=== PATIENT | female | born 1970 | race Caucasian/White ===

== ENCOUNTER 2016-04-23 13:05 | Emergency (ER) | payer OTHER ==
[2016-04-23 13:17] VITALS: BP 144/78; PULSE 96; RESP 20; TEMP 98.1
--- NOTE | 2016-04-23 13:30 | ED ---
Medical Clearance HPI - General Chief complaint: Medical Clearance Stated complaint: anxiety Time Seen by Provider: 04/23/16 13:24 Source: patient, RN notes reviewed Mode of arrival: ambulatory - History of Present Illness Initial comments: Patient is a 45-year-old female with significant past medical history for anxiety, who presents emergency room today with chief complaint of needing medication refill. She states that her Zoloft and Trileptal. Does admit that she has an appointment with a counselor next week. Patient does admit to increased anxiety that started over the last 2-3 days. Patient denies any complaints or associated symptoms. Patient denies any recent fever, chills, shortness of breath, chest pain, back pain, abdominal pain, nausea or vomiting, numbness or tingling, dysuria or hematuria, constipation or diarrhea, headaches or visual changes, or any other complaints. Home medications: Previous Rx's Medication Instructions Recorded OXcarbazepine [Trileptal] 600 mg PO BID #20 tab 04/23/16 Sertraline [Zoloft] 1.5 tab PO QAM #15 tab 04/23/16 Allergies/Adverse reactions: Allergies Allergy/AdvReac Type Severity Reaction Status Date / Time aspirin Allergy Unknown Verified 04/23/16 13:18 Review of Systems ROS Statement: Those systems with pertinent positive or pertinent negative responses have been documented in the HPI. ROS Other: All systems not noted in ROS Statement are negative. Past Medical History Additional Past Medical History / Comment(s): back/neck pain History of Any Multi-Drug Resistant Organisms: None Reported Past Surgical History: Orthopedic Surgery, Tubal Ligation, Uterine Ablation Past Psychological History: Bipolar, Depression Smoking Status: Current every day smoker Past Alcohol Use History: None Reported Past Drug Use History: None Reported General Exam - General Exam Comments Initial Comments: General: The patient is awake and alert, in no distress, and does not appear acutely ill. Eye: Pupils are equal, round and reactive to light, extra-ocular movements are intact. No nystagmus. There is normal conjunctiva bilaterally. No signs of icterus. Ears, nose, mouth and throat: There are moist mucous membranes and no oral lesions. Neck: The neck is supple, there is no tenderness or JVD. Cardiovascular: There is a regular rate and rhythm. No murmur, rub or gallop is appreciated. Respiratory: Lungs are clear to auscultation, respirations are non-labored, breath sounds are equal. No wheezes, stridor, rales, or rhonchi. Musculoskeletal: Normal ROM, no tenderness. Strength 5/5. Sensation intact. Pulses equal bilaterally 2+. Neurological: A&O x 3. CN II-XII intact, There are no obvious motor or sensory deficits. Coordination appears grossly intact. Speech is normal. Skin: Skin is warm and dry and no rashes or lesions are noted. Psychiatric: Cooperative, appropriate mood & affect, normal judgment. Limitations: no limitations Course Vital Signs 04/23/16 13:15 Temperature 98.1 F Pulse Rate 96 Respiratory 20 Rate Blood Pressure 144/78 O2 Sat by Pulse 98 Oximetry Medical Decision Making - Medical Decision Making Patient will be given prescription for Zoloft and Trileptal in the emergency room for the next 10 days that she's able follow-up. Disposition Clinical Impression: Medication refill Disposition: HOME SELF-CARE Condition: Good Instructions: Medicine Refill (ED) Additional Instructions: Please use medication as prescribed and follow-up with therapist as discussed. Please return to emergency room if the symptoms increase or worsen or for any other concerns. Prescriptions: OXcarbazepine [Trileptal] 600 mg PO BID #20 tab Sertraline [Zoloft] 1.5 tab PO QAM #15 tab Time of Disposition: 13:28
== END 2016-04-23 13:35 | disposition home or self-care (01) ==
LOC: EC 13:05
DX: Z76.0 Encounter for issue of repeat prescription (principal); F41.9 Anxiety disorder, unspecified; F31.9 Bipolar disorder, unspecified; F17.200 Nicotine dependence, unspecified, uncomplicated; Z88.6 Allergy status to analgesic agent
CPT/HCPCS: 99281

== ENCOUNTER 2016-05-12 10:16 | Emergency (ER) | payer OTHER ==
[2016-05-12 10:26] VITALS: BP 151/87; PULSE 77; RESP 18; TEMP 97
--- NOTE | 2016-05-12 10:34 | ED ---
Upper Extremity HPI - General Chief Complaint: Extremity Injury, Upper Stated Complaint: hand pain Time Seen by Provider: 05/12/16 10:29 Source: patient, RN notes reviewed Mode of arrival: ambulatory Limitations: no limitations - History of Present Illness Initial Comments: 45-year-old female presents emergency Department chief complaint right hand pain. Patient states that a few days ago she bent her index finger back while making her bed. Patient states she further injured her hand this morning when she got up out of bed and tripped over some belongings on the ground. She states she fell forward striking her hand she now has swelling over her second metacarpal. Patient states that it is very painful. She is right-hand dominant has had no previous injuries. Patient denies any other muscle skeletal injury. Denies any head injury no LOC. Patient states she did ice it with him relief of the symptoms. Place: home - Related Data Previous Rx's Medication Instructions Recorded OXcarbazepine [Trileptal] 600 mg PO BID #20 tab 04/23/16 Sertraline [Zoloft] 1.5 tab PO QAM #15 tab 04/23/16 Allergies Allergy/AdvReac Type Severity Reaction Status Date / Time aspirin Allergy Unknown Verified 05/12/16 10:25 Review of Systems ROS Statement: Those systems with pertinent positive or pertinent negative responses have been documented in the HPI. ROS Other: All systems not noted in ROS Statement are negative. Past Medical History Additional Past Medical History / Comment(s): back/neck pain History of Any Multi-Drug Resistant Organisms: None Reported Past Surgical History: Orthopedic Surgery, Tubal Ligation, Uterine Ablation Past Psychological History: Bipolar, Depression Smoking Status: Current every day smoker Past Alcohol Use History: None Reported Past Drug Use History: None Reported General Exam Limitations: no limitations General appearance: alert, in no apparent distress Respiratory exam: Present: normal lung sounds bilaterally. Absent: respiratory distress, wheezes, rales, rhonchi, stridor Cardiovascular Exam: Present: regular rate, normal rhythm, normal heart sounds. Absent: systolic murmur, diastolic murmur, rubs, gallop, clicks Extremities exam: Present: other (Right hand there is swelling noted over the second metacarpal, moderate tenderness over the second metacarpal there is pain with range of motion second digit remaining hand is nontender wrist nontender full range of motion) Neurological exam: Present: alert, oriented X3, CN II-XII intact Skin exam: Present: warm, dry, intact, normal color. Absent: rash Course Vital Signs 05/12/16 10:24 Temperature 97.0 F L Pulse Rate 77 Respiratory 18 Rate Blood Pressure 151/87 O2 Sat by Pulse 100 Oximetry Medical Decision Making - Medical Decision Making 45-year-old female presented emergency Department chief complaint of right hand pain. Patient has a hamstring x-ray showed no acute fracture. - Radiology Data Radiology results: report reviewed, image reviewed X-ray of the hand no acute fracture. Disposition Clinical Impression: Sprain of right hand Disposition: HOME SELF-CARE Condition: Stable Instructions: Hand Sprain (ED) Additional Instructions: Please return to the Emergency Department if symptoms worsen or any other concerns. Time of Disposition: 10:50
--- NOTE | 2016-05-12 10:53 | XR ---
EXAMINATION TYPE: XR hand complete RT DATE OF EXAM: 05/12/2016 10:45 AM COMPARISON: NONE HISTORY: Pain TECHNIQUE: Three views are submitted. FINDINGS: The osseous structures are intact. The joint spaces are preserved and there is no acute fracture or dislocation. IMPRESSION: 1. No definite acute fracture or dislocation if symptoms persist, follow-up study in 7 to 10 days wo uld be suggested
== END 2016-05-12 11:03 | disposition home or self-care (01) ==
LOC: EC 10:16
DX: S63.91XD Sprain of unspecified part of right wrist and hand, subsequent encounter (principal); W01.10XD Fall on same level from slipping, tripping and stumbling with subsequent striking against unspecified object, subsequent encounter; F31.9 Bipolar disorder, unspecified; F17.200 Nicotine dependence, unspecified, uncomplicated; Z79.899 Other long term (current) drug therapy; Z88.6 Allergy status to analgesic agent; Y93.E9 Activity, other interior property and clothing maintenance
CPT/HCPCS: 99283

== ENCOUNTER 2016-05-20 14:28 | Emergency (ER) | payer OTHER ==
[2016-05-20 14:47] VITALS: TEMP 97.8
[2016-05-20] MEDS ORDERED: SODIUM CHLORIDE 0.9% 1,000 ML IV ONE (15:52)
[2016-05-20] MEDS ORDERED: ONDANSETRON 4 MG/2 ML VIAL IVP STA (15:52)
[2016-05-20] MEDS ORDERED: LIDOCAINE VISCOUS 2% 15 ML CUP MUCOUS MEM STA (15:52)
[2016-05-20] MEDS ORDERED: FAMOTIDINE 20 MG/2 ML VIAL IV STA (15:52)
[2016-05-20] MEDS ORDERED: MAG HYDROX/AL HYDROX/SIMETH 30 ML CUP PO PRN (15:52)
[2016-05-20] MEDS ORDERED: DICYCLOMINE 10 MG/ML 2 ML AMP IM STA (15:53)
--- NOTE | 2016-05-20 15:56 | ED ---
General Adult HPI - General Chief complaint: ENT Stated complaint: Abd Pain Source: patient Mode of arrival: ambulatory Limitations: no limitations - History of Present Illness Initial comments: Patient is a pleasant 45 year old female present for evaluation for sharp stabbing epigastric pain with nausea vomiting and diarrhea 24 hours. Past medical history as below. Patient states that she has a known history of gastritis which was diagnosed when she was younger. Her symptoms started yesterday. She tried taking Tums, drinking milk, taking her Prilosec with limited relief. Said that she also feels somewhat fatigued. Has had one episode of liquid brown stool yesterday. Stated that she just feels nauseous and has had a few episodes of emesis which was mainly stomach contents. The pain radiates up to her midline chest. Sucking on peppermint seemed to help. She also admits to having subjective chills and fevers. She did get a flu shot this year. Denies having metallic taste in the back of her throat. Still has her gallbladder. Denies congestion, URI symptoms, chest pain, cough, shortness of breath, pain or burning with urination. - Related Data Home Medications Medication Instructions Recorded Confirmed Albuterol Sulfate [Proair Hfa] 1 - 2 puff INHALATION RT-Q6H PRN 05/20/16 Sertraline [Zoloft] 150 mg PO QAM 05/20/16 05/20/16 Previous Rx's Medication Instructions Recorded OXcarbazepine [Trileptal] 600 mg PO BID #20 tab 04/23/16 Omeprazole [PriLOSEC] 20 mg PO AC-BID 7 Days 05/20/16 Ondansetron Odt [Zofran Odt] 4 mg PO Q8H PRN #10 tab 05/20/16 Allergies Allergy/AdvReac Type Severity Reaction Status Date / Time aspirin Allergy Unknown Verified 05/20/16 15:58 Review of Systems ROS Statement: Those systems with pertinent positive or pertinent negative responses have been documented in the HPI. ROS Other: All systems not noted in ROS Statement are negative. Past Medical History Additional Past Medical History / Comment(s): back/neck pain History of Any Multi-Drug Resistant Organisms: None Reported Past Surgical History: Orthopedic Surgery, Tubal Ligation, Uterine Ablation Past Psychological History: Bipolar, Depression Smoking Status: Current every day smoker Past Alcohol Use History: None Reported Past Drug Use History: None Reported General Exam Limitations: no limitations General appearance: alert, in no apparent distress, other (Well-appearing. Nontoxic.) Head exam: Present: atraumatic, normocephalic, normal inspection Eye exam: Present: normal appearance, PERRL, EOMI. Absent: scleral icterus, conjunctival injection, periorbital swelling ENT exam: Present: normal exam, mucous membranes moist Neck exam: Present: normal inspection. Absent: tenderness, meningismus, lymphadenopathy Respiratory exam: Present: normal lung sounds bilaterally. Absent: respiratory distress, wheezes, rales, rhonchi, stridor Cardiovascular Exam: Present: regular rate, normal rhythm, normal heart sounds. Absent: systolic murmur, diastolic murmur, rubs, gallop, clicks GI/Abdominal exam: Present: soft, tenderness, normal bowel sounds, other ( Tenderness elicited with palpation of the epigastric area. No pain palpated anywhere else. Negative Cervantes sign. Negative McBurney sign. Soft abdomen. No peritoneal signs.). Absent: distended, guarding, rebound, rigid Extremities exam: Present: normal inspection, full ROM, normal capillary refill. Absent: tenderness, pedal edema, joint swelling, calf tenderness Back exam: Present: normal inspection Neurological exam: Present: alert, oriented X3, CN II-XII intact Psychiatric exam: Present: normal affect, normal mood Skin exam: Present: warm, dry, intact, normal color. Absent: rash Course Vital Signs 05/20/16 05/20/16 14:44 18:10 Temperature 97.8 F 97.8 F Pulse Rate 75 73 Respiratory 20 18 Rate Blood Pressure 128/59 136/75 O2 Sat by Pulse 96 99 Oximetry Medical Decision Making - Medical Decision Making Patient presents for evaluation for 1 day history of nausea vomiting and diarrhea. She also has epigastric abdominal pain. Patient states she has a known history of gastritis. Physical exam findings and I consistent with acute cholecystitis at this time. Most likely a viral illness. We'll order basic labs with an EKG, GI cocktail, urinalysis, beta-hCG. 1730: Reviewed laboratory studies. Largely unremarkable outside of a mild hyponatremia at 1:30. Reviewed urinalysis which not reveal ketones in the urine. No UTI. Influenza negative. Went to go reevaluate the patient socially states that she is much improved. Her nausea and vomiting have subsided. Epigastric pain greatly improved. Believe her symptoms are related to viral syndrome versus possible gastritis that she has a history of it. Feel comfortable discharging the patient home with Luis. Encourage close follow-up with primary care physician. She states she'll call and make an appointment tomorrow. Discussed signs and symptoms on when to return to emergency department. Comfortable with discharge home and will follow-up. Nothing by mouth the rest of the day. Brat diet over the next several days until improved. 1747: Reviewed EKG. Normal sinus rhythm at 60. IA 164. QRS 94. QTc 452. No ST changes. - Lab Data Result diagrams: 05/20/16 16:25 05/20/16 16:25 Lab Results 05/20/16 05/20/16 05/20/16 Range/Units 16:25 16:25 16:25 WBC 9.1 (3.8-10.6) k/uL RBC 5.31 (3.80-5.40) m/uL Hgb 15.3 (11.4-16.0) gm/dL Hct 46.6 H (34.0-46.0) % MCV 87.7 (80.0-100.0) fL MCH 28.9 (25.0-35.0) pg MCHC 32.9 (31.0-37.0) g/dL RDW 13.0 (11.5-15.5) % Plt Count 325 (150-450) k/uL Neutrophils % 69 % Lymphocytes % 22 % Monocytes % 6 % Eosinophils % 1 % Basophils % 0 % Neutrophils # 6.2 (1.3-7.7) k/uL Lymphocytes # 2.0 (1.0-4.8) k/uL Monocytes # 0.5 (0-1.0) k/uL Eosinophils # 0.1 (0-0.7) k/uL Basophils # 0.0 (0-0.2) k/uL Sodium 130 L (137-145) mmol/L Potassium 4.1 (3.5-5.1) mmol/L Chloride 95 L (98-107) mmol/L Carbon Dioxide 27 (22-30) mmol/L Anion Gap 8 mmol/L BUN 7 (7-17) mg/dL Creatinine 0.66 (0.52-1.04) mg/dL Est GFR (MDRD) Af Amer >60 (>60 ml/min/1.73 sqM) Est GFR (MDRD) Non-Af >60 (>60 ml/min/1.73 sqM) Glucose 86 (74-99) mg/dL Calcium 8.5 (8.4-10.2) mg/dL Total Bilirubin 0.5 (0.2-1.3) mg/dL AST 39 H (14-36) U/L ALT 42 (9-52) U/L Alkaline Phosphatase 57 (38-126) U/L Total Protein 6.6 (6.3-8.2) g/dL Albumin 3.7 (3.5-5.0) g/dL Urine Color Urine Appearance (Clear) Urine pH (5.0-8.0) Ur Specific [place] (1.001-1.035) Urine Protein (Negative) Urine Glucose (UA) (Negative) Urine Ketones (Negative) Urine Blood (Negative) Urine Nitrite (Negative) Urine Bilirubin (Negative) Urine Urobilinogen (<2.0) mg/dL Ur Leukocyte Esterase (Negative) Urine HCG, Qual (Not Detectd) Influenza Type A RNA Not Detected (Not Detectd) Influenza Type B (PCR) Not Detected (Not Detectd) 05/20/16 05/20/16 Range/Units 16:37 16:37 WBC (3.8-10.6) k/uL RBC (3.80-5.40) m/uL Hgb (11.4-16.0) gm/dL Hct (34.0-46.0) % MCV (80.0-100.0) fL MCH (25.0-35.0) pg MCHC (31.0-37.0) g/dL RDW (11.5-15.5) % Plt Count (150-450) k/uL Neutrophils % % Lymphocytes % % Monocytes % % Eosinophils % % Basophils % % Neutrophils # (1.3-7.7) k/uL Lymphocytes # (1.0-4.8) k/uL Monocytes # (0-1.0) k/uL Eosinophils # (0-0.7) k/uL Basophils # (0-0.2) k/uL Sodium (137-145) mmol/L Potassium (3.5-5.1) mmol/L Chloride (98-107) mmol/L Carbon Dioxide (22-30) mmol/L Anion Gap mmol/L BUN (7-17) mg/dL Creatinine (0.52-1.04) mg/dL Est GFR (MDRD) Af Amer (>60 ml/min/1.73 sqM) Est GFR (MDRD) Non-Af (>60 ml/min/1.73 sqM) Glucose (74-99) mg/dL Calcium (8.4-10.2) mg/dL Total Bilirubin (0.2-1.3) mg/dL AST (14-36) U/L ALT (9-52) U/L Alkaline Phosphatase (38-126) U/L Total Protein (6.3-8.2) g/dL Albumin (3.5-5.0) g/dL Urine Color Yellow Urine Appearance Clear (Clear) Urine pH 6.5 (5.0-8.0) Ur Specific [place] 1.011 (1.001-1.035) Urine Protein Negative (Negative) Urine Glucose (UA) Negative (Negative) Urine Ketones Negative (Negative) Urine Blood Negative (Negative) Urine Nitrite Negative (Negative) Urine Bilirubin Negative (Negative) Urine Urobilinogen <2.0 (<2.0) mg/dL Ur Leukocyte Esterase Negative (Negative) Urine HCG, Qual Not Detected (Not Detectd) Influenza Type A RNA (Not Detectd) Influenza Type B (PCR) (Not Detectd) Disposition Clinical Impression: Nausea vomiting and diarrhea Disposition: HOME SELF-CARE Condition: Good Instructions: Abdominal Pain (ED), Acute Nausea and Vomiting (ED) Prescriptions: Omeprazole [PriLOSEC] 20 mg PO AC-BID 7 Days Ondansetron Odt [Zofran Odt] 4 mg PO Q8H PRN #10 tab PRN Reason: Nausea And Vomiting Referrals: Letty Renee MD [Primary Care Provider] - 1-2 days
[2016-05-20 16:57] LABS: Basophils % (A) 0 %; CH 29.6; CHCM 33.8; Eosinophils # (A) 0.1 k/uL (0-0.7); Eosinophils % (A) 1 %; HCT 46.6 % (34.0-46.0); HGB 15.3 gm/dL (11.4-16.0); Luc # (Auto) 0.14; Luc % (Auto) 2; Lymphocytes % (A) 22 %; MCH 28.9 pg (25.0-35.0); MCHC 32.9 g/dL (31.0-37.0); MCV 87.7 fL (80.0-100.0); Mean Platelet Volume 6.3; Monocytes # (A) 0.5 k/uL (0-1.0); Monocytes % (A) 6 %; Neutrophils # (A) 6.2 k/uL (1.3-7.7); Neutrophils % (A) 69 %; RBC 5.31 m/uL (3.80-5.40); WBC 9.1 k/uL (3.8-10.6); WBC (Perox) 9.15
[2016-05-20 16:57] LABS: Appearance,Urine Clear (Clear); Bilirubin,Urine Negative (Negative); Glucose,Urine (UA) Negative (Negative); Ketones,Urine Negative (Negative); Leukocyte Esterase,Urine Negative (Negative); Nitrite,Urine Negative (Negative); PH, Urine 6.5 (5.0-8.0); Protein,Urine Negative (Negative); Specific Gravity,Urine 1.011 (1.001-1.035); UA Billing (MACRO vs. MICRO) CHEM; Urobilinogen,Urine <2.0 mg/dL (<2.0)
[2016-05-20 17:07] LABS: ALT 42 U/L (9-52); AST 39 U/L (14-36); Alkaline Phosphatase 57 U/L (38-126); Anion Gap 8 mmol/L; Blood Urea Nitrogen 7 mg/dL (7-17); Calcium 8.5 mg/dL (8.4-10.2); Carbon Dioxide 27 mmol/L (22-30); Chloride 95 mmol/L (98-107); Glucose 86 mg/dL (74-99); Non-African American GFR(MDRD) >60 (>60 ml/min/1.73 sqM); Sodium 130 mmol/L (137-145); Total Bilirubin 0.5 mg/dL (0.2-1.3); Total Protein 6.6 g/dL (6.3-8.2)
[2016-05-20 17:15] LABS: Potassium 4.1 mmol/L (3.5-5.1)
[2016-05-20 18:12] VITALS: BP 136/75; PULSE 73; RESP 18
== END 2016-05-20 18:10 | disposition home or self-care (01) ==
LOC: EC 14:28
DX: R11.2 Nausea with vomiting, unspecified (principal); R19.7 Diarrhea, unspecified; R10.13 Epigastric pain; F31.9 Bipolar disorder, unspecified; F17.200 Nicotine dependence, unspecified, uncomplicated; Z79.899 Other long term (current) drug therapy; Z88.6 Allergy status to analgesic agent
CPT/HCPCS: 36415; 93005; 80053; 85025; 81003; 81025; 87502; 99284; 96374; 96375; 96361; 96372; J0500; J2405

== ENCOUNTER 2016-07-29 12:29 | Emergency (ER) | payer OTHER ==
--- NOTE | 2016-07-29 12:41 | ED ---
General Adult HPI - General Stated complaint: Syncope Time Seen by Provider: 07/29/16 12:30 Source: RN notes reviewed - History of Present Illness Initial comments: This is a 46-year-old female presents emergency Department with a past medical history significant for bipolar and narcotics abuse. Patient states she's been clean for a while. Patient comes in today because she gave plasma and thereafter she became lightheaded and nauseated and fell to the ground hit her head on the cement nausea complains of right-sided neck pain and a headache. Patient does not know if she passed out when she hit the ground. Patient denies any chest pain palpitations difficult breathing or shortness of breath. Patient states while she is lying here she does not feel lightheaded. Patient denies abdominal pain. Patient denies nausea currently she denies any vomiting or diarrhea recently. Patient denies any recent history of any fever or cough. Patient states she's given plasma before but not had this reaction. - Related Data Home Medications Medication Instructions Recorded Confirmed Albuterol Sulfate [Proair Hfa] 2 puff INHALATION RT-Q6H PRN 05/20/16 07/29/16 Cetirizine HCl [Zyrtec] 10 mg PO DAILY 07/29/16 07/29/16 Citalopram Hydrobromide [CeleXA] 20 mg PO DAILY 07/29/16 07/29/16 Multivitamins, Thera [Multivitamin 1 tab PO DAILY 07/29/16 07/29/16 (formulary)] Omeprazole [PriLOSEC] 20 mg PO DAILY 07/29/16 07/29/16 Sodium Chloride [[place]] 1 spray EA NOSTRIL DAILY PRN 07/29/16 07/29/16 Previous Rx's Medication Instructions Recorded OXcarbazepine [Trileptal] 600 mg PO BID #20 tab 04/23/16 Allergies Allergy/AdvReac Type Severity Reaction Status Date / Time aspirin Allergy Unknown Verified 07/29/16 13:21 Review of Systems ROS Statement: Those systems with pertinent positive or pertinent negative responses have been documented in the HPI. ROS Other: All systems not noted in ROS Statement are negative. Past Medical History Additional Past Medical History / Comment(s): back/neck pain History of Any Multi-Drug Resistant Organisms: None Reported Past Surgical History: Orthopedic Surgery, Tubal Ligation, Uterine Ablation Past Psychological History: Bipolar, Depression Smoking Status: Current every day smoker Past Alcohol Use History: None Reported Past Drug Use History: None Reported General Exam - General Exam Comments Initial Comments: GENERAL: Patient is well-developed and well-nourished. Patient is nontoxic and well- hydrated and is in no acute distress. ENT: Neck is soft and supple. No significant lymphadenopathy is noted. Oropharynx is clear. Moist mucous membranes. Patient has some pain in the right trapezius muscle. EYES: The sclera were anicteric and conjunctiva were pink and moist. Extraocular movements were intact and pupils were equal round and reactive to light. Eyelids were unremarkable. PULMONARY: Unlabored respirations. Good breath sounds bilaterally. No audible rales rhonchi or wheezing was noted. CARDIOVASCULAR: There is a regular rate and rhythm without any murmurs gallops or rubs. ABDOMEN: Soft and nontender with normal bowel sounds. SKIN: Skin is clear with no lesions or rashes and otherwise unremarkable. NEUROLOGIC: Patient is alert and oriented x3. Cranial nerves II through XII are grossly intact. Motor and sensory are also intact. Normal speech, volume and content. Symmetrical smile. MUSCULOSKELETAL: Normal extremities with adequate strength and full range of motion. No lower extremity swelling or edema. No calf tenderness. LYMPHATICS: No significant lymphadenopathy is noted PSYCHIATRIC: Normal psychiatric evaluation. Normal interpersonal interactions appears functionally intact in deals appropriately with others. No signs of depression. No signs of anxiety. Course Vital Signs 07/29/16 07/29/16 12:32 14:02 Temperature 96.9 F L Pulse Rate 59 L Pulse Rate [ 83 Right Sitting Pulse Oximetery ] Pulse Rate [ 77 Right Standing] Pulse Rate [ 64 Right Supine Pulse Oximetery ] Respiratory 18 Rate Blood Pressure 118/66 Blood Pressure 115/59 [Left Arm Sitting] Blood Pressure 123/68 [Left Arm Standing] Blood Pressure 114/58 [Left Arm Supine] O2 Sat by Pulse 97 Oximetry Medical Decision Making - Medical Decision Making EKG shows sinus bradycardia 54 bpm AL interval is 152 QRS is under QT intervals 490 QTC is 464 per patient's EKG shows no acute abnormality. CT of the brain and C-spine are negative. Chest x-ray is negative. Patient's orthostatics were negative. - Lab Data Result diagrams: 07/29/16 12:53 07/29/16 12:53 Lab Results 07/29/16 07/29/16 07/29/16 Range/Units 12:53 12:53 12:53 WBC 9.2 (3.8-10.6) k/uL RBC 5.43 H (3.80-5.40) m/uL Hgb 15.5 (11.4-16.0) gm/dL Hct 46.8 H (34.0-46.0) % MCV 86.2 (80.0-100.0) fL MCH 28.5 (25.0-35.0) pg MCHC 33.1 (31.0-37.0) g/dL RDW 14.3 (11.5-15.5) % Plt Count 320 (150-450) k/uL Neutrophils % 73 % Lymphocytes % 17 % Monocytes % 7 % Eosinophils % 2 % Basophils % 1 % Neutrophils # 6.7 (1.3-7.7) k/uL Lymphocytes # 1.5 (1.0-4.8) k/uL Monocytes # 0.6 (0-1.0) k/uL Eosinophils # 0.1 (0-0.7) k/uL Basophils # 0.1 (0-0.2) k/uL PT (9.0-12.0) sec INR (<1.1) APTT (22.0-30.0) sec Sodium 130 L (137-145) mmol/L Potassium 3.7 (3.5-5.1) mmol/L Chloride 105 (98-107) mmol/L Carbon Dioxide 22 (22-30) mmol/L Anion Gap 3 mmol/L BUN 9 (7-17) mg/dL Creatinine 0.56 (0.52-1.04) mg/dL Est GFR (MDRD) Af Amer >60 (>60 ml/min/1.73 sqM) Est GFR (MDRD) Non-Af >60 (>60 ml/min/1.73 sqM) Glucose 135 H (74-99) mg/dL Calcium 8.1 L (8.4-10.2) mg/dL Magnesium 1.4 L (1.6-2.3) mg/dL Total Bilirubin 0.4 (0.2-1.3) mg/dL AST 39 H (14-36) U/L ALT 28 (9-52) U/L Alkaline Phosphatase 53 (38-126) U/L Total Creatine Kinase 643 H (30-135) U/L CK-MB (CK-2) 7.9 H* (0.0-2.4) ng/mL CK-MB (CK-2) Rel Index 1.2 Troponin I <0.012 (0.000-0.034) ng/mL Total Protein 5.2 L (6.3-8.2) g/dL Albumin 2.8 L (3.5-5.0) g/dL 07/29/16 Range/Units 12:53 WBC (3.8-10.6) k/uL RBC (3.80-5.40) m/uL Hgb (11.4-16.0) gm/dL Hct (34.0-46.0) % MCV (80.0-100.0) fL MCH (25.0-35.0) pg MCHC (31.0-37.0) g/dL RDW (11.5-15.5) % Plt Count (150-450) k/uL Neutrophils % % Lymphocytes % % Monocytes % % Eosinophils % % Basophils % % Neutrophils # (1.3-7.7) k/uL Lymphocytes # (1.0-4.8) k/uL Monocytes # (0-1.0) k/uL Eosinophils # (0-0.7) k/uL Basophils # (0-0.2) k/uL PT 10.8 (9.0-12.0) sec INR 1.1 (<1.1) APTT 20.9 L (22.0-30.0) sec Sodium (137-145) mmol/L Potassium (3.5-5.1) mmol/L Chloride (98-107) mmol/L Carbon Dioxide (22-30) mmol/L Anion Gap mmol/L BUN (7-17) mg/dL Creatinine (0.52-1.04) mg/dL Est GFR (MDRD) Af Amer (>60 ml/min/1.73 sqM) Est GFR (MDRD) Non-Af (>60 ml/min/1.73 sqM) Glucose (74-99) mg/dL Calcium (8.4-10.2) mg/dL Magnesium (1.6-2.3) mg/dL Total Bilirubin (0.2-1.3) mg/dL AST (14-36) U/L ALT (9-52) U/L Alkaline Phosphatase (38-126) U/L Total Creatine Kinase (30-135) U/L CK-MB (CK-2) (0.0-2.4) ng/mL CK-MB (CK-2) Rel Index Troponin I (0.000-0.034) ng/mL Total Protein (6.3-8.2) g/dL Albumin (3.5-5.0) g/dL Disposition Clinical Impression: Orthostatic hypotension, Head injury Disposition: HOME SELF-CARE Condition: Good Instructions: Hypotension (ED) Additional Instructions: Patient should stop giving plasma or at least hydrate significantly before and after giving plasma Referrals: Letty Renee MD [Primary Care Provider] - 1-2 days Time of Disposition: 14:22
[2016-07-29 13:03] LABS: Basophils # (A) 0.1 k/uL (0-0.2); Basophils % (A) 1 %; CH 29.2; Eosinophils # (A) 0.1 k/uL (0-0.7); Eosinophils % (A) 2 %; HCT 46.8 % (34.0-46.0); HDW 2.68; HGB 15.5 gm/dL (11.4-16.0); Luc # (Auto) 0.17; Luc % (Auto) 2; Lymphocytes # (A) 1.5 k/uL (1.0-4.8); Lymphocytes % (A) 17 %; MCH 28.5 pg (25.0-35.0); MCHC 33.1 g/dL (31.0-37.0); MCV 86.2 fL (80.0-100.0); Monocytes # (A) 0.6 k/uL (0-1.0); Monocytes % (A) 7 %; Neutrophils # (A) 6.7 k/uL (1.3-7.7); Neutrophils % (A) 73 %; RBC 5.43 m/uL (3.80-5.40); RDW 14.3 % (11.5-15.5); WBC 9.2 k/uL (3.8-10.6); WBC (Perox) 8.87
[2016-07-29 13:15] LABS: ALT 28 U/L (9-52); AST 39 U/L (14-36); Alkaline Phosphatase 53 U/L (38-126); Anion Gap 3 mmol/L; Blood Urea Nitrogen 9 mg/dL (7-17); Calcium 8.1 mg/dL (8.4-10.2); Carbon Dioxide 22 mmol/L (22-30); Chloride 105 mmol/L (98-107); Glucose 135 mg/dL (74-99); Magnesium 1.4 mg/dL (1.6-2.3); Non-African American GFR(MDRD) >60 (>60 ml/min/1.73 sqM); Potassium 3.7 mmol/L (3.5-5.1); Sodium 130 mmol/L (137-145); Total Bilirubin 0.4 mg/dL (0.2-1.3); Total Protein 5.2 g/dL (6.3-8.2)
[2016-07-29 13:18] LABS: INR 1.1 (<1.1); Prothrombin Time 10.8 sec (9.0-12.0)
[2016-07-29 13:26] LABS: Creatine Kinase 643 U/L (30-135)
--- NOTE | 2016-07-29 13:27 | CT ---
EXAMINATION TYPE: CT brain billy wo con DATE OF EXAM: 07/29/2016 COMPARISON: 12/31/2010 HISTORY: Syncope and collapse, hit head CT DLP: Brain 1054.2 and Cervical 502.8 mGycm Automated exposure control for dose reduction was used. TECHNIQUE: CT scan of the head and cervical spine are performed without contrast. FINDINGS: There is no acute intracranial hemorrhage, mass effect, or midline shift identified. The ventricles and sulci are within normal limits in size. The globes are intact and the visualized sin uses are clear. Soft tissue edema overlying the posterior right occiput. Hypoaeration of the mastoid air cells compatible with chronic mastoiditis. Cervical spine demonstrates multilevel degenerative disc disease with most marked changes at C5-6 and C6-C7. Posterior spondylosis with bilateral foraminal encroachment and possible canal stenosis sugge sted. Multilevel facet arthropathy noted. Odontoid intact. Assessment spinal canal limited due to non contrast technique and artifact. IMPRESSION: 1. There is no acute fracture or dislocation evident in the cervical spine. 2. No acute intracranial hemorrhage, mass effect, or midline shift is seen. #3. There is soft tissue edema along the right posterior occiput correlate for soft tissue hematoma or edema.
[2016-07-29 13:38] LABS: Troponin I <0.012 ng/mL (0.000-0.034)
[2016-07-29 13:53] LABS: Creatine Kinase MB 7.9 ng/mL (0.0-2.4)
[2016-07-29 13:58] LABS: Partial Thromboplastin Time 20.9 sec (22.0-30.0)
--- NOTE | 2016-07-29 14:27 | XR ---
EXAMINATION TYPE: XR chest 2V DATE OF EXAM: 07/29/2016 2:16 PM COMPARISON: 06/24/2009 HISTORY: Syncope TECHNIQUE: Frontal and lateral views of the chest are obtained. FINDINGS: Heart and mediastinum are normal. Lungs are clear. Diaphragm is normal. There are chest le ads. Bony thorax is intact. IMPRESSION: Normal chest. No change.
[2016-07-29 14:40] VITALS: BP 126/64; PULSE 59; RESP 20; TEMP 97.1
== END 2016-07-29 14:45 | disposition home or self-care (01) ==
LOC: EC 12:29
DX: S09.90XA Unspecified injury of head, initial encounter (principal); I95.1 Orthostatic hypotension; M54.2 Cervicalgia; F31.9 Bipolar disorder, unspecified; F17.200 Nicotine dependence, unspecified, uncomplicated; Z79.899 Other long term (current) drug therapy; Z88.6 Allergy status to analgesic agent; W01.198A Fall on same level from slipping, tripping and stumbling with subsequent striking against other object, initial encounter
CPT/HCPCS: 36415; 70450; 71020; 72125; 80053; 82550; 82553; 83735; 84484; 85025; 85610; 85730; 93005; 99284

== ENCOUNTER 2016-07-31 23:01 | Emergency (ER) | payer OTHER ==
[2016-07-31 23:46] VITALS: RESP 18
[2016-08-01] MEDS ORDERED: SODIUM CHLORIDE 0.9% 1,000 ML IV STA (00:03)
[2016-08-01 00:33] LABS: Basophils # (A) 0.1 k/uL (0-0.2); Basophils % (A) 1 %; CHCM 33.5; Eosinophils # (A) 0.3 k/uL (0-0.7); Eosinophils % (A) 3 %; HCT 41.3 % (34.0-46.0); HDW 2.63; HGB 14.2 gm/dL (11.4-16.0); Luc # (Auto) 0.25; Luc % (Auto) 3; Lymphocytes # (A) 2.2 k/uL (1.0-4.8); Lymphocytes % (A) 24 %; MCH 29.8 pg (25.0-35.0); MCHC 34.3 g/dL (31.0-37.0); MCV 86.9 fL (80.0-100.0); Mean Platelet Volume 6.4; Monocytes # (A) 0.6 k/uL (0-1.0); Monocytes % (A) 7 %; Neutrophils # (A) 5.9 k/uL (1.3-7.7); Neutrophils % (A) 63 %; RBC 4.75 m/uL (3.80-5.40); RDW 14.6 % (11.5-15.5); WBC 9.3 k/uL (3.8-10.6); WBC (Perox) 9.55
[2016-08-01 00:44] LABS: ALT 59 U/L (9-52); AST 84 U/L (14-36); Alkaline Phosphatase 69 U/L (38-126); Anion Gap 6 mmol/L; Blood Urea Nitrogen 9 mg/dL (7-17); Calcium 8.9 mg/dL (8.4-10.2); Carbon Dioxide 24 mmol/L (22-30); Chloride 107 mmol/L (98-107); Glucose 101 mg/dL (74-99); Magnesium 1.7 mg/dL (1.6-2.3); Non-African American GFR(MDRD) >60 (>60 ml/min/1.73 sqM); Potassium 4.2 mmol/L (3.5-5.1); Sodium 137 mmol/L (137-145); Total Bilirubin 0.3 mg/dL (0.2-1.3); Total Protein 5.6 g/dL (6.3-8.2)
[2016-08-01 00:53] LABS: Creatine Kinase 687 U/L (30-135)
--- NOTE | 2016-08-01 00:56 | ED ---
Neck Injury/Pain HPI - General Chief Complaint: Neck Pain/Injury Stated Complaint: headache and neck pain Time Seen by Provider: 07/31/16 23:50 Mode of arrival: ambulatory Limitations: no limitations - History of Present Illness Initial Comments: This patient is a 46-year-old woman who presents to be evaluated for neck pain, some dizziness, and feeling fatigued. The patient was seen yesterday after she had a fall. She had donated plasma, and then afterwards she had gotten up, felt extremely lightheaded and then woke up on the ground after she had apparently passed out. She felt that she must have fallen backwards as she had a bruise on the right posterior scalp. The patient was seen here yesterday after the fall, where she had CT of the head and neck that was negative. She was feeling better and went home. Over the course of the past day she has felt some tightness and pain developed the muscles of the right side of the neck. She also has been having fatigue and feeling somewhat lightheaded. MD Complaint: neck pain Radiation: right lateral Severity: moderate Quality: aching Consistency: constant Improves With: none Worsens With: none Context: fall Associated Symptoms: none - Related Data Home Medications Medication Instructions Recorded Confirmed Albuterol Sulfate [Proair Hfa] 2 puff INHALATION RT-Q6H PRN 05/20/16 07/31/16 Cetirizine HCl [Zyrtec] 10 mg PO DAILY 07/29/16 07/31/16 Citalopram Hydrobromide [CeleXA] 20 mg PO DAILY 07/29/16 07/31/16 Multivitamins, Thera [Multivitamin 1 tab PO DAILY 07/29/16 07/31/16 (formulary)] Omeprazole [PriLOSEC] 20 mg PO DAILY 07/29/16 07/31/16 Sodium Chloride [Tea] 1 spray EA NOSTRIL DAILY PRN 07/29/16 07/31/16 Previous Rx's Medication Instructions Recorded OXcarbazepine [Trileptal] 600 mg PO BID #20 tab 04/23/16 Methocarbamol [Robaxin-750] 750 mg PO TID PRN #30 tablet 08/01/16 Allergies Allergy/AdvReac Type Severity Reaction Status Date / Time aspirin Allergy Unknown Verified 07/29/16 13:21 Review of Systems ROS Statement: Those systems with pertinent positive or pertinent negative responses have been documented in the HPI. ROS Other: All systems not noted in ROS Statement are negative. Constitutional: Reports: weakness. Denies: fever, chills Eyes: Denies: vision change ENT: Denies: epistaxis Respiratory: Denies: cough, dyspnea, wheezes Cardiovascular: Reports: as per HPI, syncope. Denies: chest pain, palpitations , edema Gastrointestinal: Denies: abdominal pain, vomiting, diarrhea Genitourinary: Denies: dysuria, hematuria Musculoskeletal: Denies: back pain Skin: Denies: rash Neurological: Denies: headache, weakness, numbness, paresthesias Past Medical History Additional Past Medical History / Comment(s): back/neck pain History of Any Multi-Drug Resistant Organisms: None Reported Past Surgical History: Orthopedic Surgery, Tubal Ligation, Uterine Ablation Past Psychological History: Bipolar, Depression Smoking Status: Current every day smoker Past Alcohol Use History: None Reported Past Drug Use History: None Reported General Exam Limitations: no limitations General appearance: alert, in no apparent distress Head exam: Present: normocephalic, other (There is a contusion to the right occipital scalp no bony deformity or tenderness.) Eye exam: Present: normal appearance, PERRL, EOMI, scleral icterus. Absent: conjunctival injection, nystagmus ENT exam: Present: normal oropharynx, mucous membranes moist, TM's normal bilaterally, normal external ear exam Neck exam: Present: normal inspection, tenderness (Right paraspinal muscle), full ROM, other (No bony tenderness or deformity). Absent: meningismus Respiratory exam: Present: normal lung sounds bilaterally. Absent: respiratory distress, wheezes, rales, rhonchi, stridor, chest wall tenderness Cardiovascular Exam: Present: regular rate, normal rhythm, normal heart sounds. Absent: systolic murmur, diastolic murmur, rubs, gallop GI/Abdominal exam: Present: soft. Absent: distended, tenderness, guarding, rebound, mass Extremities exam: Present: normal inspection, normal capillary refill. Absent: pedal edema, calf tenderness Back exam: Present: normal inspection. Absent: CVA tenderness (R), CVA tenderness (L) Neurological exam: Present: alert, oriented X3, CN II-XII intact, normal gait. Absent: motor sensory deficit Skin exam: Present: warm, dry, intact, normal color. Absent: rash Course Vital Signs 07/31/16 08/01/16 23:43 00:23 Temperature 97.0 F L 97.0 F L Pulse Rate 63 59 L Respiratory 18 18 Rate Blood Pressure 138/71 128/70 O2 Sat by Pulse 97 96 Oximetry Medical Decision Making - Lab Data Result diagrams: 08/01/16 00:15 08/01/16 00:15 Lab Results 08/01/16 08/01/16 08/01/16 Range/Units 00:15 00:15 00:15 WBC 9.3 (3.8-10.6) k/uL RBC 4.75 (3.80-5.40) m/uL Hgb 14.2 (11.4-16.0) gm/dL Hct 41.3 (34.0-46.0) % MCV 86.9 (80.0-100.0) fL MCH 29.8 (25.0-35.0) pg MCHC 34.3 (31.0-37.0) g/dL RDW 14.6 (11.5-15.5) % Plt Count 357 (150-450) k/uL Neutrophils % 63 % Lymphocytes % 24 % Monocytes % 7 % Eosinophils % 3 % Basophils % 1 % Neutrophils # 5.9 (1.3-7.7) k/uL Lymphocytes # 2.2 (1.0-4.8) k/uL Monocytes # 0.6 (0-1.0) k/uL Eosinophils # 0.3 (0-0.7) k/uL Basophils # 0.1 (0-0.2) k/uL PT (9.0-12.0) sec INR (<1.1) APTT (22.0-30.0) sec D-Dimer (<0.60) mg/L FEU Sodium 137 (137-145) mmol/L Potassium 4.2 (3.5-5.1) mmol/L Chloride 107 (98-107) mmol/L Carbon Dioxide 24 (22-30) mmol/L Anion Gap 6 mmol/L BUN 9 (7-17) mg/dL Creatinine 0.70 (0.52-1.04) mg/dL Est GFR (MDRD) Af Amer >60 (>60 ml/min/1.73 sqM) Est GFR (MDRD) Non-Af >60 (>60 ml/min/1.73 sqM) Glucose 101 H (74-99) mg/dL Calcium 8.9 (8.4-10.2) mg/dL Magnesium 1.7 (1.6-2.3) mg/dL Total Bilirubin 0.3 (0.2-1.3) mg/dL AST 84 H (14-36) U/L ALT 59 H (9-52) U/L Alkaline Phosphatase 69 (38-126) U/L Total Creatine Kinase 687 H (30-135) U/L CK-MB (CK-2) 9.5 H* (0.0-2.4) ng/mL CK-MB (CK-2) Rel Index 1.4 Troponin I <0.012 (0.000-0.034) ng/mL Total Protein 5.6 L (6.3-8.2) g/dL Albumin 3.3 L (3.5-5.0) g/dL 08/01/16 Range/Units 00:15 WBC (3.8-10.6) k/uL RBC (3.80-5.40) m/uL Hgb (11.4-16.0) gm/dL Hct (34.0-46.0) % MCV (80.0-100.0) fL MCH (25.0-35.0) pg MCHC (31.0-37.0) g/dL RDW (11.5-15.5) % Plt Count (150-450) k/uL Neutrophils % % Lymphocytes % % Monocytes % % Eosinophils % % Basophils % % Neutrophils # (1.3-7.7) k/uL Lymphocytes # (1.0-4.8) k/uL Monocytes # (0-1.0) k/uL Eosinophils # (0-0.7) k/uL Basophils # (0-0.2) k/uL PT 9.7 (9.0-12.0) sec INR 0.9 (<1.1) APTT 21.6 L (22.0-30.0) sec D-Dimer 0.52 (<0.60) mg/L FEU Sodium (137-145) mmol/L Potassium (3.5-5.1) mmol/L Chloride (98-107) mmol/L Carbon Dioxide (22-30) mmol/L Anion Gap mmol/L BUN (7-17) mg/dL Creatinine (0.52-1.04) mg/dL Est GFR (MDRD) Af Amer (>60 ml/min/1.73 sqM) Est GFR (MDRD) Non-Af (>60 ml/min/1.73 sqM) Glucose (74-99) mg/dL Calcium (8.4-10.2) mg/dL Magnesium (1.6-2.3) mg/dL Total Bilirubin (0.2-1.3) mg/dL AST (14-36) U/L ALT (9-52) U/L Alkaline Phosphatase (38-126) U/L Total Creatine Kinase (30-135) U/L CK-MB (CK-2) (0.0-2.4) ng/mL CK-MB (CK-2) Rel Index Troponin I (0.000-0.034) ng/mL Total Protein (6.3-8.2) g/dL Albumin (3.5-5.0) g/dL - EKG Data -: EKG Interpreted by Or EKG shows normal: sinus rhythm, axis (Normal), intervals (Normal), QRS complexes (Normal), ST-T waves (Normal) Rate: normal (Rate 63 bpm) Interpretation: other (There are small Q waves in leads 1 and aVL consistent with possible old lateral infarct.) Disposition Clinical Impression: Whiplash injury to neck, Head injury, Elevated transaminase level Disposition: HOME SELF-CARE Condition: Good Instructions: Head Injury (ED), Cervical Sprain (ED) Additional Instructions: Your transaminase levels were minimally elevated. As we discussed avoid any Tylenol containing medications and have these levels retested in 3-5 days with your doctor. Prescriptions: Methocarbamol [Robaxin-750] 750 mg PO TID PRN #30 tablet PRN Reason: pain Referrals: Letty Renee MD [Primary Care Provider] - 1-2 days
[2016-08-01 01:05] LABS: INR 0.9 (<1.1); Prothrombin Time 9.7 sec (9.0-12.0)
[2016-08-01 01:06] LABS: Troponin I <0.012 ng/mL (0.000-0.034)
[2016-08-01 01:10] LABS: Creatine Kinase MB 9.5 ng/mL (0.0-2.4)
[2016-08-01 01:27] LABS: Partial Thromboplastin Time 21.6 sec (22.0-30.0)
[2016-08-01] MEDS ORDERED: ORPHENADRINE 30 MG/ML 2 ML VIAL IM STA (01:27)
[2016-08-01] MEDS ORDERED: ORPHENADRINE 30 MG/ML 2 ML VIAL IVP STA (01:48)
[2016-08-01 02:29] VITALS: BP 137/65; PULSE 72; TEMP 97.8
== END 2016-08-01 02:27 | disposition home or self-care (01) ==
LOC: EC 23:01
DX: S13.4XXD Sprain of ligaments of cervical spine, subsequent encounter (principal); S00.03XD Contusion of scalp, subsequent encounter; R74.0 Nonspecific elevation of levels of transaminase and lactic acid dehydrogenase [LDH]; F32.9 Major depressive disorder, single episode, unspecified; F17.200 Nicotine dependence, unspecified, uncomplicated; Z79.899 Other long term (current) drug therapy; Z88.6 Allergy status to analgesic agent; W18.39XD Other fall on same level, subsequent encounter
CPT/HCPCS: 36415; 93005; 85379; 80053; 82550; 82553; 83735; 84484; 85025; 85610; 85730; 99284; 96374; 96361 ×2; J2360

== ENCOUNTER → 2016-09-21 | Outpatient (CLI) | payer OTHER ==
--- NOTE | 2016-09-24 10:54 | MM ---
Reason for exam: screening (asymptomatic). Last mammogram was performed 5 years and 6 months ago. History: Family history of breast cancer in grandmother. Physical Findings: A clinical breast exam by your physician is recommended on an annual basis and results should be correlated with mammographic findings. MG Screening Mammo w CAD Bilateral CC and MLO view(s) were taken. Prior study comparison: March 22, 2011, bilateral digital screening mammo w/CAD. There are scattered fibroglandular densities. Developing asymmetry versus obscured lesion anterior middle depth upper outer aspect. This finding is changed when compared with previous exams. ASSESSMENT: Incomplete: need additional imaging evaluation, BI-RAD 0 RECOMMENDATION: Special view mammogram of the right breast. If lesion persists on supplemental views, image directed ultrasound is recommended. [facility] will attempt to contact patient to return for supplemental views and ultrasound if indicated.
== END | disposition home or self-care (01) ==
LOC: RADUSWWP 09:17
PROVIDERS: ATTEND Family Medicine
DX: Z12.31 Encounter for screening mammogram for malignant neoplasm of breast (principal)

== ENCOUNTER → 2016-10-03 | Outpatient (CLI) | payer OTHER ==
--- NOTE | 2016-10-03 14:54 | MM ---
Reason for exam: additional evaluation requested from abnormal screening. Last mammogram was performed less than 1 month ago. History: Family history of breast cancer in grandmother. Physical Findings: Nurse did not find any significant physical abnormalities on exam. MG Work Up Mamm w CAD RT LM, spot compression CC, and spot compression MLO view(s) were taken of the right breast. Prior study comparison: September 21, 2016, bilateral MG screening mammo w CAD. March 22, 2011, bilateral digital screening mammo w/CAD. The breast tissue is heterogeneously dense. This may lower the sensitivity of mammography. Previously seen focal asymmetry resolves on spot compression. There is no discrete abnormality. These results were verbally communicated with the patient and result sheet given to the patient on 10/03/16. ASSESSMENT: Negative, BI-RAD 1 RECOMMENDATION: Routine screening mammogram of both breasts in 1 year.
== END | disposition home or self-care (01) ==
LOC: RADMAMWWP 08:47
PROVIDERS: ATTEND Family Medicine
DX: R92.8 Other abnormal and inconclusive findings on diagnostic imaging of breast (principal)

== ENCOUNTER 2016-10-29 03:01 | Emergency (ER) | payer OTHER ==
[2016-10-29 03:11] VITALS: BP 154/89; PULSE 71; RESP 18; TEMP 97.4
--- NOTE | 2016-10-29 03:17 | ED ---
Lower Extremity Injury HPI - General Chief Complaint: Extremity Injury, Lower Stated Complaint: IHS-KNEE INJURY Time Seen by Provider: 10/29/16 03:11 Source: patient, RN notes reviewed Mode of arrival: ambulatory Limitations: no limitations - History of Present Illness Initial Comments: 46-year-old female presents emergency Department chief complaint left knee pain. Patient states that she was at work states that she went to set up a been on them for roller states that it was broken and she tripped over it. She states that she did a 360 and landed on her left knee states that she twisted and then fell on the ground and the left patellar region. She complains severe left knee pain. She's had no prior injuries. Denies any other muscle skeletal injury. She states it is swollen. Patient states that pain is worse when she moves her weightbears but she can weight-bear. Denies any paresthesias no pain above or below left knee. - Related Data Home Medications Medication Instructions Recorded Confirmed Cetirizine HCl [Zyrtec] 10 mg PO DAILY 07/29/16 10/29/16 Citalopram Hydrobromide [CeleXA] 20 mg PO DAILY 07/29/16 10/29/16 Omeprazole [PriLOSEC] 20 mg PO DAILY 07/29/16 10/29/16 Previous Rx's Medication Instructions Recorded OXcarbazepine [Trileptal] 600 mg PO BID #20 tab 04/23/16 Ibuprofen [Motrin] 600 mg PO Q8HR PRN #30 tab 10/29/16 Allergies Allergy/AdvReac Type Severity Reaction Status Date / Time aspirin Allergy Unknown Verified 07/29/16 13:21 Review of Systems ROS Statement: Those systems with pertinent positive or pertinent negative responses have been documented in the HPI. ROS Other: All systems not noted in ROS Statement are negative. Past Medical History Additional Past Medical History / Comment(s): back/neck pain History of Any Multi-Drug Resistant Organisms: None Reported Past Surgical History: Orthopedic Surgery, Tubal Ligation, Uterine Ablation Past Psychological History: Bipolar, Depression Smoking Status: Current every day smoker Past Alcohol Use History: None Reported Past Drug Use History: None Reported General Exam Limitations: no limitations General appearance: alert, in no apparent distress Head exam: Present: atraumatic, normocephalic, normal inspection Respiratory exam: Present: normal lung sounds bilaterally. Absent: respiratory distress, wheezes, rales, rhonchi, stridor Cardiovascular Exam: Present: regular rate, normal rhythm, normal heart sounds. Absent: systolic murmur, diastolic murmur, rubs, gallop, clicks Extremities exam: Present: other (Left knee moderate swelling noted pain with range of motion passive and active there is pain with valgus and varus negative anterior posterior drawer test there is no ecchymosis noted neurovascular intact ) Skin exam: Present: warm, dry, intact, normal color. Absent: rash Course Vital Signs 10/29/16 03:08 Temperature 97.4 F L Pulse Rate 71 Respiratory 18 Rate Blood Pressure 154/89 O2 Sat by Pulse 99 Oximetry Medical Decision Making - Medical Decision Making 46-year-old female presented emergency from for left knee injury. Patient is left knee sprain. There is no obvious fractures. X-rays reviewed with Dr. Stephens. Patient placed in knee immobilizer for splinting. Return parameters were discussed. Disposition Clinical Impression: Left knee sprain, Knee contusion Disposition: HOME SELF-CARE Condition: Stable Instructions: Knee Sprain (ED) Additional Instructions: Please return to the Emergency Department if symptoms worsen or any other concerns. Prescriptions: Ibuprofen [Motrin] 600 mg PO Q8HR PRN #30 tab PRN Reason: Pain Referrals: Letty Renee MD [Primary Care Provider] - 1-2 days Time of Disposition: 03:34
--- NOTE | 2016-10-29 03:40 | XR ---
EXAM: XR Left Knee, 3 views CLINICAL HISTORY: Reason: Pain TECHNIQUE: Three views of the left knee. COMPARISON: No relevant prior studies available. FINDINGS: Bones/joints: Unremarkable. No acute fracture. No dislocation. Soft tissues: Unremarkable. IMPRESSION: Normal left knee x-rays.
== END 2016-10-29 03:52 | disposition home or self-care (01) ==
LOC: EC 03:01
DX: S83.92XA Sprain of unspecified site of left knee, initial encounter (principal); F31.9 Bipolar disorder, unspecified; F17.200 Nicotine dependence, unspecified, uncomplicated; Z79.899 Other long term (current) drug therapy; Z88.6 Allergy status to analgesic agent; W01.0XXA Fall on same level from slipping, tripping and stumbling without subsequent striking against object, initial encounter; Y92.69 Other specified industrial and construction area as the place of occurrence of the external cause; Y99.0 Civilian activity done for income or pay
CPT/HCPCS: 73562; 99283; L1830

== ENCOUNTER → 2016-11-06 | Outpatient (CLI) | payer OTHER ==
--- NOTE | 2016-11-06 08:16 | MR ---
EXAMINATION TYPE: MR knee LT wo con DATE OF EXAM: 11/06/2016 7:18 AM COMPARISON: NONE HISTORY: Left Knee Contusion TECHNIQUE: Multiplanar, multisequence imaging of the left knee is performed. FINDINGS: MEDIAL MENISCUS: Anterior and posterior horns are intact without tear. LATERAL MENISCUS: Anterior and posterior horns are intact without tear. CRUCIATE LIGAMENTS: The anterior and posterior cruciate ligaments are intact and unremarkable. COLLATERAL LIGAMENTS: The medial collateral ligament and lateral collateral ligament complex are intact and unremarkable. EXTENSOR MECHANISM: Visualized quadriceps and patellar tendons are intact. EFFUSION: No evidence for joint effusion. POPLITEAL CYST: No popliteal/mar cyst. TRICOMPARTMENT SPACES: The tricompartment joint spaces appear within normal limits. CARTILAGE: The articular cartilage is maintained without abnormal signal or full-thickness defect. BONE MARROW SIGNAL: No focal abnormal marrow signal is appreciated: OTHER: Small amount of fluid within the popliteal fossa within the soft tissues felt to reflect a sma ll area of soft tissue contusion. IMPRESSION: 1. Small amount of fluid within the popliteal fossa within the soft tissues felt to reflect a small a bakari of soft tissue contusion.
== END | disposition home or self-care (01) ==
LOC: RADMRIMAIN 06:39
PROVIDERS: ATTEND Emergency Medicine
DX: M25.462 Effusion, left knee (principal)

== ENCOUNTER 2016-12-19 23:13 | Emergency (ER) | payer BC ==
[2016-12-19 23:19] VITALS: BP 127/68; RESP 20; TEMP 97
[2016-12-19] MEDS ORDERED: SODIUM CHLORIDE 0.9% 1,000 ML IV ONE ×2 (23:50→23:58)
[2016-12-19] MEDS ORDERED: methylPREDNISolone SOD SUCCI 125 MG/2 ML VIAL IV STA (23:50)
[2016-12-20] MEDS ORDERED: IPRATROPIUM-ALBUTEROL 3 ML NEB INHALATION STA
--- NOTE | 2016-12-20 00:01 | ED ---
URI HPI - General Chief Complaint: Upper Respiratory Infection Stated Complaint: sorethroat,back and chest pain Time Seen by Provider: 12/19/16 23:31 Source: patient, RN notes reviewed, old records reviewed Mode of arrival: ambulatory Limitations: no limitations - History of Present Illness Initial Comments: 38-year-old female presents emergency Department chief complaint of increased cough, sore throat, and right-sided shoulder and back pain for the past few days. Patient reports that she started to have the back pain a few days ago related has possibly due to work. She reports she feels very fatigued. Patient states that over the past 24 she's noticed a productive cough that she can't bring anything up and feels like she has to keep swallowing. Patient states that she is a smoker. Denies any known fever or chills. Does have a history of sick contacts with pneumonia. Patient states that she's had no abdominal pain, denies any specific chest pain. - Related Data Home Medications Medication Instructions Recorded Confirmed Acetaminophen Tab [Tylenol Tab] 650 mg PO Q6H PRN 12/19/16 12/19/16 Effexor (Unknown Dose) 1 tab PO DAILY 12/19/16 12/19/16 Unknown Blood Pressure Med 1 tab PO DIRECTED 12/19/16 12/19/16 Previous Rx's Medication Instructions Recorded Albuterol Inhaler [Ventolin Hfa 1 - 2 puff INHALATION Q6HR PRN #1 12/20/16 Inhaler] inhaler Levofloxacin [Levaquin] 750 mg PO DAILY #5 tab 12/20/16 Promethazine/Dextromethorphan 5 ml PO TID #120 ml 12/20/16 [Phenergan DM Syrup] predniSONE 50 mg PO DAILY #5 tablet 12/20/16 Allergies Allergy/AdvReac Type Severity Reaction Status Date / Time aspirin Allergy Unknown Verified 12/19/16 23:44 Review of Systems ROS Statement: Those systems with pertinent positive or pertinent negative responses have been documented in the HPI. ROS Other: All systems not noted in ROS Statement are negative. Past Medical History Additional Past Medical History / Comment(s): back/neck pain History of Any Multi-Drug Resistant Organisms: None Reported Past Surgical History: Orthopedic Surgery, Tubal Ligation, Uterine Ablation Past Psychological History: Bipolar, Depression Smoking Status: Current every day smoker Past Alcohol Use History: None Reported Past Drug Use History: None Reported General Exam - General Exam Comments Initial Comments: 38-year-old female. Patient is on appear to be in any acute distress. Limitations: no limitations General appearance: alert, in no apparent distress Head exam: Present: atraumatic, normocephalic, normal inspection Eye exam: Present: normal appearance, PERRL, EOMI. Absent: scleral icterus, conjunctival injection, periorbital swelling ENT exam: Present: normal exam, mucous membranes moist Neck exam: Present: normal inspection. Absent: tenderness, meningismus, lymphadenopathy Respiratory exam: Present: normal lung sounds bilaterally, wheezes (Her bilateral wheeze.). Absent: respiratory distress, rales, rhonchi, stridor Cardiovascular Exam: Present: regular rate, normal rhythm, normal heart sounds. Absent: systolic murmur, diastolic murmur, rubs, gallop, clicks GI/Abdominal exam: Present: soft, normal bowel sounds. Absent: distended, tenderness, guarding, rebound, rigid Extremities exam: Present: normal inspection, full ROM, normal capillary refill. Absent: tenderness, pedal edema, joint swelling, calf tenderness Back exam: Present: normal inspection, other (Patient had some right-sided paraspinal thoracic muscle tenderness.) Neurological exam: Present: alert, oriented X3, CN II-XII intact Psychiatric exam: Present: normal affect, normal mood Skin exam: Present: warm, dry, intact, normal color. Absent: rash Course Vital Signs 12/19/16 12/20/16 12/20/16 23:15 00:25 00:35 Temperature 97.0 F L Pulse Rate 70 76 72 Respiratory 20 Rate Blood Pressure 127/68 O2 Sat by Pulse 97 Oximetry Medical Decision Making - Medical Decision Making 1-year-old female presents emergency Department with increased cough and back and shoulder pain due to her coughing for the past few days. Patient was given a breathing treatment she does have some mild wheezing and she does have some tenderness over the posterior paraspinal muscles. Patient does feel better after breathing treatment, patient given IV fluids, Solu-Medrol cough. Patient labwork was reviewed and within normal limits. EKG was within normal limits as well as patient's chest x-ray. Patient does have clinical signs or bronchitis. Given she is a smoker I'll put the patient on Levaquin and prednisone. Patient also be discharged with an inhaler and cough syrup. Patient advised follow-up with her primary care provider. Given note for work. Discussed return close return parameters and patient understands treatment plan will comply. - Lab Data Result diagrams: 12/20/16 00:00 12/20/16 00:00 Lab Results 12/20/16 12/20/16 12/20/16 Range/Units 00:00 00:00 00:00 WBC 9.5 (3.8-10.6) k/uL RBC 5.08 (3.80-5.40) m/uL Hgb 13.6 (11.4-16.0) gm/dL Hct 42.2 (34.0-46.0) % MCV 83.1 (80.0-100.0) fL MCH 26.8 (25.0-35.0) pg MCHC 32.2 (31.0-37.0) g/dL RDW 15.1 (11.5-15.5) % Plt Count 390 (150-450) k/uL Neutrophils % 76 % Lymphocytes % 14 % Monocytes % 7 % Eosinophils % 2 % Basophils % 0 % Neutrophils # 7.2 (1.3-7.7) k/uL Lymphocytes # 1.3 (1.0-4.8) k/uL Monocytes # 0.6 (0-1.0) k/uL Eosinophils # 0.2 (0-0.7) k/uL Basophils # 0.0 (0-0.2) k/uL Sodium 129 L (137-145) mmol/L Potassium 3.9 (3.5-5.1) mmol/L Chloride 99 (98-107) mmol/L Carbon Dioxide 23 (22-30) mmol/L Anion Gap 7 mmol/L BUN 9 (7-17) mg/dL Creatinine 0.60 (0.52-1.04) mg/dL Est GFR (MDRD) Af Amer >60 (>60 ml/min/1.73 sqM) Est GFR (MDRD) Non-Af >60 (>60 ml/min/1.73 sqM) Glucose 100 H (74-99) mg/dL Calcium 9.0 (8.4-10.2) mg/dL Troponin I <0.012 (0.000-0.034) ng/mL Group A Strep Rapid (Negative) 10/19/17 Range/Units 00:00 WBC (3.8-10.6) k/uL RBC (3.80-5.40) m/uL Hgb (11.4-16.0) gm/dL Hct (34.0-46.0) % MCV (80.0-100.0) fL MCH (25.0-35.0) pg MCHC (31.0-37.0) g/dL RDW (11.5-15.5) % Plt Count (150-450) k/uL Neutrophils % % Lymphocytes % % Monocytes % % Eosinophils % % Basophils % % Neutrophils # (1.3-7.7) k/uL Lymphocytes # (1.0-4.8) k/uL Monocytes # (0-1.0) k/uL Eosinophils # (0-0.7) k/uL Basophils # (0-0.2) k/uL Sodium (137-145) mmol/L Potassium (3.5-5.1) mmol/L Chloride (98-107) mmol/L Carbon Dioxide (22-30) mmol/L Anion Gap mmol/L BUN (7-17) mg/dL Creatinine (0.52-1.04) mg/dL Est GFR (MDRD) Af Amer (>60 ml/min/1.73 sqM) Est GFR (MDRD) Non-Af (>60 ml/min/1.73 sqM) Glucose (74-99) mg/dL Calcium (8.4-10.2) mg/dL Troponin I (0.000-0.034) ng/mL Group A Strep Rapid Negative (Negative) - Radiology Data Radiology results: report reviewed EKG shows sinus rhythm. Ventricular rate 66 bpm. CA interval 162 ms. QRS duration 108 ms. QT QTc is 4:30/450 ms. No evidence of ST elevation or T-wave inversion. No evidence of atrial or ventricular arrhythmias. Heart mediastinum are normal. Lungs are clear of infiltrate. No heart failure. Minimal pectus excavatum and chest for me. No pleural effusion. Thoracic spine is intact. Read by Dr. Cummings. Disposition Clinical Impression: Bronchitis, Back pain Disposition: HOME SELF-CARE Condition: Good Instructions: Acute Bronchitis (ED) Additional Instructions: Patient has a follow-up with primary care provider. Take the prescriptions as directed. Use the albuterol inhaler as well as well for difficulty breathing with coughing episodes. Return to the emergency department occur. Prescriptions: Albuterol Inhaler [Ventolin Hfa Inhaler] 1 - 2 puff INHALATION Q6HR PRN #1 inhaler PRN Reason: Shortness Of Breath Levofloxacin [Levaquin] 750 mg PO DAILY #5 tab predniSONE 50 mg PO DAILY #5 tablet Promethazine/Dextromethorphan [Phenergan DM Syrup] 5 ml PO TID #120 ml Referrals: Letty Renee MD [Primary Care Provider] - 1-2 days Time of Disposition: 01:33
[2016-12-20 00:19] LABS: Basophils % (A) 0 %; CH 27.7; CHCM 33.4; Eosinophils # (A) 0.2 k/uL (0-0.7); Eosinophils % (A) 2 %; HCT 42.2 % (34.0-46.0); HDW 2.79; HGB 13.6 gm/dL (11.4-16.0); Luc % (Auto) 1; Lymphocytes # (A) 1.3 k/uL (1.0-4.8); Lymphocytes % (A) 14 %; MCH 26.8 pg (25.0-35.0); MCHC 32.2 g/dL (31.0-37.0); MCV 83.1 fL (80.0-100.0); Mean Platelet Volume 6.3; Monocytes # (A) 0.6 k/uL (0-1.0); Monocytes % (A) 7 %; Neutrophils # (A) 7.2 k/uL (1.3-7.7); Neutrophils % (A) 76 %; RBC 5.08 m/uL (3.80-5.40); RDW 15.1 % (11.5-15.5); WBC 9.5 k/uL (3.8-10.6); WBC (Perox) 9.15
--- NOTE | 2016-12-20 00:32 | XR ---
EXAMINATION TYPE: XR chest 2V DATE OF EXAM: 12/20/2016 COMPARISON: 07/29/2016 HISTORY: Chest pain TECHNIQUE: Frontal and lateral views of the chest are obtained. FINDINGS: Heart and mediastinum are normal. Lungs are clear of infiltrate. There is no heart failure . There is minimal pectus excavatum chest deformity. There is no pleural effusion. Thoracic spine is intact. IMPRESSION: No active cardiopulmonary disease. No change.
[2016-12-20 00:35] VITALS: PULSE 72
[2016-12-20 00:35] LABS: Anion Gap 7 mmol/L; Blood Urea Nitrogen 9 mg/dL (7-17); Carbon Dioxide 23 mmol/L (22-30); Chloride 99 mmol/L (98-107); Glucose 100 mg/dL (74-99); Non-African American GFR(MDRD) >60 (>60 ml/min/1.73 sqM); Potassium 3.9 mmol/L (3.5-5.1); Sodium 129 mmol/L (137-145)
== END 2016-12-20 01:59 | disposition home or self-care (01) ==
LOC: EC 23:13
DX: J40 Bronchitis, not specified as acute or chronic (principal); M54.9 Dorsalgia, unspecified; Q67.6 Pectus excavatum; J02.9 Acute pharyngitis, unspecified; M25.511 Pain in right shoulder; F32.9 Major depressive disorder, single episode, unspecified; F17.200 Nicotine dependence, unspecified, uncomplicated; Z79.899 Other long term (current) drug therapy; Z88.6 Allergy status to analgesic agent
CPT/HCPCS: 99284 ×2; 96374 ×2; 96361 ×2; 36415; 94640; 93005; 80048; 84484; 85025; 87081; 87430; 71020; J2930

== ENCOUNTER → 2017-08-23 | Outpatient (CLI) | payer BC ==
--- NOTE | 2017-08-24 04:11 | MR ---
EXAMINATION TYPE: MR brain wo/w con DATE OF EXAM: 08/23/2017 COMPARISON: NONE HISTORY: Dizzy spells, Tingling, Headaches, Gadavist 7.5 TECHNIQUE: Multiplanar, multisequence images of the brain and brainstem is performed without and with IV contras t, utilizing 7.5 mL intravenous Gadavist . FINDINGS: The ventricles and sulci are within normal limits. There is no mass effect nor midline shif t. There is no sign of intracranial hemorrhage. There are a few scattered tiny foci of increased sign al at the lopez-white matter junction of both cerebral hemispheres that measure 2 to 3 mm. These are o f doubtful significance. Total number is approximately 5. The corpus callosum appears normal. Brainst em appears normal. There is mild mucosal thickening in the ethmoid sinuses. Sella turcica appears nor mal. There is no evidence of cerebral edema. I see no pathologic enhancement. There is uniform enhanc ement of the sella turcica. Pituitary stalk is in the midline. Optic chiasm appears normal. There is no evidence of retro-orbital mass. There is no evidence of cortical infarct. IMPRESSION: Negative MR scan of the brain. Tiny white matter foci of doubtful clinical significance. Minimal ethmoid sinusitis.
== END | disposition home or self-care (01) ==
LOC: RADMRIMAIN 17:28
PROVIDERS: ATTEND Nurse Practitioner Family
DX: R93.0 Abnormal findings on diagnostic imaging of skull and head, not elsewhere classified (principal); R20.0 Anesthesia of skin; R20.2 Paresthesia of skin
CPT/HCPCS: 70553; A9581

== ENCOUNTER 2018-03-07 08:07 | Emergency (ER) | payer BC ==
[2018-03-07 08:15] VITALS: BP 151/84; PULSE 76; RESP 16; TEMP 98
[2018-03-07] MEDS ORDERED: ACET/COD 300 MG/30 MG STARTER PACK 6 TAB BTL PO STA (08:32)
--- NOTE | 2018-03-07 08:33 | ED ---
Lower Extremity Injury HPI - General Chief Complaint: Extremity Injury, Lower Stated Complaint: Knee Pain Time Seen by Provider: 03/07/18 08:18 Source: patient, RN notes reviewed Mode of arrival: ambulatory Limitations: no limitations - History of Present Illness Initial Comments: 47-year-old female presents to the emergency Department chief complaint bilateral knee pain. Patient states she had an injury in October at work states that she did follow-up with orthopedics had an injection to her left knee which helped. She states that she is advised to have surgery but states that she did not want to. Patient states the pain has not worsened over last 4 days. She states she has been favoring her right knee and leg so her right knee hurts more now. Patient also states she stands leaning to the side and she feels pain from her hip to her knee. Patient denies any bowel bladder incontinence or retention. Denies any saddle anesthesias or lower shunted paresthesias. Denies any severe back pain. Patient states she has been wearing a knee brace which is helped some. - Related Data Home Medications Medication Instructions Recorded Confirmed Acetaminophen Tab [Tylenol Tab] 650 mg PO Q6H PRN 12/19/16 12/19/16 Effexor (Unknown Dose) 1 tab PO DAILY 12/19/16 12/19/16 Unknown Blood Pressure Med 1 tab PO DIRECTED 12/19/16 12/19/16 Previous Rx's Medication Instructions Recorded Albuterol Inhaler [Ventolin Hfa 1 - 2 puff INHALATION Q6HR PRN #1 12/20/16 Inhaler] inhaler Levofloxacin [Levaquin] 750 mg PO DAILY #5 tab 12/20/16 Promethazine/Dextromethorphan 5 ml PO TID #120 ml 12/20/16 [Phenergan DM Syrup] predniSONE 50 mg PO DAILY #5 tablet 12/20/16 Venlafaxine HCl ER [Effexor XR] 75 mg PO BID #28 cap 02/03/17 Ibuprofen [Motrin] 600 mg PO Q8HR PRN #30 tab 03/07/18 Allergies Allergy/AdvReac Type Severity Reaction Status Date / Time aspirin Allergy Unknown Verified 03/07/18 08:15 Review of Systems ROS Statement: Those systems with pertinent positive or pertinent negative responses have been documented in the HPI. ROS Other: All systems not noted in ROS Statement are negative. Past Medical History Additional Past Medical History / Comment(s): back/neck pain, migraines History of Any Multi-Drug Resistant Organisms: None Reported Past Surgical History: Orthopedic Surgery, Tubal Ligation, Uterine Ablation Past Psychological History: Bipolar, Depression Smoking Status: Current every day smoker Past Alcohol Use History: None Reported Past Drug Use History: None Reported General Exam Limitations: no limitations General appearance: alert, in no apparent distress Neck exam: Present: normal inspection, full ROM. Absent: tenderness, meningismus, lymphadenopathy Respiratory exam: Present: normal lung sounds bilaterally. Absent: respiratory distress, wheezes, rales, rhonchi, stridor Cardiovascular Exam: Present: regular rate, normal rhythm, normal heart sounds. Absent: systolic murmur, diastolic murmur, rubs, gallop, clicks Extremities exam: Present: other (Bilateral knees full range of motion, mild tenderness to the right knee, mild swelling noted to the right knee, tenderness over the IT band, tightness noted, pedal pulses equal bilaterally full strength of lower extremity 5/5) Skin exam: Present: warm, dry, intact, normal color. Absent: rash Course Vital Signs 03/07/18 08:12 Temperature 98.0 F Pulse Rate 76 Respiratory 16 Rate Blood Pressure 151/84 O2 Sat by Pulse 100 Oximetry Medical Decision Making - Medical Decision Making 47-year-old female presents emergency dept for knee pain. Patient does have noted IT band tightness, IT band syndrome. Patient does have no swelling to the right knee with no erythema no warmth. This is inflammatory process secondary strain. Patient is advised to daily stretching, continue anti- inflammatories. Patient will follow-up with her orthopedic doctor and return for any worsening symptoms. Disposition Clinical Impression: IT band syndrome, Knee pain, bilateral Disposition: HOME SELF-CARE Condition: Stable Instructions: Knee Pain (ED), Iliotibial Band Syndrome (ED) Additional Instructions: Please return to the Emergency Department if symptoms worsen or any other concerns. Prescriptions: Ibuprofen [Motrin] 600 mg PO Q8HR PRN #30 tab PRN Reason: Pain Is patient prescribed a controlled substance at d/c from ED?: No Referrals: Letty Renee MD [Primary Care Provider] - 1-2 days Time of Disposition: 08:32
[2018-03-07] MEDS ORDERED: traMADol 50 MG STARTER PACK 3 TAB BTL PO STA (08:40)
== END 2018-03-07 08:47 | disposition home or self-care (01) ==
LOC: EC 08:07
DX: M76.32 Iliotibial band syndrome, left leg (principal); M76.31 Iliotibial band syndrome, right leg; F32.9 Major depressive disorder, single episode, unspecified; F17.200 Nicotine dependence, unspecified, uncomplicated; Z79.899 Other long term (current) drug therapy; Z88.6 Allergy status to analgesic agent; Z53.20 Procedure and treatment not carried out because of patient's decision for unspecified reasons
CPT/HCPCS: 99283

== ENCOUNTER 2018-04-01 10:54 | Emergency (ER) | payer BC ==
[2018-04-01 11:03] VITALS: BP 170/84; PULSE 71; RESP 18; TEMP 97.7
[2018-04-01] MEDS ORDERED: METOCLOPRAMIDE 10 MG TAB PO STA (11:59)
[2018-04-01] MEDS ORDERED: KETOROLAC 60 MG/2 ML VIAL IM STA (11:59)
[2018-04-01] MEDS ORDERED: diphenhydrAMINE 50 MG CAP PO STA (11:59)
--- NOTE | 2018-04-01 12:03 | ED ---
General Adult HPI - General Chief complaint: Headache Stated complaint: Migraine Time Seen by Provider: 04/01/18 11:53 Source: patient, RN notes reviewed Mode of arrival: ambulatory Limitations: no limitations - History of Present Illness Initial comments: Patient 47-year-old female presented to the emergency room today with a chief complaint of a migraine headache. Patient states that he woke up this morning at 4 AM with migraine. States located left side radiates to the front. Patient states is consistent with migraines is had in the past. She denies difficulty. Patient does admit to photosensitivity. Admits to nausea. Patient denies any other complaints. Patient denies any recent fever, chills, shortness of breath, chest pain, back pain, abdominal pain, numbness or tingling , visual changes, or any other complaints. - Related Data Home Medications Medication Instructions Recorded Confirmed Acetaminophen Tab [Tylenol Tab] 650 mg PO Q6H PRN 12/19/16 03/07/18 Allergies Allergy/AdvReac Type Severity Reaction Status Date / Time aspirin Allergy Unknown Verified 04/01/18 11:03 Review of Systems ROS Statement: Those systems with pertinent positive or pertinent negative responses have been documented in the HPI. ROS Other: All systems not noted in ROS Statement are negative. Past Medical History Additional Past Medical History / Comment(s): back/neck pain, migraines History of Any Multi-Drug Resistant Organisms: None Reported Past Surgical History: Orthopedic Surgery, Tubal Ligation, Uterine Ablation Past Psychological History: Bipolar, Depression Smoking Status: Current every day smoker Past Alcohol Use History: None Reported Past Drug Use History: None Reported General Exam - General Exam Comments Initial Comments: General: The patient is awake and alert, in no distress, and does not appear acutely ill. Eye: Pupils are equal, round and reactive to light, extra-ocular movements are intact. No nystagmus. There is normal conjunctiva bilaterally. No signs of icterus. Ears, nose, mouth and throat: There are moist mucous membranes and no oral lesions. Neck: The neck is supple Cardiovascular: There is a regular rate and rhythm. No murmur, rub or gallop is appreciated. Respiratory: Lungs are clear to auscultation, respirations are non-labored, breath sounds are equal. No wheezes, stridor, rales, or rhonchi. Musculoskeletal: Normal ROM, no tenderness. Neurological: A&O x 3. CN II-XII intact, There are no obvious motor or sensory deficits. Coordination appears grossly intact. Speech is normal. Skin: Skin is warm and dry and no rashes or lesions are noted. Psychiatric: Cooperative, appropriate mood & affect, normal judgment. Limitations: no limitations Course Vital Signs 04/01/18 11:01 Temperature 97.7 F Pulse Rate 71 Respiratory 18 Rate Blood Pressure 170/84 O2 Sat by Pulse 99 Oximetry Medical Decision Making - Medical Decision Making 47-year-old female significant past medical history for migraines. Woke up this morning with migraine headache that she states is consistent with migraines is had in the past. She states there is nothing new or different. Options were discussed with the patient about IV fluids medication here in the emergency room. She has declined. States she would like to try by mouth medication. She is agreeable to for nausea. She does have a ride home. She states she will follow-up the family doctor. Advised return if symptoms increase or worsen. Disposition Clinical Impression: Migraine Disposition: HOME SELF-CARE Condition: Good Instructions (If sedation given, give patient instructions): Migraine Headache (ED) Additional Instructions: Please use medication as discussed. Please follow-up with family doctor in the next 2 days of symptoms have not improved. Please return to emergency room if the symptoms increase or worsen or for any other concerns. Is patient prescribed a controlled substance at d/c from ED?: No Referrals: Letty Renee MD [Primary Care Provider] - 1-2 days Time of Disposition: 12:02
== END 2018-04-01 12:30 | disposition home or self-care (01) ==
LOC: EC 10:54
DX: G43.909 Migraine, unspecified, not intractable, without status migrainosus (principal); F17.200 Nicotine dependence, unspecified, uncomplicated; Z88.6 Allergy status to analgesic agent
CPT/HCPCS: 99283; 96372; J1885

== ENCOUNTER 2018-06-29 10:24 | Emergency (ER) | payer BC ==
[2018-06-29] MEDS ORDERED: diphenhydrAMINE 50 MG/ML 1 ML VIAL IVP STA (11:09)
[2018-06-29] MEDS ORDERED: METOCLOPRAMIDE 5 MG/ML 2 ML VIAL IVP STA (11:09)
[2018-06-29] MEDS ORDERED: SODIUM CHLORIDE 0.9% 1,000 ML IV STA (11:09)
[2018-06-29] MEDS ORDERED: KETOROLAC 30 MG/ML 1 ML VIAL IVP STA (11:09)
[2018-06-29] MEDS ORDERED: methylPREDNISolone SOD SUCCI 125 MG/2 ML VIAL IV STA (11:10)
--- NOTE | 2018-06-29 11:49 | ED ---
Headache HPI - General Chief Complaint: Headache Stated Complaint: Headache & lower back pain Time Seen by Provider: 06/29/18 10:42 Source: RN notes reviewed, old records reviewed Mode of arrival: ambulatory Limitations: no limitations - History of Present Illness Initial Comments: Patient is a 48-year-old female who presents emergency Department stay for evaluation for migraine-like headache starting last night. Patient states she's had some episodes of vomiting. She states that her symptoms started from pinched nerves in her neck causing these headaches. She states she's had history of migraines and this feels similar to her previous ones. She does complain of some lower back pain. She states she feels like she threw her back out after she was vomiting. She does have a history of degenerative disc disease within her lumbar spine as well. She denies any saddle anesthesias. She denies any abdominal pain or chest pain or shortness of breath. Patient states that she has been taking Tylenol for pain relief at this time. Patient does complain of sometimes the pain radiating down the left leg. - Related Data Home Medications Medication Instructions Recorded Confirmed Acetaminophen [Tylenol Extra 500 mg PO Q6H PRN 04/01/18 04/01/18 Strength] Previous Rx's Medication Instructions Recorded Cyclobenzaprine [Flexeril] 10 mg PO TID #12 tab 06/29/18 Allergies Allergy/AdvReac Type Severity Reaction Status Date / Time aspirin Allergy Unknown Verified 06/29/18 10:41 Review of Systems ROS Statement: Those systems with pertinent positive or pertinent negative responses have been documented in the HPI. ROS Other: All systems not noted in ROS Statement are negative. Past Medical History Additional Past Medical History / Comment(s): back/neck pain, migraines History of Any Multi-Drug Resistant Organisms: None Reported Past Surgical History: Orthopedic Surgery, Tubal Ligation, Uterine Ablation Past Psychological History: Bipolar, Depression Smoking Status: Current every day smoker Past Alcohol Use History: None Reported Past Drug Use History: None Reported General Exam - General Exam Comments Initial Comments: Pleasant 48-year-old female. Alert and oriented 3. No distress. Limitations: no limitations General appearance: alert, in no apparent distress Head exam: Present: atraumatic, normocephalic, normal inspection Eye exam: Present: normal appearance, PERRL, EOMI. Absent: scleral icterus, conjunctival injection, periorbital swelling ENT exam: Present: normal exam Neck exam: Present: normal inspection. Absent: tenderness, meningismus, lymphadenopathy Respiratory exam: Present: normal lung sounds bilaterally. Absent: respiratory distress, wheezes, rales, rhonchi, stridor Cardiovascular Exam: Present: regular rate, normal rhythm, normal heart sounds. Absent: systolic murmur, diastolic murmur, rubs, gallop, clicks GI/Abdominal exam: Present: soft, normal bowel sounds. Absent: distended, tenderness, guarding, rebound, rigid Extremities exam: Present: normal inspection, full ROM, normal capillary refill. Absent: tenderness, pedal edema, joint swelling, calf tenderness Back exam: Present: normal inspection Neurological exam: Present: alert, oriented X3, CN II-XII intact Expanded Patient oriented to: Present: person, place, time Speech: Present: fluid speech Cranial nerves: EOM's Intact: Normal Cerebellar function: Finger to Nose: Normal Upper motor neuron: Pronator Drift: Normal Sensory exam: Upper Extremity Light Touch: Normal, Lower Extremity Light Touch: Normal Motor strength exam: RUE: 5, LUE: 5, RLE: 5, LLE: 5 Eye Response: (4) open spontaneously Motor Response: (6) obeys commands Verbal Response: (5) oriented [place] Total: 15 Psychiatric exam: Present: normal affect, normal mood Skin exam: Present: warm, dry, intact, normal color. Absent: rash Course Vital Signs 06/29/18 10:39 Temperature 98.2 F Pulse Rate 78 Respiratory 18 Rate Blood Pressure 136/85 O2 Sat by Pulse 98 Oximetry Medical Decision Making - Medical Decision Making Patient's 48-year-old female presents weren't warranted for evaluation for acute exacerbation of chronic lower back pain, as well as migraine with nausea. Patient was given fluids of migraine cocktail. On reevaluation she continues states she had some headache. Patient states that the only medication that helps her is a "pain medication starting with D". She is no neurological deficits, otherwise appears well. She is ambulating without difficulty in ED. No falls or trauma to warrant imaging on her x-ray today. Patient was given 0.5 mg of Dilaudid and states her pain is better. Discussed the treatment of acute exacerbation of chronic back pain with some muscle relaxers as well as temperature medicine. Discussed return parameters. Disposition Clinical Impression: Migraine, Acute exacerbation of chronic low back pain Disposition: HOME SELF-CARE Condition: Good Instructions (If sedation given, give patient instructions): Chronic Back Pain (ED), Migraine Headache (ED) Additional Instructions: Patient advised to follow-up with her primary care physician. Return to emergency department if any alarming signs or symptoms occur. Prescriptions: Cyclobenzaprine [Flexeril] 10 mg PO TID #12 tab Is patient prescribed a controlled substance at d/c from ED?: No Referrals: Letty Renee MD [Primary Care Provider] - 1-2 days Time of Disposition: 13:01
[2018-06-29] MEDS ORDERED: HYDROmorphone 1 MG/ML 1 ML SYRINGE IVP STA (12:41)
[2018-06-29 13:14] VITALS: BP 130/70; PULSE 79; RESP 16; TEMP 97.8
== END 2018-06-29 13:13 | disposition home or self-care (01) ==
LOC: EC 10:24
DX: G43.909 Migraine, unspecified, not intractable, without status migrainosus (principal); G89.29 Other chronic pain; M54.5 Low back pain; F17.200 Nicotine dependence, unspecified, uncomplicated; Z88.6 Allergy status to analgesic agent; Z87.39 Personal history of other diseases of the musculoskeletal system and connective tissue
CPT/HCPCS: 99283; 96374; 96375 ×4; 96361; J1200; J2765; J2930; J1885; J1170

== ENCOUNTER 2018-07-21 17:21 | Emergency (ER) | payer BC ==
[2018-07-21 17:31] VITALS: RESP 18
[2018-07-21] MEDS ORDERED: SODIUM CHLORIDE 0.9% 1,000 ML IV STA (17:34)
[2018-07-21] MEDS ORDERED: SODIUM CHLORIDE 0.9% 2,000 ML IV ONE (17:40)
--- NOTE | 2018-07-21 17:44 | ED ---
Syncope [facility] - General Chief Complaint: Syncope Stated Complaint: syncope Time Seen by Provider: 07/21/18 17:34 Source: patient Mode of arrival: wheelchair Limitations: no limitations - History of Present Illness Initial Comments: Patient is a 48-year-old female who presents with a chief complaint of syncope. Patient states that she donated plasma earlier today at about 10:00. She states that she was in bed most of the day and about 45 minutes ago got up the bathroom. She states she got up she felt dizzy. She generally back to the bed but fell backwards. She states that she did lose consciousness. She states that she was able to ambulate after being helped up. He states that she has had similar symptoms before, again following plasma donation. - Related Data Home Medications Medication Instructions Recorded Confirmed Acetaminophen [Tylenol Extra 500 mg PO Q6H PRN 04/01/18 07/21/18 Strength] Allergies Allergy/AdvReac Type Severity Reaction Status Date / Time aspirin Allergy Unknown Verified 07/21/18 17:31 Review of Systems ROS Statement: Those systems with pertinent positive or pertinent negative responses have been documented in the HPI. ROS Other: All systems not noted in ROS Statement are negative. Cardiovascular: Reports: syncope Past Medical History Past Medical History: No Reported History Additional Past Medical History / Comment(s): back/neck pain, migraines History of Any Multi-Drug Resistant Organisms: None Reported Past Surgical History: Orthopedic Surgery, Tubal Ligation, Uterine Ablation Past Psychological History: Bipolar, Depression Smoking Status: Current every day smoker Past Alcohol Use History: None Reported Past Drug Use History: None Reported General Exam Limitations: no limitations General appearance: alert, in no apparent distress Head exam: Present: atraumatic, normocephalic Eye exam: Present: normal appearance ENT exam: Present: normal exam, mucous membranes dry Neck exam: Present: normal inspection Respiratory exam: Present: normal lung sounds bilaterally. Absent: respiratory distress, wheezes Cardiovascular Exam: Present: normal rhythm, tachycardia GI/Abdominal exam: Present: soft. Absent: distended, tenderness Rectal exam: Present: deferred Extremities exam: Present: normal inspection Back exam: Present: normal inspection Neurological exam: Present: alert, oriented X3, normal gait. Absent: motor sensory deficit Psychiatric exam: Present: normal affect, normal mood Skin exam: Present: warm, dry, intact Course Vital Signs 07/21/18 07/21/18 17:28 18:04 Temperature 98.3 F Pulse Rate 107 H 81 Respiratory 18 18 Rate Blood Pressure 130/83 138/89 O2 Sat by Pulse 100 98 Oximetry Medical Decision Making - Medical Decision Making Patient presents with a chief complaint of syncope after donating plasma. On initial evaluation, vital signs are stable except for mild tachycardia at 170s per minute. Patient is in no acute distress. She is neurologically intact. She will be evaluated with basic labs including computed tomography scan of the head and C-spine. She'll be given 2 L of IV fluid. 6:58 PM Lab evaluation of this patient is unremarkable except for signs of hemoconcentr ation. Computed tomography scan of the head and neck are unremarkable. At this time, patient stable for discharge. She was instructed to increase her fluid intake. Follow-up with primary care 1-2 days, return to ED if symptoms worsen or change. Use Motrin and Tylenol for pain. - Lab Data Result diagrams: 07/21/18 17:57 07/21/18 17:57 Lab Results 07/21/18 07/21/18 Range/Units 17:57 17:57 WBC 8.1 (3.8-10.6) k/uL RBC 5.70 H (3.80-5.40) m/uL Hgb 16.4 H (11.4-16.0) gm/dL Hct 50.1 H (34.0-46.0) % MCV 87.9 (80.0-100.0) fL MCH 28.8 (25.0-35.0) pg MCHC 32.8 (31.0-37.0) g/dL RDW 14.8 (11.5-15.5) % Plt Count 441 (150-450) k/uL Neutrophils % 62 % Lymphocytes % 28 % Monocytes % 5 % Eosinophils % 3 % Basophils % 0 % Neutrophils # 5.0 (1.3-7.7) k/uL Lymphocytes # 2.3 (1.0-4.8) k/uL Monocytes # 0.4 (0-1.0) k/uL Eosinophils # 0.2 (0-0.7) k/uL Basophils # 0.0 (0-0.2) k/uL Sodium 137 (137-145) mmol/L Potassium 4.1 (3.5-5.1) mmol/L Chloride 105 (98-107) mmol/L Carbon Dioxide 25 (22-30) mmol/L Anion Gap 7 mmol/L BUN 12 (7-17) mg/dL Creatinine 0.61 (0.52-1.04) mg/dL Est GFR (CKD-EPI)AfAm >90 (>60 ml/min/1.73 sqM) Est GFR (CKD-EPI)NonAf >90 (>60 ml/min/1.73 sqM) Glucose 102 H (74-99) mg/dL Calcium 9.7 (8.4-10.2) mg/dL Total Bilirubin 0.6 (0.2-1.3) mg/dL AST 22 (14-36) U/L ALT 16 (9-52) U/L Alkaline Phosphatase 56 (38-126) U/L Total Protein 6.3 (6.3-8.2) g/dL Albumin 3.8 (3.5-5.0) g/dL Disposition Clinical Impression: Dehydration, Orthostasis Disposition: HOME SELF-CARE Condition: Good Instructions (If sedation given, give patient instructions): Dehydration (ED) Is patient prescribed a controlled substance at d/c from ED?: No Referrals: Letty Renee MD [Primary Care Provider] - 1-2 days
[2018-07-21 18:09] LABS: Basophils % (A) 0 %; Eosinophils # (A) 0.2 k/uL (0-0.7); Eosinophils % (A) 3 %; HCT 50.1 % (34.0-46.0); HGB 16.4 gm/dL (11.4-16.0); Lymphocytes # (A) 2.3 k/uL (1.0-4.8); Lymphocytes % (A) 28 %; MCH 28.8 pg (25.0-35.0); MCHC 32.8 g/dL (31.0-37.0); MCV 87.9 fL (80.0-100.0); Mean Platelet Volume 6.5; Monocytes # (A) 0.4 k/uL (0-1.0); Monocytes % (A) 5 %; Neutrophils % (A) 62 %; Platelet Count 441 k/uL (150-450); RDW 14.8 % (11.5-15.5); WBC 8.1 k/uL (3.8-10.6)
[2018-07-21 18:15] LABS: ALT 16 U/L (9-52); AST 22 U/L (14-36); Albumin 3.8 g/dL (3.5-5.0); Alkaline Phosphatase 56 U/L (38-126); Anion Gap 7 mmol/L; Blood Urea Nitrogen 12 mg/dL (7-17); Calcium 9.7 mg/dL (8.4-10.2); Carbon Dioxide 25 mmol/L (22-30); Chloride 105 mmol/L (98-107); Glucose 102 mg/dL (74-99); Potassium 4.1 mmol/L (3.5-5.1); Sodium 137 mmol/L (137-145); Total Bilirubin 0.6 mg/dL (0.2-1.3); Total Protein 6.3 g/dL (6.3-8.2)
--- NOTE | 2018-07-21 18:33 | CT ---
EXAMINATION TYPE: CT brain billy maguire con DATE OF EXAM: 07/21/2018 COMPARISON: 07/21/2016 HISTORY: Syncopal episode with posterior head injury. CT DLP: 1260.5 mGycm Automated exposure control for dose reduction was used. TECHNIQUE: CT scan of the head and cervical spine are performed without contrast. FINDINGS: Ventricles of normal size. There is no mass effect nor midline shift. There is no sign of intracranial hemorrhage. The calvarium is intact. There is some straightening of the cervical spine. There is mild disc space narrowing at C5-6 C6-7 wi th spurring of the endplates. There is no compression fracture. Skull base is intact. Facet joints ar e intact. IMPRESSION: Negative CT scan of the brain. No change. Mild spondylotic changes in the lower cervical spine. No fracture. No change.
[2018-07-21 19:20] VITALS: BP 136/78; PULSE 80; TEMP 98
== END 2018-07-21 19:28 | disposition home or self-care (01) ==
LOC: EC 17:21
DX: E86.0 Dehydration (principal); R55 Syncope and collapse; R00.0 Tachycardia, unspecified; F17.200 Nicotine dependence, unspecified, uncomplicated; Z88.6 Allergy status to analgesic agent; Z53.8 Procedure and treatment not carried out for other reasons; W01.0XXA Fall on same level from slipping, tripping and stumbling without subsequent striking against object, initial encounter; Y93.89 Activity, other specified; Y92.009 Unspecified place in unspecified non-institutional (private) residence as the place of occurrence of the external cause
CPT/HCPCS: 36415; 70450; 72125; 80053; 85025; 93005; 96360; 99284

== ENCOUNTER 2018-09-02 12:09 | Observation (INO) | payer BC ==
[2018-09-02] MEDS ORDERED: SODIUM CHLORIDE 0.9% 1,000 ML IV ONE (13:05)
[2018-09-02] MEDS ORDERED: PIPERACILLIN-TAZOBACTAM 3.375 GM in SODIUM CHLORIDE 0.9% 100 ML IVPB STA (13:06)
[2018-09-02] MEDS ORDERED: ONDANSETRON 4 MG/2 ML VIAL IVP STA (13:20)
[2018-09-02] MEDS ORDERED: FAMOTIDINE 20 MG/2 ML VIAL IV STA (13:21)
[2018-09-02] MEDS ORDERED: DICYCLOMINE 10 MG/ML 2 ML AMP IM STA (13:22)
--- NOTE | 2018-09-02 13:25 | ED ---
General Adult HPI - General Chief complaint: Abdominal Pain Stated complaint: Abdominal pain Time Seen by Provider: 09/02/18 12:59 Source: patient, RN notes reviewed, old records reviewed (Reviewed CT report from [facility] yesterday. Also reviewed results from ultrasound and CT and x-ray reports.) Mode of arrival: ambulatory Limitations: no limitations - History of Present Illness Initial comments: Patient is a pleasant 48-year-old female presenting to the emergency Department with complaints of abdominal discomfort. Onset of symptoms was 2 days ago. Patient has had no appetite and limited oral intake since that time. No significant nausea or vomiting. Patient may feel tiny bit constipated. No diarrhea. Discomfort is mostly in the epigastric region. Patient does have history of similar symptoms previously associated with gastritis. Patient did try Tums without much improvement of symptoms. Patient did go to [facility] yesterday. Patient did have computed tomography scan done which was reported to her as normal. Patient also had x-rays done. Patient also had ultrasound done which did not show gallstones however question if there could be some inflammation of the gallbladder. Patient was instructed to follow up with her doctor. Patient called today secondary to having continued symptoms and was advised to come to the emergency department. - Related Data Home Medications Medication Instructions Recorded Confirmed Acetaminophen [Tylenol Extra 500 mg PO Q6H PRN 04/01/18 09/02/18 Strength] Allergies Allergy/AdvReac Type Severity Reaction Status Date / Time aspirin Allergy Rash/Hives Verified 09/02/18 12:38 Review of Systems ROS Statement: Those systems with pertinent positive or pertinent negative responses have been documented in the HPI. ROS Other: All systems not noted in ROS Statement are negative. Constitutional: Denies: fever Eyes: Denies: eye pain ENT: Denies: ear pain Respiratory: Denies: cough Cardiovascular: Denies: chest pain Endocrine: Denies: fatigue Gastrointestinal: Reports: as per HPI, abdominal pain. Denies: nausea, vomiting Genitourinary: Denies: dysuria Musculoskeletal: Denies: back pain Skin: Denies: rash Neurological: Denies: weakness Past Medical History Past Medical History: No Reported History Additional Past Medical History / Comment(s): back/neck pain, migraines History of Any Multi-Drug Resistant Organisms: None Reported Past Surgical History: Orthopedic Surgery, Tubal Ligation, Uterine Ablation Past Psychological History: Bipolar, Depression Smoking Status: Current every day smoker Past Alcohol Use History: None Reported Past Drug Use History: None Reported General Exam Limitations: no limitations General appearance: alert, in no apparent distress Head exam: Present: atraumatic Eye exam: Present: normal appearance Neck exam: Present: normal inspection Respiratory exam: Present: normal lung sounds bilaterally Cardiovascular Exam: Present: regular rate, normal rhythm Expanded Peripheral pulses: 2+: Dorsalis Pedis (R), Dorsalis Pedis (L) GI/Abdominal exam: Present: soft, tenderness (Moderate epigastric tenderness to palpation), hyperactive bowel sounds. Absent: distended, guarding, rebound, rigid, pulsatile mass Extremities exam: Present: normal inspection. Absent: pedal edema, calf tenderness Neurological exam: Present: alert Psychiatric exam: Present: normal affect, normal mood Skin exam: Present: normal color Course Vital Signs 09/02/18 12:23 Temperature 98.6 F Pulse Rate 83 Respiratory 18 Rate Blood Pressure 146/80 O2 Sat by Pulse 97 Oximetry EKG Findings - EKG Comments: EKG Findings:: Normal sinus rhythm 63. MN 152. QRS 100. QT 436. QTc 446. Normal axis. Normal QRS. No acute ST change. Medical Decision Making - Medical Decision Making Patient reevaluated and resting comfortably in bed. Patient states no improvement with medications and symptoms are actually starting to worsen. Case was discussed in detail with Dr. Cordova regarding possible admission versus repeat ultrasound versus other. He does recommend admission of his patient with surgical consult. Patient updated on results and plan. - Lab Data Result diagrams: 09/02/18 13:12 09/02/18 13:12 Lab Results 09/02/18 09/02/18 09/02/18 Range/Units 13:12 13:12 13:12 WBC 11.6 H (3.8-10.6) k/uL RBC 4.95 (3.80-5.40) m/uL Hgb 15.0 (11.4-16.0) gm/dL Hct 45.0 (34.0-46.0) % MCV 91.0 (80.0-100.0) fL MCH 30.4 (25.0-35.0) pg MCHC 33.4 (31.0-37.0) g/dL RDW 14.6 (11.5-15.5) % Plt Count 397 (150-450) k/uL Neutrophils % 85 % Lymphocytes % 9 % Monocytes % 5 % Eosinophils % 1 % Basophils % 0 % Neutrophils # 9.8 H (1.3-7.7) k/uL Lymphocytes # 1.0 (1.0-4.8) k/uL Monocytes # 0.6 (0-1.0) k/uL Eosinophils # 0.1 (0-0.7) k/uL Basophils # 0.0 (0-0.2) k/uL PT 9.6 (9.0-12.0) sec INR 0.9 (<1.2) APTT 22.1 (22.0-30.0) sec Sodium 139 (137-145) mmol/L Potassium 4.0 (3.5-5.1) mmol/L Chloride 106 (98-107) mmol/L Carbon Dioxide 24 (22-30) mmol/L Anion Gap 9 mmol/L BUN 9 (7-17) mg/dL Creatinine 0.54 (0.52-1.04) mg/dL Est GFR (CKD-EPI)AfAm >90 (>60 ml/min/1.73 sqM) Est GFR (CKD-EPI)NonAf >90 (>60 ml/min/1.73 sqM) Glucose 145 H (74-99) mg/dL Plasma Lactic Acid Adeel (0.7-2.0) mmol/L Calcium 9.1 (8.4-10.2) mg/dL Total Bilirubin 0.2 (0.2-1.3) mg/dL AST 19 (14-36) U/L ALT 15 (9-52) U/L Alkaline Phosphatase 64 (38-126) U/L Troponin I (0.000-0.034) ng/mL Total Protein 6.3 (6.3-8.2) g/dL Albumin 3.7 (3.5-5.0) g/dL Amylase 48 (30-110) U/L Lipase 65 (23-300) U/L HCG, Quant <2.4 mIU/mL Urine Color Urine Appearance (Clear) Urine pH (5.0-8.0) Ur Specific [place] (1.001-1.035) Urine Protein (Negative) Urine Glucose (UA) (Negative) Urine Ketones (Negative) Urine Blood (Negative) Urine Nitrite (Negative) Urine Bilirubin (Negative) Urine Urobilinogen (<2.0) mg/dL Ur Leukocyte Esterase (Negative) 09/02/18 09/02/18 09/02/18 Range/Units 13:12 13:12 13:12 WBC (3.8-10.6) k/uL RBC (3.80-5.40) m/uL Hgb (11.4-16.0) gm/dL Hct (34.0-46.0) % MCV (80.0-100.0) fL MCH (25.0-35.0) pg MCHC (31.0-37.0) g/dL RDW (11.5-15.5) % Plt Count (150-450) k/uL Neutrophils % % Lymphocytes % % Monocytes % % Eosinophils % % Basophils % % Neutrophils # (1.3-7.7) k/uL Lymphocytes # (1.0-4.8) k/uL Monocytes # (0-1.0) k/uL Eosinophils # (0-0.7) k/uL Basophils # (0-0.2) k/uL PT (9.0-12.0) sec INR (<1.2) APTT (22.0-30.0) sec Sodium (137-145) mmol/L Potassium (3.5-5.1) mmol/L Chloride (98-107) mmol/L Carbon Dioxide (22-30) mmol/L Anion Gap mmol/L BUN (7-17) mg/dL Creatinine (0.52-1.04) mg/dL Est GFR (CKD-EPI)AfAm (>60 ml/min/1.73 sqM) Est GFR (CKD-EPI)NonAf (>60 ml/min/1.73 sqM) Glucose (74-99) mg/dL Plasma Lactic Acid Adeel 1.2 (0.7-2.0) mmol/L Calcium (8.4-10.2) mg/dL Total Bilirubin (0.2-1.3) mg/dL AST (14-36) U/L ALT (9-52) U/L Alkaline Phosphatase (38-126) U/L Troponin I <0.012 (0.000-0.034) ng/mL Total Protein (6.3-8.2) g/dL Albumin (3.5-5.0) g/dL Amylase (30-110) U/L Lipase (23-300) U/L HCG, Quant mIU/mL Urine Color Yellow Urine Appearance Clear (Clear) Urine pH 6.0 (5.0-8.0) Ur Specific [place] 1.026 (1.001-1.035) Urine Protein Negative (Negative) Urine Glucose (UA) Negative (Negative) Urine Ketones Negative (Negative) Urine Blood Negative (Negative) Urine Nitrite Negative (Negative) Urine Bilirubin Negative (Negative) Urine Urobilinogen 2.0 (<2.0) mg/dL Ur Leukocyte Esterase Negative (Negative) - Radiology Data Radiology results: image reviewed (Abdominal x-ray shows nonspecific abdomen) Disposition Clinical Impression: Abdominal pain Disposition: ADMITTED IP TO THIS HOSP Is patient prescribed a controlled substance at d/c from ED?: No Referrals: Anand Cordova MD [Primary Care Provider] - 1-2 days Decision Time: 15:08
[2018-09-02 13:57] LABS: Basophils % (A) 0 %; Eosinophils # (A) 0.1 k/uL (0-0.7); Eosinophils % (A) 1 %; Lymphocytes % (A) 9 %; MCH 30.4 pg (25.0-35.0); MCHC 33.4 g/dL (31.0-37.0); Mean Platelet Volume 6.7; Monocytes # (A) 0.6 k/uL (0-1.0); Monocytes % (A) 5 %; Neutrophils # (A) 9.8 k/uL (1.3-7.7); Neutrophils % (A) 85 %; Platelet Count 397 k/uL (150-450); RBC 4.95 m/uL (3.80-5.40); RDW 14.6 % (11.5-15.5); WBC 11.6 k/uL (3.8-10.6)
[2018-09-02 14:03] LABS: ALT 15 U/L (9-52); AST 19 U/L (14-36); African American GFR (CKD) >90 (>60 ml/min/1.73 sqM); Albumin 3.7 g/dL (3.5-5.0); Alkaline Phosphatase 64 U/L (38-126); Amylase 48 U/L (30-110); Anion Gap 9 mmol/L; Blood Urea Nitrogen 9 mg/dL (7-17); Calcium 9.1 mg/dL (8.4-10.2); Carbon Dioxide 24 mmol/L (22-30); Chloride 106 mmol/L (98-107); Glucose 145 mg/dL (74-99); Lipase 65 U/L (23-300); Sodium 139 mmol/L (137-145); Total Bilirubin 0.2 mg/dL (0.2-1.3); Total Protein 6.3 g/dL (6.3-8.2)
[2018-09-02 14:05] LABS: Appearance,Urine Clear (Clear); Bilirubin,Urine Negative (Negative); Blood,Urine Negative (Negative); Color,Urine Yellow; Glucose,Urine (UA) Negative (Negative); Ketones,Urine Negative (Negative); Leukocyte Esterase,Urine Negative (Negative); Nitrite,Urine Negative (Negative); Protein,Urine Negative (Negative); Specific Gravity,Urine 1.026 (1.001-1.035)
[2018-09-02 14:08] LABS: INR 0.9 (<1.2); Partial Thromboplastin Time 22.1 sec (22.0-30.0); Prothrombin Time 9.6 sec (9.0-12.0)
--- NOTE | 2018-09-02 14:09 | XR ---
EXAMINATION TYPE: XR KUB DATE OF EXAM: 09/02/2018 COMPARISON: NONE HISTORY: Upper abdominal pain TECHNIQUE: One view abdominal series FINDINGS: The osseous structures are intact. The bowel gas pattern is nonspecific. Lung bases are clear. Calc ification the pelvis is likely vascular. Arthropathy of the hips. Nonspecific calcification left uppe r quadrant appears outside of the left renal outline. Curvature the spine noted. Correlate for scolio sis. IMPRESSION: 1. Nonspecific abdomen. Correlate with CT scan as clinically warranted.
[2018-09-02 14:19] LABS: HCG,Quantitative Serum <2.4 mIU/mL
[2018-09-02] MEDS ORDERED: HYDROmorphone 1 MG/ML 1 ML SYRINGE IVP STA (15:04)
[2018-09-02] MEDS ORDERED: NALOXONE 0.4 MG/ML 1 ML VIAL IV PRN (15:08)
[2018-09-02] MEDS ORDERED: ONDANSETRON 4 MG/2 ML VIAL IVP PRN (15:08)
[2018-09-02] MEDS: PANTOPRAZOLE 40 MG/10 ML VIAL IV SCH (15:18)
[2018-09-02] MEDS: SODIUM CHLORIDE 0.9% 1,000 ML IV SCH (15:19)
[2018-09-02] MEDS ORDERED: PIPERACILLIN-TAZOBACTAM 3.375 GM in SODIUM CHLORIDE 0.9% 100 ML IVPB SCH (16:00)
[2018-09-02] MEDS: HYDROmorphone 1 MG/ML 1 ML SYRINGE IVP PRN ×3 (17:58→23:44)
[2018-09-02] MEDS ORDERED: IOPAMIDOL-300 CONTRAST 30 ML VIAL (ORAL USE) PO PRN (18:02)
--- NOTE | 2018-09-02 19:20 | CT ---
EXAMINATION TYPE: CT abdomen w con DATE OF EXAM: 09/02/2018 COMPARISON: None HISTORY: LUQ pain CT DLP: 664 mGycm Automated exposure control for dose reduction was used. TECHNIQUE: Helical acquisition of images was performed from the lung bases through the top of iliac crest to include entire abdomen. CONTRAST: Performed with Oral Contrast and with IV Contrast, patient injected with 100 mL of Isovue 300. FINDINGS: Multiple axial sections were obtained from the diaphragm to the floor the pelvis with oral and intrav enous contrast. There is mild interstitial infiltrate in the anterior segment left lower lobe. There is no pericardia l effusion. There is no pleural effusion. There is a 3 cm wedge-shaped area of decreased density in the posterior spleen consistent with old sp lenic laceration or infarct. There is no perisplenic fluid. The stomach has normal size and contour. Gallbladder appears normal. Bile ducts are not dilated. Liver shows no focal defect. There is no adrenal mass. There is no pancreatic mass. Kidneys show satisfactory contrast opacificati on. There is no hydronephrosis. Ureters are not dilated. There is no retroperitoneal adenopathy. Ther e is no evidence of mesenteric edema. There is no sign of thickened appendix. Abdominal aorta is athe romatous. Lumbar spine is intact. I see no bony destructive process. There is no ascites or free air. IMPRESSION: WEDGE-SHAPED AREA OF DECREASED DENSITY IN THE POSTERIOR SPLEEN WITHOUT PERISPLENIC FLUID COULD RELATE TO OLD LACERATION OR SPLENIC INFARCT.
[2018-09-02] MEDS ORDERED: ACETAMINOPHEN TAB 325 MG TAB PO PRN (22:28)
[2018-09-02] MEDS ORDERED: ZOLPIDEM 5 MG TAB PO PRN (22:29)
[2018-09-03] MEDS: HYDROmorphone 1 MG/ML 1 ML SYRINGE IVP PRN ×3 (02:05→12:08)
[2018-09-03] MEDS: SODIUM CHLORIDE 0.9% 1,000 ML IV SCH ×2 (02:06→15:33)
[2018-09-03] MEDS ORDERED: HYDROmorphone 1 MG/ML 1 ML SYRINGE IVP PRN (02:33)
[2018-09-03 08:21] LABS: Basophils % (A) 0 %; Eosinophils # (A) 0.1 k/uL (0-0.7); Eosinophils % (A) 1 %; HCT 43.8 % (34.0-46.0); HGB 14.1 gm/dL (11.4-16.0); Lymphocytes # (A) 1.5 k/uL (1.0-4.8); Lymphocytes % (A) 16 %; MCH 30.2 pg (25.0-35.0); MCHC 32.1 g/dL (31.0-37.0); MCV 94.1 fL (80.0-100.0); Mean Platelet Volume 7.3; Monocytes # (A) 0.6 k/uL (0-1.0); Monocytes % (A) 6 %; Neutrophils # (A) 7.2 k/uL (1.3-7.7); Neutrophils % (A) 75 %; Platelet Count 348 k/uL (150-450); RBC 4.66 m/uL (3.80-5.40); RDW 15.7 % (11.5-15.5); WBC 9.5 k/uL (3.8-10.6)
[2018-09-03 08:29] LABS: ALT 19 U/L (9-52); AST 23 U/L (14-36); African American GFR (CKD) >90 (>60 ml/min/1.73 sqM); Albumin 3.5 g/dL (3.5-5.0); Alkaline Phosphatase 57 U/L (38-126); Anion Gap 7 mmol/L; Blood Urea Nitrogen 5 mg/dL (7-17); Carbon Dioxide 29 mmol/L (22-30); Chloride 105 mmol/L (98-107); Glucose 95 mg/dL (74-99); Lipase 57 U/L (23-300); Sodium 141 mmol/L (137-145); Total Bilirubin 0.4 mg/dL (0.2-1.3)
--- NOTE | 2018-09-03 11:57 | NM ---
EXAMINATION TYPE: NM hepatobiliary w CCK DATE OF EXAM: 09/03/2018 COMPARISON: NONE HISTORY: Abdominal pain TECHNIQUE: After the intravenous administration of 4.6 mCi Tc 99m Mebrofenin hepatobiliary scintigrap hy is performed. Immediate images post injection. FINDINGS: There is satisfactory initial accumulation of tracer by the liver. The gallbladder is visualized wit hin 20 minutes. The small bowel activity is noted within 20 minutes. At one hour CCK was administer ed, patient was injected with 1.3 mcg of Kinevac, and gallbladder ejection fraction is calculated at 65 %, in the normal range. Therefore there is no scintigraphic evidence of cystic or common bile alma delia t obstruction to suggest acute cholecystitis or gallbladder dyskinesia. IMPRESSION: No scintigraphic evidence of acute cholecystitis, chronic cholecystitis, nor biliary dysk inesia.
[2018-09-03] MEDS ORDERED: LIDOCAINE 1% INJ 10MG/ML (20 ML MDV) ONE (13:05)
[2018-09-03] MEDS ORDERED: PROPOFOL 10 MG/ML 20 ML VIAL IV ONE (13:05)
[2018-09-03] MEDS ORDERED: IV FLUID CONTINUATION 1,000 ML IV ONE (13:07)
--- NOTE | 2018-09-03 13:13 | P.GSCN ---
<Clarisa Garcia - Last Filed: 09/03/18 13:12> History of Present Illness Consult date: 09/03/18 Reason for Consult: abdominal pain Requesting physician: Will Bae History of present illness: CHIEF COMPLAINT: abdominal pain HISTORY OF PRESENT ILLNESS: 48-year-old female who presented to the emergency room a chief complaint of abdominal pain. Patient reports she has had epigastric pain since Saturday with radiation to the left side of her chest and to her back. She reports the pain worsens when she eats any type of food. She denies nausea or vomiting. The patient reports she has a history of gastritis and thought maybe this was the cause of her symptoms. She reports taking Tums with no improvement. Last EGD was about 20 years ago. Denies NSAID use. Denies alcohol use. Denies diarrhea or constipation. Denies fever or chills. PAST MEDICAL HISTORY: See list. PAST SURGICAL HISTORY: See list. SOCIAL HISTORY: No illicit drug use. REVIEW OF SYSTEMS: CONSTITUTIONAL: Denies fever or chills. HEENT: Denies blurred vision, vision changes, or eye pain. Denies hemoptysis CARDIOVASCULAR: Denies chest pain or pressure. RESPIRATORY: No shortness of breath. GASTROINTESTINAL: Refer to HPI for pertinent findings HEMATOLOGIC: Denies bleeding disorders. GENITOURINARY: Denies any blood in urine. SKIN: Denies pruitis. Denies rash. PHYSICAL EXAM: VITAL SIGNS: Reviewed. GENERAL: Well-developed in no acute distress. HEENT: No sclera icterus. Extraocular movements grossly intact. Moist buccal mucosa. Head is atraumatic, normocephalic. ABDOMEN: Soft. Nondistended. positive bowel sounds. Tenderness upon palpation of the epigastric region NEUROLOGIC: Alert and oriented. Cranial nerves II through XII grossly intact. LABORATORY DATA: WBC 11.6 on admission. Repeat 9.5. lactic acid 1.2. Bilirubin 0.2. AST 19. ALT 15. IMAGIN. abdominal ultrasound positive sonographic Cervantes sign but without evidence of cholelithiasis or ancillary findings of acute cholecystitis. 2. KUB x-ray: Negative for acute process 3. CT abdomen: 3 cm wedge-shaped area of decreased density in the posterior spleen consistent with old splenic laceration or infarct. Stomach is normal size and contour. Coli. Normal. Bile ducts are not dilated. ASSESSMENT: 1. Epigastric pain PLAN: 1. NPO 2. EGD this afternoon this afternoon with Dr. Patten Nurse practitioner note has been reviewed by physician. Signing provider agrees with the documented findings, assessment, and plan of care. Past Medical History Past Medical History: No Reported History Additional Past Medical History / Comment(s): back/neck pain, migraines History of Any Multi-Drug Resistant Organisms: None Reported Past Surgical History: Orthopedic Surgery, Tubal Ligation, Uterine Ablation Additional Past Anesthesia/Blood Transfusion Reaction / Comm: NEVER HAD BLOOD TRANSFUSION Past Psychological History: Bipolar, Depression Smoking Status: Current every day smoker Past Alcohol Use History: None Reported Past Drug Use History: None Reported - Past Family History Mother Family Medical History: Coronary Artery Disease (CAD), Diabetes Mellitus, Hypertension Additional Family Medical History / Comment(s): LUPUS Father Family Medical History: Dementia Medications and Allergies Home Medications Medication Instructions Recorded Confirmed Type Acetaminophen [Tylenol Extra 500 mg PO Q6H PRN 04/01/18 09/02/18 History Strength] Allergies Allergy/AdvReac Type Severity Reaction Status Date / Time aspirin Allergy Rash/Hives Verified 09/02/18 12:38 Surgical - Exam Vital Signs Temp Pulse Resp BP Pulse Ox 98.6 F 83 18 146/80 97 09/02/18 12:23 09/02/18 12:23 09/02/18 12:23 09/02/18 12:23 09/02/18 12:23 Results - Labs 09/03/18 07:43 09/03/18 07:43 Abnormal Lab Results - Last 24 Hours (Table) 09/02/18 09/02/18 09/03/18 Range/Units 13:12 13:12 07:43 WBC 11.6 H (3.8-10.6) k/uL RDW 15.7 H (11.5-15.5) % Neutrophils # 9.8 H (1.3-7.7) k/uL BUN (7-17) mg/dL Glucose 145 H (74-99) mg/dL Total Protein (6.3-8.2) g/dL 09/03/18 Range/Units 07:43 WBC (3.8-10.6) k/uL RDW (11.5-15.5) % Neutrophils # (1.3-7.7) k/uL BUN 5 L (7-17) mg/dL Glucose (74-99) mg/dL Total Protein 6.0 L (6.3-8.2) g/dL Diabetes panel 09/02/18 09/03/18 Range/Units 13:12 07:43 Sodium 139 141 (137-145) mmol/L Potassium 4.0 4.0 (3.5-5.1) mmol/L Chloride 106 105 (98-107) mmol/L Carbon Dioxide 24 29 (22-30) mmol/L BUN 9 5 L (7-17) mg/dL Creatinine 0.54 0.57 (0.52-1.04) mg/dL Glucose 145 H 95 (74-99) mg/dL Calcium 9.1 9.0 (8.4-10.2) mg/dL AST 19 23 (14-36) U/L ALT 15 19 (9-52) U/L Alkaline Phosphatase 64 57 (38-126) U/L Total Protein 6.3 6.0 L (6.3-8.2) g/dL Albumin 3.7 3.5 (3.5-5.0) g/dL Calcium panel 09/02/18 09/03/18 Range/Units 13:12 07:43 Calcium 9.1 9.0 (8.4-10.2) mg/dL Albumin 3.7 3.5 (3.5-5.0) g/dL Pituitary panel 09/02/18 09/03/18 Range/Units 13:12 07:43 Sodium 139 141 (137-145) mmol/L Potassium 4.0 4.0 (3.5-5.1) mmol/L Chloride 106 105 (98-107) mmol/L Carbon Dioxide 24 29 (22-30) mmol/L BUN 9 5 L (7-17) mg/dL Creatinine 0.54 0.57 (0.52-1.04) mg/dL Glucose 145 H 95 (74-99) mg/dL Calcium 9.1 9.0 (8.4-10.2) mg/dL Adrenal panel 09/02/18 09/03/18 Range/Units 13:12 07:43 Sodium 139 141 (137-145) mmol/L Potassium 4.0 4.0 (3.5-5.1) mmol/L Chloride 106 105 (98-107) mmol/L Carbon Dioxide 24 29 (22-30) mmol/L BUN 9 5 L (7-17) mg/dL Creatinine 0.54 0.57 (0.52-1.04) mg/dL Glucose 145 H 95 (74-99) mg/dL Calcium 9.1 9.0 (8.4-10.2) mg/dL Total Bilirubin 0.2 0.4 (0.2-1.3) mg/dL AST 19 23 (14-36) U/L ALT 15 19 (9-52) U/L Alkaline Phosphatase 64 57 (38-126) U/L Total Protein 6.3 6.0 L (6.3-8.2) g/dL Albumin 3.7 3.5 (3.5-5.0) g/dL <Zachery Patten - Last Filed: 09/03/18 13:37> History of Present Illness Consult date: 09/02/18 Surgical - Exam Vital Signs Temp Pulse Resp BP Pulse Ox 98.6 F 83 18 146/80 97 09/02/18 12:23 09/02/18 12:23 09/02/18 12:23 09/02/18 12:23 09/02/18 12:23 Results - Labs 09/03/18 07:43 09/03/18 07:43 Abnormal Lab Results - Last 24 Hours (Table) 09/02/18 09/02/18 09/03/18 Range/Units 13:12 13:12 07:43 WBC 11.6 H (3.8-10.6) k/uL RDW 15.7 H (11.5-15.5) % Neutrophils # 9.8 H (1.3-7.7) k/uL BUN (7-17) mg/dL Glucose 145 H (74-99) mg/dL Total Protein (6.3-8.2) g/dL 09/03/18 Range/Units 07:43 WBC (3.8-10.6) k/uL RDW (11.5-15.5) % Neutrophils # (1.3-7.7) k/uL BUN 5 L (7-17) mg/dL Glucose (74-99) mg/dL Total Protein 6.0 L (6.3-8.2) g/dL Diabetes panel 09/02/18 09/03/18 Range/Units 13:12 07:43 Sodium 139 141 (137-145) mmol/L Potassium 4.0 4.0 (3.5-5.1) mmol/L Chloride 106 105 (98-107) mmol/L Carbon Dioxide 24 29 (22-30) mmol/L BUN 9 5 L (7-17) mg/dL Creatinine 0.54 0.57 (0.52-1.04) mg/dL Glucose 145 H 95 (74-99) mg/dL Calcium 9.1 9.0 (8.4-10.2) mg/dL AST 19 23 (14-36) U/L ALT 15 19 (9-52) U/L Alkaline Phosphatase 64 57 (38-126) U/L Total Protein 6.3 6.0 L (6.3-8.2) g/dL Albumin 3.7 3.5 (3.5-5.0) g/dL Calcium panel 09/02/18 09/03/18 Range/Units 13:12 07:43 Calcium 9.1 9.0 (8.4-10.2) mg/dL Albumin 3.7 3.5 (3.5-5.0) g/dL Pituitary panel 09/02/18 09/03/18 Range/Units 13:12 07:43 Sodium 139 141 (137-145) mmol/L Potassium 4.0 4.0 (3.5-5.1) mmol/L Chloride 106 105 (98-107) mmol/L Carbon Dioxide 24 29 (22-30) mmol/L BUN 9 5 L (7-17) mg/dL Creatinine 0.54 0.57 (0.52-1.04) mg/dL Glucose 145 H 95 (74-99) mg/dL Calcium 9.1 9.0 (8.4-10.2) mg/dL Adrenal panel 09/02/18 09/03/18 Range/Units 13:12 07:43 Sodium 139 141 (137-145) mmol/L Potassium 4.0 4.0 (3.5-5.1) mmol/L Chloride 106 105 (98-107) mmol/L Carbon Dioxide 24 29 (22-30) mmol/L BUN 9 5 L (7-17) mg/dL Creatinine 0.54 0.57 (0.52-1.04) mg/dL Glucose 145 H 95 (74-99) mg/dL Calcium 9.1 9.0 (8.4-10.2) mg/dL Total Bilirubin 0.2 0.4 (0.2-1.3) mg/dL AST 19 23 (14-36) U/L ALT 15 19 (9-52) U/L Alkaline Phosphatase 64 57 (38-126) U/L Total Protein 6.3 6.0 L (6.3-8.2) g/dL Albumin 3.7 3.5 (3.5-5.0) g/dL Assessment and Plan Assessment: The patient's CAT scan shows evidence of a splenic infarct. I'm unsure if this is related to her pain. The patient had a HIDA scan performed which shows no evidence of biliary dysfunction. The patient will undergo EGD.
--- NOTE | 2018-09-03 13:21 | P.OP ---
Date of Procedure: 09/03/18 Preoperative Diagnosis: Epigastric abdominal pain Postoperative Diagnosis: Mild antral gastritis Procedure(s) Performed: EGD Anesthesia: MAC Surgeon: Zachery Patten Pathology: other (Antrum, esophagus) Condition: stable Disposition: PACU Description of Procedure: The patient's placed on the endoscopy table in the lateral position. She received IV sedation. The gastroscope placed oropharynx and passed in the esophagus into the stomach. Scope was then placed through the pylorus. The first and second portion of duodenum appeared normal. Scope was then brought back the antrum and this appeared to very minimally inflamed. A biopsies performed. The scope was then retroflexed and the remainder stomach appeared normal. There is no evidence of any gastric ulcers or significant inflammation. There is no evidence of any hiatal hernia. The GE junction was at 40 cm. The distal esophagus appeared minimally inflamed a biopsy performed. The proximal esophagus appeared normal. Scope was withdrawn for patient. The patient had no significant findings except for some mild gastritis. She will start diet and mostly the be discharged home today.
[2018-09-03] MEDS ORDERED: HYDROcodone/APAP 7.5-325MG 1 EACH TAB PO PRN (15:19)
[2018-09-03] MEDS: PANTOPRAZOLE 40 MG/10 ML VIAL IV SCH (15:30)
[2018-09-03] MEDS: HYDROcodone/APAP 7.5-325MG 1 EACH TAB PO PRN (21:33)
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
[2018-09-04] MEDS: HYDROcodone/APAP 7.5-325MG 1 EACH TAB PO PRN (04:29)
[2018-09-04] MEDS: SODIUM CHLORIDE 0.9% 1,000 ML IV SCH (04:30)
[2018-09-04] MEDS: PANTOPRAZOLE 40 MG/10 ML VIAL IV SCH (08:30)
[2018-09-04 08:39] VITALS: BP 166/92; PULSE 62; RESP 18; TEMP 97.6
[2018-09-04] MEDS ORDERED: BISACODYL 10 MG SUPP RECTAL SCH (09:00)
--- NOTE | 2018-09-04 12:47 | P.PN ---
<Clarisa Garcia - Last Filed: 09/04/18 12:42> Subjective Progress Note Date: 09/04/18 CHIEF COMPLAINT: Abdominal pain HISTORY OF PRESENT ILLNESS: patient status post EGD revealing mild antral gastritis. Patient examined this morning the bedside. patient reports her epigastric pain has improved but she is complaining of some tenderness in her lower abdominal quadrants. Patient states she feels it may be related to constipation as she has not had a bowel movement in the last 4 or 5 days. She denies nausea or vomiting. Tolerating diet. Afebrile. PHYSICAL EXAM: VITAL SIGNS: Currently stable. GENERAL: Well-developed in no acute distress. HEENT: No sclera icterus. Extraocular movements grossly intact. Moist buccal mucosa. Head is atraumatic, normocephalic. Hears conversational speech. No nasal drainag e. NECK: Supple without lymphadenopathy. CHEST: Non-labored respirations and equal bilateral excursions. CARDIOVASCULAR: Regular rate with regular rhythm. Palpable 2+ radial pulses. ABDOMEN: Soft. Nondistended. Minimal tenderness with palpation. MUSCULOSKELETAL: No clubbing, cyanosis or edema. NEUROLOGIC: No focal or lateralizing signs. Cranial nerves II through XII grossly intact. PSYCH: Appropriate affect. Alert and oriented to person, place and time. SKIN: Well perfused. Good skin turgor. ASSESSMENT: 1. Epigastric pain 2. Constipation PLAN: 1. Continue current diet 2. Recommend patient increase fiber intake and water intake once discharged to avoid constipation. Patient may also take OTC Miralax to avoid constipation 3. Dulcolax suppository x 1 4. Stable for discharge from a surgical perspective Nurse practitioner note has been reviewed by physician. Signing provider agrees with the documented findings, assessment, and plan of care. Objective - Vital Signs Vital signs: Vital Signs Temp 97.6 F 09/04/18 08:00 Pulse 62 09/04/18 08:00 Resp 18 09/04/18 08:00 BP 166/92 09/04/18 08:00 Pulse Ox 99 09/04/18 08:00 Intake & Output 09/03/18 09/04/18 09/04/18 18:59 06:59 18:59 Intake Total 160 Balance 160 Intake: IV 100 Oral 60 Other: Voiding Method Toilet Toilet # Voids 3 1 - Labs CBC & Chem 7: 09/03/18 07:43 09/03/18 07:43 Assessment and Plan (1) Constipation Status: Acute Code(s): K59.00 - CONSTIPATION, UNSPECIFIED SNOMED Code(s): 90765363 (2) Abdominal pain Status: Acute Code(s): R10.9 - UNSPECIFIED ABDOMINAL PAIN SNOMED Code(s): 18745739 <Christine Gilman N - Last Filed: 09/04/18 18:19> Subjective Patient had reported new lower abdominal pain. "I feel constipated." Dulcolax given. Outpatient follow up advised. Clinically stable for discharge. Objective - Vital Signs Vital signs: Vital Signs Temp 97.6 F 09/04/18 08:00 Pulse 62 09/04/18 08:00 Resp 18 09/04/18 08:00 BP 166/92 09/04/18 08:00 Pulse Ox 99 09/04/18 08:00 Intake & Output 09/03/18 09/04/18 09/04/18 18:59 06:59 18:59 Intake Total 160 Balance 160 Intake: IV 100 Oral 60 Other: Voiding Method Toilet Toilet # Voids 3 1 - Labs CBC & Chem 7: 09/03/18 07:43 09/03/18 07:43
== END 2018-09-04 09:30 | disposition home or self-care (01) ==
LOC: EC 12:09 → 6PED 15:08
PROVIDERS: ADMIT Family Medicine; ATTEND Family Medicine
DX: K20.9 Esophagitis, unspecified (principal); K29.50 Unspecified chronic gastritis without bleeding; K59.00 Constipation, unspecified; G43.909 Migraine, unspecified, not intractable, without status migrainosus; M54.2 Cervicalgia; M54.9 Dorsalgia, unspecified; F31.9 Bipolar disorder, unspecified; Z98.51 Tubal ligation status; F17.200 Nicotine dependence, unspecified, uncomplicated; Z88.6 Allergy status to analgesic agent; Z82.49 Family history of ischemic heart disease and other diseases of the circulatory system; Z83.3 Family history of diabetes mellitus; Z81.8 Family history of other mental and behavioral disorders
CPT/HCPCS: 96361 ×3; 96376 ×2; 96372; 96374; 96375; 99285; 36415; 93005; 88305; 80053 ×2; 82150; 83605; 83690 ×2; 84484; 85025 ×2; 85610; 85730; 81003; 84702; 74018; 74160; 78227; 43239; G0378 ×3; A9537; J0500; J2405; J2805; J2001; J1170 ×2; J2704; C9113 ×3; Q9967

== ENCOUNTER 2018-10-01 12:50 | Emergency (ER) | payer BC ==
[2018-10-01 13:02] VITALS: BP 135/74; PULSE 84; RESP 16; TEMP 97.4
[2018-10-01] MEDS ORDERED: KETOROLAC 60 MG/2 ML VIAL IM STA (13:17)
--- NOTE | 2018-10-01 13:26 | ED ---
Back Pain HPI - General Chief Complaint: Back Pain/Injury Stated Complaint: Lower back pain Time Seen by Provider: 10/01/18 13:08 Source: patient Limitations: no limitations - History of Present Illness Initial Comments: Patient is a 48 year old female presenting to the emergency Department with complaints of low back pain 3 days. Patient states she has a history of a lumbar disc herniation for about 10 years now. Patient states she sometimes has flareups and this feels similar nature. Patient states 3 days ago she bent over to lift something and had instant pain in her low back. Patient sees Dr. Cordova for this. Patient denies any fever, chills and, any other trauma to the area. Patient denies saddle paresthesias and loss of bowel or bladder control. Patient is also requesting a work note. Patient denies any other complaints at this time. - Related Data Home Medications Medication Instructions Recorded Confirmed Acetaminophen Tab [Tylenol Tab] 650 mg PO Q4H PRN 10/01/18 10/01/18 Previous Rx's Medication Instructions Recorded methylPREDNISolone [Medrol Dose 4 mg PO DIRECTED #1 pack 10/01/18 Pack] Allergies Allergy/AdvReac Type Severity Reaction Status Date / Time aspirin Allergy Rash/Hives Verified 10/01/18 13:17 Review of Systems ROS Statement: Those systems with pertinent positive or pertinent negative responses have been documented in the HPI. ROS Other: All systems not noted in ROS Statement are negative. Past Medical History Past Medical History: No Reported History Additional Past Medical History / Comment(s): back/neck pain, migraines History of Any Multi-Drug Resistant Organisms: None Reported Past Surgical History: Orthopedic Surgery, Tubal Ligation, Uterine Ablation Additional Past Anesthesia/Blood Transfusion Reaction / Comment(s): NEVER HAD BLOOD TRANSFUSION Past Psychological History: Bipolar, Depression Smoking Status: Current every day smoker Past Alcohol Use History: None Reported Past Drug Use History: None Reported - Past Family History Mother Family Medical History: Coronary Artery Disease (CAD), Diabetes Mellitus, Hypertension Additional Family Medical History / Comment(s): LUPUS Father Family Medical History: Dementia General Exam - General Exam Comments Initial Comments: GENERAL: Well-appearing, well-nourished and in no acute distress. HEAD: Atraumatic, normocephalic. EYES: Pupils equal round and reactive to light, extraocular movements intact, sclera anicteric, conjunctiva are normal. ENT: TMs normal, nares patent, oropharynx clear without exudates. Moist mucous membranes. NECK: Normal range of motion, supple without lymphadenopathy or JVD. LUNGS: Breath sounds clear to auscultation bilaterally and equal. No wheezes rales or rhonchi. HEART: Regular rate and rhythm without murmurs, rubs or gallops. ABDOMEN: Soft, nontender, normoactive bowel sounds. No guarding, no rebound. No masses appreciated. : Deferred EXTREMITIES: Normal range of motion, no pitting or edema. No clubbing or cyanosis. Pain with palpation of the lumbar paraspinals. Pain with lumbar flexion. No saddle paresthesias. NEUROLOGICAL: Cranial nerves II through XII grossly intact. Normal speech, no rmal gait. PSYCH: Normal mood, normal affect. SKIN: Warm, Dry, normal turgor, no rashes or lesions noted. Limitations: no limitations Course Vital Signs 10/01/18 13:00 Temperature 97.4 F L Pulse Rate 84 Respiratory 16 Rate Blood Pressure 135/74 O2 Sat by Pulse 97 Oximetry Medical Decision Making - Medical Decision Making Patient is a 48-year-old female presenting with low back pain 3 days. Patient has history of bulging disks in lumbar area 10 years now. Patient states his pains feel similar nature. On exam patient has tenderness of the lumbar paraspinals and pain with trunk flexion and extension. Patient was given Toradol for pain relief and prescription for steroids which has helped in the past. Patient is stable for discharge and she is in agreement with this plan. Return parameters were discussed with the patient she verbalized understanding. Case discussed with Dr. Bae. Disposition Clinical Impression: Low back pain Disposition: HOME SELF-CARE Condition: Stable Instructions (If sedation given, give patient instructions): Acute Low Back Pain (ED) Additional Instructions: Please return to the Emergency Department if symptoms worsen or any other concerns. Prescriptions: methylPREDNISolone [Medrol Dose Pack] 4 mg PO DIRECTED #1 pack Is patient prescribed a controlled substance at d/c from ED?: No Referrals: Anand Cordova MD [Primary Care Provider] - 1-2 days
[2018-10-01] MEDS ORDERED: traMADol 50 MG STARTER PACK 3 TAB BTL PO STA (14:09)
== END 2018-10-01 14:17 | disposition home or self-care (01) ==
LOC: EC 12:50
DX: M54.5 Low back pain (principal); F17.200 Nicotine dependence, unspecified, uncomplicated; Z87.39 Personal history of other diseases of the musculoskeletal system and connective tissue; Z88.6 Allergy status to analgesic agent
CPT/HCPCS: 99283; 96372; J1885

== ENCOUNTER 2018-10-19 17:35 | Emergency (ER) | payer BC ==
[2018-10-19 17:40] VITALS: BP 136/81; PULSE 72; RESP 16; TEMP 97.8
[2018-10-19] MEDS ORDERED: ACETAMINOPHEN TAB 500 MG TAB PO STA (17:51)
[2018-10-19] MEDS ORDERED: CIPROFLOXACIN-DEXAMETH 0.3-0.1% DROPS 7.5 ML BTL LEFT EAR STA (17:52)
--- NOTE | 2018-10-19 17:56 | ED ---
ENT HPI - General Chief complaint: ENT Stated complaint: ear pain Time Seen by Provider: 10/19/18 17:42 Source: patient Mode of arrival: ambulatory Limitations: no limitations - History of Present Illness Initial comments: Patient is a 48-year-old male presenting to emergency Department with a chief complaint of left ear pain. Patient reports the pain started yesterday after she noticed discharge from the left ear. Patient reports attempting to clean it with a Q-tip and cause small amounts of bleeding. Patient reports decreased hearing from the left ear. Patient reports throbbing pain that exacerbated when pulling on the ear. Patient denies fever, nausea or vomiting or headache. Patient has denied recent swimming. Patient reports the pain is a 10. - Related Data Home Medications Medication Instructions Recorded Confirmed Acetaminophen Tab [Tylenol Tab] 650 mg PO Q4H PRN 10/01/18 10/01/18 Previous Rx's Medication Instructions Recorded methylPREDNISolone [Medrol Dose 4 mg PO DIRECTED #1 pack 10/01/18 Pack] Allergies Allergy/AdvReac Type Severity Reaction Status Date / Time aspirin Allergy Rash/Hives Verified 10/19/18 17:40 Review of Systems ROS Statement: Those systems with pertinent positive or pertinent negative responses have been documented in the HPI. ROS Other: All systems not noted in ROS Statement are negative. Past Medical History Past Medical History: No Reported History Additional Past Medical History / Comment(s): back/neck pain, migraines History of Any Multi-Drug Resistant Organisms: None Reported Past Surgical History: Orthopedic Surgery, Tubal Ligation, Uterine Ablation Additional Past Anesthesia/Blood Transfusion Reaction / Comment(s): NEVER HAD BLOOD TRANSFUSION Past Psychological History: Bipolar, Depression Smoking Status: Current every day smoker Past Alcohol Use History: None Reported Past Drug Use History: None Reported - Past Family History Mother Family Medical History: Coronary Artery Disease (CAD), Diabetes Mellitus, Hypertension Additional Family Medical History / Comment(s): LUPUS Father Family Medical History: Dementia General Exam - General Exam Comments Initial Comments: General: Well-developed well-nourished distress HEENT: Normocephalic/atraumatic, PERLL, pharynx erythema, swallowing well, left ear discharge, erythema and white exudates and external auditory canal, no blood noted left external auditory canal. TM clear, no cervical lymph nodes Neck: Supple, nontender, trachea midline Chest/Lungs: Normal respirations, no signs of respiratory distress clear to auscultation bilaterally no wheezes, rales, rhonchi Cardiac: Regular rate and rhythm, normal S1-S2, no murmurs rubs or gallops Abdomen/GI: Soft nontender, bowel sounds equal or quadrant x4, no guarding, no rebound no CVA tenderness Musculoskeletal: Nontender, full range of motion, no edema, strength equal bilaterally Skin: Warmth, no rashes or lesions, no cyanosis or diaphoresis Neurologic: AAO x 3, CN 2-12 intact, Psychiatric: Mood and affect normal, judgment normal Limitations: no limitations Course Vital Signs 10/19/18 17:37 Temperature 97.8 F Pulse Rate 72 Respiratory 16 Rate Blood Pressure 136/81 O2 Sat by Pulse 100 Oximetry Medical Decision Making - Medical Decision Making Patient is a 48-year-old female presents emergency Department with chief complaint left ear pain. Based on physical examination the patient appears to have a otitis externa. Patient has discharge and pain with traction of the ear. Patient was given total for pain and Ciprodex. Patient advised to follow with ENT if symptoms not improved. Strict return parameters were thoroughly discussed patient was understanding and agreeable. Case discussed physician. Disposition Clinical Impression: Otitis externa Disposition: HOME SELF-CARE Condition: Stable Instructions (If sedation given, give patient instructions): Earache (ED) Additional Instructions: Please take prescribed medication as directed. Please follow-up with primary care. Please return to emergency department if symptoms worsen. Is patient prescribed a controlled substance at d/c from ED?: No Referrals: Anand Cordova MD [Primary Care Provider] - 1-2 days Time of Disposition: 17:56
== END 2018-10-19 19:17 | disposition home or self-care (01) ==
LOC: EC 17:35
DX: H60.92 Unspecified otitis externa, left ear (principal); F17.200 Nicotine dependence, unspecified, uncomplicated; Z88.6 Allergy status to analgesic agent
CPT/HCPCS: 99282

== ENCOUNTER 2019-02-27 17:03 | Emergency (ER) | payer BC ==
[2019-02-27] MEDS ORDERED: SODIUM CHLORIDE 0.9% 1,000 ML IV ONE (17:57)
[2019-02-27] MEDS ORDERED: SODIUM CHLORIDE 0.9% 1,000 ML IV SCH (18:00)
[2019-02-27 18:16] LABS: Basophils % (A) 0 %; Eosinophils # (A) 0.1 k/uL (0-0.7); Eosinophils % (A) 2 %; HGB 15.9 gm/dL (11.4-16.0); Lymphocytes # (A) 1.4 k/uL (1.0-4.8); Lymphocytes % (A) 20 %; MCH 32.1 pg (25.0-35.0); MCHC 33.9 g/dL (31.0-37.0); MCV 94.9 fL (80.0-100.0); Mean Platelet Volume 6.7; Monocytes # (A) 0.3 k/uL (0-1.0); Monocytes % (A) 5 %; Neutrophils # (A) 5.1 k/uL (1.3-7.7); Neutrophils % (A) 72 %; Platelet Count 380 k/uL (150-450); RBC 4.95 m/uL (3.80-5.40); RDW 12.9 % (11.5-15.5); WBC 7.1 k/uL (3.8-10.6)
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
[2019-02-27 18:27] LABS: INR 0.9 (<1.2); Partial Thromboplastin Time 22.6 sec (22.0-30.0); Prothrombin Time 9.9 sec (9.0-12.0)
[2019-02-27 18:29] LABS: ALT 36 U/L (4-34); AST 40 U/L (14-36); African American GFR (CKD) >90 (>60 ml/min/1.73 sqM); Albumin 4.4 g/dL (3.5-5.0); Alkaline Phosphatase 83 U/L (38-126); Anion Gap 7 mmol/L; Blood Urea Nitrogen 15 mg/dL (7-17); Calcium 10.2 mg/dL (8.4-10.2); Carbon Dioxide 28 mmol/L (22-30); Chloride 101 mmol/L (98-107); Glucose 119 mg/dL (74-99); Non-African American GFR(CKD) >90 (>60 ml/min/1.73 sqM); Potassium 4.5 mmol/L (3.5-5.1); Sodium 136 mmol/L (137-145); Total Bilirubin 0.4 mg/dL (0.2-1.3); Total Protein 7.3 g/dL (6.3-8.2)
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
[2019-02-27 20:00] VITALS: BP 155/80; PULSE 88; RESP 18; TEMP 98
== END 2019-02-27 20:00 | disposition home or self-care (01) ==
LOC: EC 17:03
DX: I73.00 Raynaud's syndrome without gangrene (principal); M79.674 Pain in right toe(s); F17.200 Nicotine dependence, unspecified, uncomplicated; Z88.6 Allergy status to analgesic agent
CPT/HCPCS: 36415; 93005; 80053; 83605; 85025; 85610; 85730; 75635; 99284; 96360; Q9967

== ENCOUNTER → 2019-08-03 | Outpatient (CLI) | payer BC ==
--- NOTE | 2019-08-03 12:52 | XR ---
EXAMINATION TYPE: XR chest 2V DATE OF EXAM: 08/03/2019 COMPARISON: 12/20/2016 HISTORY: 49-year-old female with palpitations TECHNIQUE: Frontal and lateral views FINDINGS: The cardiomediastinal silhouette, aorta, and pulmonary vasculature are within normal limits. Mild int erstitial prominence is unchanged. No consolidation or pleural effusion. IMPRESSION: Chronic changes without acute cardiopulmonary process.
== END | disposition home or self-care (01) ==
LOC: RADXRMAIN 12:21
PROVIDERS: ATTEND Family Medicine
DX: R06.02 Shortness of breath (principal)
CPT/HCPCS: 71046

== ENCOUNTER 2019-08-28 16:21 | Emergency (ER) | payer BC, OTHER ==
[2019-08-28 16:41] VITALS: BP 148/80; PULSE 95; RESP 16; TEMP 98.6
[2019-08-28] MEDS ORDERED: KETOROLAC 30 MG/ML 1 ML VIAL IM STA (16:56)
--- NOTE | 2019-08-28 17:23 | XR ---
EXAMINATION TYPE: XR elbow complete LT DATE OF EXAM: 08/28/2019 COMPARISON: NONE HISTORY: Elbow pain TECHNIQUE: 3 views FINDINGS: I see no fracture nor dislocation. Joint spaces appear normal. There is no definite joint e ffusion. There are no pathologic calcifications. IMPRESSION: Negative left elbow exam.
[2019-08-28 18:26] LABS: Basophils # (A) 0.1 k/uL (0-0.2); Basophils % (A) 0 %; Eosinophils # (A) 0.3 k/uL (0-0.7); Eosinophils % (A) 2 %; HCT 42.3 % (34.0-46.0); HGB 13.7 gm/dL (11.4-16.0); Lymphocytes # (A) 1.1 k/uL (1.0-4.8); Lymphocytes % (A) 8 %; MCH 30.8 pg (25.0-35.0); MCHC 32.5 g/dL (31.0-37.0); MCV 94.9 fL (80.0-100.0); Mean Platelet Volume 6.7; Monocytes # (A) 0.6 k/uL (0-1.0); Monocytes % (A) 5 %; Neutrophils # (A) 11.5 k/uL (1.3-7.7); Neutrophils % (A) 84 %; Platelet Count 304 k/uL (150-450); RBC 4.45 m/uL (3.80-5.40); RDW 13.7 % (11.5-15.5); WBC 13.7 k/uL (3.8-10.6)
[2019-08-28] MEDS ORDERED: HYDROcodone/APAP 5-325MG 1 EACH TAB PO STA (18:27)
--- NOTE | 2019-08-28 18:43 | ED ---
Upper Extremity HPI <Will Bae - Last Filed: 08/28/19 19:17> - General Source: patient Mode of arrival: ambulatory Limitations: no limitations <Ivan Coffman - Last Filed: 08/28/19 19:21> - General Chief Complaint: Extremity Injury, Upper Stated Complaint: elbow pain Time Seen by Provider: 08/28/19 16:44 - History of Present Illness Initial Comments: Patient is a 49-year-old female presents emergency Department with a chief complaint of elbow pain. Patient reports yesterday she was watching a movie for about one hour and propped her head with her left arm with the elbow to the bed. States she was staying leg that for approximately one hour but had no pain afterwards. Patient reports she will come middle of the night with significant amounts of pain and was not able to fully straighten her left elbow. Patient reports she took some [id number] analgesics with some improvement in symptoms. States after she woke up, the pain continued she has limited range of motion due to pain. Denies any erythema but does report some mild swelling surrounding the left elbow. He reports the pain starts around the mid humerus region and ends near the mid forearm. Denies any night sweats fevers or chills. (Ivan Coffman) - Related Data Home Medications Medication Instructions Recorded Confirmed Acetaminophen Tab [Tylenol Tab] 650 mg PO Q4H PRN 10/01/18 10/01/18 Previous Rx's Medication Instructions Recorded methylPREDNISolone [Medrol Dose 4 mg PO DIRECTED #1 pack 10/01/18 Pack] methylPREDNISolone [Medrol Dose 4 mg PO DIRECTED #1 pack 08/28/19 Pack] Allergies Allergy/AdvReac Type Severity Reaction Status Date / Time aspirin Allergy Rash/Hives Verified 08/28/19 16:40 Review of Systems ROS Other: All systems not noted in ROS Statement are negative. <Will Bae - Last Filed: 08/28/19 19:17> ROS Other: All systems not noted in ROS Statement are negative. <Ivan Coffman - Last Filed: 08/28/19 19:21> ROS Statement: Those systems with pertinent positive or pertinent negative responses have been documented in the HPI. Past Medical History Past Medical History: No Reported History Additional Past Medical History / Comment(s): back/neck pain, migraines History of Any Multi-Drug Resistant Organisms: None Reported Past Surgical History: Orthopedic Surgery, Tubal Ligation, Uterine Ablation Additional Past Anesthesia/Blood Transfusion Reaction / Comment(s): NEVER HAD BLOOD TRANSFUSION Past Psychological History: No Psychological Hx Reported, Bipolar, Depression Smoking Status: Current every day smoker Past Alcohol Use History: None Reported Past Drug Use History: None Reported - Past Family History Mother Family Medical History: Coronary Artery Disease (CAD), Diabetes Mellitus, Hypertension Additional Family Medical History / Comment(s): LUPUS Father Family Medical History: Dementia <Ivan Coffman - Last Filed: 08/28/19 19:21> General Exam Limitations: no limitations General appearance: alert, in no apparent distress Head exam: Present: atraumatic, normocephalic, normal inspection Eye exam: Present: normal appearance, PERRL, EOMI Pupils: Present: normal accommodation ENT exam: Present: normal exam, normal oropharynx, mucous membranes moist Neck exam: Present: normal inspection, full ROM. Absent: tenderness Respiratory exam: Present: normal lung sounds bilaterally. Absent: respiratory distress, wheezes Cardiovascular Exam: Present: regular rate, normal rhythm, normal heart sounds Extremities exam: Present: normal inspection (Very mild swelling along the proximal left forearm. No erythematous region.), tenderness (Tenderness along t he distal humerus, posterior elbow and along the proximal forearm.), normal capillary refill, other (+2 ulnar and radial pulses bilaterally.). Absent: full ROM (Limited range of motion with extension of the left elbow. Limited pronation and supination of the forearm.) Back exam: Present: normal inspection, full ROM Neurological exam: Present: alert, oriented X3 Psychiatric exam: Present: normal affect, normal mood Skin exam: Present: warm, dry, intact, normal color <Ivan Coffman - Last Filed: 08/28/19 19:21> Course Vital Signs 08/28/19 16:38 Temperature 98.6 F Pulse Rate 95 Respiratory 16 Rate Blood Pressure 148/80 O2 Sat by Pulse 99 Oximetry Medical Decision Making - Lab Data Result diagrams: 08/28/19 18:14 <Will Bae - Last Filed: 08/28/19 19:17> - Lab Data Result diagrams: 08/28/19 18:14 <Ivan Coffman - Last Filed: 08/28/19 19:21> - Medical Decision Making Patient also evaluated by myself, Dr. Bae. Patient resting comfortably in bed. Discomfort symmetrically improved with medications. Elbow has normal appearance. No swelling or erythema or warmth. Discomfort is positional. Patient states she was laying on her elbow awkwardly for a prolonged period of time yesterday. Patient also adds that she had similar problems with her right elbow multiple times and received multiple cortisone injections and ended up needing surgery on it with screw placement. Patient is advised to return if worsening symptoms, specifically redness or fever or swelling or increased pain and does demonstrate understanding regarding this. She was also advised follow- up with orthopedics (Will Bae) - Lab Data Lab Results 08/28/19 08/28/19 Range/Units 18:14 18:14 WBC 13.7 H (3.8-10.6) k/uL RBC 4.45 (3.80-5.40) m/uL Hgb 13.7 (11.4-16.0) gm/dL Hct 42.3 (34.0-46.0) % MCV 94.9 (80.0-100.0) fL MCH 30.8 (25.0-35.0) pg MCHC 32.5 (31.0-37.0) g/dL RDW 13.7 (11.5-15.5) % Plt Count 304 (150-450) k/uL Neutrophils % 84 % Lymphocytes % 8 % Monocytes % 5 % Eosinophils % 2 % Basophils % 0 % Neutrophils # 11.5 H (1.3-7.7) k/uL Lymphocytes # 1.1 (1.0-4.8) k/uL Monocytes # 0.6 (0-1.0) k/uL Eosinophils # 0.3 (0-0.7) k/uL Basophils # 0.1 (0-0.2) k/uL C-Reactive Protein 57.2 H (<10.0) mg/L Disposition <Will Bae - Last Filed: 08/28/19 19:17> Is patient prescribed a controlled substance at d/c from ED?: No Time of Disposition: 19:21 <Ivan Coffman - Last Filed: 08/28/19 19:21> Clinical Impression: Elbow pain, left Disposition: HOME SELF-CARE Condition: Stable Instructions (If sedation given, give patient instructions): Elbow Sprain (ED) Additional Instructions: Alternate between Tylenol Motrin for pain control. Return to emergency department if symptoms worsen. Prescriptions: methylPREDNISolone [Medrol Dose Pack] 4 mg PO DIRECTED #1 pack Referrals: Anand Cordova MD [Primary Care Provider] - 1-2 days
== END 2019-08-28 19:32 | disposition home or self-care (01) ==
LOC: EC 16:21
DX: M25.522 Pain in left elbow (principal); F17.200 Nicotine dependence, unspecified, uncomplicated; Z88.6 Allergy status to analgesic agent
CPT/HCPCS: 36415; 85025; 86140; 73080; 96372; 99283; J1885

== ENCOUNTER 2019-09-02 09:48 | Emergency (ER) | payer BC, OTHER ==
[2019-09-02 10:07] VITALS: RESP 18
[2019-09-02] MEDS ORDERED: ONDANSETRON 4 MG/2 ML VIAL IVP STA (10:27)
[2019-09-02] MEDS ORDERED: MORPHINE SULFATE 4 MG/ML SYRINGE IVP STA ×2 (10:27→12:18)
[2019-09-02] MEDS ORDERED: KETOROLAC 30 MG/ML 1 ML VIAL IVP STA (10:27)
[2019-09-02 11:14] LABS: Basophils # (A) 0.1 k/uL (0-0.2); Basophils % (A) 1 %; Eosinophils # (A) 0.2 k/uL (0-0.7); Eosinophils % (A) 2 %; HCT 40.8 % (34.0-46.0); HGB 13.8 gm/dL (11.4-16.0); Lymphocytes # (A) 2.2 k/uL (1.0-4.8); Lymphocytes % (A) 22 %; MCH 32.6 pg (25.0-35.0); MCHC 33.9 g/dL (31.0-37.0); MCV 96.2 fL (80.0-100.0); Mean Platelet Volume 6.6; Monocytes # (A) 0.5 k/uL (0-1.0); Monocytes % (A) 5 %; Neutrophils # (A) 6.9 k/uL (1.3-7.7); Neutrophils % (A) 68 %; Platelet Count 487 k/uL (150-450); RBC 4.24 m/uL (3.80-5.40); RDW 13.6 % (11.5-15.5); WBC 10.2 k/uL (3.8-10.6)
--- NOTE | 2019-09-02 11:18 | ED ---
General Adult HPI - General Chief complaint: Recheck/Abnormal Lab/Rx Stated complaint: Elbow pain Time Seen by Provider: 09/02/19 10:15 Source: patient, RN notes reviewed Mode of arrival: ambulatory Limitations: no limitations - History of Present Illness Initial comments: This is a 49-year-old female presents emergency Department with chief complaint of left elbow pain. Patient states that the pain started night states it woke her up with no known injury. Patient states pain is extremely nature at this point. She was evaluated emergency from a had lab work, x-rays with no significant findings. She was placed on steroids. She does not that she had similar issues like this with her right elbow and which she had surgery on. Patient did not follow-up with orthopedics as directed. Patient denies any fevers or chills she states it is swollen and feels warm to the touch. She also noticed that there is been small little red salazar on her arm. - Related Data Home Medications Medication Instructions Recorded Confirmed Acetaminophen Tab [Tylenol Tab] 650 mg PO Q4H PRN 10/01/18 09/02/19 Ibuprofen [Motrin Ib] 400 mg PO Q8H PRN 09/02/19 09/02/19 OXcarbazepine [Trileptal] 150 mg PO BID 09/02/19 09/02/19 Sertraline [Zoloft] 50 mg PO DAILY 09/02/19 09/02/19 Vitamin C/Biotin [Hair, Skin and 1 tab PO DAILY 09/02/19 09/02/19 Nails] amLODIPine [Norvasc] 5 mg PO DAILY 09/02/19 09/02/19 methylPREDNISolone [Medrol Dose See Taper PO DIRECTED 09/02/19 09/02/19 Pack] Previous Rx's Medication Instructions Recorded HYDROcodone/APAP 7.5-325MG [[place] 1 tab PO Q6HR PRN 3 Days #12 tab 09/02/19 7.5-325] Indomethacin [Indocin] 75 mg PO BID #10 capsule 09/02/19 Allergies Allergy/AdvReac Type Severity Reaction Status Date / Time aspirin Allergy Rash/Hives Verified 09/02/19 11:57 Review of Systems ROS Statement: Those systems with pertinent positive or pertinent negative responses have been documented in the HPI. ROS Other: All systems not noted in ROS Statement are negative. Past Medical History Past Medical History: No Reported History Additional Past Medical History / Comment(s): back/neck pain, migraines History of Any Multi-Drug Resistant Organisms: None Reported Past Surgical History: Orthopedic Surgery, Tubal Ligation, Uterine Ablation Additional Past Anesthesia/Blood Transfusion Reaction / Comment(s): NEVER HAD BLOOD TRANSFUSION Past Psychological History: No Psychological Hx Reported, Bipolar, Depression Smoking Status: Current every day smoker Past Alcohol Use History: None Reported Past Drug Use History: None Reported - Past Family History Mother Family Medical History: Coronary Artery Disease (CAD), Diabetes Mellitus, Hypertension Additional Family Medical History / Comment(s): LUPUS Father Family Medical History: Dementia General Exam Limitations: no limitations General appearance: alert, in no apparent distress Head exam: Present: atraumatic, normocephalic, normal inspection Respiratory exam: Present: normal lung sounds bilaterally. Absent: respiratory distress, wheezes, rales, rhonchi, stridor Cardiovascular Exam: Present: regular rate, normal rhythm, normal heart sounds. Absent: systolic murmur, diastolic murmur, rubs, gallop, clicks Extremities exam: Present: other (Moderate severe tenderness to left elbow on the posterior aspect, patient has limited range of motion secondary to pain arm was neurovascular intact, there is no pain proximal or distal left elbow there is small macular erythematous rash slight excoriation) Skin exam: Present: warm, dry, rash Course Vital Signs 09/02/19 09/02/19 09/02/19 10:04 11:18 12:17 Temperature 98.5 F Pulse Rate 83 75 73 Respiratory 18 18 18 Rate Blood Pressure 162/93 133/86 154/90 O2 Sat by Pulse 98 99 98 Oximetry Medical Decision Making - Medical Decision Making 49-year-old female presented for recheck left elbow. Patient had labs redrawn CBC is improved, CRP has decreased 19.1. Case discussed with orthopedics who recommends indomethacin, pain control and follow-up tomorrow in office. They do believe this is possible gout as CRP is improving. Patient will call office f or appointment and return parameters were discussed. - Lab Data Result diagrams: 09/02/19 11:04 09/02/19 11:04 Lab Results 09/02/19 09/02/19 Range/Units 11:04 11:04 WBC 10.2 (3.8-10.6) k/uL RBC 4.24 (3.80-5.40) m/uL Hgb 13.8 (11.4-16.0) gm/dL Hct 40.8 (34.0-46.0) % MCV 96.2 (80.0-100.0) fL MCH 32.6 (25.0-35.0) pg MCHC 33.9 (31.0-37.0) g/dL RDW 13.6 (11.5-15.5) % Plt Count 487 H (150-450) k/uL Neutrophils % 68 % Lymphocytes % 22 % Monocytes % 5 % Eosinophils % 2 % Basophils % 1 % Neutrophils # 6.9 (1.3-7.7) k/uL Lymphocytes # 2.2 (1.0-4.8) k/uL Monocytes # 0.5 (0-1.0) k/uL Eosinophils # 0.2 (0-0.7) k/uL Basophils # 0.1 (0-0.2) k/uL ESR 41 H (0-20) mm/hr Sodium 135 L (137-145) mmol/L Potassium 4.3 (3.5-5.1) mmol/L Chloride 107 (98-107) mmol/L Carbon Dioxide 22 (22-30) mmol/L Anion Gap 6 mmol/L BUN 14 (7-17) mg/dL Creatinine 0.47 L (0.52-1.04) mg/dL Est GFR (CKD-EPI)AfAm >90 (>60 ml/min/1.73 sqM) Est GFR (CKD-EPI)NonAf >90 (>60 ml/min/1.73 sqM) Glucose 96 (74-99) mg/dL Calcium 9.6 (8.4-10.2) mg/dL C-Reactive Protein 19.1 H (<10.0) mg/L Disposition Clinical Impression: Elbow pain, left Narrative: possible gout left elbow Disposition: HOME SELF-CARE Condition: Stable Instructions (If sedation given, give patient instructions): Arthralgia (ED) Additional Instructions: Please return to the Emergency Department if symptoms worsen or any other co ncerns. Prescriptions: Indomethacin [Indocin] 75 mg PO BID #10 capsule HYDROcodone/APAP 7.5-325MG [[place] 7.5-325] 1 tab PO Q6HR PRN 3 Days #12 tab PRN Reason: pain Is patient prescribed a controlled substance at d/c from ED?: Yes When asked, does pt state using other controlled substances?: No If prescribed controlled substance>3 days was MAPS reviewed?: Prescribed <3 Days If opioid is for acute pain is fill amount 7 days or less?: Yes If Rx opioid, was Start Talking consent form obtained?: Yes Referrals: Anand Cordova MD [Primary Care Provider] - 1-2 days Ashutosh Young MD [STAFF PHYSICIAN] - 1-2 days Time of Disposition: 13:51
[2019-09-02 11:38] LABS: African American GFR (CKD) >90 (>60 ml/min/1.73 sqM); Anion Gap 6 mmol/L; Blood Urea Nitrogen 14 mg/dL (7-17); C Reactive Protein 19.1 mg/L (<10.0); Calcium 9.6 mg/dL (8.4-10.2); Carbon Dioxide 22 mmol/L (22-30); Chloride 107 mmol/L (98-107); Glucose 96 mg/dL (74-99); Non-African American GFR(CKD) >90 (>60 ml/min/1.73 sqM); Potassium 4.3 mmol/L (3.5-5.1); Sodium 135 mmol/L (137-145)
[2019-09-02 12:05] LABS: Erythrocyte Sedimentation Rate 41 mm/hr (0-20)
[2019-09-02] MEDS ORDERED: HYDROmorphone 0.5 MG/0.5 ML SYRINGE IM STA (12:20)
[2019-09-02] MEDS ORDERED: HYDROmorphone 0.5 MG/0.5 ML SYRINGE IVP STA (12:22)
[2019-09-02] MEDS ORDERED: INDOMETHACIN 25 MG CAP PO STA (13:49)
[2019-09-02] MEDS ORDERED: methylPREDNISolone SOD SUCCI 125 MG/2 ML VIAL IV STA (13:50)
[2019-09-02 14:23] VITALS: BP 142/78; PULSE 60; TEMP 98.1
== END 2019-09-02 14:22 | disposition home or self-care (01) ==
LOC: EC 09:48
DX: M25.522 Pain in left elbow (principal); F31.9 Bipolar disorder, unspecified; F17.200 Nicotine dependence, unspecified, uncomplicated; G43.909 Migraine, unspecified, not intractable, without status migrainosus
CPT/HCPCS: 36415; 80048; 85652; 85025; 86140; 99284; 96374; 96375 ×4; J2270; J2930; J2405; J1885; J1170

== ENCOUNTER 2019-09-22 11:35 | Emergency (ER) | payer BC, OTHER ==
[2019-09-22 11:41] VITALS: TEMP 98.1
--- NOTE | 2019-09-22 12:22 | XR ---
EXAMINATION TYPE: XR cervical spine comp DATE OF EXAM: 09/22/2019 COMPARISON: None HISTORY: 49-year-old female with left-sided posterior neck pain TECHNIQUE: 5 views FINDINGS: No predental space widening or prevertebral soft tissue swelling. Moderate distress endplate degenera tive change at C5-C7 levels. Alignment is maintained though there is straightening of the normal cerv ical lordosis. Facet and uncovertebral joint arthropathy especially in the mid and lower cervical spi ne. On the right, changes result in moderate bony neuroforaminal narrowing at C5-C6 and C6-C7, mild at C3 -C4. On the left, changes result in moderate bony neuroforaminal narrowing at C5-C6 and mild at C6-C7. Normal odontoid view. IMPRESSION: Moderate spondylotic change mid to lower cervical spine. Straightening of the normal cervical lordosi s could be positional or due to muscle spasm.
--- NOTE | 2019-09-22 12:23 | XR ---
Left elbow HISTORY: Pain 3 views the left elbow correlation prior exam 08/28/2019 Small calcification present in the origin of the common extensor tendon consistent with possible calc ific tendinitis. Alignment, joint spaces, bone mineralization maintained. No fracture or dislocation. No evident effusion. IMPRESSION: Essentially stable exam. Possible calcific tendinitis.
[2019-09-22] MEDS ORDERED: ACET/COD 300 MG/30 MG STARTER PACK 6 TAB BTL PO STA (12:34)
[2019-09-22] MEDS ORDERED: HYDROcodone/APAP 7.5-325MG 1 EACH TAB PO ONE (12:34)
--- NOTE | 2019-09-22 12:34 | ED ---
Extremity Problem HPI - General Chief complaint: Extremity Problem,Nontraumatic Stated complaint: arm & finger numbness Time Seen by Provider: 09/22/19 11:43 Source: patient, RN notes reviewed Mode of arrival: ambulatory Limitations: no limitations - History of Present Illness Initial comments: This a 49-year-old female presents emergency Department chief complaint left arm pain, numbness. This has been an ongoing issue and which she was had 2 prior year visits and was supposed to follow-up with orthopedics but states that she did not because showed money. Patient states that her swelling in her left elbow resolved but states that she has ongoing pain and numbness in her hand. Patient also developed to your finger left hand. Patient is right-hand dominant. Patient denies any new trauma. She does have chronic neck issues not worsened usual. Denies any headache, dizziness or blurred vision no chest pain or shortness breath - Related Data Home Medications Medication Instructions Recorded Confirmed Acetaminophen Tab [Tylenol Tab] 650 mg PO Q4H PRN 10/01/18 09/22/19 OXcarbazepine [Trileptal] 150 mg PO BID 09/02/19 09/22/19 Sertraline [Zoloft] 50 mg PO DAILY 09/02/19 09/22/19 Vitamin C/Biotin [Hair, Skin and 1 tab PO DAILY 09/02/19 09/22/19 Nails] amLODIPine [Norvasc] 5 mg PO DAILY 09/02/19 09/22/19 Butalb/APAP/Caff 50-325-40Mg 1 tab PO Q4H PRN 09/22/19 09/22/19 [Fioricet 50-325-40] Previous Rx's Medication Instructions Recorded Cyclobenzaprine [Flexeril] 10 mg PO TID PRN #15 tab 09/22/19 predniSONE 50 mg PO DAILY #5 tab 09/22/19 Allergies Allergy/AdvReac Type Severity Reaction Status Date / Time aspirin Allergy Rash/Hives Verified 09/22/19 12:01 Review of Systems ROS Statement: Those systems with pertinent positive or pertinent negative responses have been documented in the HPI. ROS Other: All systems not noted in ROS Statement are negative. Past Medical History Past Medical History: No Reported History Additional Past Medical History / Comment(s): back/neck pain, migraines History of Any Multi-Drug Resistant Organisms: None Reported Past Surgical History: Orthopedic Surgery, Tubal Ligation, Uterine Ablation Additional Past Anesthesia/Blood Transfusion Reaction / Comment(s): NEVER HAD BLOOD TRANSFUSION Past Psychological History: No Psychological Hx Reported, Bipolar, Depression Past Alcohol Use History: None Reported Past Drug Use History: None Reported - Past Family History Mother Family Medical History: Coronary Artery Disease (CAD), Diabetes Mellitus, Hypertension Additional Family Medical History / Comment(s): LUPUS Father Family Medical History: Dementia General Exam Limitations: no limitations General appearance: alert, in no apparent distress Head exam: Present: atraumatic, normocephalic, normal inspection Eye exam: Present: normal appearance, PERRL, EOMI. Absent: scleral icterus, conjunctival injection, periorbital swelling ENT exam: Present: normal exam, normal oropharynx, mucous membranes moist Neck exam: Present: full ROM Respiratory exam: Present: normal lung sounds bilaterally. Absent: respiratory distress, wheezes, rales, rhonchi, stridor Cardiovascular Exam: Present: regular rate, normal rhythm, normal heart sounds. Absent: systolic murmur, diastolic murmur, rubs, gallop, clicks Extremities exam: Present: other (Left arm is neurovascularly intact radial pulses equal bilaterally patient has full range of motion of left and right wrists and elbow and shoulder. There is noted calcified tendon, trigger finger left hand third digit, cap refill less than 2 seconds of all digits there is no severe swelling, erythema or discoloration equal color equal warmth) Neurological exam: Present: oriented X3, reflexes normal. Absent: alert, motor sensory deficit Skin exam: Present: warm, dry, intact, normal color. Absent: rash Course Vital Signs 09/22/19 11:37 Temperature 98.1 F Pulse Rate 73 Respiratory 16 Rate Blood Pressure 169/90 O2 Sat by Pulse 99 Oximetry Medical Decision Making - Medical Decision Making X-ray of left elbow was repeated, there is no significant changes, some calcified tendinitis noted. Patient does have trigger finger left hand, ongoing pain in the left elbow and arm in which patient never followed up with orthopedics as directed. Patient may have some underlying cubital tunnel and carpal tunnel syndrome. Patient has no focal weakness. Patient is advised that she has to follow with orthopedics or private on-call and with orthopedics. Patient provided short course of pain relief. Orthopedics in the past believed that she may have some underlying gout. Disposition Clinical Impression: Arm paresthesia, left, Trigger finger of left hand, Chronic pain of left upper extremity Disposition: HOME SELF-CARE Condition: Stable Instructions (If sedation given, give patient instructions): Trigger Finger (ED), Arm Pain (ED) Additional Instructions: Please return to the Emergency Department if symptoms worsen or any other concerns. Prescriptions: Cyclobenzaprine [Flexeril] 10 mg PO TID PRN #15 tab PRN Reason: Muscle Spasm predniSONE 50 mg PO DAILY #5 tab Is patient prescribed a controlled substance at d/c from ED?: No Referrals: Sam Bray MD [STAFF PHYSICIAN] - 1-2 days Star Cervantes MD [STAFF PHYSICIAN] - 1-2 days Hunter Bailon MD [STAFF PHYSICIAN] - 1-2 days Time of Disposition: 12:34
[2019-09-22 12:49] VITALS: BP 139/97; PULSE 62; RESP 18
== END 2019-09-22 12:47 | disposition home or self-care (01) ==
LOC: EC 11:35
DX: M65.332 Trigger finger, left middle finger (principal); G89.29 Other chronic pain; M79.602 Pain in left arm; R20.2 Paresthesia of skin; F31.9 Bipolar disorder, unspecified; Z79.899 Other long term (current) drug therapy; Z88.6 Allergy status to analgesic agent
CPT/HCPCS: 72050; 99284

== ENCOUNTER → 2019-11-27 | Outpatient (CLI) | payer OTHER ==
--- NOTE | 2019-11-27 07:48 | MR ---
EXAMINATION TYPE: MR cervical spine wo con DATE OF EXAM: 11/27/2019 COMPARISON: None HISTORY: 49-year-old female Cervicalgia, pain in left side going into shoulder TECHNIQUE: Multiplanar, multisequence images of the cervical spine were acquired. FINDINGS: No craniocervical junction abnormality or predental space widening, or prevertebral soft tissue swell ing. [id number] hypertrophy of the adenoid tonsils. Moderate degenerative disc disease particularly at C5-C7 levels with desiccated, narrowed disks and d iscussed by complex formation. Ligamentum flavum thickening also present at these levels. Multilevel facet and uncovertebral joint arthropathy is present. No suspicious bone marrow replacement. Some edematous Modic dictated 1 endplate changes present on jose guadalupe th sides at C5-C6. At C2-C3, mild facet arthropathy without canal or foraminal stenosis. At C3-C4, mild facet arthropathy with minimal posterior disc bulge. No significant canal or foraminal stenosis. At C4-C5, facet arthropathy without significant canal or foraminal stenosis. At C5-C6, ligamentum flavum thickening with posterior disc osteophyte complex and a superimposed left paracentral disc protrusion. There is overall moderate narrowing of the spinal canal with abutment o f both the dorsal and ventral cord and slight left ventral cord flattening. Facet and uncovertebral j oint arthropathy, there is moderate left and mild right neuroforaminal stenosis. At C6-C7, there is ligamentum flavum thickening with broad-based disc osteophyte complex. Uncovertebr al joint and facet degenerative change is also present. This results in moderate right and mild left neuroforaminal stenosis and mild narrowing of the spinal canal with dorsal cord abutment. At C7-T1, ligamentum flavum thickening. Hypertrophic facet arthropathy. Moderate right foraminal sten osis. No spinal canal stenosis. Normal course of the cervical spinal cord. There is motion artifact degrading assessment for a T2-osmany ghted cord signal abnormality particularly at the C5-C7 levels. IMPRESSION: 1. Moderate degenerative disc disease from C5 through C7 levels with ligamentum flavum thickening. Sc attered facet and uncovertebral joint arthropathy. Some associated Modic type I endplate change at C5 -C6. 2. Changes result in moderate spinal canal stenosis at C5-C6 with abutment of both the dorsal and chris tral cord and some focal ventral cord flattening. 3. Mild overall spinal canal stenosis at C6-C7 with dorsal cord abutment. 4. Motion artifacts degrade assessment for any T2-weighted cord signal abnormality especially at thes e 2 levels. Further clinical correlation will be needed. 5. Changes result in variable neural foraminal stenoses as outlined above, moderate on the left at C5 -C6, moderate on the right at C6-C7 and also moderate on the right at C7-T1.
== END | disposition home or self-care (01) ==
LOC: RADMRIMAIN 06:04
PROVIDERS: ATTEND Nurse Practitioner Family
DX: M48.02 Spinal stenosis, cervical region (principal); M50.322 Other cervical disc degeneration at C5-C6 level; M47.812 Spondylosis without myelopathy or radiculopathy, cervical region; M53.82 Other specified dorsopathies, cervical region
CPT/HCPCS: 72141

== ENCOUNTER 2019-12-17 15:01 | Emergency (ER) | payer OTHER ==
[2019-12-17 15:14] VITALS: BP 131/95; PULSE 99; RESP 18; TEMP 98.4
[2019-12-17] MEDS ORDERED: DIAZEPAM 5 MG/ML 2 ML INJ IM ONE (15:27)
--- NOTE | 2019-12-17 15:37 | ED ---
General Adult HPI - General Chief complaint: Back Pain/Injury Stated complaint: Fall, Neck Pain Time Seen by Provider: 12/17/19 15:08 Source: patient, RN notes reviewed, old records reviewed Mode of arrival: ambulatory Limitations: no limitations - History of Present Illness Initial comments: 49-year-old female presenting with acute on chronic neck pain. Patient has had several months of neck pain. She's been evaluated by her primary care physician has had MRI. She states that approximately one week ago she slipped falling out of her bed she grabbed the bed with her right arm causing pain in the right trapezius and right side of her neck. There is no head or neck trauma. She fell onto her tailbone. She's had worsening pain and muscle spasm of the right side of her neck since that time. She has been taking Tylenol and Motrin without significant relief. No low back pain. No bowel or bladder dysfunction. No fever or chills. She states this is similar to her previous pain however has worsened since this fall. - Related Data Home Medications Medication Instructions Recorded Confirmed Acetaminophen Tab [Tylenol Tab] 650 mg PO Q4H PRN 10/01/18 09/22/19 OXcarbazepine [Trileptal] 150 mg PO BID 09/02/19 09/22/19 Sertraline [Zoloft] 50 mg PO DAILY 09/02/19 09/22/19 Vitamin C/Biotin [Hair, Skin and 1 tab PO DAILY 09/02/19 09/22/19 Nails] amLODIPine [Norvasc] 5 mg PO DAILY 09/02/19 09/22/19 Butalb/APAP/Caff 50-325-40Mg 1 tab PO Q4H PRN 09/22/19 09/22/19 [Fioricet 50-325-40] Previous Rx's Medication Instructions Recorded Cyclobenzaprine [Flexeril] 10 mg PO TID PRN #15 tab 09/22/19 predniSONE 50 mg PO DAILY #5 tab 09/22/19 diazePAM [Valium] 5 mg PO BID PRN #6 tab 12/17/19 Allergies Allergy/AdvReac Type Severity Reaction Status Date / Time aspirin Allergy Rash/Hives Verified 12/17/19 15:14 Review of Systems ROS Statement: Those systems with pertinent positive or pertinent negative responses have been documented in the HPI. ROS Other: All systems not noted in ROS Statement are negative. Past Medical History Past Medical History: No Reported History Additional Past Medical History / Comment(s): back/neck pain, migraines History of Any Multi-Drug Resistant Organisms: None Reported Past Surgical History: Orthopedic Surgery, Tubal Ligation, Uterine Ablation Additional Past Anesthesia/Blood Transfusion Reaction / Comment(s): NEVER HAD BLOOD TRANSFUSION Past Psychological History: Anxiety, Bipolar, Depression Smoking Status: Current every day smoker Past Alcohol Use History: None Reported Past Drug Use History: None Reported - Past Family History Mother Family Medical History: Coronary Artery Disease (CAD), Diabetes Mellitus, Hypertension Additional Family Medical History / Comment(s): LUPUS Father Family Medical History: Dementia General Exam Limitations: no limitations General appearance: alert, in no apparent distress Head exam: Present: atraumatic, normocephalic Eye exam: Present: normal appearance, PERRL ENT exam: Present: normal exam Neck exam: Present: other (Right cervical paraspinal tenderness, muscle spasm, muscle spasm and pain in the trapezius.) Respiratory exam: Present: normal lung sounds bilaterally. Absent: respiratory distress, wheezes Cardiovascular Exam: Present: regular rate, normal rhythm GI/Abdominal exam: Present: soft. Absent: distended, tenderness, guarding Extremities exam: Present: normal inspection, other (Bilateral upper extremity box stacker strength intact, 5 out of 5 strength in both upper extremities.) Neurological exam: Present: alert, oriented X3, CN II-XII intact, normal gait. Absent: motor sensory deficit Psychiatric exam: Present: normal affect, normal mood Skin exam: Present: warm, dry, intact. Absent: cyanosis, diaphoretic Course Vital Signs 12/17/19 15:12 Temperature 98.4 F Pulse Rate 99 Respiratory 18 Rate Blood Pressure 131/95 O2 Sat by Pulse 98 Oximetry Medical Decision Making - Medical Decision Making 49-year-old female with chronic neck pain, acute exacerbation after minor fall. There is no head or neck trauma. The patient had slipped off her bed and grabbed herself to the right arm causing pain in the right trapezius and right cervical paraspinal muscles. There is tenderness and spasm in these muscles. She has good box stacker strength. She's given Valium in the emergency department for muscle relaxing. She will be prescribed short course of Valium as well as she will continue Tylenol and Motrin. I think this patient could benefit from an orthopedic, spinal surgery evaluation. She is given referral and emergency de partment. Disposition Clinical Impression: Cervical strain Disposition: HOME SELF-CARE Condition: Fair Instructions (If sedation given, give patient instructions): Cervical Strain (ED) Prescriptions: diazePAM [Valium] 5 mg PO BID PRN #6 tab PRN Reason: Muscle Spasm Is patient prescribed a controlled substance at d/c from ED?: No Referrals: Eric Smyth MD [Primary Care Provider] - 1-2 days Jovan Masterson DO [Doctor of Osteopathic Medicine] - 1-2 days Time of Disposition: 15:37
== END 2019-12-17 15:46 | disposition home or self-care (01) ==
LOC: EC 15:01
DX: S16.1XXA Strain of muscle, fascia and tendon at neck level, initial encounter (principal); F41.9 Anxiety disorder, unspecified; F31.9 Bipolar disorder, unspecified; F17.200 Nicotine dependence, unspecified, uncomplicated; Z79.899 Other long term (current) drug therapy; Z88.6 Allergy status to analgesic agent; W06.XXXA Fall from bed, initial encounter; Y92.009 Unspecified place in unspecified non-institutional (private) residence as the place of occurrence of the external cause
CPT/HCPCS: 99283; 96372; J3360

== ENCOUNTER 2020-01-07 14:37 | Emergency (ER) | payer OTHER ==
[2020-01-07 14:43] VITALS: RESP 18
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
--- NOTE | 2020-01-07 15:25 | XR ---
Left foot HISTORY: Trauma and pain 3 views the left foot Bone mineralization, joint spaces and alignment are maintained. Mild degenerative change at the first metatarsophalangeal joint. IMPRESSION: No fracture or dislocation.
[2020-01-07 15:58] VITALS: BP 136/78; PULSE 91; TEMP 98.1
== END 2020-01-07 15:58 | disposition home or self-care (01) ==
LOC: EC 14:37
DX: S93.602A Unspecified sprain of left foot, initial encounter (principal); J04.0 Acute laryngitis; F41.9 Anxiety disorder, unspecified; F32.9 Major depressive disorder, single episode, unspecified; F17.200 Nicotine dependence, unspecified, uncomplicated; Z79.899 Other long term (current) drug therapy; Z88.6 Allergy status to analgesic agent; Z98.890 Other specified postprocedural states; Y04.0XXA Assault by unarmed brawl or fight, initial encounter
CPT/HCPCS: 87081; 87430; 99284

== ENCOUNTER 2020-01-27 16:06 | Emergency (ER) | payer OTHER | END 2020-01-27 16:34 | disposition left against medical advice (07) | LOC: EC 16:06 | DX: Z53.21 Procedure and treatment not carried out due to patient leaving prior to being seen by health care provider (principal) | CPT/HCPCS: 99499 ==

== ENCOUNTER 2020-02-02 06:04 | Day surgery (SDC) | payer OTHER ==
[2020-02-01 12:43] VITALS: BMI 25.8
[2020-02-02 06:49] VITALS: RESP 16; TEMP 97.8
[2020-02-02] MEDS ORDERED: LACTATED RINGERS 1,000 ML IV ONE (06:50)
[2020-02-02] MEDS ORDERED: LIDOCAINE 1% (10MG/ML) FOR IV START INTRADERMA ONE (06:50)
[2020-02-02] MEDS ORDERED: IOPAMIDOL M200 10 ML VIAL ONE (07:06)
[2020-02-02] MEDS ORDERED: MIDAZOLAM 2 MG/2 ML VIAL ONE (07:06)
[2020-02-02] MEDS ORDERED: fentaNYL (PF) 50 MCG/ML 2 ML AMP ONE (07:06)
[2020-02-02] MEDS ORDERED: DEXAMETHASONE SOD PHOSPHATE 10 MG/ML 1 ML VIAL ONE (07:06)
--- NOTE | 2020-02-02 07:26 | P.PCN ---
Date of Procedure: 02/02/20 Description of Procedure: Diagnosis: Cervical radiculopathy Cervical degenerative disc disease POSTOPERATIVE DIAGNOSIS: Diagnoses: Cervical radiculopathy Cervical degenerative disc disease PROCEDURE Cervical Epidural steroid injection under fluoroscopic guidance at the C6-7 interspace using right paramedian approach Cervical epidurogram ANESTHESIA: Local with 1% lidocaine 3 ml and IV sedation with Versed and fentanyl, sedation time 9minutes Fluoroscopy was used for the procedure and images were saved in the radiology portion of the chart. EBL: Minimal PROCEDURE INDICATION: The patient presents with cervical radicular symptoms unresponsive to conservative treatment. This is the first cervical epidural steroid injection. PROCEDURE DESCRIPTION / TECHNIQUE: The patient was seen and identified in the preoperative area. Risks, benefits, complications including but not limited to infections ,bleeding ,allergic reaction to the medications ,nerve damage and incomplete pain relief, and alternatives were discussed with the patient. The patient agreed to proceed with the procedure and signed the consent. IV was started, and vital signs were stable. Patient was taken to the OR and time out was completed. The patient was placed in the prone position on procedure table and a pillow was placed under the chest area. The cervical area was prepped and draped in the usual sterile fashion. Conscious sedation was used during the procedure to decrease patients anxiety. Vital signs was monitored during the entire procedure. Using anterior-posterior fluoroscopy, the C6-7 interlaminar space was identified and the skin over this site was marked and then infiltrated with 1% lidocaine subcutaneously. Subsequently, a 20-gauge Tuohy epidural needle was inserted and advanced toward the epidural space using the loss of resistance technique and guided by AP and 50 oblique fluoroscopy. The correct needle position in the epidural space was verified. After negative aspiration for blood and CSF and in the absence of paresthesias, Isovue 200 2 mL's was injected under live fluorosc opy with good epidural spread. After negative aspiration, a 4 ml mixture containing 10 mg of dexamethasone, 3 mL of preservative free normal saline was injected. Needle was withdrawn intact, skin was cleansed, and bandages were applied. COMPLICATIONS: None DISPOSITION / PLANS: The patient was placed in a supine position and transferred to the recovery area in a stable condition for observation. There was no evidence of lower extremity motor or sensory deficit after the procedure. Patient was discharged from the recovery room after meeting discharge criteria. Home discharge instructions were given to the patient by the staff. The patient will be scheduled a repeat procedure in 2-4 weeks.
[2020-02-02] MEDS ORDERED: IV FLUID CONTINUATION 450 ML IV ONE (07:35)
[2020-02-02 08:00] VITALS: BP 152/87; PULSE 76
--- NOTE | 2020-02-02 08:00 | FL ---
EXAMINATION TYPE: FL guided pain mgmt statistic DATE OF EXAM: 02/02/2020 HISTORY: Fluoroscopy time 6 seconds of fluoroscopy provided. IMPRESSION: 1. Fluoroscopy time.
== END 2020-02-02 08:02 ==
LOC: ORPAIN 06:04
PROVIDERS: ATTEND Anesthesiology
DX: M50.10 Cervical disc disorder with radiculopathy, unspecified cervical region (principal); Z88.6 Allergy status to analgesic agent
CPT/HCPCS: 62321; 81025; J2250; J1100; J3010; Q9966; 99152

== ENCOUNTER 2020-02-17 16:32 | Emergency (ER) | payer OTHER ==
[2020-02-17 16:38] VITALS: BP 159/81; PULSE 92; RESP 18; TEMP 98.1
[2020-02-17] MEDS ORDERED: hydrOXYzine HCL 25 MG TAB PO STA (17:49)
--- NOTE | 2020-02-17 17:52 | ED ---
Skin/Abscess/FB HPI - General Chief complaint: Skin/Abscess/Foreign Body Stated complaint: rash Time Seen by Provider: 02/17/20 17:30 Source: patient Mode of arrival: ambulatory Limitations: no limitations - History of Present Illness Initial comments: 49-year-old female presents emergency Department with a chief complaint of a rash. Patient started a rash about one week ago. Patient states she lives in a car and she noticed a rash after became very itchy. Patient reports most of the itching is in the upper back region. She also reports there is small rash on her face, between her eyes. States the rash on her face is not itchy no painful. Denies any night sweats fevers or chills. - Related Data Home Medications Medication Instructions Recorded Confirmed OXcarbazepine [Trileptal] 150 mg PO BID 09/02/19 02/01/20 Sertraline [Zoloft] 100 mg PO DAILY 09/02/19 02/01/20 amLODIPine [Norvasc] 5 mg PO DAILY 09/02/19 02/01/20 Butalb/APAP/Caff 50-325-40Mg 1 tab PO Q4H PRN 09/22/19 02/01/20 [Fioricet 50-325-40] Acetaminophen Tab [Tylenol] 650 mg PO Q4H PRN 02/01/20 02/01/20 Multivitamins, Thera [Multivitamin 1 tab PO DAILY 02/01/20 02/01/20 (formulary)] rOPINIRole HCL [Requip] 0.25 mg PO HS 02/01/20 02/01/20 traMADol HCL [Ultram] 50 mg PO BID 02/01/20 02/01/20 Previous Rx's Medication Instructions Recorded Cyclobenzaprine [Flexeril] 10 mg PO TID PRN #15 tab 09/22/19 hydrOXYzine HCL [Atarax] 25 mg PO TID PRN #15 tab 02/17/20 predniSONE [Deltasone] 20 mg PO DAILY #5 tab 02/17/20 Allergies Allergy/AdvReac Type Severity Reaction Status Date / Time aspirin Allergy Rash/Hives Verified 02/17/20 16:38 Review of Systems ROS Statement: Those systems with pertinent positive or pertinent negative responses have been documented in the HPI. ROS Other: All systems not noted in ROS Statement are negative. Past Medical History Past Medical History: Osteoarthritis (OA) Additional Past Medical History / Comment(s): back/neck pain, migraines History of Any Multi-Drug Resistant Organisms: None Reported Past Surgical History: Orthopedic Surgery, Tubal Ligation, Uterine Ablation Additional Past Surgical History / Comment(s): RIGHT ELBOW SURGERY Past Anesthesia/Blood Transfusion Reactions: No Reported Reaction Additional Past Anesthesia/Blood Transfusion Reaction / Comment(s): NEVER HAD BLOOD TRANSFUSION Past Psychological History: Anxiety, Bipolar, Depression Smoking Status: Current every day smoker Past Alcohol Use History: None Reported Past Drug Use History: None Reported - Past Family History Mother Family Medical History: Coronary Artery Disease (CAD), Diabetes Mellitus, Hypertension Additional Family Medical History / Comment(s): LUPUS Father Family Medical History: Dementia General Exam Limitations: no limitations General appearance: alert, in no apparent distress Head exam: Present: atraumatic, normocephalic, normal inspection Eye exam: Present: normal appearance, PERRL, EOMI Pupils: Present: normal accommodation ENT exam: Present: normal exam, normal oropharynx, mucous membranes moist, TM's normal bilaterally, normal external ear exam Neck exam: Present: normal inspection, full ROM. Absent: tenderness Respiratory exam: Present: normal lung sounds bilaterally. Absent: respiratory distress, wheezes, rales Cardiovascular Exam: Present: regular rate, normal rhythm, normal heart sounds. Absent: systolic murmur, diastolic murmur GI/Abdominal exam: Present: soft. Absent: distended, tenderness, guarding, rebound Extremities exam: Present: normal inspection, full ROM, normal capillary refill. Absent: tenderness, pedal edema, joint swelling, calf tenderness Back exam: Present: normal inspection, full ROM. Absent: tenderness, CVA tenderness (R), CVA tenderness (L), muscle spasm, paraspinal tenderness, vertebral tenderness Neurological exam: Present: alert, oriented X3 Psychiatric exam: Present: normal affect, normal mood Skin exam: Present: warm, dry, intact, normal color, rash (Rash on the upper back region, appears to be dermatitis secondary to itching.) Course Vital Signs 02/17/20 16:35 Temperature 98.1 F Pulse Rate 92 Respiratory 18 Rate Blood Pressure 159/81 O2 Sat by Pulse 98 Oximetry Medical Decision Making - Medical Decision Making 49-year-old female presenting to emergency Department chief complaint of a rash. On physical examination, patient appears to have a rash in the upper back region. There is also small erythematous macular rash on the face but it does cross the midline. Not itchy or painful. Patient was given Atarax and given prednisone for 5 days. Return primary's were thoroughly discussed the patient was standing agreeable. She will also be discharged with Atarax. On reevaluation, patient reports improving his symptoms. Case discussed with physician. Disposition Clinical Impression: Skin rash Disposition: HOME SELF-CARE Additional Instructions: Take prescribed medication as directed. Follow up with her primary care physician. Return to emergency department if symptoms worsen. Prescriptions: hydrOXYzine HCL [Atarax] 25 mg PO TID PRN #15 tab PRN Reason: Itching predniSONE [Deltasone] 20 mg PO DAILY #5 tab Is patient prescribed a controlled substance at d/c from ED?: No Referrals: Eric Smyth MD [Primary Care Provider] - 1-2 days Time of Disposition: 17:51
== END 2020-02-17 18:12 | disposition home or self-care (01) ==
LOC: EC 16:32
DX: R21 Rash and other nonspecific skin eruption (principal); F41.9 Anxiety disorder, unspecified; F32.9 Major depressive disorder, single episode, unspecified; F17.200 Nicotine dependence, unspecified, uncomplicated; Z79.899 Other long term (current) drug therapy; Z88.6 Allergy status to analgesic agent
CPT/HCPCS: 99282

== ENCOUNTER → 2020-05-26 | Outpatient (CLI) | payer OTHER ==
--- NOTE | 2020-05-26 12:18 | XR ---
EXAMINATION TYPE: XR Hip Bilateral and AP pelvis DATE OF EXAM: 05/26/2020 CLINICAL HISTORY: pain TECHNIQUE: Single view the pelvis and 2 views of each hip are submitted. FINDINGS: No evidence for fracture, dislocation or bony lesion. Joint spaces are mildly narrowed. SI joints appear symmetric. IMPRESSION: 1. No acute fracture or dislocation seen. ICD 10 NO FRACTURE, INITIAL EVALUATION
== END | disposition home or self-care (01) ==
LOC: RADXRMAIN 10:07
PROVIDERS: ATTEND Family Medicine
DX: M25.551 Pain in right hip (principal); M25.552 Pain in left hip
CPT/HCPCS: 73521

== ENCOUNTER 2020-07-17 12:38 | Emergency (ER) | payer OTHER ==
[2020-07-17 12:46] VITALS: PULSE 78; RESP 18; TEMP 98
[2020-07-17] MEDS ORDERED: KETOROLAC 15 MG/ML 1 ML VIAL IVP STA (13:04)
[2020-07-17] MEDS ORDERED: HYDROmorphone 0.5 MG/0.5 ML SYRINGE IM STA (13:04)
[2020-07-17] MEDS ORDERED: KETOROLAC 15 MG/ML 1 ML VIAL IM STA (13:11)
--- NOTE | 2020-07-17 13:13 | ED ---
General Adult HPI - General Chief complaint: Extremity Problem,Nontraumatic Stated complaint: Hand pain Time Seen by Provider: 07/17/20 12:52 Source: patient, RN notes reviewed, old records reviewed Mode of arrival: ambulatory Limitations: no limitations - History of Present Illness Initial comments: 50-year-old female with known history of Buerger's disease who follows with her primary care physician and vascular surgery presenting with bilateral hand pain swelling and erythema. She continues to smoke daily. She has been informed that smoking is a risk factor for this disease. She states that her pain is severe. She denies any skin breakdown. Denies fever or chills. Denies dyspnea. Denies abdominal pain nausea vomiting. - Related Data Home Medications Medication Instructions Recorded Confirmed OXcarbazepine [Trileptal] 150 mg PO BID 09/02/19 02/01/20 Sertraline [Zoloft] 100 mg PO DAILY 09/02/19 02/01/20 amLODIPine [Norvasc] 5 mg PO DAILY 09/02/19 02/01/20 Butalb/APAP/Caff 50-325-40Mg 1 tab PO Q4H PRN 09/22/19 02/01/20 [Fioricet 50-325-40] Acetaminophen Tab [Tylenol] 650 mg PO Q4H PRN 02/01/20 02/01/20 Multivitamins, Thera [Multivitamin 1 tab PO DAILY 02/01/20 02/01/20 (formulary)] rOPINIRole HCL [Requip] 0.25 mg PO HS 02/01/20 02/01/20 traMADol HCL [Ultram] 50 mg PO BID 02/01/20 02/01/20 Previous Rx's Medication Instructions Recorded Cyclobenzaprine [Flexeril] 10 mg PO TID PRN #15 tab 09/22/19 hydrOXYzine HCL [Atarax] 25 mg PO TID PRN #15 tab 02/17/20 predniSONE [Deltasone] 20 mg PO DAILY #5 tab 02/17/20 Allergies Allergy/AdvReac Type Severity Reaction Status Date / Time aspirin Allergy Rash/Hives Verified 07/17/20 12:46 Review of Systems ROS Statement: Those systems with pertinent positive or pertinent negative responses have been documented in the HPI. ROS Other: All systems not noted in ROS Statement are negative. Past Medical History Past Medical History: Osteoarthritis (OA) Additional Past Medical History / Comment(s): back/neck pain, migraines, gout, buerges disease History of Any Multi-Drug Resistant Organisms: None Reported Past Surgical History: Orthopedic Surgery, Tubal Ligation, Uterine Ablation Additional Past Surgical History / Comment(s): RIGHT ELBOW SURGERY Past Anesthesia/Blood Transfusion Reactions: No Reported Reaction Additional Past Anesthesia/Blood Transfusion Reaction / Comment(s): NEVER HAD BLOOD TRANSFUSION Past Psychological History: Anxiety, Bipolar, Depression Smoking Status: Current every day smoker Past Alcohol Use History: None Reported Past Drug Use History: None Reported - Past Family History Mother Family Medical History: Coronary Artery Disease (CAD), Diabetes Mellitus, Hypertension Additional Family Medical History / Comment(s): LUPUS Father Family Medical History: Dementia General Exam Limitations: no limitations General appearance: anxious Head exam: Present: atraumatic, normocephalic Eye exam: Present: normal appearance, PERRL ENT exam: Present: normal exam Neck exam: Present: normal inspection. Absent: tenderness Respiratory exam: Present: normal lung sounds bilaterally. Absent: respiratory distress, wheezes Cardiovascular Exam: Present: regular rate, normal rhythm GI/Abdominal exam: Present: soft. Absent: distended, tenderness Extremities exam: Present: tenderness (Bilateral hands are tender to palpation), other (Bilateral hands are mildly erythematous, mildly swollen, there is normal cap refill, normal radial pulses bilaterally. There is no dry or wet gangrene. No bluish discoloration.) Neurological exam: Present: alert, oriented X3, CN II-XII intact. Absent: motor sensory deficit Psychiatric exam: Present: anxious. Absent: suicidal ideation Skin exam: Present: warm, dry, intact, erythema (Bilateral hands) Course Vital Signs 07/17/20 12:41 Temperature 98.0 F Pulse Rate 78 Respiratory 18 Rate Blood Pressure 127/90 O2 Sat by Pulse 97 Oximetry Medical Decision Making - Medical Decision Making Patient presenting with bilateral hand pain, history of Buerger's disease. She is encouraged to abstain from tobacco use. She is given pain shot in the emerge ncy department for symptom control. She is currently on gabapentin. She has good follow-up with both her primary care physician and vascular surgery. There is no signs of arterial occlusion or gangrene on exam. She will continue to follow up as an outpatient. Return parameters are discussed. Disposition Clinical Impression: Buerger's disease Disposition: HOME SELF-CARE Condition: Fair Instructions (If sedation given, give patient instructions): How to Stop Smoking (ED), Chronic Pain (ED) Is patient prescribed a controlled substance at d/c from ED?: No Referrals: Eric Smyth MD [Primary Care Provider] - 1-2 days Time of Disposition: 13:13
[2020-07-17 13:36] VITALS: BP 128/89
== END 2020-07-17 13:35 | disposition home or self-care (01) ==
LOC: EC 12:38
DX: I73.1 Thromboangiitis obliterans [Buerger's disease] (principal); G43.909 Migraine, unspecified, not intractable, without status migrainosus; M19.90 Unspecified osteoarthritis, unspecified site; M10.9 Gout, unspecified; F17.200 Nicotine dependence, unspecified, uncomplicated; F41.9 Anxiety disorder, unspecified; F32.9 Major depressive disorder, single episode, unspecified; Z79.52 Long term (current) use of systemic steroids
CPT/HCPCS: 99283; 96372 ×2; J1885; J1170

== ENCOUNTER 2020-09-06 07:24 | Observation (INO) | payer OTHER ==
[2020-09-06] MEDS ORDERED: LORazepam 2 MG/ML INJ IV STA ×2 (08:03→08:43)
[2020-09-06] MEDS ORDERED: diphenhydrAMINE 50 MG/ML 1 ML VIAL IVP STA (08:03)
--- NOTE | 2020-09-06 08:12 | ED ---
General Adult HPI - General Chief complaint: Chest Pain Stated complaint: SVT Time Seen by Provider: 09/06/20 07:27 Source: patient, EMS Mode of arrival: EMS Limitations: no limitations - History of Present Illness Initial comments: Dictation was produced using [employer] dictation software. please excuse any grammatical, word or spelling errors. Chief Complaint: 50-year-old female presents to the emergency department for acute on chronic restless leg symptoms, chest pain, SVT History of Present Illness: Is 50-year-old female she was brought in by EMS. Patient states she's been having worsening restless leg symptoms overnight. She was prescribed Requip however that medication is not working. She called EMS. She did report having some alcohol intake earlier in the day. She was prescribed 3 medications recently. She had her first dose of that. She complains of also chest pain that she's been having chronically for the last month. She describes her chest pain has constant pressure to her substernal area. The medication she was started on our the Motrin HEENT, Seroquel and Requip. Patient has any shortness of breath. En route to the emergency department EMS noted that patient was having a tachycardia dysrhythmia. It appeared that it was consistent with supraventricular tachycardia. She was given 2 doses of adenosine with conversion to normal sinus rhythm. Patient states she does not have any history of SVT or tach dysrhythmias. The ROS documented in this emergency department record has been reviewed and confirmed by me. Those systems with pertinent positive or negative responses have been documented in the HPI. All other systems are other negative and/or noncontributory. PHYSICAL EXAM: General Impression: Alert and oriented x3, tearful, agitated HEENT: Normocephalic atraumatic, extra-ocular movements intact, pupils equal and reactive to light bilaterally, mucous membranes moist. Cardiovascular: Heart regular rate and rhythm Chest: Able to complete full sentences, no retractions, no tachypnea Abdomen: abdomen soft, non-tender, non-distended, no organomegaly Musculoskeletal: Pulses present and equal in all extremities, no peripheral edema Motor: no focal deficits noted Neurological: CN II-XII grossly intact, no focal motor or sensory deficits noted Skin: Intact with no visualized rashes Psych: Tangential ED course: 50-year-old female presents with multiple complaints. Her complaints include worsening restless leg symptoms, chest pain. EMS reports that she was in SVT en route to the emergency department. Patient denies any history of cardiac disease. Vital signs upon arrival are within acceptable limits. Patient appears agitated at the bedside. She does appear to be res tless.Laboratory evaluation obtained. Mild leukocytosis of 15.0. Rest of CBC is unremarkable. Coag panel is negative. Metabolic panel is negative. Toxicology screen is positive for barbiturates and TCAs. Alcohol is negative. Chest x-ray shows. Clinical patient not showing any signs of respiratory distress. She has no respiratory symptoms. Patient given benzodiazepines. She does have features of subaxillary toxidrome given agitation. Case discussed with Kel Mitchell, nurse practitioner for patient's primary care physician was provided with patient. She does have history of methamphetamine use. Patient be admitted observation with consultation to neurology. EKG interpretation: Ventricular rate 88, normal sinus rhythm,. Interval 1:30, QRS 100, QTC 474. No IA prolongation, no QTC prolongation, no ST or T-wave changes noted. EKG compared to 02/27/2019 showing no changes. Overall, this EKG is unremarkable - Related Data Home Medications Medication Instructions Recorded Confirmed amLODIPine [Norvasc] 5 mg PO DAILY 09/02/19 09/06/20 Butalb/APAP/Caff 50-325-40Mg 1 tab PO Q6H PRN 09/22/19 09/06/20 [Fioricet 50-325-40] rOPINIRole HCL [Requip] 0.25 mg PO HS PRN 02/01/20 09/06/20 Cilostazol [Pletal] 100 mg PO BID 09/06/20 09/06/20 DULoxetine HCL [Cymbalta] 60 mg PO HS 09/06/20 09/06/20 HYDROcodone/APAP 5-325MG [[place] 1 tab PO TID PRN 09/06/20 09/06/20 5-325] QUEtiapine [SEROquel] 100 mg PO HS 09/06/20 09/06/20 lamoTRIgine [LaMICtal] 25 mg PO BID 09/06/20 09/06/20 Allergies Allergy/AdvReac Type Severity Reaction Status Date / Time aspirin Allergy Rash/Hives Verified 09/06/20 08:33 Review of Systems ROS Statement: Those systems with pertinent positive or pertinent negative responses have been documented in the HPI. ROS Other: All systems not noted in ROS Statement are negative. Past Medical History Past Medical History: Osteoarthritis (OA) Additional Past Medical History / Comment(s): back/neck pain, migraines, gout, buerges disease, anxiety, depression History of Any Multi-Drug Resistant Organisms: None Reported Past Surgical History: Orthopedic Surgery, Tubal Ligation, Uterine Ablation Additional Past Surgical History / Comment(s): RIGHT ELBOW SURGERY Past Anesthesia/Blood Transfusion Reactions: No Reported Reaction Additional Past Anesthesia/Blood Transfusion Reaction / Comment(s): NEVER HAD BLOOD TRANSFUSION Past Psychological History: Anxiety, Bipolar, Depression Smoking Status: Current every day smoker Past Alcohol Use History: None Reported Past Drug Use History: None Reported - Past Family History Mother Family Medical History: Coronary Artery Disease (CAD), Diabetes Mellitus, Hypertension Additional Family Medical History / Comment(s): LUPUS Father Family Medical History: Dementia General Exam Limitations: no limitations Course Vital Signs 09/06/20 09/06/20 07:27 07:35 Temperature 97.8 F Pulse Rate 98 Pulse Rate [ 96 Mental Hygienist ] Respiratory 18 Rate Blood Pressure 129/87 Medical Decision Making - Lab Data Result diagrams: 09/06/20 08:14 09/06/20 08:14 Lab Results 09/06/20 09/06/20 09/06/20 Range/Units 08:14 08:14 08:14 WBC 15.0 H (3.8-10.6) k/uL RBC 4.64 (3.80-5.40) m/uL Hgb 13.9 (11.4-16.0) gm/dL Hct 40.0 (34.0-46.0) % MCV 86.3 (80.0-100.0) fL MCH 30.0 (25.0-35.0) pg MCHC 34.8 (31.0-37.0) g/dL RDW 13.0 (11.5-15.5) % Plt Count 413 (150-450) k/uL MPV 6.8 Neutrophils % 68 % Lymphocytes % 23 % Monocytes % 6 % Eosinophils % 2 % Basophils % 0 % Neutrophils # 10.2 H (1.3-7.7) k/uL Lymphocytes # 3.4 (1.0-4.8) k/uL Monocytes # 0.8 (0-1.0) k/uL Eosinophils # 0.3 (0-0.7) k/uL Basophils # 0.0 (0-0.2) k/uL PT 10.3 (9.0-12.0) sec INR 1.0 (<1.2) APTT 22.0 (22.0-30.0) sec Sodium 138 (137-145) mmol/L Potassium 4.1 (3.5-5.1) mmol/L Chloride 107 (98-107) mmol/L Carbon Dioxide 23 (22-30) mmol/L Anion Gap 8 mmol/L BUN 18 H (7-17) mg/dL Creatinine 0.61 (0.52-1.04) mg/dL Est GFR (CKD-EPI)AfAm >90 (>60 ml/min/1.73 sqM) Est GFR (CKD-EPI)NonAf >90 (>60 ml/min/1.73 sqM) Glucose 107 H (74-99) mg/dL Calcium 10.0 (8.4-10.2) mg/dL Magnesium 1.9 (1.6-2.3) mg/dL Troponin I (0.000-0.034) ng/mL Urine Opiates Screen (NotDetected) Ur Oxycodone Screen (NotDetected) Urine Methadone Screen (NotDetected) Ur Propoxyphene Screen (NotDetected) Ur Barbiturates Screen (NotDetected) U Tricyclic Antidepress (NotDetected) Ur Phencyclidine Scrn (NotDetected) Ur Amphetamines Screen (NotDetected) U Methamphetamines Scrn (NotDetected) U Benzodiazepines Scrn (NotDetected) Urine Cocaine Screen (NotDetected) U Marijuana (THC) Screen (NotDetected) Serum Alcohol <10 mg/dL 09/06/20 09/06/20 Range/Units 08:14 08:46 WBC (3.8-10.6) k/uL RBC (3.80-5.40) m/uL Hgb (11.4-16.0) gm/dL Hct (34.0-46.0) % MCV (80.0-100.0) fL MCH (25.0-35.0) pg MCHC (31.0-37.0) g/dL RDW (11.5-15.5) % Plt Count (150-450) k/uL MPV Neutrophils % % Lymphocytes % % Monocytes % % Eosinophils % % Basophils % % Neutrophils # (1.3-7.7) k/uL Lymphocytes # (1.0-4.8) k/uL Monocytes # (0-1.0) k/uL Eosinophils # (0-0.7) k/uL Basophils # (0-0.2) k/uL PT (9.0-12.0) sec INR (<1.2) APTT (22.0-30.0) sec Sodium (137-145) mmol/L Potassium (3.5-5.1) mmol/L Chloride (98-107) mmol/L Carbon Dioxide (22-30) mmol/L Anion Gap mmol/L BUN (7-17) mg/dL Creatinine (0.52-1.04) mg/dL Est GFR (CKD-EPI)AfAm (>60 ml/min/1.73 sqM) Est GFR (CKD-EPI)NonAf (>60 ml/min/1.73 sqM) Glucose (74-99) mg/dL Calcium (8.4-10.2) mg/dL Magnesium (1.6-2.3) mg/dL Troponin I <0.012 (0.000-0.034) ng/mL Urine Opiates Screen Not Detected (NotDetected) Ur Oxycodone Screen Not Detected (NotDetected) Urine Methadone Screen Not Detected (NotDetected) Ur Propoxyphene Screen Not Detected (NotDetected) Ur Barbiturates Screen Detected H (NotDetected) U Tricyclic Antidepress Detected H (NotDetected) Ur Phencyclidine Scrn Not Detected (NotDetected) Ur Amphetamines Screen Not Detected (NotDetected) U Methamphetamines Scrn Not Detected (NotDetected) U Benzodiazepines Scrn Not Detected (NotDetected) Urine Cocaine Screen Not Detected (NotDetected) U Marijuana (THC) Screen Not Detected (NotDetected) Serum Alcohol mg/dL Disposition Clinical Impression: Altered mental status Disposition: ADMITTED IP TO THIS HOSP Condition: Fair Referrals: Eric Smyth MD [Primary Care Provider] - 1-2 days
[2020-09-06 08:30] LABS: Basophils % (A) 0 %; Eosinophils # (A) 0.3 k/uL (0-0.7); Eosinophils % (A) 2 %; HGB 13.9 gm/dL (11.4-16.0); Lymphocytes # (A) 3.4 k/uL (1.0-4.8); Lymphocytes % (A) 23 %; MCHC 34.8 g/dL (31.0-37.0); MCV 86.3 fL (80.0-100.0); Mean Platelet Volume 6.8; Monocytes # (A) 0.8 k/uL (0-1.0); Monocytes % (A) 6 %; Neutrophils # (A) 10.2 k/uL (1.3-7.7); Neutrophils % (A) 68 %; Platelet Count 413 k/uL (150-450); RBC 4.64 m/uL (3.80-5.40)
--- NOTE | 2020-09-06 08:36 | XR ---
EXAMINATION TYPE: XR chest 1V portable DATE OF EXAM: 09/06/2020 COMPARISON: 08/03/2019 HISTORY: Chest pain TECHNIQUE: Single frontal view of the chest is obtained. FINDINGS: Overlying leads. Heart size is mildly enlarged. Streaky infrahilar bibasilar airspace opac ities suggestive of atelectasis or developing pneumonitis. Peribronchial cuffing is seen at the right infrahilar region. No pleural effusion or pneumothorax. Chronic interstitial changes are seen. IMPRESSION: 1. Bibasilar infrahilar airspace opacities may represent atelectasis or pneumonitis superimposed on c hronic interstitial lung changes. Peribronchial cuffing at the right infrahilar region.
[2020-09-06 08:41] LABS: African American GFR (CKD) >90 (>60 ml/min/1.73 sqM); Alcohol <10 mg/dL; Anion Gap 8 mmol/L; Blood Urea Nitrogen 18 mg/dL (7-17); Carbon Dioxide 23 mmol/L (22-30); Chloride 107 mmol/L (98-107); Glucose 107 mg/dL (74-99); Magnesium 1.9 mg/dL (1.6-2.3); Non-African American GFR(CKD) >90 (>60 ml/min/1.73 sqM); Potassium 4.1 mmol/L (3.5-5.1); Sodium 138 mmol/L (137-145)
[2020-09-06 08:42] LABS: Prothrombin Time 10.3 sec (9.0-12.0)
[2020-09-06 09:44] LABS: Cocaine Screen,Urine Not Detected (NotDetected); Opiate Screen,Urine Not Detected (NotDetected); Phencyclidine Screen,Urine Not Detected (NotDetected); Urn Cannabinoid Scrn Not Detected (NotDetected)
[2020-09-06 09:45] LABS: Amphetamine Screen,Urine Not Detected (NotDetected); Barbiturate Screen,Urine Detected (NotDetected); Benzodiazepines Screen,Urine Not Detected (NotDetected); Methadone Screen, Urine Not Detected (NotDetected); Oxycodone Screen, Urine Not Detected (NotDetected); Tricyclic Antidepressant,Urine Detected (NotDetected)
[2020-09-06] MEDS ORDERED: NALOXONE 0.4 MG/ML 1 ML VIAL IV PRN (10:33)
[2020-09-06 12:28] VITALS: BP 112/68; PULSE 91; RESP 20; TEMP 98.1
--- NOTE | 2020-09-06 14:18 | P.CNNES ---
History of Present Illness Consult date: 09/06/20 Requesting physician: Adam Samano Reason for Consult: altered mental status History of Present Illness: This is a 51-year-old woman with history of migraine, gout, anxiety, depression presented emergency department via EMS on 09/06/2020 for chronic restless leg symptoms, chest pain. Some of the history is obtained from medical records since patient was given Ativan and was sleepy. She stated that she's been hav ing worsening restless leg symptoms overnight and which she was prescribed Requip however the medication and she felt is not helping so therefore she called EMS. She stated that she has these the restless movement of her legs at night but denies any movement throughout the day. She felt her restless movements were just to uncontrollable and as a result as mentioned earlier she had decided contact EMS. She denies of any history of seizures. Denies of any focal weakness or numbness. Denies of any visual disturbance or difficulty swallowing. She stated that she follows up with Dr. Zaldivar's office and he is managing her restless leg syndrome. She complained to the ED team because of chest pain that she's been having chronically for the last 1 month. She feels like it's the a constant pressure. Per the ED notes and it is mentioned that per EMS the patient was having tachycardia and dysrhythmia appears at consistent with supra ventricle tachycardia. I spoke with the ED attending who admitted the patient and he said the patient was complaining of multiple different generalized problems and was poor historian. Per ED attending he was notified by her primary team that she is known to be a methamphetamine use. Patient home medication per EMR is ropinirole 0.25 mg every at bedtime when necessary, Lamictal 25 Benjamin tablet twice a day, amlodipine, Seroquel 100 mg daily at bedtime, Cymbalta 60 mg daily at bedtime, Pletal 100 mg without twice a day, [place], Fioricet. Some of the workup in the hospital consisted of: Initial vital signs: Blood pressure of 129/87, heart rate of 98, respiratory of 18, temperature of 97.8 Fahrenheit oral and pulse ox of 98% room air. Initial white blood cell is 15.0K and it's slightly neutrophilic otherwise the CBC with differential is unremarkable. Chemistry panel is the sodium is 138, creatinine is 0.61, calcium is 10.0, initial serum glucose is 107 and magnesium is 1.9 and was seems unremarkable. EKG is reported as Normal sinus rhythm. Possible left atrial enlargement. Left ventricular hypertrophy. Cannot rule out septal infarct, age undetermined. Urine drug screen is positive for barbiturates and tricyclic. Otherwise rest a re not detected in the serum alcohol was less than 10. Patient was given 4mg of Ativan in the ED. Review of Systems Review of system: The 12 point system was reviewed and apparent positive and negative per HPI. Past Medical History Past Medical History: Osteoarthritis (OA) Additional Past Medical History / Comment(s): back/neck pain, migraines, gout,anxiety,depression,bipolar History of Any Multi-Drug Resistant Organisms: None Reported Past Surgical History: Orthopedic Surgery, Tubal Ligation, Uterine Ablation Additional Past Surgical History / Comment(s): RIGHT ELBOW SURGERY , adenosine given x [address] to hospital on 09/06/20 for SVT Past Anesthesia/Blood Transfusion Reactions: No Reported Reaction Additional Past Anesthesia/Blood Transfusion Reaction / Comment(s): NEVER HAD BLOOD TRANSFUSION Past Psychological History: Anxiety, Bipolar, Depression Smoking Status: Current every day smoker Past Alcohol Use History: None Reported Additional Past Alcohol Use History / Comment(s): STARTED SMOKING AT AGE 11 SMOKES 1PPD Past Drug Use History: None Reported - Past Family History Mother Family Medical History: Coronary Artery Disease (CAD), Diabetes Mellitus, Hype rtension Additional Family Medical History / Comment(s): LUPUS Father Family Medical History: Dementia Medications and Allergies Home Medications Medication Instructions Recorded Confirmed Type amLODIPine [Norvasc] 5 mg PO DAILY 09/02/19 09/06/20 History Butalb/APAP/Caff 50-325-40Mg 1 tab PO Q6H PRN 09/22/19 09/06/20 History [Fioricet 50-325-40] rOPINIRole HCL [Requip] 0.25 mg PO HS PRN 02/01/20 09/06/20 History Cilostazol [Pletal] 100 mg PO BID 09/06/20 09/06/20 History DULoxetine HCL [Cymbalta] 60 mg PO HS 09/06/20 09/06/20 History HYDROcodone/APAP 5-325MG [[place] 1 tab PO TID PRN 09/06/20 09/06/20 History 5-325] QUEtiapine [SEROquel] 100 mg PO HS 09/06/20 09/06/20 History lamoTRIgine [LaMICtal] 25 mg PO BID 09/06/20 09/06/20 History Allergies Allergy/AdvReac Type Severity Reaction Status Date / Time aspirin Allergy Rash/Hives Verified 09/06/20 08:33 Physical Examination - Vital Signs Vital Signs: Vital Signs Temp Pulse Pulse Resp BP BP Pulse Ox 09/06/20 12:02 98.1 F 91 20 112/68 98 09/06/20 10:58 81 17 135/82 98 09/06/20 07:35 96 09/06/20 07:27 97.8 F 98 18 129/87 Intake and Output 09/05/20 09/06/20 09/06/20 22:59 06:59 14:59 Other: Weight 73.482 kg GENERAL: The patient is lying in bed and is not in acute distress. CHEST: The heart rate is regular rate rhythm. No murmurs to auscultation. No carotid bruit bilaterally. LUNG: Clear to auscultation bilaterally no wheezing noted throughout. Not labored breathing. ABDOMEN/GI: Bowel sounds present in all 4 quadrants. No tenderness to palpation throughout. NEUROLOGICAL: Higher mental function: The patient is sleepy (since received 4mg of Ativan) but is awakeable to voice. Is oriented to self, place and time. Patient is following commands. No aphasia and no neglect. Cranial nerves: The pupils are round, equal and reactive to light and accommodation. Visual gaitan are full to confrontation throughout. Extraocular movement is intact no nystagmus is noted. Facial sensation is normal to touch throughout. The facial strength is normal throughout. Hearing is normal bi laterally to hand rub. Tongue is midline and moved [id number] without any difficulty. No dysarthria is noted. Shoulder shrug is normal bilaterally. Motor: Gait is normal and normal arms swings. The strength is right hip is limited because of pain but had antigravity. Otherwise 5 over 5 throughout. Normal tone and bulk. Cerebellum: Normal finger to nose heel to temple bilaterally. Sensation: Sensation is normal to touch throughout. Reflexes (right/left): 2+ throughout. Plantars are downgoing bilaterally. Results - Laboratory Findings CBC and BMP: 09/06/20 08:14 09/06/20 08:14 Abnormal Lab Findings: Abnormal Labs 09/06/20 09/06/20 09/06/20 08:14 08:14 08:46 WBC 15.0 H Neutrophils # 10.2 H BUN 18 H Glucose 107 H Ur Barbiturates Screen Detected H U Tricyclic Antidepress Detected H Assessment and Plan Assessment: Worsening of restless leg syndrome--stated her restless leg is improved now. Altered mental status. Toxic encephalopathy due to the medication effect (Ativan 4mg in the ED). Chest pain Reported history of restless leg syndrome History of methamphetamine use (on current UDS +ve for TCA and barbiturates) History of migraine Anxiety Depression History of gout Plan: I ordered CT head w/ and w/o and a routine EEG. I'll not start the patient on antiepileptic drug unless there is epileptiform discharges or seizure on the EEG I ordered TSH, vitamin B12, folate levels. Every 4 hours neuro checks Recommend cardiology consultation since per the ED note she was complaining of chest pain. Please avoid any sedation/narcotic oral opiates that would affect the patient's neurological examination. We'll defer the rest the medical management the primary team. Upon discharge the patient needs to follow-up with her neurologist (Dr. Norris) as outpatient within 1-2 weeks. Possibly consider further work-up as outpatient for her restless leg syndrome such as other reversible underlying cause (iron deficiency) and possibly consider overnight EEG. The plan is discussed with the nurse. Thank you for the consultation. Red Wilson M.D. Neuro-hospitalist Time with Patient: Greater than 30
--- NOTE | 2020-09-06 18:44 | CT ---
EXAMINATION TYPE: CT brain wo con DATE OF EXAM: 09/06/2020 COMPARISON: 07/21/2018 HISTORY: ams CT DLP: 1121 mGycm Automated exposure control for dose reduction was used. Ventricles and sulci appear normal. There is no mass effect nor midline shift. There is no sign of in tracranial hemorrhage. Calvarium is intact. There is no evidence of cerebral edema. IMPRESSION: Negative unenhanced head CT scan. No adverse change.
[2020-09-06] MEDS ORDERED: SODIUM CHLORIDE 0.9% 1,000 ML IV SCH (19:15)
--- NOTE | 2020-09-06 19:28 | P.HPIM ---
History of Present Illness H&P Date: 09/06/20 Chief Complaint: Altered mental status 51-year-old female with history of migraine, gout, anxiety, depression, bipolar presented to the emergency department for increased restless legs symptoms, and chest pain. Patient had extensive diagnostic workup in the emergency department revealing acute altered mental status. Patient states last night she had an episode of elevated heart rate and blood pressure, throughout the night became restless and anxious. Patient denies fever, chills, shortness of breath, chest pain, palpitations, abdominal pain, or nausea vomiting at this time. Patient only endorses anxiety and restless legs. Consultation with neurology for acute altered mental status; psychiatry for management of psychotropic medications. Diagnostic testing in the ER reveals elevated white count, and positive drug screen for TCAs and barbiturates. CT of the head, no acute abnormalities noted from dictation radiology. Review of Systems Constitutional: Reports chronic headaches, Reports chronic pain Ears, nose, mouth and throat: Reports headache Cardiovascular: Reports as per HPI Respiratory: Reports as per HPI Gastrointestinal: Reports as per HPI Genitourinary: Reports as per HPI Integumentary: Reports as per HPI Psychiatric: Reports anxiety, Reports insomnia Endocrine: Reports as per HPI Hematologic/Lymphatic: Reports as per HPI Allergic/Immunologic: Reports as per HPI Past Medical History Past Medical History: Osteoarthritis (OA) Additional Past Medical History / Comment(s): back/neck pain, migraines, gout,anxiety,depression,bipolar History of Any Multi-Drug Resistant Organisms: None Reported Past Surgical History: Orthopedic Surgery, Tubal Ligation, Uterine Ablation Additional Past Surgical History / Comment(s): RIGHT ELBOW SURGERY , adenosine given x [address] to hospital on 09/06/20 for SVT Past Anesthesia/Blood Transfusion Reactions: No Reported Reaction Additional Past Anesthesia/Blood Transfusion Reaction / Comment(s): NEVER HAD BLOOD TRANSFUSION Past Psychological History: Anxiety, Bipolar, Depression Smoking Status: Current every day smoker Past Alcohol Use History: None Reported Additional Past Alcohol Use History / Comment(s): STARTED SMOKING AT AGE 11 SMOKES 1PPD Past Drug Use History: None Reported - Past Family History Mother Family Medical History: Coronary Artery Disease (CAD), Diabetes Mellitus, Hypertension Additional Family Medical History / Comment(s): LUPUS Father Family Medical History: Dementia Medications and Allergies Home Medications and Allergies Comment(s): Medications and ALLERGIES reviewed Home Medications Medication Instructions Recorded Confirmed Type amLODIPine [Norvasc] 5 mg PO DAILY 09/02/19 09/06/20 History Butalb/APAP/Caff 50-325-40Mg 1 tab PO Q6H PRN 09/22/19 09/06/20 History [Fioricet 50-325-40] rOPINIRole HCL [Requip] 0.25 mg PO HS PRN 02/01/20 09/06/20 History Cilostazol [Pletal] 100 mg PO BID 09/06/20 09/06/20 History DULoxetine HCL [Cymbalta] 60 mg PO HS 09/06/20 09/06/20 History HYDROcodone/APAP 5-325MG [[place] 1 tab PO TID PRN 09/06/20 09/06/20 History 5-325] QUEtiapine [SEROquel] 100 mg PO HS 09/06/20 09/06/20 History lamoTRIgine [LaMICtal] 25 mg PO BID 09/06/20 09/06/20 History Allergies Allergy/AdvReac Type Severity Reaction Status Date / Time aspirin Allergy Rash/Hives Verified 09/06/20 08:33 Physical Exam Vitals: Vital Signs Temp Pulse Pulse Resp BP BP Pulse Ox 09/06/20 12:02 98.1 F 91 20 112/68 98 09/06/20 10:58 81 17 135/82 98 09/06/20 07:35 96 09/06/20 07:27 97.8 F 98 18 129/87 Intake and Output 09/06/20 09/06/20 09/06/20 06:59 14:59 22:59 Other: # Voids 2 Weight 73.482 kg - Constitutional General appearance: disheveled - EENT Eyes: EOMI, PERRLA Ears: bilateral: normal - Neck Neck: normal ROM Carotids: bilateral: upstroke normal Thyroid: negative: normal size - Respiratory Respiratory: bilateral: CTA (Anterior and posterior lung gaitan) - Cardiovascular Heart rate: 87 Rhythm: regular Heart sounds: normal: S1, S2 radial pulse Peripheral Pulses: bilateral: Normal dorsalis pedis Peripheral Pulses: bilateral: Normal - Gastrointestinal General gastrointestinal: normal bowel sounds - Integumentary Integumentary: normal - Neurologic Neurologic: CNII-XII intact - Musculoskeletal Musculoskeletal: generalized weakness - Psychiatric Psychiatric: A&O x's 3 Results CBC & Chem 7: 09/06/20 08:14 09/06/20 08:14 Labs: Abnormal Lab Results - Last 24 Hours (Table) 09/06/20 09/06/20 09/06/20 Range/Units 08:14 08:14 08:46 WBC 15.0 H (3.8-10.6) k/uL Neutrophils # 10.2 H (1.3-7.7) k/uL BUN 18 H (7-17) mg/dL Glucose 107 H (74-99) mg/dL Ur Barbiturates Screen Detected H (NotDetected) U Tricyclic Antidepress Detected H (NotDetected) Chest x-ray: report reviewed CT Scan - head: report reviewed Thrombosis Risk Factor Assmnt - Choose All That Apply Any of the Below Risk Factors Present?: Yes Each Factor Represents 1 point: Age 41-60 years, Obesity (BMI >25) Other Risk Factors: No Other congenital or acquired thrombophilia - If yes, enter type in comment: No Thrombosis Risk Factor Assessment Total Risk Factor Score: 2 Thrombosis Risk Factor Assessment Level: Low Risk Assessment and Plan Assessment: Altered mental status Restless leg syndrome Chest discomfort Anxiety Depression Bipolar Migraines Osteoarthritis History of nicotine dependence History of gout History of substance abuse Plan: Altered mental status, hold sedation drugs at this time; consult with neurology for recommendations and treatment plan Chest discomfort, resolved Anxiety, depression, bipolar, continue medications from outpatient psychiatry recommendations; consultation with psychiatry for management of psychotropic drugs Continue to monitor vital signs diagnostic testing Continue medical management Further recommendations to come based on patient's clinical condition Hopeful discharge within 24 hours Time with Patient: Greater than 30
[2020-09-06] MEDS ORDERED: QUEtiapine 100 MG TAB PO SCH (21:00)
[2020-09-06] MEDS ORDERED: lamoTRIgine 25 MG TAB PO SCH (21:00)
[2020-09-06] MEDS ORDERED: cilostazoL 100 MG TAB PO SCH (21:00)
[2020-09-06] MEDS ORDERED: DULoxetine HCL 60 MG CAPSULE.DR PO SCH (21:00)
[2020-09-07] MEDS ORDERED: amLODIPine 5 MG TAB PO SCH (09:00)
== END 2020-09-06 19:48 | disposition left against medical advice (07) ==
LOC: EC 07:24 → 5NMEDONC 10:33
PROVIDERS: ADMIT Family Medicine; ATTEND Family Medicine
DX: G92 Toxic encephalopathy (principal); T42.4X5A Adverse effect of benzodiazepines, initial encounter; G25.81 Restless legs syndrome; I47.1 Supraventricular tachycardia; R07.89 Other chest pain; D72.829 Elevated white blood cell count, unspecified; G43.909 Migraine, unspecified, not intractable, without status migrainosus; M10.9 Gout, unspecified; M19.90 Unspecified osteoarthritis, unspecified site; F17.210 Nicotine dependence, cigarettes, uncomplicated; G47.00 Insomnia, unspecified; G89.29 Other chronic pain; M54.9 Dorsalgia, unspecified; M54.2 Cervicalgia; R45.1 Restlessness and agitation; F31.9 Bipolar disorder, unspecified; F41.9 Anxiety disorder, unspecified; E66.9 Obesity, unspecified; Z68.26 Body mass index [BMI] 26.0-26.9, adult; Z79.02 Long term (current) use of antithrombotics/antiplatelets; Z79.899 Other long term (current) drug therapy; Z88.6 Allergy status to analgesic agent; Z98.51 Tubal ligation status; Z86.59 Personal history of other mental and behavioral disorders; Z98.890 Other specified postprocedural states; Z82.49 Family history of ischemic heart disease and other diseases of the circulatory system; Z83.3 Family history of diabetes mellitus; Z82.0 Family history of epilepsy and other diseases of the nervous system; Z84.89 Family history of other specified conditions
CPT/HCPCS: 96376; 96374; 96375; 99285; 36415; 93005; 80048; 84443; 83735; 84484; 85025; 85610; 85730; 80306; 71045; 70450; G0378; G0480; J2060; J1200; 80320

== ENCOUNTER 2020-09-30 21:04 | Emergency (ER) | payer OTHER ==
[2020-09-30 21:15] VITALS: BP 129/76; PULSE 83; RESP 22; TEMP 97.5
[2020-09-30] MEDS ORDERED: MORPHINE SULFATE 4 MG/ML SYRINGE IM STA (21:34)
[2020-09-30] MEDS ORDERED: ACET/COD 300 MG/30 MG STARTER PACK 6 TAB BTL PO STA (21:34)
[2020-09-30] MEDS ORDERED: ORPHENADRINE 30 MG/ML 2 ML VIAL IM STA (21:34)
[2020-09-30] MEDS ORDERED: LIDOCAINE 5% PATCH TOPICAL STA (21:36)
--- NOTE | 2020-09-30 21:36 | ED ---
Back Pain HPI - General Chief Complaint: Back Pain/Injury Stated Complaint: Back/Neck/Hand pain Time Seen by Provider: 09/30/20 21:17 Source: patient Limitations: no limitations - History of Present Illness Initial Comments: 50 year-old female patient presents to the emergency department for evaluation of right low back pain. Patient states she has chronic back and neck pain. Has known bulging discs and degenerative disc disease. She states that 2.5 weeks ago she woke from sleep and had increased pain to the right low back. Denies any radiating pain down her legs. Denies saddle anesthesia or loss of bowel or bladder control. Denies any lower extremity weakness or numbness. Denies any hematuria, dysuria, urinary frequency, urinary urgency. Denies any known injury. States she has been taking Tylenol without relief. States she cannot take NSAIDs due to gastritis. Denies any fever or chills. Denies history of IV drug use. - Related Data Home Medications Medication Instructions Recorded Confirmed amLODIPine [Norvasc] 5 mg PO DAILY 09/02/19 09/06/20 Butalb/APAP/Caff 50-325-40Mg 1 tab PO Q6H PRN 09/22/19 09/06/20 [Fioricet 50-325-40] rOPINIRole HCL [Requip] 0.25 mg PO HS PRN 02/01/20 09/06/20 Cilostazol [Pletal] 100 mg PO BID 09/06/20 09/06/20 DULoxetine HCL [Cymbalta] 60 mg PO HS 09/06/20 09/06/20 QUEtiapine [SEROquel] 100 mg PO HS 09/06/20 09/06/20 lamoTRIgine [LaMICtal] 25 mg PO BID 09/06/20 09/06/20 Previous Rx's Medication Instructions Recorded Lidocaine 5% Patch [Lidoderm] 1 patch TOPICAL DAILY #30 patch 09/30/20 Orphenadrine [Norflex] 100 mg PO Q12H #10 tablet.er 09/30/20 Allergies Allergy/AdvReac Type Severity Reaction Status Date / Time aspirin Allergy Rash/Hives Verified 09/30/20 21:15 Review of Systems ROS Statement: Those systems with pertinent positive or pertinent negative responses have been documented in the HPI. ROS Other: All systems not noted in ROS Statement are negative. Past Medical History Past Medical History: Osteoarthritis (OA) Additional Past Medical History / Comment(s): back/neck pain, migraines, gout,anxiety,depression,bipolar History of Any Multi-Drug Resistant Organisms: None Reported Past Surgical History: Orthopedic Surgery, Tubal Ligation, Uterine Ablation Additional Past Surgical History / Comment(s): RIGHT ELBOW SURGERY , adenosine given x [address] to hospital on 09/06/20 for SVT Past Anesthesia/Blood Transfusion Reactions: No Reported Reaction Additional Past Anesthesia/Blood Transfusion Reaction / Comment(s): NEVER HAD BLOOD TRANSFUSION Past Psychological History: Anxiety, Bipolar, Depression Smoking Status: Current every day smoker Past Alcohol Use History: None Reported Past Drug Use History: None Reported - Past Family History Mother Family Medical History: Coronary Artery Disease (CAD), Diabetes Mellitus, Hypertension Additional Family Medical History / Comment(s): LUPUS Father Family Medical History: Dementia General Exam Limitations: no limitations General appearance: alert, in no apparent distress, other (This is a well- developed, well-nourished adult female patient in no acute distress. Vital signs upon presentation are temperature 97.5 F, pulse 83, respirations 22, BP 129/76, pulse ox 99% on room air.) ENT exam: Present: normal exam, normal oropharynx, mucous membranes moist Respiratory exam: Present: normal lung sounds bilaterally. Absent: respiratory distress, wheezes, rales, rhonchi, stridor Cardiovascular Exam: Present: regular rate, normal rhythm, normal heart sounds. Absent: systolic murmur, diastolic murmur, rubs, gallop, clicks GI/Abdominal exam: Present: soft, normal bowel sounds. Absent: distended, tenderness, guarding, rebound, rigid Back exam: Present: normal inspection, tenderness (Right low back). Absent: CVA tenderness (R), CVA tenderness (L), vertebral tenderness Neurological exam: Present: alert, oriented X3, CN II-XII intact Psychiatric exam: Present: normal affect, normal mood Skin exam: Present: warm, dry, intact, normal color. Absent: rash Course Vital Signs 09/30/20 21:10 Temperature 97.5 F L Pulse Rate 83 Respiratory 22 Rate Blood Pressure 129/76 O2 Sat by Pulse 99 Oximetry Medical Decision Making - Medical Decision Making 50 year-old female patient presents to the emergency department for evaluation of right low back pain x2.5 weeks. No radicular pain. No concerning symptoms for cauda equina. Patient is afebrile with unremarkable vital signs. She had xrays outpatient this morning, these were reviewed and showed some degenerative disease. I did discuss findings with the patient. Symptoms consistent with mechanical back pain. She is given IM doses of pain medication and muscle relaxer. Lidoderm patch applied. Discharge with norflex and lidoderm prescription. She does have an appointment with neurology and spine coming up in the next few days. She is instructed to keep this appointment and follow-up with her primary care physician in one to 2 days. Return parameters were discussed in detail. She verbalizes understanding and agrees with this plan. My attending is Dr. Samano. Disposition Clinical Impression: Acute exacerbation of chronic low back pain Disposition: HOME SELF-CARE Condition: Good Instructions (If sedation given, give patient instructions): Acute Low Back Pain (ED), Chronic Back Pain (DC) Additional Instructions: Take medications as directed. Follow up with the primary care physician and neurologist for further evaluation as soon as possible. Return for any new, worsening, or concerning symptoms. Prescriptions: Lidocaine 5% Patch [Lidoderm] 1 patch TOPICAL DAILY #30 patch Orphenadrine [Norflex] 100 mg PO Q12H #10 tablet.er Is patient prescribed a controlled substance at d/c from ED?: No Referrals: Eric Smyth MD [Primary Care Provider] - 1-2 days Time of Disposition: 21:36
== END 2020-09-30 21:52 | disposition home or self-care (01) ==
LOC: EC 21:04
DX: G89.29 Other chronic pain (principal); M54.5 Low back pain; F17.200 Nicotine dependence, unspecified, uncomplicated; Z88.6 Allergy status to analgesic agent
CPT/HCPCS: 96372; 99283

== ENCOUNTER → 2020-09-30 | Outpatient (CLI) | payer OTHER ==
--- NOTE | 2020-09-30 11:10 | XR ---
EXAMINATION TYPE: XR elbow complete RT DATE OF EXAM: 09/30/2020 CLINICAL HISTORY: pain TECHNIQUE: Frontal, lateral and oblique images of the right elbow are obtained. COMPARISON: None. FINDINGS: There is no acute fracture/dislocation evident of the elbow. No abnormal fat pad signs ar e seen. Surgical screw lateral humeral epicondylar region. The overlying soft tissue appears unremar kable. IMPRESSION: There is no acute fracture or dislocation of the elbow. ICD 10 NO FRACTURE, INITIAL EVALUATION
--- NOTE | 2020-09-30 11:12 | XR ---
EXAMINATION TYPE: XR lumbosacral spine min 4V DATE OF EXAM: 09/30/2020 CLINICAL HISTORY: pain COMPARISON: NONE TECHNIQUE: Frontal, lateral, and oblique images of the lumbar spine are obtained. FINDINGS: There are 5 lumbar type vertebral bodies identified. The lumbar spine shows satisfactory alignment without evidence of acute fracture or dislocation. Vertebral body heights are within normal limits. Mild degenerative disc space narrowing L3-4. The overlying soft tissue appears unremarkabl e. IMPRESSION: No acute fracture or dislocation is seen in the lumbar spine.ICD 10 NO FRACTURE, INITIAL EVALUATION
== END | disposition home or self-care (01) ==
LOC: RADXRMAIN 10:36
PROVIDERS: ATTEND Family Medicine
DX: M54.5 Low back pain (principal); M25.521 Pain in right elbow
CPT/HCPCS: 72110

== ENCOUNTER 2020-11-23 13:48 | Emergency (ER) | payer OTHER ==
[2020-11-23] MEDS ORDERED: LORazepam 2 MG/ML INJ IM STA (14:29)
[2020-11-23] MEDS ORDERED: HYDROmorphone 1 MG/ML 1 ML SYRINGE IM STA (14:29)
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
[2020-11-23 16:54] VITALS: BP 165/89; PULSE 78; RESP 18; TEMP 98
== END 2020-11-23 16:52 | disposition home or self-care (01) ==
LOC: EC 13:48
DX: S16.1XXA Strain of muscle, fascia and tendon at neck level, initial encounter (principal); S70.02XA Contusion of left hip, initial encounter; S80.01XA Contusion of right knee, initial encounter; S30.0XXA Contusion of lower back and pelvis, initial encounter; M19.90 Unspecified osteoarthritis, unspecified site; F17.200 Nicotine dependence, unspecified, uncomplicated; Z79.899 Other long term (current) drug therapy; Z88.6 Allergy status to analgesic agent; V43.52XA Car driver injured in collision with other type car in traffic accident, initial encounter; Y92.410 Unspecified street and highway as the place of occurrence of the external cause
CPT/HCPCS: 72050; 72110; 73502; 73562; 99284; 96372; J2060; J1170

== ENCOUNTER 2021-01-25 08:20 | Emergency (ER) | payer OTHER ==
[2021-01-25 08:45] VITALS: BP 115/62; PULSE 69; RESP 18; TEMP 98.2
[2021-01-25] MEDS ORDERED: SODIUM CHLORIDE 0.9% 1,000 ML IV STA (08:45)
[2021-01-25] MEDS ORDERED: ONDANSETRON 4 MG/2 ML VIAL IVP STA (08:45)
[2021-01-25 09:21] LABS: Basophils % (A) 0 %; Eosinophils # (A) 0.2 k/uL (0-0.7); Eosinophils % (A) 2 %; HCT 38.9 % (34.0-46.0); HGB 12.8 gm/dL (11.4-16.0); Lymphocytes # (A) 1.8 k/uL (1.0-4.8); Lymphocytes % (A) 17 %; MCH 29.5 pg (25.0-35.0); MCHC 32.8 g/dL (31.0-37.0); Mean Platelet Volume 6.9; Monocytes # (A) 0.6 k/uL (0-1.0); Monocytes % (A) 5 %; Neutrophils # (A) 8.2 k/uL (1.3-7.7); Neutrophils % (A) 74 %; Platelet Count 505 k/uL (150-450); RBC 4.32 m/uL (3.80-5.40); RDW 13.6 % (11.5-15.5); WBC 11.1 k/uL (3.8-10.6)
--- NOTE | 2021-01-25 09:33 | ED ---
General Adult HPI - General Chief complaint: Nausea/Vomiting/Diarrhea Stated complaint: Nausea/Vomiting/Sore throat Time Seen by Provider: 01/25/21 08:45 Source: patient, RN notes reviewed Mode of arrival: ambulatory Limitations: no limitations - History of Present Illness Initial comments: 50-year-old female presented to the emergency Department with chief complaint of generalized not feeling well. States she has sore throat for 1 week. She states fevers chills bites cough congestion she feels like she has pneumonia she's a daily smoker. She also admits to increasing nausea, vomiting episodes of last 24 hours. She mild loose stools no dysuria no hematuria patient does admit to multiple sick contacts. Patient denies any chest pain, neck pain or neck stiffness. - Related Data Home Medications Medication Instructions Recorded Confirmed amLODIPine [Norvasc] 5 mg PO DAILY 09/02/19 01/25/21 Butalb/APAP/Caff 50-325-40Mg 1 tab PO Q6H PRN 09/22/19 01/25/21 [Fioricet 50-325-40] rOPINIRole HCL [Requip] 0.25 mg PO HS PRN 02/01/20 01/25/21 Cilostazol [Pletal] 100 mg PO BID 09/06/20 01/25/21 DULoxetine HCL [Cymbalta] 60 mg PO HS 09/06/20 01/25/21 Baclofen 10 mg PO BID PRN 11/23/20 01/25/21 Previous Rx's Medication Instructions Recorded Orphenadrine [Norflex] 100 mg PO Q12H #10 tablet.er 09/30/20 Azithromycin [Zithromax] 500 mg PO DAILY #5 tab 01/25/21 Fluconazole [Diflucan] 150 mg PO ONCE #2 tab 01/25/21 Allergies Allergy/AdvReac Type Severity Reaction Status Date / Time aspirin Allergy Rash/Hives Verified 01/25/21 10:09 Review of Systems ROS Statement: Those systems with pertinent positive or pertinent negative responses have been documented in the HPI. ROS Other: All systems not noted in ROS Statement are negative. Past Medical History Past Medical History: Osteoarthritis (OA) Additional Past Medical History / Comment(s): back/neck pain, migraines, gout,anxiety,depression,bipolar History of Any Multi-Drug Resistant Organisms: None Reported Past Surgical History: Orthopedic Surgery, Tubal Ligation, Uterine Ablation Additional Past Surgical History / Comment(s): RIGHT ELBOW SURGERY , adenosine given x [address] to hospital on 09/06/20 for SVT Past Anesthesia/Blood Transfusion Reactions: No Reported Reaction Additional Past Anesthesia/Blood Transfusion Reaction / Comment(s): NEVER HAD BLOOD TRANSFUSION Past Psychological History: Anxiety, Bipolar, Depression Smoking Status: Current every day smoker Past Alcohol Use History: None Reported Past Drug Use History: None Reported - Past Family History Mother Family Medical History: Coronary Artery Disease (CAD), Diabetes Mellitus, Hypertension Additional Family Medical History / Comment(s): LUPUS Father Family Medical History: Dementia General Exam Limitations: no limitations General appearance: alert, in no apparent distress Head exam: Present: atraumatic, normocephalic, normal inspection Eye exam: Present: normal appearance, PERRL, EOMI. Absent: scleral icterus, conjunctival injection, periorbital swelling ENT exam: Present: mucous membranes moist, TM's normal bilaterally, normal external ear exam. Absent: normal oropharynx (Exudates noted) Neck exam: Present: normal inspection, full ROM. Absent: tenderness, meningismus, lymphadenopathy Respiratory exam: Present: normal lung sounds bilaterally. Absent: respiratory distress, wheezes, rales, rhonchi, stridor Cardiovascular Exam: Present: regular rate, normal rhythm, normal heart sounds. Absent: systolic murmur, diastolic murmur, rubs, gallop, clicks GI/Abdominal exam: Present: soft, normal bowel sounds. Absent: distended, tenderness, guarding, rebound, rigid Course Vital Signs 01/25/21 08:42 Temperature 98.2 F Pulse Rate 69 Respiratory 18 Rate Blood Pressure 115/62 O2 Sat by Pulse 98 Oximetry Medical Decision Making - Medical Decision Making 50-year-old presented for generalized not feeling well. Patient x-ray shows developing pneumonia. Patient is COVID-19 negative. She was hydrated with started on oral antibiotics was given Rocephin prior discharged return parameters were discussed. - Lab Data Result diagrams: 01/25/21 08:56 01/25/21 08:56 Lab Results 01/25/21 01/25/21 01/25/21 Range/Units 08:56 08:56 08:56 WBC 11.1 H (3.8-10.6) k/uL RBC 4.32 (3.80-5.40) m/uL Hgb 12.8 (11.4-16.0) gm/dL Hct 38.9 (34.0-46.0) % MCV 90.0 (80.0-100.0) fL MCH 29.5 (25.0-35.0) pg MCHC 32.8 (31.0-37.0) g/dL RDW 13.6 (11.5-15.5) % Plt Count 505 H (150-450) k/uL MPV 6.9 Neutrophils % 74 % Lymphocytes % 17 % Monocytes % 5 % Eosinophils % 2 % Basophils % 0 % Neutrophils # 8.2 H (1.3-7.7) k/uL Lymphocytes # 1.8 (1.0-4.8) k/uL Monocytes # 0.6 (0-1.0) k/uL Eosinophils # 0.2 (0-0.7) k/uL Basophils # 0.0 (0-0.2) k/uL Sodium 138 (137-145) mmol/L Potassium 4.4 (3.5-5.1) mmol/L Chloride 107 (98-107) mmol/L Carbon Dioxide 26 (22-30) mmol/L Anion Gap 5 mmol/L BUN 12 (7-17) mg/dL Creatinine 0.61 (0.52-1.04) mg/dL Est GFR (CKD-EPI)AfAm >90 (>60 ml/min/1.73 sqM) Est GFR (CKD-EPI)NonAf >90 (>60 ml/min/1.73 sqM) Glucose 96 (74-99) mg/dL Calcium 9.5 (8.4-10.2) mg/dL Total Bilirubin 0.5 (0.2-1.3) mg/dL AST 37 H (14-36) U/L ALT 26 (4-34) U/L Alkaline Phosphatase 87 (38-126) U/L Total Protein 6.8 (6.3-8.2) g/dL Albumin 3.6 (3.5-5.0) g/dL Lipase 82 (23-300) U/L Urine Color Yellow Urine Appearance Clear (Clear) Urine pH 5.5 (5.0-8.0) Ur Specific [place] 1.030 (1.001-1.035) Urine Protein Negative (Negative) Urine Glucose (UA) Negative (Negative) Urine Ketones Negative (Negative) Urine Blood Negative (Negative) Urine Nitrite Negative (Negative) Urine Bilirubin Negative (Negative) Urine Urobilinogen <2.0 (<2.0) mg/dL Ur Leukocyte Esterase Moderate H (Negative) Urine RBC 2 (0-5) /hpf Urine WBC 3 (0-5) /hpf Ur Squamous Epith Cells 2 (0-4) /hpf Urine Mucus Occasional H (None) /hpf Coronavirus (PCR) (Not Detectd) 01/25/21 Range/Units 08:56 WBC (3.8-10.6) k/uL RBC (3.80-5.40) m/uL Hgb (11.4-16.0) gm/dL Hct (34.0-46.0) % MCV (80.0-100.0) fL MCH (25.0-35.0) pg MCHC (31.0-37.0) g/dL RDW (11.5-15.5) % Plt Count (150-450) k/uL MPV Neutrophils % % Lymphocytes % % Monocytes % % Eosinophils % % Basophils % % Neutrophils # (1.3-7.7) k/uL Lymphocytes # (1.0-4.8) k/uL Monocytes # (0-1.0) k/uL Eosinophils # (0-0.7) k/uL Basophils # (0-0.2) k/uL Sodium (137-145) mmol/L Potassium (3.5-5.1) mmol/L Chloride (98-107) mmol/L Carbon Dioxide (22-30) mmol/L Anion Gap mmol/L BUN (7-17) mg/dL Creatinine (0.52-1.04) mg/dL Est GFR (CKD-EPI)AfAm (>60 ml/min/1.73 sqM) Est GFR (CKD-EPI)NonAf (>60 ml/min/1.73 sqM) Glucose (74-99) mg/dL Calcium (8.4-10.2) mg/dL Total Bilirubin (0.2-1.3) mg/dL AST (14-36) U/L ALT (4-34) U/L Alkaline Phosphatase (38-126) U/L Total Protein (6.3-8.2) g/dL Albumin (3.5-5.0) g/dL Lipase (23-300) U/L Urine Color Urine Appearance (Clear) Urine pH (5.0-8.0) Ur Specific [place] (1.001-1.035) Urine Protein (Negative) Urine Glucose (UA) (Negative) Urine Ketones (Negative) Urine Blood (Negative) Urine Nitrite (Negative) Urine Bilirubin (Negative) Urine Urobilinogen (<2.0) mg/dL Ur Leukocyte Esterase (Negative) Urine RBC (0-5) /hpf Urine WBC (0-5) /hpf Ur Squamous Epith Cells (0-4) /hpf Urine Mucus (None) /hpf Coronavirus (PCR) Not Detected (Not Detectd) Disposition Clinical Impression: Pneumonia Disposition: HOME SELF-CARE Instructions (If sedation given, give patient instructions): Pneumonia (ED) Additional Instructions: Please return to the Emergency Department if symptoms worsen or any other concerns. Prescriptions: Fluconazole [Diflucan] 150 mg PO ONCE #2 tab Azithromycin [Zithromax] 500 mg PO DAILY #5 tab Is patient prescribed a controlled substance at d/c from ED?: No Referrals: Eric Smyth MD [Primary Care Provider] - 1-2 days Time of Disposition: 11:33
[2021-01-25 09:43] LABS: Appearance,Urine Clear (Clear); Bilirubin,Urine Negative (Negative); Blood,Urine Negative (Negative); Color,Urine Yellow; Glucose,Urine (UA) Negative (Negative); Ketones,Urine Negative (Negative); Leukocyte Esterase,Urine Moderate (Negative); Mucus,Urine Occasional /hpf; Nitrite,Urine Negative (Negative); PH, Urine 5.5 (5.0-8.0); Protein,Urine Negative (Negative); RBC,Urine 2 /hpf (0-5); Squamous Epithelial Cell,Urine 2 /hpf (0-4); Urobilinogen,Urine <2.0 mg/dL (<2.0); WBC,Urine 3 /hpf (0-5)
[2021-01-25 09:58] LABS: ALT 26 U/L (4-34); AST 37 U/L (14-36); African American GFR (CKD) >90 (>60 ml/min/1.73 sqM); Albumin 3.6 g/dL (3.5-5.0); Alkaline Phosphatase 87 U/L (38-126); Anion Gap 5 mmol/L; Blood Urea Nitrogen 12 mg/dL (7-17); Calcium 9.5 mg/dL (8.4-10.2); Carbon Dioxide 26 mmol/L (22-30); Chloride 107 mmol/L (98-107); Glucose 96 mg/dL (74-99); Lipase 82 U/L (23-300); Non-African American GFR(CKD) >90 (>60 ml/min/1.73 sqM); Potassium 4.4 mmol/L (3.5-5.1); Sodium 138 mmol/L (137-145); Total Bilirubin 0.5 mg/dL (0.2-1.3); Total Protein 6.8 g/dL (6.3-8.2)
--- NOTE | 2021-01-25 10:49 | XR ---
EXAMINATION TYPE: XR chest 2V DATE OF EXAM: 01/25/2021 COMPARISON: NONE HISTORY: Shortness of breath TECHNIQUE: Frontal and lateral views of the chest are obtained. FINDINGS: Scattered senescent parenchymal changes noted. Hyperinflation compatible with COPD. Patchy right perihilar density is noted which may reflect developing pneumonia. Correlate clinically. Heart size is stable. Mediastinal structures are stable and grossly unremarkable. No evidence for hilar prominence. Degenerative changes dorsal spine. IMPRESSION: 1. Patchy right perihilar density is noted which may reflect developing pneumonia. Correlate clinical ly.
[2021-01-25] MEDS ORDERED: cefTRIAXone IN SWFI 1,000 MG/10 ML SYRINGE IVP STA (10:57)
== END 2021-01-25 11:26 | disposition home or self-care (01) ==
LOC: EC 08:20
DX: J18.9 Pneumonia, unspecified organism (principal); R19.7 Diarrhea, unspecified; M19.90 Unspecified osteoarthritis, unspecified site; F17.200 Nicotine dependence, unspecified, uncomplicated; Z88.6 Allergy status to analgesic agent; Z79.899 Other long term (current) drug therapy; Z20.822 Contact with and (suspected) exposure to COVID-19
CPT/HCPCS: 36415; 80053; 83690; 85025; 81001; 87635; 71046; 99284; 96374 ×2; 96361; J2405; J0696

== ENCOUNTER 2021-01-31 08:27 | Emergency (ER) | payer OTHER ==
[2021-01-31 08:34] VITALS: BP 150/84; PULSE 70; RESP 18; TEMP 97.5
[2021-01-31] MEDS ORDERED: ACET/COD 300 MG/30 MG STARTER PACK 6 TAB BTL PO STA (08:53)
[2021-01-31] MEDS ORDERED: HYDROcodone/APAP 5-325MG 1 EACH TAB PO STA (08:53)
--- NOTE | 2021-01-31 08:54 | ED ---
General Adult HPI - General Chief complaint: Extremity Injury, Upper Stated complaint: Rt Elbow Problems Time Seen by Provider: 01/31/21 08:40 Source: patient, RN notes reviewed Mode of arrival: ambulatory Limitations: no limitations - History of Present Illness Initial comments: This a 50-year-old female presents emergency Department chief complaint right arm pain. Patient states she is with tendinitis, gout in the past. Patient states started increasing recently. Patient states it hurts to move it. Patient denies any fevers or chills. She recently had an upper respiratory infection denies any neck pain no headache no weakness. She states some has pain this is very common with her prior issues she's had a screw in her right elbow no redness. - Related Data Home Medications Medication Instructions Recorded Confirmed amLODIPine [Norvasc] 5 mg PO DAILY 09/02/19 01/25/21 Butalb/APAP/Caff 50-325-40Mg 1 tab PO Q6H PRN 09/22/19 01/25/21 [Fioricet 50-325-40] rOPINIRole HCL [Requip] 0.25 mg PO HS PRN 02/01/20 01/25/21 Cilostazol [Pletal] 100 mg PO BID 09/06/20 01/25/21 DULoxetine HCL [Cymbalta] 60 mg PO HS 09/06/20 01/25/21 Baclofen 10 mg PO BID PRN 11/23/20 01/25/21 Previous Rx's Medication Instructions Recorded Orphenadrine [Norflex] 100 mg PO Q12H #10 tablet.er 09/30/20 Azithromycin [Zithromax] 500 mg PO DAILY #5 tab 01/25/21 Fluconazole [Diflucan] 150 mg PO ONCE #2 tab 01/25/21 predniSONE 50 mg PO DAILY #5 tab 01/31/21 Allergies Allergy/AdvReac Type Severity Reaction Status Date / Time aspirin Allergy Rash/Hives Verified 01/31/21 08:34 Review of Systems ROS Statement: Those systems with pertinent positive or pertinent negative responses have been documented in the HPI. ROS Other: All systems not noted in ROS Statement are negative. Past Medical History Past Medical History: Osteoarthritis (OA) Additional Past Medical History / Comment(s): back/neck pain, migraines, gout,anxiety,depression,bipolar History of Any Multi-Drug Resistant Organisms: None Reported Past Surgical History: Orthopedic Surgery, Tubal Ligation, Uterine Ablation Additional Past Surgical History / Comment(s): RIGHT ELBOW SURGERY , adenosine given x [address] to hospital on 09/06/20 for SVT Past Anesthesia/Blood Transfusion Reactions: No Reported Reaction Additional Past Anesthesia/Blood Transfusion Reaction / Comment(s): NEVER HAD BLOOD TRANSFUSION Past Psychological History: Anxiety, Bipolar, Depression Smoking Status: Current every day smoker Past Alcohol Use History: None Reported Past Drug Use History: None Reported - Past Family History Mother Family Medical History: Coronary Artery Disease (CAD), Diabetes Mellitus, Hypertension Additional Family Medical History / Comment(s): LUPUS Father Family Medical History: Dementia General Exam Limitations: no limitations General appearance: alert, in no apparent distress Head exam: Present: atraumatic, normocephalic, normal inspection Eye exam: Present: normal appearance, PERRL, EOMI. Absent: scleral icterus, conjunctival injection, periorbital swelling Neck exam: Present: normal inspection, full ROM. Absent: tenderness, meningismus, lymphadenopathy Respiratory exam: Present: normal lung sounds bilaterally. Absent: respiratory distress, wheezes, rales, rhonchi, stridor Cardiovascular Exam: Present: regular rate, normal rhythm, normal heart sounds. Absent: systolic murmur, diastolic murmur, rubs, gallop, clicks Extremities exam: Present: other (Right arm full range of motion neurovascular intact no notable swelling, pain with range of motion diffusely, audio director strength is equal bilaterally) Neurological exam: Present: alert, reflexes normal. Absent: motor sensory deficit Course Vital Signs 01/31/21 08:30 Temperature 97.5 F L Pulse Rate 70 Respiratory 18 Rate Blood Pressure 150/84 O2 Sat by Pulse 98 Oximetry Medical Decision Making - Medical Decision Making Patient had issues with tendinitis, inflammatory issues. Patient was started on steroids, pain meds return parameters were discussed. Disposition Clinical Impression: Tendonitis of elbow or forearm Disposition: HOME SELF-CARE Condition: Stable Instructions (If sedation given, give patient instructions): Arm Pain (ED) Additional Instructions: Please return to the Emergency Department if symptoms worsen or any other concerns. Prescriptions: predniSONE 50 mg PO DAILY #5 tab Is patient prescribed a controlled substance at d/c from ED?: No Referrals: Eric Smyth MD [Primary Care Provider] - 1-2 days Time of Disposition: 08:54
== END 2021-01-31 09:55 | disposition home or self-care (01) ==
LOC: EC 08:27
DX: M77.8 Other enthesopathies, not elsewhere classified (principal); F17.200 Nicotine dependence, unspecified, uncomplicated; Z88.6 Allergy status to analgesic agent
CPT/HCPCS: 99283

== ENCOUNTER 2021-02-17 10:09 | Emergency (ER) | payer OTHER ==
[2021-02-17 10:21] VITALS: PULSE 87; RESP 18; TEMP 98.8
[2021-02-17 10:23] VITALS: BP 163/80
[2021-02-17] MEDS ORDERED: FLUCONAZOLE 100 MG TAB PO ONE (10:40)
--- NOTE | 2021-02-17 10:42 | ED ---
General Adult HPI - General Chief complaint: Recheck/Abnormal Lab/Rx Stated complaint: Thrush in throat Time Seen by Provider: 02/17/21 10:30 Source: patient, RN notes reviewed, old records reviewed Mode of arrival: ambulatory Limitations: no limitations - History of Present Illness Initial comments: 50-year-old female presenting with suspected oral candidiasis. Patient states she's had white plaque-like substance in the back of her throat for approximately one month. She was treated with Diflucan for 2 days previously which did improve her symptoms however it has returned. She reports pain with swallowing but no difficulty swallowing. She states she has a form primary care physician of this. No fevers. No cough. No chest pain or abdominal pain. - Related Data Home Medications Medication Instructions Recorded Confirmed amLODIPine [Norvasc] 5 mg PO DAILY 09/02/19 01/25/21 Butalb/APAP/Caff 50-325-40Mg 1 tab PO Q6H PRN 09/22/19 01/25/21 [Fioricet 50-325-40] rOPINIRole HCL [Requip] 0.25 mg PO HS PRN 02/01/20 01/25/21 Cilostazol [Pletal] 100 mg PO BID 09/06/20 01/25/21 DULoxetine HCL [Cymbalta] 60 mg PO HS 09/06/20 01/25/21 Baclofen 10 mg PO BID PRN 11/23/20 01/25/21 Previous Rx's Medication Instructions Recorded Orphenadrine [Norflex] 100 mg PO Q12H #10 tablet.er 09/30/20 Azithromycin [Zithromax] 500 mg PO DAILY #5 tab 01/25/21 Fluconazole [Diflucan] 150 mg PO ONCE #2 tab 01/25/21 predniSONE 50 mg PO DAILY #5 tab 01/31/21 Fluconazole [Diflucan] 100 mg PO DAILY 14 Days #14 tablet 02/17/21 Allergies Allergy/AdvReac Type Severity Reaction Status Date / Time aspirin Allergy Rash/Hives Verified 02/17/21 10:21 Review of Systems ROS Statement: Those systems with pertinent positive or pertinent negative responses have been documented in the HPI. ROS Other: All systems not noted in ROS Statement are negative. Past Medical History Past Medical History: Osteoarthritis (OA) Additional Past Medical History / Comment(s): back/neck pain, migraines, gout,anxiety,depression,bipolar History of Any Multi-Drug Resistant Organisms: None Reported Past Surgical History: Orthopedic Surgery, Tubal Ligation, Uterine Ablation Additional Past Surgical History / Comment(s): RIGHT ELBOW SURGERY , adenosine given x [address] to hospital on 09/06/20 for SVT Past Anesthesia/Blood Transfusion Reactions: No Reported Reaction Additional Past Anesthesia/Blood Transfusion Reaction / Comment(s): NEVER HAD BLOOD TRANSFUSION Past Psychological History: Anxiety, Bipolar, Depression Smoking Status: Current every day smoker Past Alcohol Use History: None Reported Past Drug Use History: None Reported - Past Family History Mother Family Medical History: Coronary Artery Disease (CAD), Diabetes Mellitus, Hypertension Additional Family Medical History / Comment(s): LUPUS Father Family Medical History: Dementia General Exam Limitations: no limitations General appearance: alert, in no apparent distress Head exam: Present: atraumatic, normocephalic Eye exam: Present: normal appearance, PERRL ENT exam: Absent: normal oropharynx (Evelyn oropharyngeal thrush) Neck exam: Present: normal inspection. Absent: tenderness, meningismus Respiratory exam: Present: normal lung sounds bilaterally. Absent: respiratory distress Cardiovascular Exam: Present: regular rate, normal rhythm GI/Abdominal exam: Present: soft Extremities exam: Present: normal inspection, normal capillary refill. Absent: pedal edema Neurological exam: Present: alert, oriented X3, CN II-XII intact. Absent: motor sensory deficit Psychiatric exam: Present: anxious Skin exam: Present: warm, dry, intact Course Vital Signs 02/17/21 10:18 Temperature 98.8 F Pulse Rate 87 Respiratory 18 Rate Blood Pressure 163/80 O2 Sat by Pulse 97 Oximetry Medical Decision Making - Medical Decision Making 50-year-old female with recurrent visit for oral thrush. Patient was previously treated with Diflucan. She's prescribed 200 mg today followed by 2 weeks of 100 mg of Diflucan. I do recommend that she follows up with her primary care physician and infectious disease. Patient agreeable with this plan. Disposition Clinical Impression: Thrush, oral Disposition: HOME SELF-CARE Condition: Fair Instructions (If sedation given, give patient instructions): Oral Candidiasis (ED) Prescriptions: Fluconazole [Diflucan] 100 mg PO DAILY 14 Days #14 tablet Is patient prescribed a controlled substance at d/c from ED?: No Referrals: Eric Smyth MD [Primary Care Provider] - 1-2 days Malathi Prather MD [STAFF PHYSICIAN] - 1-2 days Time of Disposition: 10:42
[2021-02-17] MEDS ORDERED: HYDROcodone/APAP 5-325MG 1 EACH TAB PO STA (10:45)
== END 2021-02-17 11:06 | disposition home or self-care (01) ==
LOC: EC 10:09
DX: B37.0 Candidal stomatitis (principal); F17.200 Nicotine dependence, unspecified, uncomplicated; Z88.6 Allergy status to analgesic agent
CPT/HCPCS: 99283

== ENCOUNTER → 2021-02-22 | Outpatient (CLI) | payer OTHER ==
--- NOTE | 2021-02-22 19:38 | XR ---
EXAMINATION TYPE: XR wrist complete 4 views RT, XR hand complete 3 views RT DATE OF EXAM: 02/22/2021 COMPARISON: NONE HISTORY: 50-year-old female M79.641, contusion to second and third metacarpals. FINDINGS: WRIST: The radiocarpal and distal radioulnar joints as well as the midcarpal compartment are intact. Mild de generative spurring at the first CMC and triscaphe joints. No acute fracture, subluxation, or disloca tion. HAND: There is degenerative joint space narrowing at the second MCP joint. Scattered mild degenerative spur ring within the DIP joints. No acute fracture or dislocation. IMPRESSION: 1. Wrist: Minimal osteoarthritic change at the base of the thumb. No acute osseous adenopathy seen. 2. Hand: Scattered minimal to mild osteoarthritic change in the DIP joints and more moderate at the s econd MCP joint. No acute osseous abnormality seen.
== END | disposition home or self-care (01) ==
LOC: RADXRMAIN 14:49
PROVIDERS: ATTEND Nurse Practitioner Family
DX: M79.641 Pain in right hand (principal)

== ENCOUNTER 2021-03-15 18:45 | Emergency (ER) | payer OTHER ==
[2021-03-15 18:54] VITALS: BP 188/91; PULSE 87; RESP 18; TEMP 98
[2021-03-15] MEDS ORDERED: MORPHINE SULFATE 4 MG/ML SYRINGE IV STA (20:06)
--- NOTE | 2021-03-15 20:44 | ED ---
General Adult HPI - General Chief complaint: Chest Pain Stated complaint: chest pain Time Seen by Provider: 03/15/21 18:50 Source: patient Mode of arrival: ambulatory Limitations: no limitations - History of Present Illness Initial comments: 50-year-old female past medical history of depression, bipolar, osteoarthritis presents to the emergency room with reported chest pain. States the pain has been going on for the past 3 months. States it is left-sided. Denies any provocative factors. States sharp in nature. She did tell this to her primary care physician who recommended that she come into the emergency room for evaluation. Denies previous history of cardiac disease. States that she has a large family history of cardiac disease. She denies any shortness of breath. No fevers. No lower extremity swelling. Patient also reports to pain in her right fifth digit. Requesting removal of the toenail. 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, precipitating or modifying factors - Related Data Home Medications Medication Instructions Recorded Confirmed amLODIPine [Norvasc] 5 mg PO DAILY 09/02/19 01/25/21 Butalb/APAP/Caff 50-325-40Mg 1 tab PO Q6H PRN 09/22/19 01/25/21 [Fioricet 50-325-40] rOPINIRole HCL [Requip] 0.25 mg PO HS PRN 02/01/20 01/25/21 Cilostazol [Pletal] 100 mg PO BID 09/06/20 01/25/21 DULoxetine HCL [Cymbalta] 60 mg PO HS 09/06/20 01/25/21 Baclofen 10 mg PO BID PRN 11/23/20 01/25/21 Previous Rx's Medication Instructions Recorded Orphenadrine [Norflex] 100 mg PO Q12H #10 tablet.er 09/30/20 Azithromycin [Zithromax] 500 mg PO DAILY #5 tab 01/25/21 Fluconazole [Diflucan] 150 mg PO ONCE #2 tab 01/25/21 predniSONE 50 mg PO DAILY #5 tab 01/31/21 Fluconazole [Diflucan] 100 mg PO DAILY 14 Days #14 tablet 02/17/21 Allergies Allergy/AdvReac Type Severity Reaction Status Date / Time aspirin Allergy Rash/Hives Verified 03/15/21 18:49 Review of Systems ROS Statement: Those systems with pertinent positive or pertinent negative responses have been documented in the HPI. ROS Other: All systems not noted in ROS Statement are negative. Past Medical History Past Medical History: Osteoarthritis (OA) Additional Past Medical History / Comment(s): back/neck pain, migraines, gout,a nxiety,depression,bipolar History of Any Multi-Drug Resistant Organisms: None Reported Past Surgical History: Orthopedic Surgery, Tubal Ligation, Uterine Ablation Additional Past Surgical History / Comment(s): RIGHT ELBOW SURGERY , adenosine given x [address] to hospital on 09/06/20 for SVT Past Anesthesia/Blood Transfusion Reactions: No Reported Reaction Additional Past Anesthesia/Blood Transfusion Reaction / Comment(s): NEVER HAD BLOOD TRANSFUSION Past Psychological History: Anxiety, Bipolar, Depression Smoking Status: Current every day smoker Past Alcohol Use History: None Reported Past Drug Use History: None Reported - Past Family History Mother Family Medical History: Coronary Artery Disease (CAD), Diabetes Mellitus, Hypertension Additional Family Medical History / Comment(s): LUPUS Father Family Medical History: Dementia General Exam Limitations: no limitations General appearance: alert, in no apparent distress, anxious Head exam: Present: atraumatic, normocephalic, normal inspection Eye exam: Present: normal appearance, PERRL, EOMI. Absent: scleral icterus, conjunctival injection, periorbital swelling ENT exam: Present: normal exam, mucous membranes moist Neck exam: Present: normal inspection. Absent: tenderness, meningismus, lymphadenopathy Respiratory exam: Present: normal lung sounds bilaterally. Absent: respiratory distress, wheezes, rales, rhonchi, stridor Cardiovascular Exam: Present: regular rate, normal rhythm, normal heart sounds. Absent: systolic murmur, diastolic murmur, rubs, gallop, clicks GI/Abdominal exam: Present: soft, normal bowel sounds. Absent: distended, tende rness, guarding, rebound, rigid Extremities exam: Present: normal inspection, full ROM, normal capillary refill, other (bounding pulse PT, 1+ pulses DP on right foot). Absent: tenderness, pedal edema, joint swelling, calf tenderness Back exam: Present: normal inspection Neurological exam: Present: alert, oriented X3, CN II-XII intact Psychiatric exam: Present: normal affect, depressed Skin exam: Present: warm, dry, intact, other (there is an area of petechia on the distal tip of the right fifth digit). Absent: rash Course Vital Signs 01/12/22 18:50 Temperature 98 F Pulse Rate 87 Respiratory 18 Rate Blood Pressure 188/91 O2 Sat by Pulse 100 Oximetry EKG Findings - EKG Comments: EKG Findings:: EKG demonstrates normal sinus rhythm with ventricular rate of 68. MN interval 144. QRS 98. QTC of 482. No acute ST segment elevations or depressions concerning for ischemic changes Medical Decision Making - Medical Decision Making Upon arrival patient was placed into room 24. A thorough history and physical exam was performed. IV is established laboratory studies were conducted. D- dimer 0.33. Glucose 73. Troponin less than 0.012. Chest CT performed which demonstrates a few small right lower lobe pulmonary nodules. No significant abnormality. Results are discussed with patient. Recommended hospitalization for her chest pain with cardiology consultation however patient refused. She is aware of the risks of leaving. And concern for unexplainable pain in her right 5th digit. Patient requesting follow up outpatient with her primary care doctor in regards to her symptoms. Patient informed that she may return to the emergency room for any new or worsening symptoms or if she should be to hospitalization. Needs to follow with Dr. Smyth and call him in the morning. We'll need further cardiac testing. Patient agreed to this plan and discharged home in stable condition - Lab Data Result diagrams: 03/15/21 20:45 03/15/21 20:45 Lab Results 03/15/21 03/15/21 03/15/21 Range/Units 20:45 20:45 20:45 WBC 8.7 (3.8-10.6) k/uL RBC 4.86 (3.80-5.40) m/uL Hgb 14.3 (11.4-16.0) gm/dL Hct 43.4 (34.0-46.0) % MCV 89.3 (80.0-100.0) fL MCH 29.4 (25.0-35.0) pg MCHC 32.9 (31.0-37.0) g/dL RDW 14.2 (11.5-15.5) % Plt Count 402 (150-450) k/uL MPV 6.7 Neutrophils % 53 % Lymphocytes % 35 % Monocytes % 6 % Eosinophils % 3 % Basophils % 1 % Neutrophils # 4.6 (1.3-7.7) k/uL Lymphocytes # 3.0 (1.0-4.8) k/uL Monocytes # 0.5 (0-1.0) k/uL Eosinophils # 0.2 (0-0.7) k/uL Basophils # 0.1 (0-0.2) k/uL PT 10.5 (9.0-12.0) sec INR 1.0 (<1.2) APTT 22.3 (22.0-30.0) sec D-Dimer 0.33 (<0.60) mg/L FEU Sodium 136 L (137-145) mmol/L Potassium 4.2 (3.5-5.1) mmol/L Chloride 104 (98-107) mmol/L Carbon Dioxide 25 (22-30) mmol/L Anion Gap 7 mmol/L BUN 15 (7-17) mg/dL Creatinine 0.64 (0.52-1.04) mg/dL Est GFR (CKD-EPI)AfAm >90 (>60 ml/min/1.73 sqM) Est GFR (CKD-EPI)NonAf >90 (>60 ml/min/1.73 sqM) Glucose 73 L (74-99) mg/dL Calcium 9.7 (8.4-10.2) mg/dL Magnesium 2.1 (1.6-2.3) mg/dL Total Bilirubin 0.7 (0.2-1.3) mg/dL AST 61 H (14-36) U/L ALT 22 (4-34) U/L Alkaline Phosphatase 63 (38-126) U/L Troponin I (0.000-0.034) ng/mL Total Protein 6.9 (6.3-8.2) g/dL Albumin 4.1 (3.5-5.0) g/dL Lipase 89 (23-300) U/L Serum Alcohol <10 mg/dL 03/15/21 Range/Units 20:45 WBC (3.8-10.6) k/uL RBC (3.80-5.40) m/uL Hgb (11.4-16.0) gm/dL Hct (34.0-46.0) % MCV (80.0-100.0) fL MCH (25.0-35.0) pg MCHC (31.0-37.0) g/dL RDW (11.5-15.5) % Plt Count (150-450) k/uL MPV Neutrophils % % Lymphocytes % % Monocytes % % Eosinophils % % Basophils % % Neutrophils # (1.3-7.7) k/uL Lymphocytes # (1.0-4.8) k/uL Monocytes # (0-1.0) k/uL Eosinophils # (0-0.7) k/uL Basophils # (0-0.2) k/uL PT (9.0-12.0) sec INR (<1.2) APTT (22.0-30.0) sec D-Dimer (<0.60) mg/L FEU Sodium (137-145) mmol/L Potassium (3.5-5.1) mmol/L Chloride (98-107) mmol/L Carbon Dioxide (22-30) mmol/L Anion Gap mmol/L BUN (7-17) mg/dL Creatinine (0.52-1.04) mg/dL Est GFR (CKD-EPI)AfAm (>60 ml/min/1.73 sqM) Est GFR (CKD-EPI)NonAf (>60 ml/min/1.73 sqM) Glucose (74-99) mg/dL Calcium (8.4-10.2) mg/dL Magnesium (1.6-2.3) mg/dL Total Bilirubin (0.2-1.3) mg/dL AST (14-36) U/L ALT (4-34) U/L Alkaline Phosphatase (38-126) U/L Troponin I <0.012 (0.000-0.034) ng/mL Total Protein (6.3-8.2) g/dL Albumin (3.5-5.0) g/dL Lipase (23-300) U/L Serum Alcohol mg/dL Disposition Clinical Impression: Chest pain Disposition: HOME SELF-CARE Condition: Undetermined Instructions (If sedation given, give patient instructions): Chest Pain (ED) Additional Instructions: I recommended hospital admission. You need further evaluation of your chest pain to include a stress test and an echo. I also recommended a follow-up with Dr. De Jesus for your foot pain. Return to the emergency room for any new or wor sening symptoms Is patient prescribed a controlled substance at d/c from ED?: No Referrals: Eric Smyth MD [Primary Care Provider] - 1-2 days Time of Disposition: 23:20
[2021-03-15] MEDS ORDERED: ONDANSETRON 4 MG/2 ML VIAL IVP STA (20:49)
[2021-03-15 21:07] LABS: Basophils # (A) 0.1 k/uL (0-0.2); Basophils % (A) 1 %; Eosinophils # (A) 0.2 k/uL (0-0.7); Eosinophils % (A) 3 %; HCT 43.4 % (34.0-46.0); HGB 14.3 gm/dL (11.4-16.0); Lymphocytes % (A) 35 %; MCH 29.4 pg (25.0-35.0); MCHC 32.9 g/dL (31.0-37.0); MCV 89.3 fL (80.0-100.0); Mean Platelet Volume 6.7; Monocytes # (A) 0.5 k/uL (0-1.0); Monocytes % (A) 6 %; Neutrophils # (A) 4.6 k/uL (1.3-7.7); Neutrophils % (A) 53 %; Platelet Count 402 k/uL (150-450); RBC 4.86 m/uL (3.80-5.40); RDW 14.2 % (11.5-15.5); WBC 8.7 k/uL (3.8-10.6)
[2021-03-15 21:17] LABS: ALT 22 U/L (4-34); AST 61 U/L (14-36); African American GFR (CKD) >90 (>60 ml/min/1.73 sqM); Albumin 4.1 g/dL (3.5-5.0); Alcohol <10 mg/dL; Alkaline Phosphatase 63 U/L (38-126); Anion Gap 7 mmol/L; Blood Urea Nitrogen 15 mg/dL (7-17); Calcium 9.7 mg/dL (8.4-10.2); Carbon Dioxide 25 mmol/L (22-30); Chloride 104 mmol/L (98-107); Glucose 73 mg/dL (74-99); Lipase 89 U/L (23-300); Magnesium 2.1 mg/dL (1.6-2.3); Non-African American GFR(CKD) >90 (>60 ml/min/1.73 sqM); Potassium 4.2 mmol/L (3.5-5.1); Sodium 136 mmol/L (137-145); Total Bilirubin 0.7 mg/dL (0.2-1.3); Total Protein 6.9 g/dL (6.3-8.2)
[2021-03-15 21:20] LABS: Partial Thromboplastin Time 22.3 sec (22.0-30.0); Prothrombin Time 10.5 sec (9.0-12.0)
--- NOTE | 2021-03-15 22:17 | CT ---
EXAMINATION TYPE: CT angio chest DATE OF EXAM: 03/15/2021 9:30 PM COMPARISON: Radiographs 01/25/2021. HISTORY: Chest pain, eval for dissection CT DLP: 528.8 mGycm Automated exposure control for dose reduction was used. CONTRAST: CTA scan of the thorax is performed with IV Contrast, patient injected with 100 mL of Isovue 370, pul monary embolism protocol. MIP images are created and reviewed. FINDINGS: LUNGS: The lungs are grossly clear. The approximately 3 right lower lobe nodules measuring up to 3 mm . No significant infiltrate. There is no pleural effusion or pneumothorax seen. The tracheobronchial tree is patent. MEDIASTINUM: There is satisfactory enhancement of the pulmonary artery and its branches, there is no CT evidence for pulmonary embolism. There are no greater than 1 cm hilar or mediastinal lymph nodes. No pericardial effusion is seen. There is moderate coronary and mild thoracic aorta atheroscleroti c disease. Otherwise the thoracic aorta is grossly intact without aneurysm, dissection or rupture. OTHER: No additional significant abnormality is seen IMPRESSION: NONSPECIFIC FEW SMALL RIGHT LOWER LOBE PULMONARY NODULES. CONSIDER SIX-MONTH TO ONE-YEAR FOLLOW-UP TO DOCUMENT STABILITY. OTHERWISE NO SIGNIFICANT ABNORMALITY OF THE CTA CHEST.
[2021-03-15] MEDS ORDERED: HYDROmorphone 1 MG/ML 1 ML SYRINGE IVP STA (23:16)
== END 2021-03-15 23:40 | disposition home or self-care (01) ==
LOC: EC 18:45
DX: R07.9 Chest pain, unspecified (principal); M19.90 Unspecified osteoarthritis, unspecified site; G43.909 Migraine, unspecified, not intractable, without status migrainosus; F17.200 Nicotine dependence, unspecified, uncomplicated; Z79.899 Other long term (current) drug therapy; Z79.891 Long term (current) use of opiate analgesic; Z88.6 Allergy status to analgesic agent
CPT/HCPCS: 36415; 93005; 85379; 80053; 83690; 83735; 84484; 85025; 85610; 85730; 71275; 99285; 96374; 96375; G0480; J2270; J2405; J1170; Q9967; 80320

== ENCOUNTER 2021-03-17 20:57 | Emergency (ER) | payer OTHER ==
[2021-03-17 21:11] VITALS: BP 165/84; PULSE 74; RESP 18; TEMP 98.9
[2021-03-17] MEDS ORDERED: IBUPROFEN 600 MG TAB PO STA (21:31)
[2021-03-17] MEDS ORDERED: traMADol 50 MG TAB PO STA (21:31)
--- NOTE | 2021-03-17 21:47 | ED ---
Anxiety HPI - General Chief Complaint: Anxiety Stated Complaint: Anxiety Time Seen by Provider: 03/17/21 21:15 Source: patient, EMS Mode of arrival: EMS - History of Present Illness Initial Comments: This patient is a 50-year-old woman with history of anxiety who presents with worsening of those symptoms after she was forced to leave her place of residence. MD Complaint: anxiety, heart racing -: hour(s) Symptoms: extremity numbness/tingling Place: home Previous History of Same: Yes Severity: severe Quality: improving Provoking factors: work/job stress Improves With: nothing Worsens With: nothing - Related Data Home Medications: Home Medications Medication Instructions Recorded Confirmed amLODIPine [Norvasc] 5 mg PO DAILY 09/02/19 01/25/21 Butalb/APAP/Caff 50-325-40Mg 1 tab PO Q6H PRN 09/22/19 01/25/21 [Fioricet 50-325-40] rOPINIRole HCL [Requip] 0.25 mg PO HS PRN 02/01/20 01/25/21 Cilostazol [Pletal] 100 mg PO BID 09/06/20 01/25/21 DULoxetine HCL [Cymbalta] 60 mg PO HS 09/06/20 01/25/21 Baclofen 10 mg PO BID PRN 11/23/20 01/25/21 Previous Rx's Medication Instructions Recorded Orphenadrine [Norflex] 100 mg PO Q12H #10 tablet.er 09/30/20 Azithromycin [Zithromax] 500 mg PO DAILY #5 tab 01/25/21 Fluconazole [Diflucan] 150 mg PO ONCE #2 tab 01/25/21 predniSONE 50 mg PO DAILY #5 tab 01/31/21 Fluconazole [Diflucan] 100 mg PO DAILY 14 Days #14 tablet 02/17/21 Allergies/Adverse Reactions: Allergies Allergy/AdvReac Type Severity Reaction Status Date / Time aspirin Allergy Rash/Hives Verified 03/15/21 18:49 Review of Systems ROS Statement: Those systems with pertinent positive or pertinent negative responses have been documented in the HPI. ROS Other: All systems not noted in ROS Statement are negative. Constitutional: Denies: fever, chills Respiratory: Reports: dyspnea. Denies: cough, wheezes Cardiovascular: Reports: palpitations. Denies: chest pain, orthopnea, edema, syncope Gastrointestinal: Denies: abdominal pain, vomiting, diarrhea Musculoskeletal: Denies: back pain Skin: Denies: rash Neurological: Reports: paresthesias. Denies: headache, weakness, numbness Psychiatric: Reports: anxiety. Denies: homicidal thoughts, suicidal thoughts Past Medical History Past Medical History: Osteoarthritis (OA) Additional Past Medical History / Comment(s): back/neck pain, migraines, gout,anxiety,depression,bipolar History of Any Multi-Drug Resistant Organisms: None Reported Past Surgical History: Orthopedic Surgery, Tubal Ligation, Uterine Ablation Additional Past Surgical History / Comment(s): RIGHT ELBOW SURGERY , adenosine given x [address] to hospital on 09/06/20 for SVT Past Anesthesia/Blood Transfusion Reactions: No Reported Reaction Additional Past Anesthesia/Blood Transfusion Reaction / Comment(s): NEVER HAD BLOOD TRANSFUSION Past Psychological History: Anxiety, Bipolar, Depression Smoking Status: Current every day smoker Past Alcohol Use History: None Reported Past Drug Use History: None Reported - Past Family History Mother Family Medical History: Coronary Artery Disease (CAD), Diabetes Mellitus, Hypertension Additional Family Medical History / Comment(s): LUPUS Father Family Medical History: Dementia General Exam Limitations: no limitations General appearance: alert, in no apparent distress, anxious Head exam: Present: atraumatic, normocephalic Eye exam: Present: normal appearance. Absent: scleral icterus, conjunctival injection Neck exam: Present: normal inspection Respiratory exam: Present: normal lung sounds bilaterally. Absent: respiratory distress, wheezes, rales, rhonchi, stridor Cardiovascular Exam: Present: regular rate, normal rhythm, normal heart sounds. Absent: systolic murmur, diastolic murmur, rubs, gallop GI/Abdominal exam: Present: soft. Absent: distended, tenderness, guarding, rebound, rigid, mass Extremities exam: Present: normal inspection, normal capillary refill. Absent: pedal edema, calf tenderness Back exam: Present: normal inspection Neurological exam: Present: alert Psychiatric exam: Present: anxious. Absent: depressed, flat affect, manic, homicidal ideation, suicidal ideation Skin exam: Present: warm, dry, intact, normal color. Absent: rash Course Vital Signs 03/17/21 20:59 Temperature 98.9 F Pulse Rate 74 Respiratory 18 Rate Blood Pressure 165/84 O2 Sat by Pulse 100 Oximetry Disposition Clinical Impression: Acute anxiety Disposition: HOME SELF-CARE Condition: Good Instructions (If sedation given, give patient instructions): Generalized Anxiety Disorder (ED) Is patient prescribed a controlled substance at d/c from ED?: No Referrals: Eric Smyth MD [Primary Care Provider] - 1-2 days
== END 2021-03-17 22:10 | disposition home or self-care (01) ==
LOC: EC 20:57
DX: F41.9 Anxiety disorder, unspecified (principal); F17.200 Nicotine dependence, unspecified, uncomplicated; M19.90 Unspecified osteoarthritis, unspecified site; G43.909 Migraine, unspecified, not intractable, without status migrainosus; Z79.899 Other long term (current) drug therapy; Z79.891 Long term (current) use of opiate analgesic; Z88.0 Allergy status to penicillin; Z88.6 Allergy status to analgesic agent
CPT/HCPCS: 99283

== ENCOUNTER 2021-05-05 11:51 | Emergency (ER) | payer OTHER ==
[2021-05-05 11:55] VITALS: BP 122/78; PULSE 73; RESP 18; TEMP 97.8
[2021-05-05] MEDS ORDERED: HYDROCORTISONE 1% CREAM 30 GM TUBE TOPICAL PRN (12:44)
[2021-05-05] MEDS ORDERED: KETOROLAC 15 MG/ML 1 ML VIAL IM STA (12:46)
--- NOTE | 2021-05-05 12:52 | ED ---
General Adult HPI - General Chief complaint: Skin/Abscess/Foreign Body Stated complaint: Flash.Arm Rash Source: patient Mode of arrival: ambulatory Limitations: no limitations - History of Present Illness Initial comments: 50-year-old female with past medical history her Burger's disease, anxiety, chronic back pain presents emergency department with complaint of rash to her bilateral forearms. States the rash started earlier today. 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 States that she has done this multiple times without wearing gloves and has never had a reaction like this. She denies exposure to any new products. If rash is not located anywhere else on her body. No associated fevers or chills. Patient continues to report her chronic back pain however no new or worsening symptoms. Usually takes Motrin at home for pain control. Denies any bladder or bowel incontinence. No shortness of breath. No oral swelling. 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 - Related Data Home Medications Medication Instructions Recorded Confirmed amLODIPine [Norvasc] 5 mg PO DAILY 09/02/19 01/25/21 Butalb/APAP/Caff 50-325-40Mg 1 tab PO Q6H PRN 09/22/19 01/25/21 [Fioricet 50-325-40] rOPINIRole HCL [Requip] 0.25 mg PO HS PRN 02/01/20 01/25/21 Cilostazol [Pletal] 100 mg PO BID 09/06/20 01/25/21 DULoxetine HCL [Cymbalta] 60 mg PO HS 09/06/20 01/25/21 Baclofen 10 mg PO BID PRN 11/23/20 01/25/21 Previous Rx's Medication Instructions Recorded Orphenadrine [Norflex] 100 mg PO Q12H #10 tablet.er 09/30/20 Azithromycin [Zithromax] 500 mg PO DAILY #5 tab 01/25/21 Fluconazole [Diflucan] 150 mg PO ONCE #2 tab 01/25/21 predniSONE 50 mg PO DAILY #5 tab 01/31/21 Fluconazole [Diflucan] 100 mg PO DAILY 14 Days #14 tablet 02/17/21 Hydrocortisone Lotion [Hytone 2.5% 1 applic TOPICAL QID #60 gm 05/05/21 Lotion] Allergies Allergy/AdvReac Type Severity Reaction Status Date / Time aspirin Allergy Rash/Hives Verified 03/15/21 18:49 Review of Systems ROS Statement: Those systems with pertinent positive or pertinent negative responses have been documented in the HPI. ROS Other: All systems not noted in ROS Statement are negative. Past Medical History Past Medical History: Osteoarthritis (OA) Additional Past Medical History / Comment(s): back/neck pain, migraines, gout,anxiety,depression,bipolar History of Any Multi-Drug Resistant Organisms: None Reported Past Surgical History: Orthopedic Surgery, Tubal Ligation, Uterine Ablation Additional Past Surgical History / Comment(s): RIGHT ELBOW SURGERY , adenosine given x [address] to hospital on 09/06/20 for SVT Past Anesthesia/Blood Transfusion Reactions: No Reported Reaction Additional Past Anesthesia/Blood Transfusion Reaction / Comment(s): NEVER HAD BLOOD TRANSFUSION Past Psychological History: Anxiety, Bipolar, Depression Smoking Status: Current every day smoker Past Alcohol Use History: None Reported Past Drug Use History: None Reported - Past Family History Mother Family Medical History: Coronary Artery Disease (CAD), Diabetes Mellitus, Hypertension Additional Family Medical History / Comment(s): LUPUS Father Family Medical History: Dementia General Exam Limitations: no limitations General appearance: alert, in no apparent distress Head exam: Present: atraumatic, normocephalic, normal inspection Eye exam: Present: normal appearance, PERRL, EOMI. Absent: scleral icterus, conjunctival injection, periorbital swelling ENT exam: Present: normal exam, mucous membranes moist Respiratory exam: Present: normal lung sounds bilaterally Cardiovascular Exam: Present: regular rate, normal rhythm, normal heart sounds. Absent: systolic murmur, diastolic murmur, rubs, gallop, clicks GI/Abdominal exam: Present: soft, normal bowel sounds. Absent: distended, tenderness, guarding, rebound, rigid Extremities exam: Present: normal inspection, full ROM, normal capillary refill. Absent: tenderness, pedal edema, joint swelling, calf tenderness Skin exam: Present: rash (dried skin bilateral medial aspect of forearms consistent with contact dermatitis) Course Vital Signs 05/05/21 11:53 Temperature 97.8 F Pulse Rate 73 Respiratory 18 Rate Blood Pressure 122/78 O2 Sat by Pulse 98 Oximetry Medical Decision Making - Medical Decision Making Upon arrival patient is placed into room 23. A thorough history and physical exam is performed. Patient does smell very strongly bleach. She does have a rash on her bilateral arms consistent with a contact dermatitis. Patient is strongly encouraged to wear gloves next time using bleach. Will be given a prescription for hydrocortisone cream to place to the site. Patient is requesting something for back pain. It did offer her a dose of Toradol for her chronic back pain however refusing to treat with narcotics as the patient is requesting. Informed her that I'm unable to give narcotics for chronic pain. Instructed that she follow up with her primary care doctor for further treatment and return for any new or worsening symptoms. Patient discharged home in stable condition Disposition Clinical Impression: Contact dermatitis Disposition: HOME SELF-CARE Condition: Stable Instructions (If sedation given, give patient instructions): Contact Dermatitis (ED) Additional Instructions: Use gloves when using bleach. Use the cream four times daily. Return to the ED for any new or worsening symptoms. Prescriptions: Hydrocortisone Lotion [Hytone 2.5% Lotion] 1 applic TOPICAL QID #60 gm Is patient prescribed a controlled substance at d/c from ED?: No Referrals: Eric Smyth MD [Primary Care Provider] - 1-2 days Time of Disposition: 12:52
== END 2021-05-05 13:16 | disposition home or self-care (01) ==
LOC: EC 11:51
DX: L25.9 Unspecified contact dermatitis, unspecified cause (principal); F17.200 Nicotine dependence, unspecified, uncomplicated; Z88.6 Allergy status to analgesic agent
CPT/HCPCS: 99283; 96372; J1885

== ENCOUNTER 2021-07-24 19:11 | Emergency (ER) | payer OTHER ==
[2021-07-24 19:59] VITALS: TEMP 98
--- NOTE | 2021-07-24 20:26 | XR ---
EXAMINATION TYPE: XR cervical spine comp DATE OF EXAM: 07/24/2021 COMPARISON: 11/23/2020 HISTORY: Back pain TECHNIQUE: 5 views FINDINGS: There is some straightening of the cervical spine. There is mild disc space narrowing at C5 -6 and C6-7 with spurring of the endplates. No compression fracture. There is uncovertebral spurring and mild neural foraminal impingement in the lower cervical spine. IMPRESSION: Spondylotic changes in the lower cervical spine. No fracture. No change.
--- NOTE | 2021-07-24 20:28 | XR ---
EXAMINATION TYPE: XR lumbar spine 2 or 3V DATE OF EXAM: 07/24/2021 COMPARISON: 11/23/2020 HISTORY: Fall. Back pain TECHNIQUE: 3 views FINDINGS: The lumbar vertebrae have normal alignment. Disc spaces are fairly normal. No compression f racture. Sacroiliac joints are intact. Abdominal aorta is atheromatous. IMPRESSION: No acute abnormality of the lumbar spine. No fracture. No change.
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
[2021-07-24] MEDS ORDERED: ORPHENADRINE 30 MG/ML 2 ML VIAL IM STA (20:59)
[2021-07-24] MEDS ORDERED: Acetaminophen-Codeine 300-30mg TAB PO STA (20:59)
[2021-07-24] MEDS ORDERED: ACET/COD 300 MG/30 MG STARTER PACK 6 TAB BTL PO STA (20:59)
[2021-07-24 21:37] VITALS: BP 152/76; PULSE 78; RESP 16
== END 2021-07-24 21:36 | disposition home or self-care (01) ==
LOC: EC 19:11
DX: G89.29 Other chronic pain (principal); M54.50 Low back pain, unspecified; I10 Essential (primary) hypertension; F17.210 Nicotine dependence, cigarettes, uncomplicated; F31.9 Bipolar disorder, unspecified; F41.9 Anxiety disorder, unspecified; M10.9 Gout, unspecified; M19.90 Unspecified osteoarthritis, unspecified site; Z79.899 Other long term (current) drug therapy; W18.30XA Fall on same level, unspecified, initial encounter
CPT/HCPCS: 72050; 72100; 96372; 99284

== ENCOUNTER 2021-08-14 14:59 | Emergency (ER) | payer OTHER ==
[2021-08-14 15:03] VITALS: TEMP 98
[2021-08-14] MEDS ORDERED: LORazepam 1 MG TAB PO STA (16:10)
[2021-08-14 16:22] LABS: Basophils % (A) 1 %; Eosinophils # (A) 0.3 k/uL (0-0.7); Eosinophils % (A) 5 %; HCT 38.2 % (34.0-46.0); HGB 12.8 gm/dL (11.4-16.0); Lymphocytes # (A) 1.5 k/uL (1.0-4.8); Lymphocytes % (A) 30 %; MCH 30.9 pg (25.0-35.0); MCHC 33.3 g/dL (31.0-37.0); MCV 92.7 fL (80.0-100.0); Mean Platelet Volume 7.4; Monocytes # (A) 0.3 k/uL (0-1.0); Monocytes % (A) 6 %; Neutrophils # (A) 2.9 k/uL (1.3-7.7); Neutrophils % (A) 55 %; Platelet Count 403 k/uL (150-450); RBC 4.13 m/uL (3.80-5.40); RDW 15.4 % (11.5-15.5); WBC 5.2 k/uL (3.8-10.6)
[2021-08-14 16:23] LABS: AST 40 U/L (14-36); African American GFR (CKD) >90 (>60 ml/min/1.73 sqM); Albumin 4.4 g/dL (3.5-5.0); Alkaline Phosphatase 106 U/L (38-126); Anion Gap 8 mmol/L; Blood Urea Nitrogen 12 mg/dL (7-17); Calcium 9.2 mg/dL (8.4-10.2); Carbon Dioxide 22 mmol/L (22-30); Chloride 109 mmol/L (98-107); Glucose 94 mg/dL (74-99); Non-African American GFR(CKD) >90 (>60 ml/min/1.73 sqM); Potassium 4.2 mmol/L (3.5-5.1); Sodium 139 mmol/L (137-145); Total Bilirubin 0.3 mg/dL (0.2-1.3); Total Protein 7.3 g/dL (6.3-8.2)
[2021-08-14 16:25] LABS: ALT 28 U/L (4-34); Magnesium 1.7 mg/dL (1.6-2.3)
[2021-08-14 16:32] LABS: INR 0.9 (<1.2); Prothrombin Time 10.2 sec (9.0-12.0)
--- NOTE | 2021-08-14 17:00 | XR ---
EXAMINATION TYPE: XR chest 2V DATE OF EXAM: 08/14/2021 COMPARISON: X-ray dated 01/25/2021 HISTORY: Chest pain TECHNIQUE: Frontal and lateral views of the chest are obtained. FINDINGS: Mild pulmonary vascular congestion. Questionable minimal infiltration at the medial aspect of the rig ht lower lung zone, please correlate clinically. Otherwise grossly unremarkable lungs. No sizable pleural effusion or definite pneumothorax. No gross clinically. No gross aggressive bone lesion. IMPRESSION: As above.
--- NOTE | 2021-08-14 18:01 | ED ---
Chest Pain HPI - General Chief Complaint: Chest Pain Stated Complaint: Chest Pain Time Seen by Provider: 08/14/21 15:48 Source: patient Mode of arrival: ambulatory Limitations: no limitations - History of Present Illness Initial Comments: Patient is a 51-year-old female presenting with chief complaint of chest pain. Patient states the chest pain is centralized and It has been going on for the last 2 days. She states that "it feels like someone is punching me in the chest" and is reproducible. Pain is also worsened with deep breaths. Patient states that she has had this sensation before with severe anxiety. She denies any palpitations, fever, chills, nausea, vomiting, radiation of the pain down the arm or up the neck, back pain, sweating, abdominal pain, recent illness, headache, cough, hemoptysis. - Related Data Home Medications Medication Instructions Recorded Confirmed amLODIPine [Norvasc] 5 mg PO DAILY 09/02/19 01/25/21 Butalb/APAP/Caff 50-325-40Mg 1 tab PO Q6H PRN 09/22/19 01/25/21 [Fioricet 50-325-40] rOPINIRole HCL [Requip] 0.25 mg PO HS PRN 02/01/20 01/25/21 Cilostazol [Pletal] 100 mg PO BID 09/06/20 01/25/21 DULoxetine HCL [Cymbalta] 60 mg PO HS 09/06/20 01/25/21 Baclofen 10 mg PO BID PRN 11/23/20 01/25/21 Previous Rx's Medication Instructions Recorded Orphenadrine [Norflex] 100 mg PO Q12H #10 tablet.er 09/30/20 Azithromycin [Zithromax] 500 mg PO DAILY #5 tab 01/25/21 Fluconazole [Diflucan] 150 mg PO ONCE #2 tab 01/25/21 predniSONE 50 mg PO DAILY #5 tab 01/31/21 Fluconazole [Diflucan] 100 mg PO DAILY 14 Days #14 tablet 02/17/21 Hydrocortisone Lotion [Hytone 2.5% 1 applic TOPICAL QID #60 gm 05/05/21 Lotion] Baclofen 10 mg PO Q8H PRN #20 tab 07/24/21 Allergies Allergy/AdvReac Type Severity Reaction Status Date / Time aspirin Allergy Rash/Hives Verified 08/14/21 15:03 Review of Systems ROS Statement: Those systems with pertinent positive or pertinent negative responses have been documented in the HPI. ROS Other: All systems not noted in ROS Statement are negative. EKG Findings - EKG Comments: EKG Findings:: Sinus rhythm with rate of 69. NV interval 151. QRS duration 101, no ischemic changes. Past Medical History Past Medical History: Hypertension, Osteoarthritis (OA) Additional Past Medical History / Comment(s): back/neck pain, migraines, gout,anxiety,depression,bipolar History of Any Multi-Drug Resistant Organisms: None Reported Past Surgical History: Orthopedic Surgery, Tubal Ligation, Uterine Ablation Additional Past Surgical History / Comment(s): RIGHT ELBOW SURGERY , adenosine given x [address] to hospital on 09/06/20 for SVT Past Anesthesia/Blood Transfusion Reactions: No Reported Reaction Additional Past Anesthesia/Blood Transfusion Reaction / Comment(s): NEVER HAD BLOOD TRANSFUSION Past Psychological History: Anxiety, Bipolar, Depression Smoking Status: Current every day smoker Past Alcohol Use History: None Reported Past Drug Use History: None Reported - Past Family History Mother Family Medical History: Coronary Artery Disease (CAD), Diabetes Mellitus, Hypertension Additional Family Medical History / Comment(s): LUPUS Father Family Medical History: Dementia General Exam Limitations: no limitations General appearance: alert, in no apparent distress Head exam: Present: atraumatic, normocephalic, normal inspection Eye exam: Present: normal appearance, EOMI. Absent: scleral icterus Neck exam: Present: normal inspection Respiratory exam: Present: normal lung sounds bilaterally, chest wall tenderness (Reproducible centralized chest pain). Absent: respiratory distress, wheezes, rales, rhonchi, stridor Cardiovascular Exam: Present: regular rate, normal rhythm, normal heart sounds. Absent: systolic murmur, diastolic murmur, rubs, gallop, clicks Neurological exam: Present: alert, oriented X3, CN II-XII intact Psychiatric exam: Present: anxious Skin exam: Present: warm, dry, intact, normal color. Absent: rash Course Vital Signs 08/14/21 08/14/21 15:00 18:15 Temperature 98.0 F Pulse Rate 73 67 Respiratory 24 18 Rate Blood Pressure 138/75 166/95 O2 Sat by Pulse 99 Oximetry Chest Pain [facility] Patient is a 51-year-old female presenting with chief complaint of chest pain. Pain is centralized, reproducible, pleuritic, and worse with anxiety. On examination I am able to reproduce the pain with light palpation. Heart and lungs are clear to auscultation. Patient shows clear signs of anxiety. Patient is given 1 mg Ativan. Lab work, EKG is unremarkable. Chest x-ray suggests possible infiltrate, however this does not correlate clinically with her presentation, there is no cough, fever, chills, wheezing, shortness of breath. Patient reports improvement of the pain with decreased anxiety. Her heart score is 2. She appears stable for discharge with outpatient follow-up at this time. Follow-up with PCP in one to 2 days. Report back to ER if any new or worsening symptoms. I discussed return parameters and alarming symptoms. Answered all questions. Patient conveyed verbal understanding and agreed to the plan. I discussed this case with my attending Dr. Hutson. Disposition Clinical Impression: Costochondritis Disposition: HOME SELF-CARE Condition: Good Instructions (If sedation given, give patient instructions): Chest Pain (ED), Costochondritis (ED) Additional Instructions: Follow-up with PCP in one to 2 days. Report back to ER with any new or worsening symptoms. Is patient prescribed a controlled substance at d/c from ED?: No Referrals: Eric Smyth MD [Primary Care Provider] - 1-2 days Time of Disposition: 18:00
[2021-08-14 18:15] VITALS: BP 166/95; PULSE 67; RESP 18
== END 2021-08-14 18:15 | disposition home or self-care (01) ==
LOC: EC 14:59
DX: M94.0 Chondrocostal junction syndrome [Tietze] (principal); I10 Essential (primary) hypertension; M19.90 Unspecified osteoarthritis, unspecified site; F31.9 Bipolar disorder, unspecified; F41.9 Anxiety disorder, unspecified; M10.9 Gout, unspecified; F17.200 Nicotine dependence, unspecified, uncomplicated; Z79.899 Other long term (current) drug therapy
CPT/HCPCS: 36415; 71046; 80053; 83735; 84484; 85025; 85610; 85730; 93005; 99285

== ENCOUNTER 2021-09-18 09:33 | Emergency (ER) | payer OTHER ==
[2021-09-18 09:38] VITALS: TEMP 98.1
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
--- NOTE | 2021-09-18 10:12 | XR ---
EXAMINATION TYPE: XR ankle complete LT DATE OF EXAM: 09/18/2021 COMPARISON: NONE HISTORY: Pain FINDINGS: Three views of the ankle demonstrate the ankle mortise to be intact and symmetric. The joint spaces are preserved. The osseous structures are intact. Soft tissue prominence or swelling laterally. Tin y calcaneal spur. IMPRESSION: 1. No definite acute fracture or dislocation, if symptoms persist follow-up study in 7 to 10 days wou ld be suggested.
--- NOTE | 2021-09-18 10:14 | XR ---
EXAMINATION TYPE: XR foot complete LT DATE OF EXAM: 09/18/2021 COMPARISON: NONE HISTORY: Pain TECHNIQUE: Three views are submitted. FINDINGS: The osseous structures are intact. There is no acute fracture or dislocation. Joint spaces are p reserved. Tiny calcaneal spur. Question deformities involving the base of the third and second metata rsals recommend CT scan. IMPRESSION: 1. Recommend CT scan to assess the base of the second and third metatarsals.
[2021-09-18] MEDS ORDERED: HYDROcodone/APAP 5-325MG 1 EACH TAB PO STA (10:24)
--- NOTE | 2021-09-18 11:00 | CT ---
EXAMINATION TYPE: CT foot LT wo con DATE OF EXAM: 09/18/2021 COMPARISON: X-ray 09/18/2021 HISTORY: Fall, trauma, pain since 09-15-2021 CT DLP: 176.5 mGycm Automated exposure control for dose reduction was used. CONTRAST: CT scan of the left leg performed without contrast FINDINGS- There are nondisplaced fractures involving the base of the second, third and fourth digits. Hairline fracture through the posterior margin of the plantar surface base first metatarsal also suspected. Remaining osseous structures intact there is extensive soft tissue edema. Tiny calcaneal spur noted. IMPRESSION- 1. Displaced fractures involving the base of the second, third and fourth metatarsals. Also suspect a hairline fracture through the posterior plantar surface base first metatarsal. 2. Recommend follow-up MRI to assess for Lisfranc ligament for a Lisfranc fracture.
[2021-09-18] MEDS ORDERED: ACET/COD 300 MG/30 MG STARTER PACK 6 TAB BTL PO STA (11:59)
[2021-09-18 12:23] VITALS: BP 164/82; PULSE 69; RESP 18
== END 2021-09-18 12:23 | disposition home or self-care (01) ==
LOC: EC 09:33
DX: S92.032A Displaced avulsion fracture of tuberosity of left calcaneus, initial encounter for closed fracture (principal); I10 Essential (primary) hypertension; F17.200 Nicotine dependence, unspecified, uncomplicated; Z88.6 Allergy status to analgesic agent; W01.0XXA Fall on same level from slipping, tripping and stumbling without subsequent striking against object, initial encounter
CPT/HCPCS: 99284

== ENCOUNTER → 2021-10-26 | Outpatient (CLI) | payer OTHER ==
--- NOTE | 2021-10-27 08:58 | MM ---
Reason for Exam: Screening (asymptomatic). Last mammogram was performed 5 year(s) and 1 month(s) ago. Patient History: Menarche at age 11. First Full-Term at age 17. Postmenopausal. Maternal grandmother had breast cancer. Risk Values: Jessica 5 year model risk: 0.8%. NCI Lifetime model risk: 6.2%. Prior Study Comparison: 03/22/2011 Bilateral Screening Mammogram, [facility]. 09/21/2016 Bilateral Screening Mammogram, [facility]. 10/03/2016 Right Diagnostic Mammogram, [facility]. Tissue Density: There are scattered fibroglandular densities. Findings: Analyzed By CAD. There is no suspicious group of microcalcifications or new suspicious mass in either breast. Overall Assessment: Negative, BI-RAD 1 Management: Screening Mammogram of both breasts in 1 year. A clinical breast exam by your physician is recommended on an annual basis and results should be correlated with mammographic findings. Electronically signed and approved by: Helder Canseco DO
== END | disposition home or self-care (01) ==
LOC: RADMAMWWP 10:58
PROVIDERS: ATTEND Family Medicine
DX: Z12.31 Encounter for screening mammogram for malignant neoplasm of breast (principal)
CPT/HCPCS: 77067

== ENCOUNTER 2022-01-05 10:47 | Emergency (ER) | payer OTHER ==
[2022-01-05 10:55] VITALS: TEMP 97.8
[2022-01-05] MEDS ORDERED: MORPHINE SULFATE 4 MG/ML SYRINGE IM STA (11:47)
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
[2022-01-05] MEDS ORDERED: ACET/COD 300 MG/30 MG STARTER PACK 6 TAB BTL PO STA (12:27)
[2022-01-05 15:13] VITALS: BP 131/89; PULSE 88; RESP 15
== END 2022-01-05 13:00 | disposition home or self-care (01) ==
LOC: EC 10:47
DX: M54.50 Low back pain, unspecified (principal); I10 Essential (primary) hypertension; M19.90 Unspecified osteoarthritis, unspecified site; F41.9 Anxiety disorder, unspecified; F31.9 Bipolar disorder, unspecified; F17.200 Nicotine dependence, unspecified, uncomplicated; Z88.6 Allergy status to analgesic agent; Z79.899 Other long term (current) drug therapy
CPT/HCPCS: 99283; 96372; J2270

== ENCOUNTER 2022-01-12 04:58 | Emergency (ER) | payer OTHER ==
[2022-01-12 05:04] VITALS: BP 162/98; PULSE 78; RESP 14; TEMP 98.1
--- NOTE | 2022-01-12 06:00 | XR ---
EXAMINATION TYPE: XR lumbar spine 2 or 3V DATE OF EXAM: 01/12/2022 COMPARISON: 07/24/2021 HISTORY: Fall. Pain TECHNIQUE: 3 views FINDINGS: The lumbar vertebrae have normal alignment. Disc spaces are fairly normal. No compression f racture. Posterior elements are intact and sacroiliac joints are intact. IMPRESSION: Negative lumbar spine exam. No change.
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
== END 2022-01-12 07:08 | disposition home or self-care (01) ==
LOC: EC 04:58
DX: T74.21XA Adult sexual abuse, confirmed, initial encounter (principal); T14.8XXA Other injury of unspecified body region, initial encounter; M54.50 Low back pain, unspecified; I10 Essential (primary) hypertension; M19.90 Unspecified osteoarthritis, unspecified site; F41.9 Anxiety disorder, unspecified; F31.9 Bipolar disorder, unspecified; F17.200 Nicotine dependence, unspecified, uncomplicated; Z79.83 Long term (current) use of bisphosphonates; Z79.899 Other long term (current) drug therapy; Z88.6 Allergy status to analgesic agent; Y04.2XXA Assault by strike against or bumped into by another person, initial encounter
CPT/HCPCS: 70450; 72100; 72125; 99285

== ENCOUNTER 2022-01-12 12:37 | Inpatient (IN) | payer MEDICAID, OTHER ==
[2022-01-12] MEDS ORDERED: ORPHENADRINE 30 MG/ML 2 ML VIAL IM STA (19:24)
[2022-01-12] MEDS ORDERED: KETOROLAC 15 MG/ML 1 ML VIAL IM STA (19:24)
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
--- NOTE | 2022-01-12 20:11 | XR ---
EXAMINATION TYPE: XR ribs bilat w pa chest xray DATE OF EXAM: 01/12/2022 COMPARISON: Chest x-ray 08/14/2021 HISTORY: Chest pain TECHNIQUE: 9 views FINDINGS: Heart and mediastinum are normal. Lungs are clear of infiltrate. No pleural effusion or pne umothorax. No evidence of rib fracture. The shoulder joints are intact. IMPRESSION: Normal chest. Normal bilateral rib exam.
[2022-01-12 21:45] LABS: Amphetamine Screen,Urine Not Detected (NotDetected); Barbiturate Screen,Urine Detected (NotDetected); Benzodiazepines Screen,Urine Not Detected (NotDetected); Cocaine Screen,Urine Not Detected (NotDetected); Methadone Screen, Urine Not Detected (NotDetected); Opiate Screen,Urine Not Detected (NotDetected); Oxycodone Screen, Urine Not Detected (NotDetected); Phencyclidine Screen,Urine Not Detected (NotDetected); Tricyclic Antidepressant,Urine Detected (NotDetected); Urn Cannabinoid Scrn Not Detected (NotDetected)
[2022-01-13] MEDS ORDERED: HYDROcodone/APAP 7.5-325MG 1 EACH TAB PO ONE (00:01)
[2022-01-13] MEDS ORDERED: HALOPERIDOL LACTATE 5 MG/ML 1 ML VIAL IM PRN (05:50)
[2022-01-13] MEDS ORDERED: MAG HYDROX/AL HYDROX/SIMETH 30 ML CUP PO PRN (05:50)
[2022-01-13] MEDS ORDERED: MAGNESIUM HYDROXIDE 2,400 MG/10 ML CUP PO PRN (05:50)
[2022-01-13] MEDS ORDERED: ACETAMINOPHEN TAB 325 MG TAB PO PRN (05:50)
[2022-01-13] MEDS ORDERED: LORazepam 1 MG TAB PO PRN (05:50)
[2022-01-13] MEDS ORDERED: LORazepam 2 MG/ML INJ IM PRN (06:00)
[2022-01-13] MEDS ORDERED: haloperidoL 5 MG TAB PO PRN (06:01)
[2022-01-13] MEDS ORDERED: LORazepam 1 MG/0.5 ML VIAL IM PRN (06:11)
[2022-01-13] MEDS: amLODIPine 5 MG TAB PO SCH (08:42)
[2022-01-13] MEDS: lamoTRIgine 25 MG TAB PO SCH ×2 (08:42→20:11)
[2022-01-13] MEDS: ATORVASTATIN 40 MG TAB PO SCH (08:42)
[2022-01-13] MEDS: HYDROcodone/APAP 5-325MG 1 EACH TAB PO PRN ×3 (08:43→21:02)
[2022-01-13 11:44] LABS: Basophils % (A) 1 %; Eosinophils # (A) 0.1 k/uL (0-0.7); Eosinophils % (A) 3 %; HCT 39.5 % (34.0-46.0); HGB 12.9 gm/dL (11.4-16.0); Lymphocytes # (A) 1.2 k/uL (1.0-4.8); Lymphocytes % (A) 25 %; MCH 29.2 pg (25.0-35.0); MCHC 32.6 g/dL (31.0-37.0); MCV 89.5 fL (80.0-100.0); Mean Platelet Volume 7.4; Monocytes # (A) 0.4 k/uL (0-1.0); Monocytes % (A) 7 %; Neutrophils % (A) 62 %; Platelet Count 345 k/uL (150-450); RBC 4.41 m/uL (3.80-5.40); RDW 13.6 % (11.5-15.5); WBC 4.9 k/uL (3.8-10.6)
[2022-01-13 12:21] LABS: ALT 30 U/L (4-34); AST 54 U/L (14-36); African American GFR (CKD) >90 (>60 ml/min/1.73 sqM); Albumin 4.6 g/dL (3.5-5.0); Alkaline Phosphatase 92 U/L (38-126); Anion Gap 9 mmol/L; Blood Urea Nitrogen 15 mg/dL (7-17); Calcium 9.3 mg/dL (8.4-10.2); Carbon Dioxide 27 mmol/L (22-30); Chloride 107 mmol/L (98-107); Glucose 76 mg/dL (74-99); Non-African American GFR(CKD) 81 (>60 ml/min/1.73 sqM); Potassium 5.1 mmol/L (3.5-5.1); Sodium 143 mmol/L (137-145); Total Bilirubin 0.4 mg/dL (0.2-1.3); Total Protein 7.2 g/dL (6.3-8.2)
[2022-01-13] MEDS: CYCLOBENZAPRINE 10 MG TAB PO SCH ×2 (14:02→20:11)
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
[2022-01-13 15:33] LABS: Appearance,Urine Clear (Clear); Bilirubin,Urine Negative (Negative); Blood,Urine Negative (Negative); Color,Urine Yellow; Glucose,Urine (UA) Negative (Negative); Hyaline Casts,Urine 1 /lpf (0-2); Ketones,Urine Trace (Negative); Leukocyte Esterase,Urine Trace (Negative); Mucus,Urine Few /hpf; Nitrite,Urine Negative (Negative); PH, Urine 5.5 (5.0-8.0); Protein,Urine Trace (Negative); RBC,Urine 7 /hpf (0-5); Specific Gravity,Urine 1.033 (1.001-1.035); Squamous Epithelial Cell,Urine 1 /hpf (0-4); WBC,Urine 3 /hpf (0-5)
[2022-01-13 16:27] LABS: Chol/HDL Ratio 4.42 Ratio; LDL Cholesterol,Calculated 95.3 mg/dL (0.0-131.0)
[2022-01-13] MEDS: DULoxetine HCL 60 MG CAPSULE.DR PO SCH (20:10)
[2022-01-13] MEDS: BACLOFEN 10 MG TAB PO PRN (21:02)
[2022-01-13] MEDS: QUEtiapine 100 MG TAB PO SCH (22:14)
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
[2022-01-14] MEDS: ATORVASTATIN 40 MG TAB PO SCH (08:35)
[2022-01-14] MEDS: amLODIPine 5 MG TAB PO SCH (08:36)
[2022-01-14] MEDS: CYCLOBENZAPRINE 10 MG TAB PO SCH ×2 (08:36→20:12)
[2022-01-14] MEDS: lamoTRIgine 25 MG TAB PO SCH ×2 (08:36→20:12)
[2022-01-14] MEDS: HYDROcodone/APAP 5-325MG 1 EACH TAB PO PRN ×3 (08:37→20:12)
[2022-01-14] MEDS: BUTALB/APAP/CAFF 50-325-40MG TAB PO PRN (20:12)
[2022-01-14] MEDS: BACLOFEN 10 MG TAB PO PRN (20:12)
[2022-01-14] MEDS: DULoxetine HCL 60 MG CAPSULE.DR PO SCH (20:12)
[2022-01-14] MEDS: QUEtiapine 100 MG TAB PO SCH (20:12)
--- NOTE | 2022-01-14 20:28 | P.PN ---
Progress Note - Text Progress Note Date: 01/14/22 Interval history: Patient was seen resting in her room and was directable and agreeable to speak with scientific technical writer. She reports "alright" mood, sleep and appetite. She complains of headache and would like to restart her home fioricet. She denies depressed mood and declines increase to her Cymbalta. At this time, patient denies any suicidal or homicidal ideation, intent or plan. Denies any auditory or visual hallucinations. Patient denies any side effects from the medications and has been compliant with meds. No rash from Lamictal. Mental status exam: General Appearance: Patient appears to be stated age, tall female with hair dyed black, is alert, improving hygiene and grooming. Behavior: Patient is without any agitated behavior. Speech: Patient's speech is fluent and non-pressured. Mood/Affect: Patient reports their mood is "alright", affect is congruent and constricted. Suicidality/Homicidality: Patient denies having any homicidal ideation intent or plan. Denies any suicidal ideation, intent or plan Perceptions: Patient denies any visual hallucinations and denies any auditory hallucinations. Though content/process: There is no evidence of any delusional thought content and thought process is linear and goal-directed. Memory and concentration: AOX3, grossly intact for the purposes of this session. Judgment and insight: Improving mildly Assessment/Plan: Continue with current diagnosis. Patient continues to meet criteria for inpatient psychiatric admission for symptom stabilization and safety. Restart fioricet for headache. Continue Lamictal 50 mg BID for mood, Cymbalta at 60 mg daily for depression and Seroquel 100 mg QHS for mood/sleep. Monitor for medication compliance and for any psychotropic medication side effects. Will continue to monitor ongoing response to treatment. Encouraged participation in milieu.
[2022-01-15] MEDS: lamoTRIgine 25 MG TAB PO SCH ×2 (08:45→20:38)
[2022-01-15] MEDS: amLODIPine 5 MG TAB PO SCH (08:45)
[2022-01-15] MEDS: CYCLOBENZAPRINE 10 MG TAB PO SCH ×2 (08:45→20:38)
[2022-01-15] MEDS: ATORVASTATIN 40 MG TAB PO SCH (08:46)
[2022-01-15] MEDS: BUTALB/APAP/CAFF 50-325-40MG TAB PO PRN ×3 (08:46→20:39)
[2022-01-15] MEDS: HYDROcodone/APAP 5-325MG 1 EACH TAB PO PRN ×3 (08:46→20:39)
--- NOTE | 2022-01-15 11:22 | P.PN ---
Progress Note - Text Progress Note Date: 01/15/22 Interval History: Patient was seen wandering the hallways and was directable and agreeable to speak with marine underwriter in the office. Currently, the patient is reporting that she is feeling better. She states that she was able to talk to her friend and her sister and states that she would be able to return home. She reports that she came to the hospital because of an argument with her family that led up to her feeling like she has been abandoned and left out in the cold. She reports that she was suicidal at that point. She reports that she is currently not suicidal or homicidal. She denies any auditory or visual hallucinations speech she reports no paranoia or other delusions. The patient has been adherent with her medication is not endorsing any significant side effects at this time. She states that she feels ready for discharge tomorrow. Mental Status Exam: General Appearance: Patient appears to be stated age is alert, directable, and cooperative. Behavior: Patient is calmly seated without any agitated behavior. Speech: Patient's speech is fluent and nonpressured. Mood/Affect: Mood is improving mildly, affect is congruent and constricted. Suicidality/Homicidality: Patient denies having any suicidal or homicidal ideation intent or plan. Perceptions: Patient denies any visual hallucinations and denies any auditory hallucinations Though content/process: There is no evidence of any delusional thought content and thought process is linear and goal-directed. Memory and concentration: AOX3, grossly intact for the purposes of this session Judgment and insight: Improving mildly Vital Signs Temp 97.4 F L 01/14/22 07:45 Pulse 74 01/15/22 08:43 Resp 16 01/15/22 08:43 BP 128/77 01/15/22 08:43 Pulse Ox 99 01/14/22 07:45 FiO2 Intake & Output 01/14/22 01/15/22 01/15/22 18:59 06:59 18:59 Weight 81.7 kg Assessment Bipolar II disorder, currently depressed Unspecified anxiety disorder, rule out RYLAND Nicotine dependence Plan: -Patient continues to meet criteria for inpatient psychiatric admission for symptom stabilization and safety. Patient has signed adult voluntary form and medication consent and was placed in patient's chart. -Medications: Lamictal 50 mg by mouth twice a day for mood stabilization Seroquel 100 mg by mouth at bedtime for mood stabilization/bipolar depression Cymbalta 60 mg by mouth at bedtime for depression -When necessary Ativan and Haldol for agitation/aggression. -SW on board for discharge planning. Encouraged the patient to participate in milieu.
[2022-01-15] MEDS: QUEtiapine 100 MG TAB PO SCH (20:38)
[2022-01-15] MEDS: DULoxetine HCL 60 MG CAPSULE.DR PO SCH (20:38)
[2022-01-16 06:35] VITALS: RESP 18; TEMP 97.5
[2022-01-16 07:54] VITALS: BP 130/80; PULSE 75
[2022-01-16] MEDS: HYDROcodone/APAP 5-325MG 1 EACH TAB PO PRN (07:55)
[2022-01-16] MEDS: amLODIPine 5 MG TAB PO SCH (07:56)
[2022-01-16] MEDS: CYCLOBENZAPRINE 10 MG TAB PO SCH (07:56)
[2022-01-16] MEDS: lamoTRIgine 25 MG TAB PO SCH (07:56)
[2022-01-16] MEDS: ATORVASTATIN 40 MG TAB PO SCH (07:56)
[2022-01-16] MEDS: BUTALB/APAP/CAFF 50-325-40MG TAB PO PRN (07:57)
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
== END 2022-01-16 11:45 | disposition home or self-care (01) | DRG 885 ==
LOC: EC 12:37 → 3MHU 01-13 04:53
PROVIDERS: ADMIT Psychiatry & Neurology Psychiatry; ATTEND Psychiatry & Neurology Psychiatry
DX: F31.81 Bipolar II disorder (principal); R45.851 Suicidal ideations; Z20.822 Contact with and (suspected) exposure to COVID-19; Z28.310 Unvaccinated for COVID-19; F41.1 Generalized anxiety disorder; I10 Essential (primary) hypertension; E78.5 Hyperlipidemia, unspecified; G25.81 Restless legs syndrome; G89.29 Other chronic pain; M54.2 Cervicalgia; M54.9 Dorsalgia, unspecified; R07.89 Other chest pain; G43.909 Migraine, unspecified, not intractable, without status migrainosus; M19.90 Unspecified osteoarthritis, unspecified site; F17.290 Nicotine dependence, other tobacco product, uncomplicated; Z71.6 Tobacco abuse counseling; Z79.899 Other long term (current) drug therapy; Z88.6 Allergy status to analgesic agent; Z91.51 Personal history of suicidal behavior; W10.9XXA Fall (on) (from) unspecified stairs and steps, initial encounter
CPT/HCPCS: 71111; 80053; 80061; 80306; 81001; 81025; 82075; 83036; 84443; 85025; 87635; 96372; 99285

== ENCOUNTER 2022-02-08 10:44 | Emergency (ER) | payer OTHER ==
[2022-02-08 11:35] VITALS: RESP 16; TEMP 98
[2022-02-08] MEDS ORDERED: HYDROcodone/APAP 10-325MG 1 EACH TAB PO ONE (13:22)
[2022-02-08] MEDS ORDERED: ORPHENADRINE 30 MG/ML 2 ML VIAL IM STA (13:22)
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
[2022-02-08 14:08] VITALS: BP 131/75; PULSE 65
== END 2022-02-08 14:07 | disposition home or self-care (01) ==
LOC: EC 10:44
DX: M54.50 Low back pain, unspecified (principal); M54.2 Cervicalgia; G89.29 Other chronic pain; I10 Essential (primary) hypertension; F17.200 Nicotine dependence, unspecified, uncomplicated; F17.290 Nicotine dependence, other tobacco product, uncomplicated; F41.9 Anxiety disorder, unspecified; F31.9 Bipolar disorder, unspecified; Z88.6 Allergy status to analgesic agent; Z79.899 Other long term (current) drug therapy
CPT/HCPCS: 99283; 96372; J2360

== ENCOUNTER 2022-04-05 11:07 | Emergency (ER) | payer OTHER ==
[2022-04-05 11:17] VITALS: TEMP 97.8
--- NOTE | 2022-04-05 13:04 | XR ---
EXAMINATION TYPE: XR lumbar spine 2 or 3V DATE OF EXAM: 04/05/2022 CLINICAL HISTORY: Fall injury with pain TECHNIQUE: Frontal and lateral images of the lumbar spine are obtained. COMPARISON: Prior lumbar spine x-rays January 12, 2022 FINDINGS: There are 5 lumbar type vertebral bodies redemonstrated. The lumbar spine shows stable an d satisfactory alignment without evidence of acute fracture or dislocation. Mild/moderate is again se en otherwise disc space narrowing L5-S1 level Vertebral body heights and disk space heights are withi n normal limits. Mild overlying arterial vascular calcification is redemonstrated. IMPRESSION: As above. No significant change from prior.
--- NOTE | 2022-04-05 13:14 | ED ---
Fall HPI - General Chief Complaint: Fall Stated Complaint: Fall,Back & Hip Pain Time Seen by Provider: 04/05/22 11:17 Source: patient, RN notes reviewed Mode of arrival: ambulatory Limitations: no limitations - History of Present Illness Initial Comments: 51-year-old female presents emergency Department chief complaint slip and fall. Patient states symptoms some ice falling onto her low back, buttocks region. Patient states she has diffuse pain she states is chronic pain of this region denies taking any medications for pain control. Patient denies any bowel, bladder incontinence or retention of 7 seizures no pain rating down her legs no abdominal complaints no head injury no loss conscious. - Related Data Home Medications Medication Instructions Recorded Confirmed amLODIPine [Norvasc] 5 mg PO DAILY 09/02/19 01/13/22 Butalb/APAP/Caff 50-325-40Mg 1 tab PO BID PRN 09/22/19 01/13/22 [Fioricet 50-325-40] rOPINIRole HCL [Requip] 0.25 mg PO HS PRN 02/01/20 01/13/22 Baclofen 10 mg PO BID PRN 11/23/20 01/13/22 Albuterol Sulfate [Proair Hfa] 2 puff INHALATION RT-Q4H PRN 01/13/22 01/13/22 Atorvastatin [Lipitor] 40 mg PO DAILY 01/13/22 01/13/22 HYDROcodone/APAP 7.5-325MG [[place] 1 tab PO Q4H PRN 01/13/22 01/13/22 7.5-325] Tiotropium [place] [Spiriva 18 mcg INHALATION RT-DAILY 01/13/22 01/13/22 Handihaler] Previous Rx's Medication Instructions Recorded Orphenadrine [Norflex] 100 mg PO Q12H #10 tablet.er 09/30/20 DULoxetine HCL [Cymbalta] 60 mg PO HS 30 Days cap 01/16/22 QUEtiapine [SEROquel] 100 mg PO HS 30 Days tab 01/16/22 lamoTRIgine [LaMICtal] 50 mg PO BID 30 Days tab 01/16/22 Cyclobenzaprine [Flexeril] 10 mg PO TID PRN #15 tab 04/05/22 Ibuprofen [Motrin] 600 mg PO Q8HR PRN #20 tab 04/05/22 Allergies Allergy/AdvReac Type Severity Reaction Status Date / Time aspirin Allergy Rash/Hives Verified 04/05/22 11:15 Review of Systems ROS Statement: Those systems with pertinent positive or pertinent negative responses have been documented in the HPI. ROS Other: All systems not noted in ROS Statement are negative. Past Medical History Past Medical History: Hypertension, Osteoarthritis (OA) Additional Past Medical History / Comment(s): back/neck pain, migraines, gout,anxiety,depression,bipolar History of Any Multi-Drug Resistant Organisms: None Reported Past Surgical History: Orthopedic Surgery, Tubal Ligation, Uterine Ablation Additional Past Surgical History / Comment(s): RIGHT ELBOW SURGERY , adenosine given x [address] to hospital on 09/06/20 for SVT Past Anesthesia/Blood Transfusion Reactions: No Reported Reaction Additional Past Anesthesia/Blood Transfusion Reaction / Comment(s): NEVER HAD BLOOD TRANSFUSION Past Psychological History: Anxiety, Bipolar, Depression Smoking Status: Current every day smoker, Vaper Past Alcohol Use History: None Reported Past Drug Use History: None Reported - Past Family History Mother Family Medical History: Coronary Artery Disease (CAD), Diabetes Mellitus, Hypertension Additional Family Medical History / Comment(s): LUPUS Father Family Medical History: Dementia General Exam Limitations: no limitations General appearance: alert, in no apparent distress Head exam: Present: atraumatic, normocephalic, normal inspection Eye exam: Present: normal appearance, PERRL, EOMI. Absent: scleral icterus, conjunctival injection, periorbital swelling ENT exam: Present: normal exam, normal oropharynx, mucous membranes moist Neck exam: Present: normal inspection, full ROM. Absent: tenderness, meningismus, lymphadenopathy Respiratory exam: Present: normal lung sounds bilaterally. Absent: respiratory distress, wheezes, rales, rhonchi, stridor Cardiovascular Exam: Present: regular rate, normal rhythm, normal heart sounds. Absent: systolic murmur, diastolic murmur, rubs, gallop, clicks Extremities exam: Present: normal inspection, full ROM. Absent: tenderness, pedal edema, joint swelling Back exam: Present: full ROM, tenderness, paraspinal tenderness, vertebral tenderness. Absent: CVA tenderness (R), CVA tenderness (L) Neurological exam: Present: alert Skin exam: Present: warm, dry, intact, normal color. Absent: rash Course Vital Signs 04/05/22 04/05/22 11:16 13:32 Temperature 97.8 F Pulse Rate 74 62 Respiratory 16 18 Rate Blood Pressure 124/72 143/71 O2 Sat by Pulse 95 99 Oximetry Medical Decision Making - Medical Decision Making Was pt. sent in by a medical professional or institution ([facility]ugent, [facility], urgent care, hospital, or long-term...) When possible be specific @ -No Did you speak to anyone other than the patient for history (EMS, parent, family, police, friend...)? What history was obtained from this source @ -No Did you review nursing and triage notes (agree or disagree)? Why? @ -I reviewed and agree with nursing and triage notes Were old charts reviewed (outside hosp., previous admission, EMS record, old EKG, old radiological studies, urgent care reports/EKG's, long-term records)? Report findings @ -No old charts were reviewed Differential Diagnosis (chest pain, altered mental status, abdominal pain women, abdominal pain men, vaginal bleeding, weakness, fever, dyspnea, syncope, headache, dizziness, GI bleed, back pain, seizure, CVA, palpatations, mental health)? @ -Lumbar fracture, lumbar contusion, pelvic fracture, hip fracture, contusion, this is is not all inclusive EKG interpreted by me (3pts min.). @ -None X-rays interpreted by me (1pt min.). @ -X-ray of the lumbar spine and pelvis reveal no acute fracture there is some mild degenerative changes but no acute changes from prior x-rays CT interpreted by me (1pt min.). @ -None done U/S interpreted by me (1pt. min.). @ -None done What testing was considered but not performed or refused? (CT, X-rays, U/S, labs)? Why? @ -None What meds were considered but not given or refused? Why? @ -None Did you discuss the management of the patient with other professionals (professionals i.e. DIXIE Nugent, [facility], lab, RT, psych nurse, social work program coordinator, civil lawyer, teacher, chief client officer, complex case manager)? Give summary @ -No Was smoking cessation discussed for >3mins.? @ -No Was critical care preformed (if so, how long)? @ -No Were there social determinants of health that impacted care today? How? (Homele ssness, low income, unemployed, alcoholism, drug addiction, transportation, low edu. Level, literacy, decrease access to med. care, long-term, rehab)? @ -No Was there de-escalation of care discussed even if they declined (Discuss DNR or withdrawal of care, Hospice)? DNR status @ -No What co-morbidities impacted this encounter? (DM, HTN, Smoking, COPD, CAD, Cancer, CVA, ARF, Chemo, Hep., AIDS, mental health diagnosis, sleep apnea, morbid obesity)? @ -None Was patient admitted / discharged? Hospital course, mention meds given and route, prescriptions, significant lab abnormalities, going to OR and other pertinent info. @ -Discharge patient has lumbar, buttocks contusion will be discharged with pain control return parameters were discussed. Undiagnosed new problem with uncertain prognosis? @ -No Drug Therapy requiring intensive monitoring for toxicity (Heparin, Nitro, Insulin, Cardizem)? @ -No Were any procedures done? @ -No Diagnosis/symptom? @ -Fall Acute, or Chronic, or Acute on Chronic? @ -Acute Uncomplicated (without systemic symptoms) or Complicated (systemic symptoms)? @ -Uncomplicated Side effects of treatment? @ -No Exacerbation, Progression, or Severe Exacerbation? @ -No Poses a threat to life or bodily function? How? (Chest pain, USA, [place], pneumonia, PE, COPD, DKA, ARF, appy, cholecystitis, CVA, Diverticulitis, Homicidal, Suicidal, threat to staff... and all critical care pts) @ -No Diagnosis/symptom? @ -Back contusion Acute, or Chronic, or Acute on Chronic? @ -Acute Uncomplicated (without systemic symptoms) or Complicated (systemic symptoms)? @ -Uncomplicated Side effects of treatment? @ -none Exacerbation, Progression, or Severe Exacerbation] @ -no Poses a threat to life or bodily function? @ -no Disposition Clinical Impression: Fall, Back pain Disposition: HOME SELF-CARE Condition: Stable Instructions (If sedation given, give patient instructions): Back Pain (ED) Additional Instructions: Please return to the Emergency Department if symptoms worsen or any other concerns. Prescriptions: Cyclobenzaprine [Flexeril] 10 mg PO TID PRN #15 tab PRN Reason: Muscle Spasm Ibuprofen [Motrin] 600 mg PO Q8HR PRN #20 tab PRN Reason: Pain Is patient prescribed a controlled substance at d/c from ED?: No Referrals: Eric Smyth MD [Primary Care Provider] - 1-2 days Time of Disposition: 13:45
[2022-04-05] MEDS ORDERED: MORPHINE SULFATE 4 MG/ML SYRINGE IM STA (13:18)
[2022-04-05 13:36] VITALS: BP 143/71; PULSE 62; RESP 18
--- NOTE | 2022-04-05 13:36 | XR ---
EXAMINATION TYPE: XR pelvis AP view DATE OF EXAM: 04/05/2022 CLINICAL HISTORY: Fall injury with pain TECHNIQUE: A single AP view of the pelvis is obtained. COMPARISON: Pelvic x-ray May 26, 2020. FINDINGS: There is no acute fracture/dislocation evident in the pelvis. The hip and sacroiliac join ts appear symmetric and unremarkable. Pubic symphysis is intact. Small left-sided pelvic phleboliths again seen. IMPRESSION: There is no acute fracture or dislocation in the pelvis.
[2022-04-05] MEDS ORDERED: ACET/COD 300 MG/30 MG STARTER PACK 6 TAB BTL PO STA (13:47)
== END 2022-04-05 14:07 | disposition home or self-care (01) ==
LOC: EC 11:07
DX: S30.0XXA Contusion of lower back and pelvis, initial encounter (principal); I10 Essential (primary) hypertension; M19.90 Unspecified osteoarthritis, unspecified site; F17.290 Nicotine dependence, other tobacco product, uncomplicated; Z88.6 Allergy status to analgesic agent; Z79.899 Other long term (current) drug therapy; W00.0XXA Fall on same level due to ice and snow, initial encounter
CPT/HCPCS: 72100; 72170; 99284; 96372; J2270

== ENCOUNTER 2022-06-22 18:19 | Emergency (ER) | payer OTHER ==
[2022-06-22 18:28] VITALS: TEMP 98
--- NOTE | 2022-06-22 19:02 | ED ---
General Adult HPI - General Chief complaint: Fall Stated complaint: FALL Time Seen by Provider: 06/22/22 18:27 Source: patient Mode of arrival: EMS Limitations: no limitations - History of Present Illness Initial comments: This is a 52-year-old female with no past medical history presenting emergency department after a reported fall. The patient stated that she was walking and she tripped over a curb, landing on her left wrist and forehead. The patient denied any loss of consciousness and a bystander was there to take the patient. The bystander did take the patient to a friend's house were not [facility] was called. The patient was ambulatory on scene. The patient stated that she had pain in the left wrist and denied any other acute pain at this time. The patient did have an abrasion noted to the left side of the forehead. The patient was otherwise in a c-collar without any other acute distress. The patient stated that she is bouncing between different houses but denied alcohol or drugs. - Related Data Home Medications Medication Instructions Recorded Confirmed Aspirin [Adult Low Dose Aspirin EC] 81 mg PO DAILY 04/10/22 04/10/22 Vitamin D3(Unknown Dose) 1 tab PO DAILY 04/10/22 04/10/22 Previous Rx's Medication Instructions Recorded Acetaminophen [Tylenol Extra 500 mg PO BID PRN #30 tab 04/12/22 Strength] Albuterol Inhaler [Ventolin Hfa 2 puff INHALATION RT-Q4H PRN #8 gm 04/12/22 Inhaler] Atorvastatin [Lipitor] 40 mg PO DAILY #30 tab 04/12/22 Baclofen 10 mg PO BID PRN #60 tab 04/12/22 Butalb/APAP/Caff 50-325-40Mg 1 tab PO BID PRN #60 tab 04/12/22 [Fioricet 50-325-40] DULoxetine HCL [Cymbalta] 60 mg PO HS 30 Days #30 cap 04/12/22 Ofloxacin 0.3% Ophth Soln [Ocuflox 1 drop BOTH EYES DAILY #20 ml 04/12/22 Ophth Soln] QUEtiapine [SEROquel] 100 mg PO HS 30 Days #30 tab 04/12/22 Tiotropium [place] [Spiriva 18 mcg INHALATION RT-DAILY #1 each 04/12/22 Handihaler] amLODIPine [Norvasc] 5 mg PO HS #30 tab 04/12/22 lamoTRIgine [LaMICtal] 50 mg PO BID 30 Days #60 tab 04/12/22 rOPINIRole HCL [Requip] 0.25 mg PO HS PRN #30 tab 04/12/22 Allergies Allergy/AdvReac Type Severity Reaction Status Date / Time aspirin AdvReac Nausea & Verified 04/10/22 21:40 Vomiting Review of Systems ROS Statement: Those systems with pertinent positive or pertinent negative responses have been documented in the HPI. ROS Other: All systems not noted in ROS Statement are negative. Past Medical History Past Medical History: Hyperlipidemia, Hypertension, Osteoarthritis (OA) Additional Past Medical History / Comment(s): back/neck pain, migraines, gout,anxiety,depression,bipolar, bergers disease History of Any Multi-Drug Resistant Organisms: None Reported Past Surgical History: Orthopedic Surgery, Tubal Ligation, Uterine Ablation Additional Past Surgical History / Comment(s): RIGHT ELBOW SURGERY , adenosine given x [address] to hospital on 09/06/20 for SVT Past Anesthesia/Blood Transfusion Reactions: No Reported Reaction Additional Past Anesthesia/Blood Transfusion Reaction / Comment(s): NEVER HAD BLOOD TRANSFUSION Past Psychological History: Anxiety, Bipolar, Depression Smoking Status: Current every day smoker, Vaper Past Alcohol Use History: None Reported Past Drug Use History: None Reported - Past Family History Mother Family Medical History: Coronary Artery Disease (CAD), Diabetes Mellitus, Hypertension Additional Family Medical History / Comment(s): LUPUS Father Family Medical History: Dementia General Exam Limitations: no limitations General appearance: alert, in no apparent distress Head exam: Present: normocephalic, normal inspection, other (Abrasion noted to the left anterior forehead) Eye exam: Present: normal appearance, PERRL Pupils: Present: normal accommodation ENT exam: Present: normal exam, normal oropharynx, mucous membranes moist Neck exam: Present: normal inspection, other (In C collar) Respiratory exam: Present: normal lung sounds bilaterally Cardiovascular Exam: Present: regular rate, normal rhythm, normal heart sounds GI/Abdominal exam: Present: soft, normal bowel sounds Extremities exam: Present: other (Deformity with decreased range of motion noted to the left wrist) Back exam: Present: normal inspection, full ROM Neurological exam: Present: alert, oriented X3, CN II-XII intact Psychiatric exam: Present: normal affect, normal mood Skin exam: Present: warm, dry Course Vital Signs 06/22/22 06/22/22 18:25 19:11 Temperature 98 F Pulse Rate 78 60 Respiratory 18 20 Rate Blood Pressure 141/87 140/87 O2 Sat by Pulse 99 98 Oximetry Medical Decision Making - Medical Decision Making Was pt. sent in by a medical professional or institution (, [facility], [facility], urgent care, hospital, or [facility]...) When possible be specific @ -No Did you speak to anyone other than the patient for history (EMS, parent, family, police, friend...)? What history was obtained from this source @ -No Did you review nursing and triage notes (agree or disagree)? Why? @ -I reviewed and agree with nursing and triage notes Were old charts reviewed (outside hosp., previous admission, EMS record, old EKG, old radiological studies, urgent care reports/EKG's, [facility] records)? Report findings @ -No old charts were reviewed Differential Diagnosis (chest pain, altered mental status, abdominal pain women, abdominal pain men, vaginal bleeding, weakness, fever, dyspnea, syncope, headache, dizziness, GI bleed, back pain, seizure, CVA, palpatations, mental health)? @ -Mechanical fall, intracranial hemorrhage, left wrist fracture, wrist sprain, abrasion, contusion EKG interpreted by me (3pts min.). @ -None X-rays interpreted by me (1pt min.). @ -Chest x-ray and x-ray of the left wrist was obtained and was interpreted by myself showing no acute process or fractures. CT interpreted by me (1pt min.). @ -CT head and CT C-spine were obtained and were interpreted by myself showing no acute pathology. U/S interpreted by me (1pt. min.). @ -None done What testing was considered but not performed or refused? (CT, X-rays, U/S, la bs)? Why? @ -None What meds were considered but not given or refused? Why? @ -None Did you discuss the management of the patient with other professionals (professionals i.e. DIXIE Nugent, [facility] [facility], lab, RT, psych nurse, social studies department chair, seal extrusion operator, teacher, cavalry officer, case liner)? Give summary @ -No Was smoking cessation discussed for >3mins.? @ -No Was critical care preformed (if so, how long)? @ -No Were there social determinants of health that impacted care today? How? (Homelessness, low income, unemployed, alcoholism, drug addiction, transportation, low edu. Level, literacy, decrease access to med. care, assisted, rehab)? @ -No Was there de-escalation of care discussed even if they declined (Discuss DNR or withdrawal of care, Hospice)? DNR status @ -No What co-morbidities impacted this encounter? (DM, HTN, Smoking, COPD, CAD, Cancer, CVA, ARF, Chemo, Hep., AIDS, mental health diagnosis, sleep apnea, morbid obesity)? @ -None Was patient admitted / discharged? Hospital course, mention meds given and route, prescriptions, significant lab abnormalities, going to OR and other pertinent info. @ -The patient was seen and evaluated emergency department. Physical exam, the patient was resting in bed without any acute distress. Vital signs were stable on admission. All imaging and laboratory workup was negative. The patient did take off her c-collar and walked to the bathroom without any acute assistance in the emergency department during observation. The patient was noted to have a normal workup and was given initially Toradol for pain however she complained multiple 20 further narcotic medications. The patient was given a single dose of [place] in the emergency department but stated that she did have Motrin at home therefore no further medications were given as a prescription. The patient remained stable and was stable for discharge home. The patient was advised to follow-up with her primary care physician for further workup and evaluation. The patient was ultimately agreeable to this and was discharged home in stable condition. Undiagnosed new problem with uncertain prognosis? @ -No Drug Therapy requiring intensive monitoring for toxicity (Heparin, Nitro, Insulin, Cardizem)? @ -No Were any procedures done? @ -No Diagnosis/symptom? @ -Mechanical fall, left wrist sprain, contusion and facial abrasion Acute, or Chronic, or Acute on Chronic? @ -Acute Uncomplicated (without systemic symptoms) or Complicated (systemic symptoms)? @ -Uncomplicated Side effects of treatment? @ -No Exacerbation, Progression, or Severe Exacerbation? @ -No Poses a threat to life or bodily function? How? (Chest pain, USA, [place], pneumonia, PE, COPD, DKA, ARF, appy, cholecystitis, CVA, Diverticulitis, Homicidal, Suicidal, threat to staff... and all critical care pts) @ -No - Lab Data Result diagrams: 06/22/22 18:28 06/22/22 18:28 Lab Results 06/22/22 06/22/22 06/22/22 Range/Units 18:28 18:28 20:13 WBC 7.5 (3.8-10.6) k/uL RBC 4.34 (3.80-5.40) m/uL Hgb 12.7 (11.4-16.0) gm/dL Hct 37.2 (34.0-46.0) % MCV 85.8 (80.0-100.0) fL MCH 29.4 (25.0-35.0) pg MCHC 34.2 (31.0-37.0) g/dL RDW 13.8 (11.5-15.5) % Plt Count 391 (150-450) k/uL MPV 6.8 Neutrophils % 59 % Lymphocytes % 31 % Monocytes % 5 % Eosinophils % 3 % Basophils % 1 % Neutrophils # 4.4 (1.3-7.7) k/uL Lymphocytes # 2.3 (1.0-4.8) k/uL Monocytes # 0.4 (0-1.0) k/uL Eosinophils # 0.2 (0-0.7) k/uL Basophils # 0.0 (0-0.2) k/uL Sodium 140 (137-145) mmol/L Potassium 4.5 (3.5-5.1) mmol/L Chloride 106 (98-107) mmol/L Carbon Dioxide 26 (22-30) mmol/L Anion Gap 8 mmol/L BUN 14 (7-17) mg/dL Creatinine 0.72 (0.52-1.04) mg/dL Est GFR (CKD-EPI)AfAm >90 (>60 ml/min/1.73 sqM) Est GFR (CKD-EPI)NonAf >90 (>60 ml/min/1.73 sqM) Glucose 93 (74-99) mg/dL Calcium 9.8 (8.4-10.2) mg/dL Magnesium 1.8 (1.6-2.3) mg/dL Total Bilirubin 0.6 (0.2-1.3) mg/dL AST 33 (14-36) U/L ALT 32 (4-34) U/L Alkaline Phosphatase 77 (38-126) U/L Total Protein 7.4 (6.3-8.2) g/dL Albumin 4.6 (3.5-5.0) g/dL Lipase 63 (23-300) U/L Urine Opiates Screen Detected H (NotDetected) Ur Oxycodone Screen Not Detected (NotDetected) Urine Methadone Screen Not Detected (NotDetected) Ur Propoxyphene Screen Not Detected (NotDetected) Ur Barbiturates Screen Not Detected (NotDetected) U Tricyclic Antidepress Not Detected (NotDetected) Ur Phencyclidine Scrn Not Detected (NotDetected) Ur Amphetamines Screen Not Detected (NotDetected) U Methamphetamines Scrn Not Detected (NotDetected) U Benzodiazepines Scrn Not Detected (NotDetected) Urine Cocaine Screen Not Detected (NotDetected) U Marijuana (THC) Screen Not Detected (NotDetected) Serum Alcohol <10 mg/dL Disposition Clinical Impression: Fall, Wrist sprain, Abrasion Disposition: HOME SELF-CARE Condition: Stable Instructions (If sedation given, give patient instructions): Abrasion (ED), Wrist Sprain (ED) Is patient prescribed a controlled substance at d/c from ED?: No Referrals: Eric Smyth MD [Primary Care Provider] - 1-2 days Time of Disposition: 21:30
[2022-06-22 19:12] VITALS: BP 140/87; PULSE 60; RESP 20
[2022-06-22 19:17] LABS: Basophils % (A) 1 %; Eosinophils # (A) 0.2 k/uL (0-0.7); Eosinophils % (A) 3 %; HCT 37.2 % (34.0-46.0); HGB 12.7 gm/dL (11.4-16.0); Lymphocytes # (A) 2.3 k/uL (1.0-4.8); Lymphocytes % (A) 31 %; MCH 29.4 pg (25.0-35.0); MCHC 34.2 g/dL (31.0-37.0); MCV 85.8 fL (80.0-100.0); Mean Platelet Volume 6.8; Monocytes # (A) 0.4 k/uL (0-1.0); Monocytes % (A) 5 %; Neutrophils # (A) 4.4 k/uL (1.3-7.7); Neutrophils % (A) 59 %; Platelet Count 391 k/uL (150-450); RBC 4.34 m/uL (3.80-5.40); RDW 13.8 % (11.5-15.5); WBC 7.5 k/uL (3.8-10.6)
--- NOTE | 2022-06-22 19:31 | CT ---
EXAMINATION TYPE: CT brain billy wo con DATE OF EXAM: 06/22/2022 COMPARISON: 01/12/2022 HISTORY: Fall CT DLP: [address] of the brain was performed. The ventricles, basal cisterns and sulci overlying the cerebral convexities demonstrate enlargement. There is no evidence for intracranial hemorrhage or sulcal effacement. There is decreased attenuatio n about the periventricular white matter and deep white matter of both cerebral hemispheres, compatib le with chronic small vessel ischemia. No mass effects are seen. If symptoms persist consider MRI. Osseous calvarium is intact. IMPRESSION: 1. Age related atrophic and chronic small vessel ischemic change without acute intracranial process seen at this time. CT Cervical Spine: Unenhanced CT of the cervical spine was performed with bone and soft tissue window settings submitted . Coronal and sagittal reconstruction is obtained. There is normal alignment and prevertebral soft tissues. No evidence for acute cervical fracture . Mo derate to severe degenerative disc space narrowing as well as ventral and dorsal spondylosis. Biapica l scarring. IMPRESSION: 1. No evidence for acute fracture or subluxation of the cervical spine.
[2022-06-22 19:43] LABS: ALT 32 U/L (4-34); AST 33 U/L (14-36); African American GFR (CKD) >90 (>60 ml/min/1.73 sqM); Albumin 4.6 g/dL (3.5-5.0); Alcohol <10 mg/dL; Alkaline Phosphatase 77 U/L (38-126); Anion Gap 8 mmol/L; Blood Urea Nitrogen 14 mg/dL (7-17); Calcium 9.8 mg/dL (8.4-10.2); Carbon Dioxide 26 mmol/L (22-30); Chloride 106 mmol/L (98-107); Glucose 93 mg/dL (74-99); Lipase 63 U/L (23-300); Magnesium 1.8 mg/dL (1.6-2.3); Non-African American GFR(CKD) >90 (>60 ml/min/1.73 sqM); Potassium 4.5 mmol/L (3.5-5.1); Sodium 140 mmol/L (137-145); Total Bilirubin 0.6 mg/dL (0.2-1.3); Total Protein 7.4 g/dL (6.3-8.2)
--- NOTE | 2022-06-22 20:28 | XR ---
EXAMINATION TYPE: XR chest 2V DATE OF EXAM: 06/22/2022 COMPARISON: 04/30/2022 HISTORY: Chest pain TECHNIQUE: Frontal and lateral views of the chest are obtained. FINDINGS: There is no focal air space opacity. No evidence for pneumothorax. No pleural effusion. The cardiac silhouette size is within normal limits. The osseous structures are grossly intact. IMPRESSION: 1. No acute cardiopulmonary process.
--- NOTE | 2022-06-22 20:28 | XR ---
EXAMINATION TYPE: XR wrist complete LT DATE OF EXAM: 06/22/2022 CLINICAL HISTORY: pain TECHNIQUE: Frontal, lateral and oblique images of the left wrist are obtained. Scaphoid views also o btained. COMPARISON: None. FINDINGS: There is no acute fracture/dislocation evident. The joint spaces appear within normal laird its. The overlying soft tissue appears unremarkable. IMPRESSION: There is no acute fracture or dislocation seen. ICD 10 NO FRACTURE, INITIAL EVALUATION
[2022-06-22] MEDS ORDERED: KETOROLAC 15 MG/ML 1 ML VIAL IM STA (20:57)
[2022-06-22 21:32] LABS: Amphetamine Screen,Urine Not Detected (NotDetected); Barbiturate Screen,Urine Not Detected (NotDetected); Benzodiazepines Screen,Urine Not Detected (NotDetected); Cocaine Screen,Urine Not Detected (NotDetected); Methadone Screen, Urine Not Detected (NotDetected); Opiate Screen,Urine Detected (NotDetected); Oxycodone Screen, Urine Not Detected (NotDetected); Phencyclidine Screen,Urine Not Detected (NotDetected); Tricyclic Antidepressant,Urine Not Detected (NotDetected); Urn Cannabinoid Scrn Not Detected (NotDetected)
[2022-06-22] MEDS ORDERED: HYDROcodone/APAP 5-325MG 1 EACH TAB PO STA (21:43)
== END 2022-06-22 21:57 | disposition home or self-care (01) ==
LOC: EC 18:19
DX: S60.812A Abrasion of left wrist, initial encounter (principal); I10 Essential (primary) hypertension; E78.5 Hyperlipidemia, unspecified; F41.9 Anxiety disorder, unspecified; M19.90 Unspecified osteoarthritis, unspecified site; F31.9 Bipolar disorder, unspecified; F17.290 Nicotine dependence, other tobacco product, uncomplicated; Z88.6 Allergy status to analgesic agent; Z79.82 Long term (current) use of aspirin; Z88.8 Allergy status to other drugs, medicaments and biological substances; W01.0XXA Fall on same level from slipping, tripping and stumbling without subsequent striking against object, initial encounter; Y93.01 Activity, walking, marching and hiking
CPT/HCPCS: 36415; 80053; 83690; 83735; 85025; 80306; 73110; 71046; 72125; 70450; 99285; 96372; G0480; J1885; 80320

== ENCOUNTER 2022-06-24 10:55 | Emergency (ER) | payer OTHER ==
[2022-06-24 11:14] VITALS: BP 131/83; PULSE 86; RESP 18
[2022-06-24] MEDS ORDERED: HYDROcodone/APAP 5-325MG 1 EACH TAB PO STA (11:24)
--- NOTE | 2022-06-24 11:27 | ED ---
General Adult HPI - General Chief complaint: Recheck/Abnormal Lab/Rx Stated complaint: Fall, facial pain Time Seen by Provider: 06/24/22 11:19 Source: patient, RN notes reviewed Mode of arrival: ambulatory Limitations: no limitations - History of Present Illness Initial comments: 52-year-old female with no significant past medical history presents to the emergency department with a chief complaint of left wrist pain. Patient was seen here on 06/22/2022 and was evaluated for a fall. She had extensive lab work and imaging performed which were all negative. She reports that last day she has been able to sleep due to her wrist pain. She has been taking Tylenol Motrin for his symptoms. She denies any numbness, tingling, weakness in the extremity. She denies any headache, vision changes, vision loss, nausea, vomiting, diarrhea. - Related Data Home Medications Medication Instructions Recorded Confirmed Aspirin [Adult Low Dose Aspirin EC] 81 mg PO DAILY 04/10/22 04/10/22 Vitamin D3(Unknown Dose) 1 tab PO DAILY 04/10/22 04/10/22 Previous Rx's Medication Instructions Recorded Acetaminophen [Tylenol Extra 500 mg PO BID PRN #30 tab 04/12/22 Strength] Albuterol Inhaler [Ventolin Hfa 2 puff INHALATION RT-Q4H PRN #8 gm 04/12/22 Inhaler] Atorvastatin [Lipitor] 40 mg PO DAILY #30 tab 04/12/22 Baclofen 10 mg PO BID PRN #60 tab 04/12/22 Butalb/APAP/Caff 50-325-40Mg 1 tab PO BID PRN #60 tab 04/12/22 [Fioricet 50-325-40] DULoxetine HCL [Cymbalta] 60 mg PO HS 30 Days #30 cap 04/12/22 Ofloxacin 0.3% Ophth Soln [Ocuflox 1 drop BOTH EYES DAILY #20 ml 04/12/22 Ophth Soln] QUEtiapine [SEROquel] 100 mg PO HS 30 Days #30 tab 04/12/22 Tiotropium [place] [Spiriva 18 mcg INHALATION RT-DAILY #1 each 04/12/22 Handihaler] amLODIPine [Norvasc] 5 mg PO HS #30 tab 04/12/22 lamoTRIgine [LaMICtal] 50 mg PO BID 30 Days #60 tab 04/12/22 rOPINIRole HCL [Requip] 0.25 mg PO HS PRN #30 tab 04/12/22 Allergies Allergy/AdvReac Type Severity Reaction Status Date / Time aspirin AdvReac Nausea & Verified 06/24/22 11:14 Vomiting Review of Systems ROS Statement: Those systems with pertinent positive or pertinent negative responses have been documented in the HPI. ROS Other: All systems not noted in ROS Statement are negative. Past Medical History Past Medical History: Hyperlipidemia, Hypertension, Osteoarthritis (OA) Additional Past Medical History / Comment(s): back/neck pain, migraines, gout,anxiety,depression,bipolar, bergers disease History of Any Multi-Drug Resistant Organisms: None Reported Past Surgical History: Orthopedic Surgery, Tubal Ligation, Uterine Ablation Additional Past Surgical History / Comment(s): RIGHT ELBOW SURGERY , adenosine given x [address] to hospital on 09/06/20 for SVT Past Anesthesia/Blood Transfusion Reactions: No Reported Reaction Additional Past Anesthesia/Blood Transfusion Reaction / Comment(s): NEVER HAD BLOOD TRANSFUSION Past Psychological History: Anxiety, Bipolar, Depression Smoking Status: Current every day smoker, Vaper Past Alcohol Use History: None Reported Past Drug Use History: None Reported - Past Family History Mother Family Medical History: Coronary Artery Disease (CAD), Diabetes Mellitus, Hypertension Additional Family Medical History / Comment(s): LUPUS Father Family Medical History: Dementia General Exam Limitations: no limitations General appearance: alert, in no apparent distress Head exam: Present: atraumatic, normocephalic, normal inspection Eye exam: Present: normal appearance, PERRL, EOMI. Absent: scleral icterus, conjunctival injection, periorbital swelling ENT exam: Present: normal exam, mucous membranes moist Neck exam: Present: normal inspection. Absent: tenderness, meningismus, lymphadenopathy Respiratory exam: Present: normal lung sounds bilaterally. Absent: respiratory distress, wheezes, rales, rhonchi, stridor Cardiovascular Exam: Present: regular rate, normal rhythm, normal heart sounds. Absent: systolic murmur, diastolic murmur, rubs, gallop, clicks GI/Abdominal exam: Present: soft, normal bowel sounds. Absent: distended, tenderness, guarding, rebound, rigid Extremities exam: Present: normal inspection, full ROM, normal capillary refill. Absent: tenderness, pedal edema, joint swelling, calf tenderness Left Elbow exam: Present: normal inspection, full ROM Forearm Wrist exam: Present: tenderness, swelling (mild, generalized ), other. Absent: full ROM (secondary to pain ), deformity, crepitus (2+ radial pulses, distal NVI ) Back exam: Present: normal inspection Neurological exam: Present: alert, oriented X3, CN II-XII intact Psychiatric exam: Present: normal affect, normal mood Skin exam: Present: warm, dry, intact, normal color. Absent: rash Course Vital Signs 06/24/22 11:12 Pulse Rate 86 Respiratory 18 Rate Blood Pressure 131/83 O2 Sat by Pulse 97 Oximetry - Reevaluation(s) Reevaluation #1: 06/24/22 12:17 Patient reevaluated. Patient is refusing Motrin at this time. I discussed the benefits of NSAID use for her wrist sprain. Patient persistently requesting narcotics for her pain. Patient states "I just want something for the pain Tylenol Motrin don't work. I'm leaving. " Patient eloped from the emergency department prior to signing discharge paperwork. Patient intubated with a steady gait, no acute distress noted. Medical Decision Making - Medical Decision Making Was pt. sent in by a medical professional or institution (DIXIE Nugent, NETTING WEAVER, urgent care, hospital, or [facility]...) When possible be specific @ -[No] Did you speak to anyone other than the patient for history (EMS, parent, family, police, friend...)? What history was obtained from this source @ -[No] Did you review nursing and triage notes (agree or disagree)? Why? @ -[I reviewed and agree with nursing and triage notes] Were old charts reviewed (outside hosp., previous admission, EMS record, old EKG, old radiological studies, urgent care reports/EKG's, [facility] records)? Report findings @ -[No old charts were reviewed] Differential Diagnosis (chest pain, altered mental status, abdominal pain women, abdominal pain men, vaginal bleeding, weakness, fever, dyspnea, syncope, headache, dizziness, GI bleed, back pain, seizure, CVA, palpatations, mental health, musculoskeletal)? @ -[not applicable] EKG interpreted by me (3pts min.). @ -[As above] X-rays interpreted by me (1pt min.). @ -[None done] CT interpreted by me (1pt min.). @ -[None done] U/S interpreted by me (1pt. min.). @ -[None done] What testing was considered but not performed or refused? (CT, X-rays, U/S, labs)? Why? @ -[None] What meds were considered but not given or refused? Why? @ -[None] Did you discuss the management of the patient with other professionals (professionals i.e. , PA, NETTING WEAVER, lab, RT, psych nurse, social group worker, dental office receptionist, teacher, customs officer, pillowcase sewer)? Give summary @ -[No] Was smoking cessation discussed for >3mins.? @ -[No] Was critical care preformed (if so, how long)? @ -[No] Were there social determinants of health that impacted care today? How? (Homelessness, low income, unemployed, alcoholism, drug addiction, transportation, low edu. Level, literacy, decrease access to med. care, snf, rehab)? @ -[No] Was there de-escalation of care discussed even if they declined (Discuss DNR or withdrawal of care, Hospice)? DNR status @ -[No] What co-morbidities impacted this encounter? (DM, HTN, Smoking, COPD, CAD, Cancer, CVA, ARF, Chemo, Hep., AIDS, mental health diagnosis, sleep apnea, morbid obesity)? @ -[None] Was patient admitted / discharged? Hospital course, mention meds given and route, prescriptions, significant lab abnormalities, going to OR and other pertinent info. @ Discharged. This is a 52-year-old female who presents to the emergency department with left wrist pain. Patient had a thorough history and physical exam performed while in the ED. Physical exam is essentially unremarkable. Heart rate regular rate and rhythm lungs clear to auscultation bilaterally, abdomen is soft and nontender. Left wrist is with mild generalized swelling and tenderness to the area. Range of motion is limited secondary to pain. Patient was offered Motrin 800 however she refused. Patient became irritated with provider and persistently requesting pain medication. Patient was educated on the importance of NSAIDs and ice for her wrist injury. Patient eloped at this time. Patient able tingling with a steady gait. Case discussed with Dr. Samano, [facility] who agrees with plan of care. Undiagnosed new problem with uncertain prognosis? @ -[No] Drug Therapy requiring intensive monitoring for toxicity (Heparin, Nitro, Insulin, Cardizem)? @ -[No] Were any procedures done? @ -[No] Diagnosis/symptom? @ -left wrist pain Acute, or Chronic, or Acute on Chronic? @ -acute Uncomplicated (without systemic symptoms) or Complicated (systemic symptoms)? @ -uncomplicated Side effects of treatment? @ -[No] Exacerbation, Progression, or Severe Exacerbation? @ -[No] Poses a threat to life or bodily function? How? (Chest pain, [place], [place], pneumonia, PE, COPD, DKA, ARF, appy, cholecystitis, CVA, Diverticulitis, Homicidal, Suicidal, threat to staff... and all critical care pts) @ -low likelihood Disposition Clinical Impression: Left wrist pain, Wrist sprain, Abrasion Disposition: HOME SELF-CARE Condition: Stable Additional Instructions: Please return to the nearest emergency department symptoms worsen or persist please take Tylenol and Motrin and apply ice as needed Is patient prescribed a controlled substance at d/c from ED?: No Referrals: Eric Smyth MD [Primary Care Provider] - 1-2 days Time of Disposition: 12:16
[2022-06-24] MEDS ORDERED: IBUPROFEN 800 MG TAB PO STA (11:28)
== END 2022-06-24 12:18 | disposition home or self-care (01) ==
LOC: EC 10:55
DX: S63.502A Unspecified sprain of left wrist, initial encounter (principal); I10 Essential (primary) hypertension; M19.90 Unspecified osteoarthritis, unspecified site; F41.9 Anxiety disorder, unspecified; F31.9 Bipolar disorder, unspecified; F17.290 Nicotine dependence, other tobacco product, uncomplicated; Z88.6 Allergy status to analgesic agent; Z79.82 Long term (current) use of aspirin; Z79.899 Other long term (current) drug therapy; W01.0XXA Fall on same level from slipping, tripping and stumbling without subsequent striking against object, initial encounter
CPT/HCPCS: 99283

== ENCOUNTER 2022-10-09 16:06 | Emergency (ER) | payer OTHER ==
[2022-10-09 16:23] VITALS: RESP 16; TEMP 98.9
[2022-10-09 16:33] LABS: Glucose,Whole Blood 89 mg/dL (70-110)
[2022-10-09] MEDS ORDERED: KETOROLAC 15 MG/ML 1 ML VIAL IM STA (17:22)
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
[2022-10-09 18:25] VITALS: BP 163/75; PULSE 67
[2022-10-09 18:35] LABS: Appearance,Urine Clear (Clear); Bilirubin,Urine Negative (Negative); Blood,Urine Negative (Negative); Color,Urine Colorless; Glucose,Urine (UA) Negative (Negative); Ketones,Urine Negative (Negative); Leukocyte Esterase,Urine Negative (Negative); Nitrite,Urine Negative (Negative); PH, Urine 5.5 (5.0-8.0); Protein,Urine Negative (Negative); Specific Gravity,Urine 1.005 (1.001-1.035); Urobilinogen,Urine <2.0 mg/dL (<2.0)
--- NOTE | 2022-10-09 18:35 | XR ---
EXAMINATION TYPE: XR knee complete LT DATE OF EXAM: 10/09/2022 6:08 PM INDICATION: Patient age:Female; 52 years old; Reason for study: left knee pain s/p fall. COMPARISON: None. TECHNIQUE: The Left knee(s) was examined in Frontal, lateral and oblique projections. FINDINGS: No evidence of any acute osseous pathology, soft tissue swelling, or joint effusion is no moody. Mild prepatellar soft tissue edema. IMPRESSION: 1. No acute osseous pathology. 2. Mild prepatellar edema.
--- NOTE | 2022-10-09 18:36 | XR ---
EXAMINATION TYPE: XR chest 2V DATE OF EXAM: 10/09/2022 6:08 PM COMPARISON: Chest radiographs from 06/22/2022 TECHNIQUE: XR chest 2V Frontal and lateral views of the chest. CLINICAL INDICATION:Female, 52 years old with history of right knee pain s/p fall; FINDINGS: Lungs/Pleura: There is no evidence of pleural effusion, focal consolidation, or pneumothorax. Pulmonary vascularity: Unremarkable. Heart/mediastinum: Cardiomediastinal silhouette is unremarkable. Musculoskeletal: No acute osseous pathology. IMPRESSION: No acute cardiopulmonary disease/process.
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
[2022-10-09 19:50] LABS: Amphetamine Screen,Urine Not Detected (NotDetected); Barbiturate Screen,Urine Detected (NotDetected); Benzodiazepines Screen,Urine Not Detected (NotDetected); Cocaine Screen,Urine Not Detected (NotDetected); Methadone Screen, Urine Not Detected (NotDetected); Opiate Screen,Urine Not Detected (NotDetected); Oxycodone Screen, Urine Not Detected (NotDetected); Phencyclidine Screen,Urine Not Detected (NotDetected); Tricyclic Antidepressant,Urine Not Detected (NotDetected); Urn Cannabinoid Scrn Not Detected (NotDetected)
== END 2022-10-09 19:39 | disposition home or self-care (01) ==
LOC: EC 16:06
DX: S89.92XA Unspecified injury of left lower leg, initial encounter (principal); I10 Essential (primary) hypertension; M19.90 Unspecified osteoarthritis, unspecified site; F17.290 Nicotine dependence, other tobacco product, uncomplicated; Z86.59 Personal history of other mental and behavioral disorders; Z79.1 Long term (current) use of non-steroidal anti-inflammatories (NSAID); Z79.82 Long term (current) use of aspirin; Z88.6 Allergy status to analgesic agent; W18.30XA Fall on same level, unspecified, initial encounter
CPT/HCPCS: 36415; 70450; 71046; 80306; 81003; 82075; 93005; 99284

== ENCOUNTER 2022-11-17 19:34 | Emergency (ER) | payer OTHER ==
[2022-11-17 20:01] VITALS: BP 162/95; PULSE 74; RESP 18; TEMP 98.4
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
[2022-11-17] MEDS ORDERED: ACET/COD 300 MG/30 MG STARTER PACK 6 TAB BTL PO STA (20:54)
[2022-11-17] MEDS ORDERED: IBUPROFEN 600 MG STARTER PACK 4 TAB BTL PO STA (20:54)
[2022-11-17] MEDS ORDERED: HYDROmorphone 0.5 MG/0.5 ML SYRINGE IM STA (20:54)
[2022-11-17] MEDS ORDERED: KETOROLAC 15 MG/ML 1 ML VIAL IM STA (20:54)
[2022-11-17] MEDS ORDERED: LORazepam 1 MG TAB PO STA (20:54)
[2022-11-17] MEDS ORDERED: CEPHALEXIN 500MG STARTER PACK 4 CAP BTL PO STA (21:02)
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
== END 2022-11-17 22:55 | disposition home or self-care (01) ==
LOC: EC 19:34
DX: S02.2XXA Fracture of nasal bones, initial encounter for closed fracture (principal); I67.82 Cerebral ischemia; I10 Essential (primary) hypertension; M19.90 Unspecified osteoarthritis, unspecified site; F17.290 Nicotine dependence, other tobacco product, uncomplicated; Z79.1 Long term (current) use of non-steroidal anti-inflammatories (NSAID); Z79.899 Other long term (current) drug therapy; Z88.6 Allergy status to analgesic agent; Z79.82 Long term (current) use of aspirin; Z86.59 Personal history of other mental and behavioral disorders; Y04.2XXA Assault by strike against or bumped into by another person, initial encounter
CPT/HCPCS: 70486; 70450; 99284; 96372 ×2; J1885; J1170

== ENCOUNTER 2022-12-06 18:34 | Emergency (ER) | payer OTHER ==
[2022-12-06 18:57] VITALS: RESP 18
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
[2022-12-06] MEDS ORDERED: traMADol 50 MG STARTER PACK 3 TAB BTL PO STA (21:05)
[2022-12-06 21:24] VITALS: BP 161/97; PULSE 60; TEMP 98.4
== END 2022-12-06 21:17 | disposition home or self-care (01) ==
LOC: EC 18:34
DX: R51.9 Headache, unspecified (principal); I10 Essential (primary) hypertension; F17.290 Nicotine dependence, other tobacco product, uncomplicated; M19.90 Unspecified osteoarthritis, unspecified site; Z79.1 Long term (current) use of non-steroidal anti-inflammatories (NSAID); Z79.82 Long term (current) use of aspirin; Z88.6 Allergy status to analgesic agent; Z86.59 Personal history of other mental and behavioral disorders
CPT/HCPCS: 70150; 99283

== ENCOUNTER 2023-01-05 15:32 | Emergency (ER) | payer OTHER ==
[2023-01-05] MEDS ORDERED: KETOROLAC 15 MG/ML 1 ML VIAL IM STA (15:46)
[2023-01-05] MEDS ORDERED: DEXAMETHASONE SOD PHOSPHATE 10 MG/ML 1 ML VIAL IM STA (15:46)
[2023-01-05] MEDS ORDERED: ORPHENADRINE 30 MG/ML 2 ML VIAL IM STA (15:46)
[2023-01-05] MEDS ORDERED: LIDOCAINE 5% PATCH TOPICAL SCH (16:15)
[2023-01-05] MEDS ORDERED: HYDROmorphone 1 MG/ML 1 ML SYRINGE IM STA (16:51)
--- NOTE | 2023-01-05 17:11 | ED ---
Back Pain HPI - General Chief Complaint: Back Pain/Injury Stated Complaint: lower backpain Time Seen by Provider: 01/05/23 15:37 Source: patient Limitations: no limitations - History of Present Illness Initial Comments: 52-year-old female with history of chronic back pain presenting with chief complaint of lower back pain. No injury or trauma. Pain radiates down the left leg. No loss of bowel or bladder control or saddle paresthesia. No fever, chills, nausea, vomiting, abdominal pain, dysuria, hematuria. - Related Data Home Medications Medication Instructions Recorded Confirmed Aspirin [Adult Low Dose Aspirin EC] 81 mg PO DAILY 04/10/22 04/10/22 Vitamin D3(Unknown Dose) 1 tab PO DAILY 04/10/22 04/10/22 Previous Rx's Medication Instructions Recorded Acetaminophen [Tylenol Extra 500 mg PO BID PRN #30 tab 04/12/22 Strength] Albuterol Inhaler [Ventolin Hfa 2 puff INHALATION RT-Q4H PRN #8 gm 04/12/22 Inhaler] Atorvastatin [Lipitor] 40 mg PO DAILY #30 tab 04/12/22 Baclofen 10 mg PO BID PRN #60 tab 04/12/22 Butalb/APAP/Caff 50-325-40Mg 1 tab PO BID PRN #60 tab 04/12/22 [Fioricet 50-325-40] DULoxetine HCL [Cymbalta] 60 mg PO HS 30 Days #30 cap 04/12/22 Ofloxacin 0.3% Ophth Soln [Ocuflox 1 drop BOTH EYES DAILY #20 ml 04/12/22 Ophth Soln] QUEtiapine [SEROquel] 100 mg PO HS 30 Days #30 tab 04/12/22 Tiotropium [place] [Spiriva 18 mcg INHALATION RT-DAILY #1 each 04/12/22 Handihaler] amLODIPine [Norvasc] 5 mg PO HS #30 tab 04/12/22 lamoTRIgine [LaMICtal] 50 mg PO BID 30 Days #60 tab 04/12/22 rOPINIRole HCL [Requip] 0.25 mg PO HS PRN #30 tab 04/12/22 Cephalexin [Keflex] 500 mg PO Q6HR 7 Days #28 cap 11/17/22 LORazepam [Ativan] 0.5 mg PO BID PRN 3 Days #6 tab 11/17/22 Allergies Allergy/AdvReac Type Severity Reaction Status Date / Time aspirin AdvReac Nausea & Verified 01/05/23 15:36 Vomiting Review of Systems ROS Statement: Those systems with pertinent positive or pertinent negative responses have been documented in the HPI. ROS Other: All systems not noted in ROS Statement are negative. Past Medical History Past Medical History: Hyperlipidemia, Hypertension, Osteoarthritis (OA) Additional Past Medical History / Comment(s): back/neck pain, migraines, gout,anxiety,depression,bipolar, bergers disease History of Any Multi-Drug Resistant Organisms: None Reported Past Surgical History: Orthopedic Surgery, Tubal Ligation, Uterine Ablation Additional Past Surgical History / Comment(s): RIGHT ELBOW SURGERY , adenosine given x [address] to hospital on 09/06/20 for SVT Past Anesthesia/Blood Transfusion Reactions: No Reported Reaction Additional Past Anesthesia/Blood Transfusion Reaction / Comment(s): NEVER HAD BLOOD TRANSFUSION Past Psychological History: Anxiety, Bipolar, Depression Smoking Status: Current every day smoker, Vaper Past Alcohol Use History: None Reported Past Drug Use History: None Reported - Past Family History Mother Family Medical History: Coronary Artery Disease (CAD), Diabetes Mellitus, Hypertension Additional Family Medical History / Comment(s): LUPUS Father Family Medical History: Dementia General Exam Limitations: no limitations General appearance: alert, in no apparent distress Head exam: Present: atraumatic, normocephalic, normal inspection Eye exam: Present: normal appearance, EOMI Neck exam: Present: normal inspection, full ROM Respiratory exam: Absent: respiratory distress Back exam: Present: normal inspection, paraspinal tenderness Neurological exam: Present: alert, oriented X3 Psychiatric exam: Present: normal affect, normal mood Course Vital Signs 01/05/23 01/05/23 15:33 17:23 Temperature 97.5 F L 98 F Pulse Rate 71 64 Respiratory 18 16 Rate Blood Pressure 128/56 133/84 O2 Sat by Pulse 97 98 Oximetry Medical Decision Making - Medical Decision Making Was pt. sent in by a medical professional or institution (, PA, BRIDGE IRONWORKER HELPER, urgent care, hospital, or shelter...) When possible be specific @ -No Did you speak to anyone other than the patient for history (EMS, parent, family, police, friend...)? What history was obtained from this source @ -No Did you review nursing and triage notes (agree or disagree)? Why? @ -I reviewed and agree with nursing and triage notes Were old charts reviewed (outside hosp., previous admission, EMS record, old EKG, old radiological studies, urgent care reports/EKG's, shelter records)? Report findings @ -No old charts were reviewed Differential Diagnosis (chest pain, altered mental status, abdominal pain women, abdominal pain men, vaginal bleeding, weakness, fever, dyspnea, syncope, headache, dizziness, GI bleed, back pain, seizure, CVA, palpatations, mental health, musculoskeletal)? @ - MDM Differential Back Pain: Strain, zoster, cauda equina syndrome, epidural abscess, vertebral osteomyelitis, discitis, fracture, subluxation, disc herniation, DJD, spinal stenosis, dissection, AAA, pancreatitis, peptic ulcer disease, pyelonephritis, kidney stone this is not meant to be an all-inclusive list. EKG interpreted by me (3pts min.). @ -As above X-rays interpreted by me (1pt min.). @ -None done CT interpreted by me (1pt min.). @ -None done U/S interpreted by me (1pt. min.). @ -None done What testing was considered but not performed or refused? (CT, X-rays, U/S, labs)? Why? @ -None What meds were considered but not given or refused? Why? @ -None Did you discuss the management of the patient with other professionals (professionals i.e. , PA, BRIDGE IRONWORKER HELPER, lab, RT, psych nurse, social service agency director, intellectual property lawyer, teacher, forest fire officer, counter caser)? Give summary @ -No Was smoking cessation discussed for >3mins.? @ -No Was critical care preformed (if so, how long)? @ -No Were there social determinants of health that impacted care today? How? (Homelessness, low income, unemployed, alcoholism, drug addiction, transportation, low edu. Level, literacy, decrease access to med. care, correction, rehab)? @ -No Was there de-escalation of care discussed even if they declined (Discuss DNR or withdrawal of care, Hospice)? DNR status @ -No What co-morbidities impacted this encounter? (DM, HTN, Smoking, COPD, CAD, Cancer, CVA, ARF, Chemo, Hep., AIDS, mental health diagnosis, sleep apnea, morbid obesity)? @ -None Was patient admitted / discharged? Hospital course, mention meds given and route, prescriptions, significant lab abnormalities, going to OR and other pertinent info. @ -52-year-old female presenting with chief complaint of lower back pain. No injury or trauma. No red flag symptoms. History of chronic back pain. Physical exam is conducted. Patient reports improvement after pain medication. Discharged home. Follow-up with PCP. Report back to ER with any new or worsening symptoms. Discussed return parameters and answered all questions. Patient conveyed verbal understanding and agreed to the plan. I discussed this case in detail with my attending Dr. Stephens Undiagnosed new problem with uncertain prognosis? @ -No Drug Therapy requiring intensive monitoring for toxicity (Heparin, Nitro, Insulin, Cardizem)? @ -No Were any procedures done? @ -No Diagnosis/symptom? @ -back pain Acute, or Chronic, or Acute on Chronic? @ -Acute on chronic Uncomplicated (without systemic symptoms) or Complicated (systemic symptoms)? @ -Uncomplicated Side effects of treatment? @ -No Exacerbation, Progression, or Severe Exacerbation? @ -No Poses a threat to life or bodily function? How? (Chest pain, [place], [place], pneumonia, PE, COPD, DKA, ARF, appy, cholecystitis, CVA, Diverticulitis, Homicidal, Suicidal, threat to staff... and all critical care pts) @ -No Disposition Clinical Impression: Sciatica Disposition: HOME SELF-CARE Condition: Good Instructions (If sedation given, give patient instructions): Acute Low Back Pain (ED) Additional Instructions: Follow-up with PCP. Report back to ER if any new or worsening symptoms. Is patient prescribed a controlled substance at d/c from ED?: No Referrals: Eric Smyth MD [Primary Care Provider] - 1-2 days Time of Disposition: 17:11
[2023-01-05 17:25] VITALS: BP 133/84; PULSE 64; RESP 16; TEMP 98
== END 2023-01-05 17:23 | disposition home or self-care (01) ==
LOC: EC 15:32
DX: M54.40 Lumbago with sciatica, unspecified side (principal); I10 Essential (primary) hypertension; M19.90 Unspecified osteoarthritis, unspecified site; F41.9 Anxiety disorder, unspecified; F31.9 Bipolar disorder, unspecified; F17.290 Nicotine dependence, other tobacco product, uncomplicated; Z88.6 Allergy status to analgesic agent; Z79.82 Long term (current) use of aspirin; Z79.899 Other long term (current) drug therapy
CPT/HCPCS: 99283; 96372 ×4; J1100; J2360; J1170; J1885

== ENCOUNTER 2023-01-30 07:27 | Emergency (ER) | payer OTHER ==
[2023-01-30] MEDS ORDERED: ORPHENADRINE 30 MG/ML 2 ML VIAL IM STA (07:33)
[2023-01-30] MEDS ORDERED: HYDROmorphone 1 MG/ML 1 ML SYRINGE IM STA (07:33)
[2023-01-30] MEDS ORDERED: KETOROLAC 15 MG/ML 1 ML VIAL IM STA (07:33)
[2023-01-30] MEDS ORDERED: ACET/COD 300 MG/30 MG STARTER PACK 6 TAB BTL PO STA (07:34)
--- NOTE | 2023-01-30 07:37 | ED ---
General Adult HPI - General Stated complaint: Left side pain Time Seen by Provider: 01/30/23 07:34 Source: patient, RN notes reviewed, old records reviewed Mode of arrival: ambulatory Limitations: no limitations - History of Present Illness Initial comments: 52-year-old female presents emergency Department chief complaint of low back pain. Patient states is chronic in nature and states that she's had an acute exacerbation. She it is radiating down her left leg. She denies any bowel complaints Retention denies any saddle anesthesias. Patient states that this is an ongoing issue and she states that she is out of her Luckey as her pain management physician stopped accepting her insurance. Patient states she has not had Luckey in one week. Denies any associated symptoms. - Related Data Home Medications Medication Instructions Recorded Confirmed Aspirin [Adult Low Dose Aspirin EC] 81 mg PO DAILY 04/10/22 04/10/22 Vitamin D3(Unknown Dose) 1 tab PO DAILY 04/10/22 04/10/22 Previous Rx's Medication Instructions Recorded Acetaminophen [Tylenol Extra 500 mg PO BID PRN #30 tab 04/12/22 Strength] Albuterol Inhaler [Ventolin Hfa 2 puff INHALATION RT-Q4H PRN #8 gm 04/12/22 Inhaler] Atorvastatin [Lipitor] 40 mg PO DAILY #30 tab 04/12/22 Baclofen 10 mg PO BID PRN #60 tab 04/12/22 Butalb/APAP/Caff 50-325-40Mg 1 tab PO BID PRN #60 tab 04/12/22 [Fioricet 50-325-40] DULoxetine HCL [Cymbalta] 60 mg PO HS 30 Days #30 cap 04/12/22 Ofloxacin 0.3% Ophth Soln [Ocuflox 1 drop BOTH EYES DAILY #20 ml 04/12/22 Ophth Soln] QUEtiapine [SEROquel] 100 mg PO HS 30 Days #30 tab 04/12/22 Tiotropium [place] [Spiriva 18 mcg INHALATION RT-DAILY #1 each 04/12/22 Handihaler] amLODIPine [Norvasc] 5 mg PO HS #30 tab 04/12/22 lamoTRIgine [LaMICtal] 50 mg PO BID 30 Days #60 tab 04/12/22 rOPINIRole HCL [Requip] 0.25 mg PO HS PRN #30 tab 04/12/22 Cephalexin [Keflex] 500 mg PO Q6HR 7 Days #28 cap 11/17/22 LORazepam [Ativan] 0.5 mg PO BID PRN 3 Days #6 tab 11/17/22 Cyclobenzaprine [Flexeril] 10 mg PO TID PRN #15 tab 01/30/23 predniSONE 50 mg PO DAILY #5 tab 01/30/23 Allergies Allergy/AdvReac Type Severity Reaction Status Date / Time aspirin AdvReac Nausea & Verified 01/30/23 07:37 Vomiting Review of Systems ROS Statement: Those systems with pertinent positive or pertinent negative responses have been documented in the HPI. ROS Other: All systems not noted in ROS Statement are negative. Past Medical History Past Medical History: Hyperlipidemia, Hypertension, Osteoarthritis (OA) Additional Past Medical History / Comment(s): back/neck pain, migraines, gout,anxiety,depression,bipolar, bergers disease History of Any Multi-Drug Resistant Organisms: None Reported Past Surgical History: Orthopedic Surgery, Tubal Ligation, Uterine Ablation Additional Past Surgical History / Comment(s): RIGHT ELBOW SURGERY , adenosine given x [address] to hospital on 09/06/20 for SVT Past Anesthesia/Blood Transfusion Reactions: No Reported Reaction Additional Past Anesthesia/Blood Transfusion Reaction / Comment(s): NEVER HAD BLOOD TRANSFUSION Past Psychological History: Anxiety, Bipolar, Depression Smoking Status: Current every day smoker, Vaper Past Alcohol Use History: None Reported Past Drug Use History: None Reported - Past Family History Mother Family Medical History: Coronary Artery Disease (CAD), Diabetes Mellitus, Hypertension Additional Family Medical History / Comment(s): LUPUS Father Family Medical History: Dementia General Exam General appearance: alert, in no apparent distress Head exam: Present: atraumatic, normocephalic, normal inspection Eye exam: Present: normal appearance, PERRL, EOMI. Absent: scleral icterus, conjunctival injection, periorbital swelling Respiratory exam: Present: normal lung sounds bilaterally. Absent: respiratory distress, wheezes, rales, rhonchi, stridor Cardiovascular Exam: Present: regular rate, normal rhythm, normal heart sounds. Absent: systolic murmur, diastolic murmur, rubs, gallop, clicks GI/Abdominal exam: Present: soft, normal bowel sounds. Absent: distended, tenderness, guarding, rebound, rigid Extremities exam: Present: normal inspection, full ROM, normal capillary refill, other (Lower extremity strength equal bilaterally neurovascular intact equal clinical warmth). Absent: tenderness, pedal edema, joint swelling, calf tenderness Back exam: Present: full ROM, tenderness, muscle spasm, paraspinal tenderness. Absent: CVA tenderness (R), CVA tenderness (L), vertebral tenderness Neurological exam: Present: reflexes normal. Absent: motor sensory deficit Course Vital Signs 01/30/23 07:35 Temperature 98 F Pulse Rate 78 Respiratory 18 Rate Blood Pressure 113/50 O2 Sat by Pulse 98 Oximetry Medical Decision Making - Medical Decision Making Was pt. sent in by a medical professional or institution (, PA, HAMMERER HELPER, urgent c are, hospital, or [facility]...) When possible be specific @ -No Did you speak to anyone other than the patient for history (EMS, parent, family, police, friend...)? What history was obtained from this source @ -No Did you review nursing and triage notes (agree or disagree)? Why? @ -I reviewed and agree with nursing and triage notes Were old charts reviewed (outside hosp., previous admission, EMS record, old EKG, old radiological studies, urgent care reports/EKG's, [facility] records)? Report findings @ -. Recent ER visit including prior laboratory studies, imaging Differential Diagnosis (chest pain, altered mental status, abdominal pain women, abdominal pain men, vaginal bleeding, weakness, fever, dyspnea, syncope, headache, dizziness, GI bleed, back pain, seizure, CVA, palpatations, mental health, musculoskeletal)? @ -Differential Back Pain: Strain, zoster, cauda equina syndrome, epidural abscess, vertebral osteomyelitis, discitis, fracture, subluxation, disc herniation, DJD, spinal stenosis, dissection, AAA, pancreatitis, peptic ulcer disease, pyelonephritis, kidney stone, this is not meant to be an all-inclusive list.le EKG interpreted by me (3pts min.). @ -[None X-rays interpreted by me (1pt min.). @ -None done CT interpreted by me (1pt min.). @ -None done U/S interpreted by me (1pt. min.). @ -None done What testing was considered but not performed or refused? (CT, X-rays, U/S, labs)? Why? @ -Recommended imaging as this is her second ER visit. Patient declined states this is chronic What meds were considered but not given or refused? Why? @ -None Did you discuss the management of the patient with other professionals (professionals i.e. , PA, HAMMERER HELPER, lab, RT, psych nurse, aids social worker, identity access management architect, teacher, public records officer, telephonic nurse case manager)? Give summary @ -No Was smoking cessation discussed for >3mins.? @ -No Was critical care preformed (if so, how long)? @ -No Were there social determinants of health that impacted care today? How? (Homelessness, low income, unemployed, alcoholism, drug addiction, transportation, low edu. Level, literacy, decrease access to med. care, long-term, rehab)? @ -No Was there de-escalation of care discussed even if they declined (Discuss DNR or withdrawal of care, Hospice)? DNR status @ -No What co-morbidities impacted this encounter? (DM, HTN, Smoking, COPD, CAD, Cancer, CVA, ARF, Chemo, Hep., AIDS, mental health diagnosis, sleep apnea, morbid obesity)? @ -Chronic pain Was patient admitted / discharged? Hospital course, mention meds given and route, prescriptions, significant lab abnormalities, going to OR and other pertinent info. @ -Discharge patient has acute exacerbation of lumbar back pain. Patient has no red flag symptoms. Patient is discharged in stable condition. Patient advised follow-up PCP, pain management. Undiagnosed new problem with uncertain prognosis? @ -No Drug Therapy requiring intensive monitoring for toxicity (Heparin, Nitro, Insulin, Cardizem)? @ -No Were any procedures done? @ -No Diagnosis/symptom? @ -Lumbar radiculopathy Acute, or Chronic, or Acute on Chronic? @ -Acute on chronic Uncomplicated (without systemic symptoms) or Complicated (systemic symptoms)? @ -uncomplicated Side effects of treatment? @ -No Exacerbation, Progression, or Severe Exacerbation? @ -[Exacerbation Poses a threat to life or bodily function? How? (Chest pain, [place], [place], pneumonia, PE, COPD, DKA, ARF, appy, cholecystitis, CVA, Diverticulitis, Homicidal, Suicidal, threat to staff... and all critical care pts) @ -No Disposition Clinical Impression: Back pain, Lumbar radiculopathy, acute Disposition: HOME SELF-CARE Condition: Stable Instructions (If sedation given, give patient instructions): Lumbar Radiculopathy (ED) Additional Instructions: Please return to the Emergency Department if symptoms worsen or any other concerns. Prescriptions: Cyclobenzaprine [Flexeril] 10 mg PO TID PRN #15 tab PRN Reason: Muscle Spasm predniSONE 50 mg PO DAILY #5 tab Is patient prescribed a controlled substance at d/c from ED?: No Referrals: Eric Smtyh MD [Primary Care Provider] - 1-2 days Time of Disposition: 07:37
[2023-01-30 08:05] VITALS: BP 113/50; PULSE 78; RESP 18; TEMP 98
== END 2023-01-30 08:18 | disposition home or self-care (01) ==
LOC: EC 07:27
DX: M54.16 Radiculopathy, lumbar region (principal); I10 Essential (primary) hypertension; M19.90 Unspecified osteoarthritis, unspecified site; F41.9 Anxiety disorder, unspecified; F31.9 Bipolar disorder, unspecified; F17.290 Nicotine dependence, other tobacco product, uncomplicated; Z88.6 Allergy status to analgesic agent; Z79.82 Long term (current) use of aspirin; Z79.899 Other long term (current) drug therapy
CPT/HCPCS: 99283; 96372 ×4; 99284; J2360; J1170; J1885

== ENCOUNTER 2023-04-25 14:26 | Emergency (ER) | payer OTHER ==
--- NOTE | 2023-04-25 15:04 | ED ---
URI HPI - General Chief Complaint: Upper Respiratory Infection Stated Complaint: Sore throat, congestion, cough Time Seen by Provider: 04/25/23 14:51 Source: patient Mode of arrival: ambulatory Limitations: no limitations - History of Present Illness Initial Comments: Patient is a 52 year female with a history of migraines, bipolar disorder, chronic pain, hypertension presents emergency room with flulike symptoms. Patient losing her voice, a sore throat, head pressure, cough and congestion. States it started 2 days ago. Did receive the flu vaccine but not coated. Denies any sick contacts. Denies illicit life. She has been taking Fioricet [place] without improvement of the pain. Patient denies hemoptysis, chest pain or shortness breath. - Related Data Home Medications Medication Instructions Recorded Confirmed Aspirin [Adult Low Dose Aspirin EC] 81 mg PO DAILY 04/10/22 04/10/22 Vitamin D3(Unknown Dose) 1 tab PO DAILY 04/10/22 04/10/22 Previous Rx's Medication Instructions Recorded Acetaminophen [Tylenol Extra 500 mg PO BID PRN #30 tab 04/12/22 Strength] Albuterol Inhaler [Ventolin Hfa 2 puff INHALATION RT-Q4H PRN #8 gm 04/12/22 Inhaler] Atorvastatin [Lipitor] 40 mg PO DAILY #30 tab 04/12/22 Baclofen 10 mg PO BID PRN #60 tab 04/12/22 Butalb/APAP/Caff 50-325-40Mg 1 tab PO BID PRN #60 tab 04/12/22 [Fioricet 50-325-40] DULoxetine HCL [Cymbalta] 60 mg PO HS 30 Days #30 cap 04/12/22 Ofloxacin 0.3% Ophth Soln [Ocuflox 1 drop BOTH EYES DAILY #20 ml 04/12/22 Ophth Soln] QUEtiapine [SEROquel] 100 mg PO HS 30 Days #30 tab 04/12/22 Tiotropium [place] [Spiriva 18 mcg INHALATION RT-DAILY #1 each 04/12/22 Handihaler] amLODIPine [Norvasc] 5 mg PO HS #30 tab 04/12/22 lamoTRIgine [LaMICtal] 50 mg PO BID 30 Days #60 tab 04/12/22 rOPINIRole HCL [Requip] 0.25 mg PO HS PRN #30 tab 04/12/22 Cephalexin [Keflex] 500 mg PO Q6HR 7 Days #28 cap 11/17/22 LORazepam [Ativan] 0.5 mg PO BID PRN 3 Days #6 tab 11/17/22 Cyclobenzaprine [Flexeril] 10 mg PO TID PRN #15 tab 01/30/23 predniSONE 50 mg PO DAILY #5 tab 01/30/23 Benzonatate [Tessalon Perles] 100 mg PO TID PRN #15 capsule 04/25/23 Fluticasone Nasal [place] [Flonase 2 spr EA NOSTRIL DAILY #16 gm 04/25/23 Nasal [place]] predniSONE 20 mg PO DAILY 3 Days #9 tab 04/25/23 Allergies Allergy/AdvReac Type Severity Reaction Status Date / Time aspirin AdvReac Nausea & Verified 02/27/23 18:42 Vomiting Review of Systems ROS Statement: Those systems with pertinent positive or pertinent negative responses have been documented in the HPI. ROS Other: All systems not noted in ROS Statement are negative. Past Medical History Past Medical History: Hyperlipidemia, Hypertension, Osteoarthritis (OA) Additional Past Medical History / Comment(s): back/neck pain, migraines, gout,anxiety,depression,bipolar, bergers disease History of Any Multi-Drug Resistant Organisms: None Reported Past Surgical History: Orthopedic Surgery, Tubal Ligation, Uterine Ablation Additional Past Surgical History / Comment(s): RIGHT ELBOW SURGERY , adenosine given x [address] to hospital on 09/06/20 for SVT Past Anesthesia/Blood Transfusion Reactions: No Reported Reaction Additional Past Anesthesia/Blood Transfusion Reaction / Comment(s): NEVER HAD BLOOD TRANSFUSION Past Psychological History: Anxiety, Bipolar, Depression Smoking Status: Current every day smoker, Vaper Past Alcohol Use History: None Reported Past Drug Use History: None Reported - Past Family History Mother Family Medical History: Coronary Artery Disease (CAD), Diabetes Mellitus, Hypertension Additional Family Medical History / Comment(s): LUPUS Father Family Medical History: Dementia General Exam Limitations: no limitations General appearance: alert, in no apparent distress Head exam: Present: atraumatic Eye exam: Present: normal appearance Pupils: Present: normal accommodation ENT exam: Present: normal oropharynx, mucous membranes dry, mucous membranes moist (No tonsillar swelling or exudates noted no muffled speech or drooling. No sublingual swelling. Tolerating secretions without limitations.), other (@Eustachian tube dysfunction without any significant erythema no perforations.) Neck exam: Present: full ROM, other (No nuchal rigidity). Absent: meningismus Respiratory exam: Present: normal lung sounds bilaterally. Absent: respiratory distress, wheezes, rales, rhonchi Cardiovascular Exam: Present: regular rate GI/Abdominal exam: Present: soft Extremities exam: Present: full ROM Back exam: Present: full ROM Neurological exam: Present: alert, oriented X3, CN II-XII intact Psychiatric exam: Present: normal affect, normal mood Skin exam: Present: warm, dry Course Vital Signs 04/25/23 04/25/23 14:38 16:58 Temperature 98.0 F 98.4 F Pulse Rate 72 60 Respiratory 16 20 Rate Blood Pressure 134/76 157/85 O2 Sat by Pulse 96 100 Oximetry - Reevaluation(s) Reevaluation #1: 04/25/23 17:10 Patient is well-appearing in the emergency room. She has no wheezing on exam and is in no respiratory distress. She has some upper sinusitis and congestion. She is tolerating her secretions without limitations. There is no meningeal signs. I discussed lab and imaging results with patient. Chest x-ray is negative for pneumonia. She is negative for flu RSV and Covid. I discussed management of her symptoms for the URI and viral syndrome. Discussed follow-up with the PCP and signs return to the emergency room. She understands Ce treatment discharge him. Medical Decision Making - Medical Decision Making Was pt. sent in by a medical professional or institution (, PA, LIBRARY TECHNOLOGY INSTRUCTOR, urgent care, hospital, or half-way...) When possible be specific @ -[No] Did you speak to anyone other than the patient for history (EMS, parent, family, police, friend...)? What history was obtained from this source @ -[No] Did you review nursing and triage notes (agree or disagree)? Why? @ -[I reviewed and agree with nursing and triage notes] Were old charts reviewed (outside hosp., previous admission, EMS record, old EKG, old radiological studies, urgent care reports/EKG's, half-way records)? Report findings @ -Yes old charts were reviewed Differential Diagnosis (chest pain, altered mental status, abdominal pain women, abdominal pain men, vaginal bleeding, weakness, fever, dyspnea, syncope, headache, dizziness, GI bleed, back pain, seizure, CVA, palpatations, mental health, musculoskeletal)? @ -COVID-19, influenza A, her C, URI, bronchitis, sinusitis, meningitis, viral syndrome EKG interpreted by me (3pts min.). @ -[As above] X-rays interpreted by me (1pt min.). @ -[Chest x-rays negative for pneumonia, pneumothorax or other acute changes. CT interpreted by me (1pt min.). @ -[None done] U/S interpreted by me (1pt. min.). @ -[None done] What testing was considered but not performed or refused? (CT, X-rays, U/S, labs)? Why? @ -[None] What meds were considered but not given or refused? Why? @ -[None] Did you discuss the management of the patient with other professionals (professionals i.e. , PA, LIBRARY TECHNOLOGY INSTRUCTOR, lab, RT, psych nurse, executive secretary social welfare, nurse school, teacher, protocol officer, counseling case manager)? Give summary @ -[No] Was smoking cessation discussed for >3mins.? @ -[No] Was critical care preformed (if so, how long)? @ -[No] Were there social determinants of health that impacted care today? How? (Homelessness, low income, unemployed, alcoholism, drug addiction, transportation, low edu. Level, literacy, decrease access to med. care, shelter, rehab)? @ -[No] Was there de-escalation of care discussed even if they declined (Discuss DNR or withdrawal of care, Hospice)? DNR status @ -[No] What co-morbidities impacted this encounter? (DM, HTN, Smoking, COPD, CAD, Cancer, CVA, ARF, Chemo, Hep., AIDS, mental health diagnosis, sleep apnea, morbid obesity)? @ -[Smoking, COPD Was patient admitted / discharged? Hospital course, mention meds given and route, prescriptions, significant lab abnormalities, going to OR and other pertinent info. @Patient vital signs are stable and patient is whelping in the emergency room with no respiratory distress with no meningeal signs. She is stable to follow up with her PCP as an outpatient and may continue symptomatic management of the URI. Past management of the patient with attending ED physician Dr. Hutson today.] Undiagnosed new problem with uncertain prognosis? @ -[No] Drug Therapy requiring intensive monitoring for toxicity (Heparin, Nitro, Insulin, Cardizem)? @ -[No] Were any procedures done? @ -[No] Diagnosis/symptom? @URI, viral pharyngitis] Acute, or Chronic, or Acute on Chronic? @ -[Acute] Uncomplicated (without systemic symptoms) or Complicated (systemic symptoms)? @ -[default] Side effects of treatment? @ -[No] Exacerbation, Progression, or Severe Exacerbation? @ -[No] Poses a threat to life or bodily function? How? (Chest pain, [place], [place], pneumonia, PE, COPD, DKA, ARF, appy, cholecystitis, CVA, Diverticulitis, Homicidal, Suicidal, threat to staff... and all critical care pts) @ -[No] - Lab Data Lab Results 04/25/23 04/25/23 Range/Units 15:06 15:06 Influenza Type A (PCR) Not Detected (Not Detectd) Influenza Type B (PCR) Not Detected (Not Detectd) RSV (PCR) Not Detected (Not Detectd) SARS-CoV-2 (PCR) Not Detected (Not Detectd) Group A Strep (PCR) NOT DETECTED (Not Detectd) - Radiology Data Radiology results: report reviewed, image reviewed Disposition Clinical Impression: Common cold, Viral infection, Laryngitis, Viral pharyngitis Disposition: HOME SELF-CARE Condition: Good Instructions (If sedation given, give patient instructions): Pharyngitis (ED), Upper Respiratory Infection (ED), Viral Syndrome (ED) Prescriptions: predniSONE 20 mg PO DAILY 3 Days #9 tab Benzonatate [Tessalon Perles] 100 mg PO TID PRN #15 capsule PRN Reason: Cough Is patient prescribed a controlled substance at d/c from ED?: No When asked, does pt state using other controlled substances?: No If prescribed controlled substance>3 days was MAPS reviewed?: No Referrals: Eric Smyth MD [Primary Care Provider] - 1-2 days Time of Disposition: 17:30
[2023-04-25] MEDS: PROCHLORPERAZINE 5 MG TAB PO STA (15:35)
[2023-04-25] MEDS: diphenhydrAMINE 50 MG CAP PO STA (15:35)
--- NOTE | 2023-04-25 17:02 | XR ---
EXAMINATION: XR chest 2V: 04/25/2023 4:09 PM CLINICAL INDICATION: cough TECHNIQUE: Departmental protocol COMPARISON: None FINDINGS: The lungs are clear. The pleural spaces are negative. The cardiac silhouette is not enlarged. The remainder of the mediastinal silhouette is unremarkable. The skeletal structures and soft tissues are negative for acute findings. IMPRESSION: No acute radiographic process.
[2023-04-25] MEDS: MORPHINE SULFATE 4 MG/ML SYRINGE IM STA (17:03)
[2023-04-25 17:23] VITALS: BP 157/85; PULSE 60; RESP 20; TEMP 98.4
== END 2023-04-25 17:39 | disposition home or self-care (01) ==
LOC: EC 14:26
DX: J02.8 Acute pharyngitis due to other specified organisms (principal); J04.0 Acute laryngitis; B34.9 Viral infection, unspecified; I10 Essential (primary) hypertension; F17.290 Nicotine dependence, other tobacco product, uncomplicated; Z86.59 Personal history of other mental and behavioral disorders; Z20.822 Contact with and (suspected) exposure to COVID-19; Z79.82 Long term (current) use of aspirin; Z88.8 Allergy status to other drugs, medicaments and biological substances
CPT/HCPCS: 99284; 96372; 87651; 87636; 71046; S0183; J2270

== ENCOUNTER → 2023-09-19 | Outpatient (CLI) | payer OTHER ==
--- NOTE | 2023-09-19 12:53 | CT ---
A small EXAMINATION TYPE: CT chest wo con DATE OF EXAM: 09/19/2023 COMPARISON: 03/15/2021 HISTORY: lung nodules CT DLP: 433.[address] of the chest was performed with lung and mediastinal window settings submitted. The la ck of contrast limits evaluation of the vascular, mediastinal and parenchymal structures including th e upper abdomen. LUNGS: 4.6 mm pulmonary nodule right lower lobe image 46 of 63. Overall stable. 3 mm subpleural nodul e image 43 of 63. 2 mm subpleural nodule image 42. Both these nodules are stable. No new nodules are evident. No evidence of consolidation or volume loss. MEDIASTINUM/DENNIS: Thoracic aorta is of normal caliber with limited evaluation given lack of contrast . The heart is not enlarged. No evidence for mediastinal mass. No lymph nodes greater than 1cm. UPPER ABDOMEN: No significant abnormality is seen. OTHER: No significant other abnormality. IMPRESSION: 1. Stable sub-5 mm pulmonary nodularity right lower lobe. Annual follow-up advised.
== END | disposition home or self-care (01) ==
LOC: RADCTMAIN 12:14
PROVIDERS: ATTEND Family Medicine
DX: R91.8 Other nonspecific abnormal finding of lung field (principal); R91.1 Solitary pulmonary nodule
CPT/HCPCS: 71250

== ENCOUNTER 2024-04-07 09:35 | Emergency (ER) | payer OTHER ==
--- NOTE | 2024-04-07 10:22 | ED ---
URI HPI - General Chief Complaint: Upper Respiratory Infection Stated Complaint: EYAL, Cough Time Seen by Provider: 04/07/24 09:48 Source: patient, RN notes reviewed Mode of arrival: ambulatory Limitations: no limitations - History of Present Illness Initial Comments: 53-year-old female presents emergency department with chief complaint of cough congestion. Patient states that she started getting worse the last 3 days she lost her voice. Patient states she has sore throat, cough nasal congestion. She states she was on 2 courses of antibiotics and steroids prior to this. She does vape she has a history of COPD denies any GI symptoms. Denies any headache, dizziness. She states that she feels like she had a fever. - Related Data Home Medications Medication Instructions Recorded Confirmed Aspirin [Adult Low Dose Aspirin EC] 81 mg PO DAILY 04/10/22 04/10/22 Vitamin D3(Unknown Dose) 1 tab PO DAILY 04/10/22 04/10/22 Previous Rx's Medication Instructions Recorded Acetaminophen [Tylenol Extra 500 mg PO BID PRN #30 tab 04/12/22 Strength] Albuterol Inhaler [Ventolin Hfa 2 puff INHALATION RT-Q4H PRN #8 gm 04/12/22 Inhaler] Atorvastatin [Lipitor] 40 mg PO DAILY #30 tab 04/12/22 Baclofen 10 mg PO BID PRN #60 tab 04/12/22 Butalb/APAP/Caff 50-325-40Mg 1 tab PO BID PRN #60 tab 04/12/22 [Fioricet 50-325-40] DULoxetine HCL [Cymbalta] 60 mg PO HS 30 Days #30 cap 04/12/22 Ofloxacin 0.3% Ophth Soln [Ocuflox 1 drop BOTH EYES DAILY #20 ml 04/12/22 Ophth Soln] QUEtiapine [SEROquel] 100 mg PO HS 30 Days #30 tab 04/12/22 Tiotropium [place] [Spiriva 18 mcg INHALATION RT-DAILY #1 each 04/12/22 Handihaler] amLODIPine [Norvasc] 5 mg PO HS #30 tab 04/12/22 lamoTRIgine [LaMICtal] 50 mg PO BID 30 Days #60 tab 04/12/22 rOPINIRole HCL [Requip] 0.25 mg PO HS PRN #30 tab 02/09/23 Cephalexin [Keflex] 500 mg PO Q6HR 7 Days #28 cap 11/17/22 LORazepam [Ativan] 0.5 mg PO BID PRN 3 Days #6 tab 11/17/22 Cyclobenzaprine [Flexeril] 10 mg PO TID PRN #15 tab 01/30/23 predniSONE 50 mg PO DAILY #5 tab 01/30/23 Benzonatate [Tessalon Perles] 100 mg PO TID PRN #15 capsule 04/25/23 Fluticasone Nasal [place] [Flonase 2 spr EA NOSTRIL DAILY #16 gm 04/25/23 Nasal [place]] predniSONE 20 mg PO DAILY 3 Days #9 tab 04/25/23 Benzonatate [Tessalon Perles] 100 mg PO TID PRN #15 capsule 04/07/24 Budesonide [Pulmicort Flexhaler] 90 mcg INHALATION BID #1 each 04/07/24 Allergies Allergy/AdvReac Type Severity Reaction Status Date / Time aspirin AdvReac Nausea & Verified 04/07/24 09:44 Vomiting Review of Systems ROS Statement: Those systems with pertinent positive or pertinent negative responses have been documented in the HPI. ROS Other: All systems not noted in ROS Statement are negative. Past Medical History Past Medical History: Hyperlipidemia, Hypertension, Osteoarthritis (OA) Additional Past Medical History / Comment(s): back/neck pain, migraines, gout,anxiety,depression,bipolar, bergers disease History of Any Multi-Drug Resistant Organisms: None Reported Past Surgical History: Orthopedic Surgery, Tubal Ligation, Uterine Ablation Additional Past Surgical History / Comment(s): RIGHT ELBOW SURGERY , adenosine given x [address] to hospital on 09/06/20 for SVT Past Anesthesia/Blood Transfusion Reactions: No Reported Reaction Additional Past Anesthesia/Blood Transfusion Reaction / Comment(s): NEVER HAD BLOOD TRANSFUSION Past Psychological History: Anxiety, Bipolar, Depression Smoking Status: Current every day smoker, Vaper Past Alcohol Use History: None Reported Past Drug Use History: None Reported - Past Family History Mother Family Medical History: Coronary Artery Disease (CAD), Diabetes Mellitus, Hypertension Additional Family Medical History / Comment(s): LUPUS Father Family Medical History: Dementia General Exam Limitations: no limitations General appearance: alert, in no apparent distress Head exam: Present: atraumatic, normocephalic, normal inspection Eye exam: Present: normal appearance, PERRL, EOMI. Absent: scleral icterus, conjunctival injection, periorbital swelling ENT exam: Present: mucous membranes moist, TM's normal bilaterally, normal external ear exam. Absent: normal exam, normal oropharynx (Erythema posterior pharynx) Neck exam: Present: normal inspection, full ROM. Absent: tenderness, meningismus, lymphadenopathy Respiratory exam: Present: normal lung sounds bilaterally. Absent: respiratory distress, wheezes, rales, rhonchi, stridor Cardiovascular Exam: Present: regular rate, normal rhythm, normal heart sounds. Absent: systolic murmur, diastolic murmur, rubs, gallop, clicks Course Vital Signs 04/07/24 09:41 Temperature 98.5 F Pulse Rate 95 Respiratory 22 Rate Blood Pressure 174/106 O2 Sat by Pulse 100 Oximetry Medical Decision Making - Medical Decision Making Was pt. sent in by a medical professional or institution (, PA, CAR SHAGGER, urgent care, hospital, or skilled nursing...) When possible be specific @ -No Did you speak to anyone other than the patient for history (EMS, parent, family, police, friend...)? What history was obtained from this source @ -No Did you review nursing and triage notes (agree or disagree)? Why? @ -I reviewed and agree with nursing and triage notes Were old charts reviewed (outside hosp., previous admission, EMS record, old EKG, old radiological studies, urgent care reports/EKG's, skilled nursing records)? Report findings @ -No old charts were reviewed Differential Diagnosis (chest pain, altered mental status, abdominal pain women, abdominal pain men, vaginal bleeding, weakness, fever, dyspnea, syncope, headache, dizziness, GI bleed, back pain, seizure, CVA, palpatations, mental health, musculoskeletal)? @ -COVID 19, RSV, influenza, pneumonia, acute bronchitis, URI, this list is not all inclusive EKG interpreted by me (3pts min.). @ -None X-rays interpreted by me (1pt min.). @ -X-ray shows no acute cardiopulmonary process. CT interpreted by me (1pt min.). @ -None done U/S interpreted by me (1pt. min.). @ -None done What testing was considered but not performed or refused? (CT, X-rays, U/S, labs)? Why? @ -None What meds were considered but not given or refused? Why? @ -None Did you discuss the management of the patient with other professionals (professionals i.e. , PA, CAR SHAGGER, lab, RT, psych nurse, social security benefits interviewer, body mechanic apprentice, teacher, conservation officer, oil field caser)? Give summary @ -No Was smoking cessation discussed for >3mins.? @ -No Was critical care preformed (if so, how long)? @ -No Were there social determinants of health that impacted care today? How? (Homelessness, low income, unemployed, alcoholism, drug addiction, transportation, low edu. Level, literacy, decrease access to med. care, longterm, rehab)? @ -No Was there de-escalation of care discussed even if they declined (Discuss DNR or withdrawal of care, Hospice)? DNR status @ -No What co-morbidities impacted this encounter? (DM, HTN, Smoking, COPD, CAD, Cancer, CVA, ARF, Chemo, Hep., AIDS, mental health diagnosis, sleep apnea, morbid obesity)? @ -None Was patient admitted / discharged? Hospital course, mention meds given and route, prescriptions, significant lab abnormalities, going to OR and other pertinent info. @ -Discharged patient's chest x-ray, viral swab and strep are negative. Patient's symptoms are more likely related to viral issues. Patient has been continuously sick will follow-up with pulmonology return parameters froilan. Undiagnosed new problem with uncertain prognosis? @ -No Drug Therapy requiring intensive monitoring for toxicity (Heparin, Nitro, Insulin, Cardizem)? @ -No Were any procedures done? @ -No Diagnosis/symptom? @ -viral URI, COPD Acute, or Chronic, or Acute on Chronic? @ -acute Uncomplicated (without systemic symptoms) or Complicated (systemic symptoms)? @ -uncomplicated Side effects of treatment? @ -No Exacerbation, Progression, or Severe Exacerbation? @ -No Poses a threat to life or bodily function? How? (Chest pain, [place], [place], pneumonia, PE, COPD, DKA, ARF, appy, cholecystitis, CVA, Diverticulitis, Homicidal, Suicidal, threat to staff... and all critical care pts) @ -No - Lab Data Lab Results 04/07/24 04/07/24 Range/Units 10:07 10:12 Influenza Type A (PCR) Not Detected (Not Detectd) Influenza Type B (PCR) Not Detected (Not Detectd) RSV (PCR) Not Detected (Not Detectd) SARS-CoV-2 (PCR) Not Detected (Not Detectd) Group A Strep (PCR) NOT DETECTED (Not Detectd) Disposition Clinical Impression: Viral infection, COPD (chronic obstructive pulmonary disease) Disposition: HOME SELF-CARE Condition: Stable Instructions (If sedation given, give patient instructions): Upper Respiratory Infection (ED) Additional Instructions: Please return to the Emergency Department if symptoms worsen or any other concerns. Prescriptions: Budesonide [Pulmicort Flexhaler] 90 mcg INHALATION BID #1 each Benzonatate [Tessalon Perles] 100 mg PO TID PRN #15 capsule PRN Reason: Cough Is patient prescribed a controlled substance at d/c from ED?: No Referrals: Eric Smyth MD [Primary Care Provider] - 1-2 days Time of Disposition: 11:13
--- NOTE | 2024-04-07 10:28 | XR ---
EXAMINATION TYPE: XR chest 2V DATE OF EXAM: 04/07/2024 10:17 AM COMPARISON: Chest radiographs from 04/25/2023. CLINICAL INDICATION: Female, 53 years old with history of cough; TECHNIQUE: XR chest 2V Frontal and lateral views of the chest. FINDINGS: Lungs/Pleura: There is no evidence of pleural effusion, focal consolidation, or pneumothorax. Pulmonary vascularity: Unremarkable. Heart/mediastinum: Cardiomediastinal silhouette is unremarkable. Musculoskeletal: No acute osseous pathology. IMPRESSION: No acute cardiopulmonary disease/process. [facility], , 04/07/2024 10:26 AM
[2024-04-07 10:55] LABS: Influenza A Not Detected (Not Detectd); Influenza B Not Detected (Not Detectd); RSV Not Detected (Not Detectd)
[2024-04-07 11:44] VITALS: BP 156/94; PULSE 87; RESP 19; TEMP 98.1
== END 2024-04-07 11:44 | disposition home or self-care (01) ==
LOC: EC 09:35
DX: J06.9 Acute upper respiratory infection, unspecified (principal); J44.9 Chronic obstructive pulmonary disease, unspecified; B34.9 Viral infection, unspecified; F17.290 Nicotine dependence, other tobacco product, uncomplicated; Z88.6 Allergy status to analgesic agent
CPT/HCPCS: 71046; 87636; 87651; 99285

== ENCOUNTER 2024-05-03 10:26 | Emergency (ER) | payer OTHER ==
[2024-05-03 10:29] VITALS: TEMP 98
[2024-05-03] MEDS: HYDROmorphone 1 MG/ML 1 ML SYRINGE IM STA ×2 (11:05→12:24)
[2024-05-03] MEDS: KETOROLAC 15 MG/ML 1 ML VIAL IM STA (11:06)
--- NOTE | 2024-05-03 11:32 | XR ---
EXAMINATION TYPE: XR shoulder complete RT DATE OF EXAM: 05/03/2024 11:25 AM INDICATION: Patient age:Female; 53 years old; Reason for study: pain; pain COMPARISON: Chest radiograph 04/07/2024 TECHNIQUE: The right shoulder was examined in AP, internally rotated and scapular Y projections. . FINDINGS: No evidence of acute osseous pathology, joint dislocation, or soft tissue swelling. The remaining por tions of the visualized chest are unremarkable. IMPRESSION: No acute osseous pathology. [facility], , 05/03/2024 11:29 AM
--- NOTE | 2024-05-03 11:47 | ED ---
Extremity Problem HPI - General Chief complaint: Extremity Problem,Nontraumatic Stated complaint: R shoulder pain Time Seen by Provider: 05/03/24 10:31 Source: patient, RN notes reviewed Mode of arrival: ambulatory Limitations: no limitations - History of Present Illness Initial comments: This is a 53-year-old female who presents to the emergency department for right shoulder pain. States that she was woken up by pain in her right shoulder. States that she is barely able to move her arm due to the pain. She takes [place] at home for pain control, however this has not been helping. States that she does deal with aches and pains in various parts of her body, but does not usually have this issue in the shoulder. Denies any chest pain or shortness of breath. MD Complaint: extremity pain - Related Data Home Medications Medication Instructions Recorded Confirmed Aspirin [Adult Low Dose Aspirin EC] 81 mg PO DAILY 04/10/22 04/10/22 Vitamin D3(Unknown Dose) 1 tab PO DAILY 04/10/22 04/10/22 Previous Rx's Medication Instructions Recorded Acetaminophen [Tylenol Extra 500 mg PO BID PRN #30 tab 04/12/22 Strength] Albuterol Inhaler [Ventolin Hfa 2 puff INHALATION RT-Q4H PRN #8 gm 04/12/22 Inhaler] Atorvastatin [Lipitor] 40 mg PO DAILY #30 tab 04/12/22 Baclofen 10 mg PO BID PRN #60 tab 04/12/22 Butalb/APAP/Caff 50-325-40Mg 1 tab PO BID PRN #60 tab 04/12/22 [Fioricet 50-325-40] DULoxetine HCL [Cymbalta] 60 mg PO HS 30 Days #30 cap 04/12/22 Ofloxacin 0.3% Ophth Soln [Ocuflox 1 drop BOTH EYES DAILY #20 ml 04/12/22 Ophth Soln] QUEtiapine [SEROquel] 100 mg PO HS 30 Days #30 tab 04/12/22 Tiotropium [place] [Spiriva 18 mcg INHALATION RT-DAILY #1 each 04/12/22 Handihaler] amLODIPine [Norvasc] 5 mg PO HS #30 tab 04/12/22 lamoTRIgine [LaMICtal] 50 mg PO BID 30 Days #60 tab 04/12/22 rOPINIRole HCL [Requip] 0.25 mg PO HS PRN #30 tab 04/12/22 Cephalexin [Keflex] 500 mg PO Q6HR 7 Days #28 cap 11/17/22 LORazepam [Ativan] 0.5 mg PO BID PRN 3 Days #6 tab 11/17/22 Cyclobenzaprine [Flexeril] 10 mg PO TID PRN #15 tab 01/30/23 predniSONE 50 mg PO DAILY #5 tab 01/30/23 Benzonatate [Tessalon Perles] 100 mg PO TID PRN #15 capsule 04/25/23 Fluticasone Nasal [place] [Flonase 2 spr EA NOSTRIL DAILY #16 gm 04/25/23 Nasal [place]] predniSONE 20 mg PO DAILY 3 Days #9 tab 04/25/23 Benzonatate [Tessalon Perles] 100 mg PO TID PRN #15 capsule 04/07/24 Budesonide [Pulmicort Flexhaler] 90 mcg INHALATION BID #1 each 04/07/24 Ketorolac [Toradol] 10 mg PO Q6HR PRN #15 tab 05/03/24 Allergies Allergy/AdvReac Type Severity Reaction Status Date / Time aspirin AdvReac Nausea & Verified 05/03/24 10:29 Vomiting Review of Systems ROS Statement: Those systems with pertinent positive or pertinent negative responses have been documented in the HPI. ROS Other: All systems not noted in ROS Statement are negative. Past Medical History Past Medical History: Hyperlipidemia, Hypertension, Osteoarthritis (OA) Additional Past Medical History / Comment(s): back/neck pain, migraines, gout,anxiety,depression,bipolar, bergers disease History of Any Multi-Drug Resistant Organisms: None Reported Past Surgical History: Orthopedic Surgery, Tubal Ligation, Uterine Ablation Additional Past Surgical History / Comment(s): RIGHT ELBOW SURGERY , adenosine given x [address] to hospital on 09/06/20 for SVT Past Anesthesia/Blood Transfusion Reactions: No Reported Reaction Additional Past Anesthesia/Blood Transfusion Reaction / Comment(s): NEVER HAD BLOOD TRANSFUSION Past Psychological History: Anxiety, Bipolar, Depression Smoking Status: Current every day smoker, Vaper Past Alcohol Use History: None Reported Past Drug Use History: None Reported - Past Family History Mother Family Medical History: Coronary Artery Disease (CAD), Diabetes Mellitus, Hypertension Additional Family Medical History / Comment(s): LUPUS Father Family Medical History: Dementia General Exam Limitations: no limitations General appearance: alert, in no apparent distress Head exam: Present: atraumatic, normocephalic, normal inspection Respiratory exam: Present: normal lung sounds bilaterally. Absent: respiratory distress, wheezes, rales, rhonchi, stridor Cardiovascular Exam: Present: regular rate, normal rhythm Extremities exam: Present: other (Tenderness to palpation over the right shoulder. Range of motion limited by pain. No swelling, erythema, or warmth. 2+ radial pulses) Neurological exam: Present: alert, oriented X3, CN II-XII intact Psychiatric exam: Present: normal affect, normal mood Skin exam: Present: warm, dry, intact, normal color. Absent: rash Course Vital Signs 05/03/24 05/03/24 10:27 12:29 Temperature 98.0 F 98.0 F Pulse Rate 86 85 Respiratory 20 18 Rate Blood Pressure 154/75 145/70 O2 Sat by Pulse 98 96 Oximetry Medical Decision Making - Medical Decision Making This is a 53-year-old female who presents to the emergency department for right shoulder pain. Was pt. sent in by a medical professional or institution? @ -No Did you speak to anyone other than the patient for history? @ -No Did you review nursing and triage notes? @ -Yes, and I agree, it is accurate with regards to the patient's symptoms. Were old charts reviewed? @ -No Differential Diagnosis? @ -Differential Musculoskeletal Muscular strain, contusion, ligament sprain, fracture, arthritis, septic arthritis, bursitis, cellulitis, muscle spasm, nerve compression, DVT, arterial occlusion, herpes zoster, electrolyte abnormality, tumor.... This is not meant to be in all inclusive list EKG interpreted by me (3pts min.)? @ -Not obtained X-rays interpreted by me (1pt min.)? @ -X-ray of the right shoulder obtained. My interpretation identifies no acute fractures. CT interpreted by me (1pt min.)? @ -Not obtained U/S interpreted by me (1pt. min.)? @ -Not obtained What testing was considered but not performed? (CT, X-rays, U/S, labs)? Why? @ -None What meds were considered but not given? Why? @ -None Did you discuss the management of the patient with other professionals? @ -No Did you reconcile home meds? @ -No Was smoking cessation discussed for >3mins.? @ -I discussed smoking cessation for greater than 3 minutes. The risk of smoking were discussed with the patient including but not limited to risks of cancer, stroke, coronary artery disease and COPD. Also discussed with patient were multiple methods of quitting smoking. Lastly we discussed the financial cost of smoking. Was critical care preformed (if so, how long)? @ -No Were there social determinants of health that impacted care today? How? (Homelessness, low income, unemployed, alcoholism, drug addiction, transportation, low edu. Level, literacy, decrease access to med. care, skilled nursing, rehab)? @ -No Was there de-escalation of care discussed even if they declined? (Discuss DNR or withdrawal of care, Hospice)? @ -No What co-morbidities impacted this encounter? (DM, HTN, Smoking, COPD, CAD, Cancer, CVA, Hep., AIDS, mental health diagnosis, sleep apnea, morbid obesity)? @ -Osteoarthritis, smoking Was patient admitted / discharged? @ -Discharged. X-ray of the right shoulder obtained revealing no acute process. There was no erythema or swelling on exam. Pulses were also equal and intact bilaterally. Pain was managed in the emergency department. Toradol prescribed for pain control. She has baclofen and [place] at home that she can take as well. Otherwise advised follow-up with her primary care provider. Patient discharged home in stable condition. Case discussed with ED attending Dr. Dudley. Return precautions reviewed in depth, the patient is instructed to return to the emergency department with any new, worsening, or concerning symptoms. Patient verbalized understanding. Undiagnosed new problem with uncertain prognosis? @ -None Drug Therapy requiring intensive monitoring for toxicity (Heparin, Nitro, Insulin, Cardizem)? @ -None Were any procedures done? @ -None Diagnosis/symptom? @ -Right shoulder pain Acute, or Chronic, or Acute on Chronic? @ -Acute Uncomplicated (without systemic symptoms) or Complicated (systemic symptoms)? @ -Uncomplicated Side effects of treatment? @ -None Exacerbation, Progression, or Severe Exacerbation] @ -Not applicable Poses a threat to life or bodily function? @ -May limit the use of her right shoulder for the meantime - Radiology Data Radiology results: report reviewed, image reviewed Disposition Clinical Impression: Right shoulder pain, Nicotine dependence Disposition: HOME SELF-CARE Instructions (If sedation given, give patient instructions): Shoulder Pain (ED) Additional Instructions: Return to the emergency department with any new, worsening, or concerning symptoms. Take the Toradol with Tylenol as needed for pain relief. If you choose to take the Toradol, do not take any other anti-inflammatories such as ibuprofen, take one or the other. Try taking the baclofen you have at home. Follow up with your primary care provider in 1-2 days. Prescriptions: Ketorolac [Toradol] 10 mg PO Q6HR PRN #15 tab PRN Reason: Pain Is patient prescribed a controlled substance at d/c from ED?: No Referrals: Eric Smyth MD [Primary Care Provider] - 1-2 days Time of Disposition: 12:20
[2024-05-03 12:31] VITALS: BP 145/70; PULSE 85; RESP 18
== END 2024-05-03 12:31 | disposition home or self-care (01) ==
LOC: EC 10:26
DX: M25.511 Pain in right shoulder (principal); M19.90 Unspecified osteoarthritis, unspecified site; F17.290 Nicotine dependence, other tobacco product, uncomplicated; Z88.6 Allergy status to analgesic agent
CPT/HCPCS: 73030; 99283; 96372 ×3; 99406; J1171; J1885

== ENCOUNTER 2024-05-20 10:06 | Emergency (ER) | payer OTHER ==
--- NOTE | 2024-05-20 11:01 | XR ---
EXAMINATION TYPE: XR shoulder complete LT DATE OF EXAM: 05/20/2024 10:56 AM COMPARISON: None. CLINICAL INDICATION: Female, 53 years old with history of pain, pain TECHNIQUE: XR shoulder complete LT views were obtained FINDINGS: There is no acute fracture/dislocation evident. The acromioclavicular and glenohumeral joint spaces appear within normal limits. The visualized ribs are intact and unremarkable. IMPRESSION: There is no acute fracture or dislocation. [facility], , 05/20/2024 10:58 AM
--- NOTE | 2024-05-20 11:38 | ED ---
Upper Extremity HPI - General Chief Complaint: Extremity Injury, Upper Stated Complaint: left shoulder pain Time Seen by Provider: 05/20/24 10:24 Source: patient, RN notes reviewed Mode of arrival: ambulatory Limitations: no limitations - History of Present Illness Initial Comments: 53-year-old female presents emerged part complaint of left shoulder pain. Patient states that she fell like she just left arm wrong she woke up with the pain she denies any chest pain shortness of breath she has no pain at rest only pain with movement she is right-hand dominant. No prior surgeries no other complaints. - Related Data Home Medications Medication Instructions Recorded Confirmed Aspirin [Adult Low Dose Aspirin EC] 81 mg PO DAILY 04/10/22 04/10/22 Vitamin D3(Unknown Dose) 1 tab PO DAILY 04/10/22 04/10/22 Previous Rx's Medication Instructions Recorded Acetaminophen [Tylenol Extra 500 mg PO BID PRN #30 tab 04/12/22 Strength] Albuterol Inhaler [Ventolin Hfa 2 puff INHALATION RT-Q4H PRN #8 gm 04/12/22 Inhaler] Atorvastatin [Lipitor] 40 mg PO DAILY #30 tab 04/12/22 Baclofen 10 mg PO BID PRN #60 tab 04/12/22 Butalb/APAP/Caff 50-325-40Mg 1 tab PO BID PRN #60 tab 04/12/22 [Fioricet 50-325-40] DULoxetine HCL [Cymbalta] 60 mg PO HS 30 Days #30 cap 04/12/22 Ofloxacin 0.3% Ophth Soln [Ocuflox 1 drop BOTH EYES DAILY #20 ml 04/12/22 Ophth Soln] QUEtiapine [SEROquel] 100 mg PO HS 30 Days #30 tab 04/12/22 Tiotropium [place] [Spiriva 18 mcg INHALATION RT-DAILY #1 each 04/12/22 Handihaler] amLODIPine [Norvasc] 5 mg PO HS #30 tab 04/12/22 lamoTRIgine [LaMICtal] 50 mg PO BID 30 Days #60 tab 04/12/22 rOPINIRole HCL [Requip] 0.25 mg PO HS PRN #30 tab 04/12/22 Cephalexin [Keflex] 500 mg PO Q6HR 7 Days #28 cap 11/17/22 LORazepam [Ativan] 0.5 mg PO BID PRN 3 Days #6 tab 11/17/22 Cyclobenzaprine [Flexeril] 10 mg PO TID PRN #15 tab 01/30/23 predniSONE 50 mg PO DAILY #5 tab 01/30/23 Benzonatate [Tessalon Perles] 100 mg PO TID PRN #15 capsule 04/25/23 Fluticasone Nasal [place] [Flonase 2 spr EA NOSTRIL DAILY #16 gm 04/25/23 Nasal [place]] predniSONE 20 mg PO DAILY 3 Days #9 tab 04/25/23 Benzonatate [Tessalon Perles] 100 mg PO TID PRN #15 capsule 04/07/24 Budesonide [Pulmicort Flexhaler] 90 mcg INHALATION BID #1 each 04/07/24 Ketorolac [Toradol] 10 mg PO Q6HR PRN #15 tab 05/03/24 predniSONE 50 mg PO DAILY #5 tab 05/20/24 Allergies Allergy/AdvReac Type Severity Reaction Status Date / Time aspirin AdvReac Nausea & Verified 05/20/24 10:23 Vomiting Review of Systems ROS Statement: Those systems with pertinent positive or pertinent negative responses have been documented in the HPI. ROS Other: All systems not noted in ROS Statement are negative. Past Medical History Past Medical History: Hyperlipidemia, Hypertension, Osteoarthritis (OA) Additional Past Medical History / Comment(s): back/neck pain, migraines, gout,anxiety,depression,bipolar, bergers disease History of Any Multi-Drug Resistant Organisms: None Reported Past Surgical History: Orthopedic Surgery, Tubal Ligation, Uterine Ablation Additional Past Surgical History / Comment(s): RIGHT ELBOW SURGERY , adenosine given x [address] to hospital on 09/06/20 for SVT Past Anesthesia/Blood Transfusion Reactions: No Reported Reaction Additional Past Anesthesia/Blood Transfusion Reaction / Comment(s): NEVER HAD BLOOD TRANSFUSION Past Psychological History: Anxiety, Bipolar, Depression Smoking Status: Current every day smoker, Vaper Past Alcohol Use History: None Reported Past Drug Use History: None Reported - Past Family History Mother Family Medical History: Coronary Artery Disease (CAD), Diabetes Mellitus, Hypertension Additional Family Medical History / Comment(s): LUPUS Father Family Medical History: Dementia General Exam Limitations: no limitations General appearance: alert, in no apparent distress Head exam: Present: atraumatic, normocephalic, normal inspection Eye exam: Present: normal appearance, PERRL, EOMI. Absent: scleral icterus, conjunctival injection, periorbital swelling ENT exam: Present: normal exam, normal oropharynx, mucous membranes moist Neck exam: Present: normal inspection, full ROM. Absent: tenderness, meningismus, lymphadenopathy Respiratory exam: Present: normal lung sounds bilaterally. Absent: respiratory distress, wheezes, rales, rhonchi, stridor Cardiovascular Exam: Present: regular rate, normal rhythm, normal heart sounds. Absent: systolic murmur, diastolic murmur, rubs, gallop, clicks Course Vital Signs 05/20/24 10:20 Temperature 98.2 F Pulse Rate 92 Respiratory 20 Rate Blood Pressure 132/76 O2 Sat by Pulse 97 Oximetry Medical Decision Making - Medical Decision Making Was pt. sent in by a medical professional or institution (, PA, PRINTER SLOTTER FEEDER, urgent care, hospital, or skilled nursing...) When possible be specific @ -No Did you speak to anyone other than the patient for history (EMS, parent, family, police, friend...)? What history was obtained from this source @ -No Did you review nursing and triage notes (agree or disagree)? Why? @ -I reviewed and agree with nursing and triage notes Were old charts reviewed (outside hosp., previous admission, EMS record, old EKG, old radiological studies, urgent care reports/EKG's, skilled nursing records)? Report findings @ -No old charts were reviewed Differential Diagnosis (chest pain, altered mental status, abdominal pain women, abdominal pain men, vaginal bleeding, weakness, fever, dyspnea, syncope, headache, dizziness, GI bleed, back pain, seizure, CVA, palpatations, mental health, musculoskeletal)? @ -Shoulder pain, shoulder dislocation, bicep tendinitis EKG interpreted by me (3pts min.). @ -None none X-rays interpreted by me (1pt min.). @Left shoulder shows no acute process CT interpreted by me (1pt min.). @ -None done U/S interpreted by me (1pt. min.). @ -None done What testing was considered but not performed or refused? (CT, X-rays, U/S, labs)? Why? @ -None What meds were considered but not given or refused? Why? @ -None Did you discuss the management of the patient with other professionals (professionals i.e. , PA, PRINTER SLOTTER FEEDER, lab, RT, psych nurse, social problems specialist, six pack packer, teacher, security flex officer, transplant case manager)? Give summary @ -No Was smoking cessation discussed for >3mins.? @ -No Was critical care preformed (if so, how long)? @ -No Were there social determinants of health that impacted care today? How? (Homelessness, low income, unemployed, alcoholism, drug addiction, transportation, low edu. Level, literacy, decrease access to med. care, fpc, rehab)? @ -No Was there de-escalation of care discussed even if they declined (Discuss DNR or withdrawal of care, Hospice)? DNR status @ -No What co-morbidities impacted this encounter? (DM, HTN, Smoking, COPD, CAD, Cancer, CVA, ARF, Chemo, Hep., AIDS, mental health diagnosis, sleep apnea, morbid obesity)? @ -None Was patient admitted / discharged? Hospital course, mention meds given and route, prescriptions, significant lab abnormalities, going to OR and other pertinent info. @ -Discharge patient's left shoulder x-ray was negative. Patient symptoms more consistent with tendinitis worse with movement patient was discharged in stable condition return parens discussed. Undiagnosed new problem with uncertain prognosis? @ -No Drug Therapy requiring intensive monitoring for toxicity (Heparin, Nitro, Insulin, Cardizem)? @ -No Were any procedures done? @ -No Diagnosis/symptom? @ -Shoulder pain, tendinitis Acute, or Chronic, or Acute on Chronic? @ -Acute Uncomplicated (without systemic symptoms) or Complicated (systemic symptoms)? @ -Uncomplicated Side effects of treatment? @ -No Exacerbation, Progression, or Severe Exacerbation? @ -No Poses a threat to life or bodily function? How? (Chest pain, [place], [place], pneumonia, PE, COPD, DKA, ARF, appy, cholecystitis, CVA, Diverticulitis, Homicidal, Suicidal, threat to staff... and all critical care pts) @ -No Disposition Clinical Impression: Left shoulder tendonitis Disposition: HOME SELF-CARE Condition: Stable Instructions (If sedation given, give patient instructions): Tendinitis (ED) Additional Instructions: Please return to the Emergency Department if symptoms worsen or any other concerns. Prescriptions: predniSONE 50 mg PO DAILY #5 tab Is patient prescribed a controlled substance at d/c from ED?: No Referrals: Eric Smyth MD [Primary Care Provider] - 1-2 days Time of Disposition: 11:38
[2024-05-20] MEDS: LIDOCAINE 4% PATCH TOPICAL ONE (12:12)
[2024-05-20] MEDS: KETOROLAC 15 MG/ML 1 ML VIAL IM STA (12:12)
[2024-05-20 12:47] VITALS: BP 127/78; PULSE 86; RESP 17; TEMP 98.1
== END 2024-05-20 12:47 | disposition home or self-care (01) ==
LOC: EC 10:06
DX: M75.22 Bicipital tendinitis, left shoulder (principal); F17.290 Nicotine dependence, other tobacco product, uncomplicated; Z88.6 Allergy status to analgesic agent
CPT/HCPCS: 73030; 99283; 96372; J1885

== ENCOUNTER 2024-05-27 12:06 | Inpatient (IN) | payer OTHER ==
--- NOTE | 2024-05-27 13:37 | ED ---
General Adult HPI - General Chief complaint: Upper Respiratory Infection Stated complaint: SOB Time Seen by Provider: 05/27/24 12:10 Source: patient Mode of arrival: ambulatory Limitations: no limitations - History of Present Illness Initial comments: This is a 54-year-old female presenting today for 4 months of intermittent upper respiratory infection symptoms. Was sent in by her primary care provider Dr. Smyth out of concerns for dehydration. History of Burger's disease. States over the last 4 months has had intermittent cough, shortness of breath, sore throat. Has recently developed sores in her mouth making it difficult for her to eat and drink. Most recently she has had mild hemoptysis, states she is intermittently coughing up small streaks of blood in her sputum. No lower extremity swelling, history DVT or PE. Denies fevers or chills, abdominal pain, nausea vomiting, diarrhea, melena, hematochezia no focal numbness or weakness. Patient also states she has had 2 episodes of syncope in the last 2 weeks. Last episode was 1 week ago. Patient states feels secondary to dehydration. States she feels she stands up too fast, gets lightheaded and then lost conscious. States she did have a episode of urinary incontinence no tongue biting. No history prior seizures heard. Also endorses injuring her right foot during her most recent episode of syncope. Has been able to ambulate with a limp. Not on blood thinners. - Related Data Home Medications Medication Instructions Recorded Confirmed Albuterol Inhaler [Ventolin Hfa 2 puff INHALATION RT-QID PRN 05/27/24 05/27/24 Inhaler] Budesonide [Pulmicort Flexhaler] 1 puff INHALATION RT-BID 05/27/24 05/27/24 Diclofenac Sodium Gel [Voltaren 1% 2 gm TOPICAL QID 05/27/24 05/27/24 Gel] Gabapentin 300 mg PO TID 05/27/24 05/27/24 HYDROcodone/APAP 10-325MG [Lincoln 1 tab PO Q6H 05/27/24 05/27/24 10-325] Ibuprofen [Motrin] 600 mg PO TID 05/27/24 05/27/24 Lidocaine 5% Oint [Xylocaine 5% 1 applic TOPICAL QID PRN 05/27/24 05/27/24 Oint] Loratadine [Claritin] 10 mg PO DAILY 05/27/24 05/27/24 Terbinafine [LamISIL] 250 mg PO DAILY 05/27/24 05/27/24 amLODIPine [Norvasc] 5 mg PO DAILY 05/27/24 05/27/24 lamoTRIgine [LaMICtal] 25 mg PO BID 05/27/24 05/27/24 Previous Rx's Medication Instructions Recorded Baclofen 10 mg PO BID PRN #60 tab 04/12/22 Butalb/APAP/Caff 50-325-40Mg 1 tab PO BID PRN #60 tab 04/12/22 [Fioricet 50-325-40] DULoxetine HCL [Cymbalta] 60 mg PO HS 30 Days #30 cap 04/12/22 QUEtiapine [SEROquel] 100 mg PO HS 30 Days #30 tab 04/12/22 rOPINIRole HCL [Requip] 0.25 mg PO HS PRN #30 tab 04/12/22 Allergies Allergy/AdvReac Type Severity Reaction Status Date / Time aspirin AdvReac Nausea & Verified 05/27/24 17:58 Vomiting Review of Systems ROS Statement: Those systems with pertinent positive or pertinent negative responses have been documented in the HPI. ROS Other: All systems not noted in ROS Statement are negative. Past Medical History Past Medical History: Hyperlipidemia, Hypertension, Osteoarthritis (OA) Additional Past Medical History / Comment(s): back/neck pain, migraines, gout,anxiety,depression,bipolar, bergers disease History of Any Multi-Drug Resistant Organisms: None Reported Past Surgical History: Orthopedic Surgery, Tubal Ligation, Uterine Ablation Additional Past Surgical History / Comment(s): RIGHT ELBOW SURGERY , adenosine given x [address] to hospital on 09/06/20 for SVT Past Anesthesia/Blood Transfusion Reactions: No Reported Reaction Additional Past Anesthesia/Blood Transfusion Reaction / Comment(s): NEVER HAD BLOOD TRANSFUSION Past Psychological History: Anxiety, Bipolar, Depression Smoking Status: Current every day smoker, Vaper Past Alcohol Use History: None Reported Past Drug Use History: None Reported - Past Family History Mother Family Medical History: Coronary Artery Disease (CAD), Diabetes Mellitus, Hypertension Additional Family Medical History / Comment(s): LUPUS Father Family Medical History: Dementia General Exam - General Exam Comments Initial Comments: PE: CONSTITUTIONAL: No apparent distress, chronically ill-appearing nontoxic SKIN: Warm, dry, no jaundice, hives or petechiae; purple bruising across the dorsal aspect of the right foot extending up towards the right lateral malleolus EYES: Pupils are equally round, extraocular movements intact without nystagmus, clear conjunctiva, non-icteric sclera HENT: Normocephalic, atraumatic, dry mucus membranes, patient has ulcerative lesions with an erythematous base on buccal mucosa extending to the posterior oropharynx NECK: , Full range of motion, normal appearance, no midline spinal tenderness to palpation PULMONARY: Right posterior rib tenderness to palpation without overlying bruising, clear to auscultation without wheezes, rhonchi, or rales, normal excursion, no accessory muscle use and no stridor CARDIOVASCULAR: Regular rate, rhythm, normal S1 and S2. No appreciated murmurs, rubs or gallops. Strong radial pulses with intact distal perfusion. No lower extremity edema GASTROINTESTINAL: Soft, active bowel sounds throughout, non-tender, non- distended, no palpable masses, no rebound or guarding. No hepatosplenomegaly GENITOURINARY: MUSCULOSKELETAL: Extremities have no gross deformity, no calf swelling, no edema, tenderness to palpation of the dorsal aspect of the right foot, right lateral malleolus, small amount of swelling in this region as well, pain with plantar and dorsiflexion, no tenderness palpation of the proximal tib-fib, able to move toes, neurovascularly intact NEUROLOGIC:_a/o x 3, GCS 15, normal mentation and speech. Moves all extremities x 4 without motor or sensory deficit PSYCHIATRIC:_normal mood and affect, thought process is clear and linear Limitations: no limitations Course Vital Signs 05/27/24 05/27/24 05/27/24 12:25 12:50 15:17 Temperature 98.0 F Pulse Rate 83 68 74 Respiratory 20 18 17 Rate Blood Pressure 114/66 142/85 137/77 O2 Sat by Pulse 94 L 99 99 Oximetry 05/27/24 05/27/24 05/27/24 17:26 18:23 19:53 Temperature Pulse Rate 65 70 81 Respiratory 22 18 16 Rate Blood Pressure 139/78 127/67 128/84 O2 Sat by Pulse 94 L 92 L 96 Oximetry - Reevaluation(s) Reevaluation #1: Reviewed PE study,, appears to show right sided PE, BNP minaminally elevated, troponin undectable, does not appear to have right heart strain, read pending, ordered heparin 05/27/24 17:47 Reevaluation #2: Immediately after my review of CT PE study, read came back with multifocal pneumonia and right sided lymphadenopathy without PE though suboptimal study. Heparin was canceled, antibiotics ordered. 05/27/24 17:52 EKG Findings - EKG Comments: EKG Findings:: Sinus rhythm, rate 65 bpm WV interval 159 ms QT/QTc 446/458 ms, borderline prolonged QT interval, no ST depressions or elevations no STEMI no arrhythmia Medical Decision Making - Medical Decision Making Was pt. sent in by a medical professional or institution (, PA, CIGARETTE FILTER INSPECTOR, urgent care, hospital, or retirement...) When possible be specific @ -Patient was sent in by PCP Dr. Smyth Did you speak to anyone other than the patient for history (EMS, parent, family, police, friend...)? What history was obtained from this source @ -No Did you review nursing and triage notes (agree or disagree)? Why? @ -I reviewed nursing and triage notes-States patient presents for upper respiratory symptoms with months for no improvement, sent for dehydration sores in mouth difficulty eating, she has no respiratory doctor, denies chest pain or acute symptoms and symptoms of been ongoing for months; patient also endorsed 2 episodes of syncope to myself, that occurred last week as noted in above HPI Were old charts reviewed (outside hosp., previous admission, EMS record, old EKG, old radiological studies, urgent care reports/EKG's, retirement records)? Report findings @ -Medical records reviewed-Patient had a visit to the ER last 05/20/2024 for right shoulder pain, x-ray of the shoulder was negative Differential Diagnosis (chest pain, altered mental status, abdominal pain women, abdominal pain men, vaginal bleeding, weakness, fever, dyspnea, syncope, headache, dizziness, GI bleed, back pain, seizure, CVA, palpatations, mental health, musculoskeletal)? @Differential Dyspnea: Coronary syndrome, arrhythmia, tamponade, asthma, COPD, pulmonary embolism, pneumonia, pneumothorax, pulmonary effusion, anaphylaxis, diabetic ketoacidosis, flailed chest, pulmonary contusion, diaphragmatic rupture, anemia, neuromuscular, this is not meant to be an all-inclusive list. Differential diagnose remains run over top considerations include viral pneumonia, upper respiratory infection, bacterial pneumonia, progression of Buerger's disease, PE, HIV, herpangina, this is not all-inclusive list. Of note patient denies any unprotected sex or high risk sexual activities, low suspicion for HIV EKG interpreted by me (3pts min.). @ -As above X-rays interpreted by me (1pt min.). @ -I personally reviewed ankle and foot x-rays, I see no evidence of fracture or dislocation or malalignment, I agree with radiologist interpretation CT interpreted by me (1pt min.). @Personally reviewed CT PE study, questionable bilateral pulmonary infiltrates and on my review appeared to have right-sided pulmonary embolism, as noted in ED course above however the area which I had that was a PE was actually lymphadenopathy, radiologist read as no pulmonary embolism though findings were consistent with multilobar pneumonia I personally reviewed CT brain I see no evidence of hemorrhage or mass effect I agree with radiologist interpretation U/S interpreted by me (1pt. min.). @ -None done What testing was considered but not performed or refused? (CT, X-rays, U/S, labs)? Why? @ -None What meds were considered but not given or refused? Why? @ -None Did you discuss the management of the patient with other professionals (professionals i.e. , PA, CIGARETTE FILTER INSPECTOR, lab, RT, psych nurse, geriatric social work professor, cylinder honer, teacher, placement officer, case management director)? Give summary @ -No Was smoking cessation discussed for >3mins.? @ -No Was critical care preformed (if so, how long)? @ -No Were there social determinants of health that impacted care today? How? (Homelessness, low income, unemployed, alcoholism, drug addiction, transportation, low edu. Level, literacy, decrease access to med. care, half-way, rehab)? @ -No Was there de-escalation of care discussed even if they declined (Discuss DNR or withdrawal of care, Hospice)? @ -No What co-morbidities impacted this encounter? (DM, HTN, Smoking, COPD, CAD, Cancer, CVA, ARF, Chemo, Hep., AIDS, mental health diagnosis, sleep apnea, morbid obesity)? Hyperlipidemia, hypertension, Buerger's disease Was patient admitted / discharged? Hospital course, mention meds given and route, prescriptions, significant lab abnormalities, going to OR and other pertinent info. @ -54-year-old female history of Buerger's disease 4 months of persistent upper respiratory symptoms, cough now in addition to sores in her mouth and concern for dehydration. Stable vital signs on arrival. CT brain ordered due to to episodes of syncope with unsure if seizure-like activity versus syncope without history of seizure though description of patient's symptoms do sound more consistent with syncope;Broad workup was initiated and ultimately significant for for mild leukocytosis white blood cell count 13.2, mild hypokalemia with potassium of 3.1 elevation liver enzymes, AST/ALT 155/105 with a normal total bilirubin CRP 18.9. CT PE study negative for PE however showed's for multilobar pneumonia. Zosyn, vancomycin and replacement potassium ordered. Updated patient to findings and plan for admission. Patient is agreeable plan of care. Case was discussed with Dr. Villanueva who kindly accepted patient for admission. Undiagnosed new problem with uncertain prognosis? @ -No Drug Therapy requiring intensive monitoring for toxicity (Heparin, Nitro, Insulin, Cardizem)? @ -No Were any procedures done? @ -No Diagnosis/symptom? @Atypical pneumonia, syncope Acute, or Chronic, or Acute on Chronic? @Acute Uncomplicated (without systemic symptoms) or Complicated (systemic symptoms)? @Complicated Side effects of treatment? @ -No Exacerbation, Progression, or Severe Exacerbation? @ -No Poses a threat to life or bodily function? How? (Chest pain, USA, CA, pneumonia, PE, COPD, DKA, ARF, appy, cholecystitis, CVA, Diverticulitis, Homicidal, Suicidal, threat to staff... and all critical care pts) @ -Yes, if left untreated could lead to sepsis and or respiratory failure - Lab Data Result diagrams: 05/30/24 06:05 05/30/24 06:05 Lab Results 05/27/24 05/27/24 05/27/24 Range/Units 13:13 13:13 13:13 WBC 13.2 H (3.8-10.6) k/uL RBC 3.81 (3.80-5.40) m/uL Hgb 10.2 L (11.4-16.0) gm/dL Hct 31.6 L (34.0-46.0) % MCV 83.0 (80.0-100.0) fL MCH 26.7 (25.0-35.0) pg MCHC 32.2 (31.0-37.0) g/dL RDW 14.6 (11.5-15.5) % Plt Count 578 H (150-450) k/uL MPV 8.0 Neutrophils % 81 % Lymphocytes % 12 % Monocytes % 5 % Eosinophils % 1 % Basophils % 0 % Neutrophils # 10.8 H (1.3-7.7) k/uL Lymphocytes # 1.5 (1.0-4.8) k/uL Monocytes # 0.6 (0-1.0) k/uL Eosinophils # 0.1 (0-0.7) k/uL Basophils # 0.0 (0-0.2) k/uL PT 11.5 (10.0-12.5) sec INR 1.0 (<1.2) APTT 20.2 L (22.0-30.0) sec Sodium 138 (137-145) mmol/L Potassium 3.1 L (3.5-5.1) mmol/L Chloride 103 (98-107) mmol/L Carbon Dioxide 23 (22-30) mmol/L Anion Gap 12 mmol/L BUN 19 H (7-17) mg/dL Creatinine 0.65 (0.52-1.04) mg/dL Est GFR (CKD-EPI)AfAm >90 (>60 ml/min/1.73 sqM) Est GFR (CKD-EPI)NonAf >90 (>60 ml/min/1.73 sqM) Glucose 125 H (74-99) mg/dL Plasma Lactic Acid Adeel (0.7-2.0) mmol/L Calcium 10.2 (8.4-10.2) mg/dL Phosphorus (2.5-4.5) mg/dL Magnesium 1.9 (1.6-2.3) mg/dL Total Bilirubin 0.5 (0.2-1.3) mg/dL AST 155 H (14-36) U/L ALT 105 H (4-34) U/L Alkaline Phosphatase 171 H (38-126) U/L Troponin I (0.000-0.034) ng/mL C-Reactive Protein (<1.0) mg/dL NT-Pro-B Natriuret Pep 841 pg/mL Total Protein 7.2 (6.3-8.2) g/dL Albumin 3.8 (3.5-5.0) g/dL Urine Color Urine Appearance (Clear) Urine pH (5.0-8.0) Ur Specific Haskell (1.001-1.035) Urine Protein (Negative) Urine Glucose (UA) (Negative) Urine Ketones (Negative) Urine Blood (Negative) Urine Nitrite (Negative) Urine Bilirubin (Negative) Urine Urobilinogen (<2.0) mg/dL Ur Leukocyte Esterase (Negative) Urine RBC (0-5) /hpf Urine WBC (0-5) /hpf Ur Squamous Epith Cells (0-4) /hpf Hyaline Casts (0-2) /lpf Urine Mucus (None) /hpf Influenza Type A (PCR) (Not Detectd) Influenza Type B (PCR) (Not Detectd) Urine Legionella Ag (Negative) RSV (PCR) (Not Detectd) SARS-CoV-2 (PCR) (Not Detectd) 05/27/24 05/27/24 05/27/24 Range/Units 13:13 13:13 13:13 WBC (3.8-10.6) k/uL RBC (3.80-5.40) m/uL Hgb (11.4-16.0) gm/dL Hct (34.0-46.0) % MCV (80.0-100.0) fL MCH (25.0-35.0) pg MCHC (31.0-37.0) g/dL RDW (11.5-15.5) % Plt Count (150-450) k/uL MPV Neutrophils % % Lymphocytes % % Monocytes % % Eosinophils % % Basophils % % Neutrophils # (1.3-7.7) k/uL Lymphocytes # (1.0-4.8) k/uL Monocytes # (0-1.0) k/uL Eosinophils # (0-0.7) k/uL Basophils # (0-0.2) k/uL PT (10.0-12.5) sec INR (<1.2) APTT (22.0-30.0) sec Sodium (137-145) mmol/L Potassium (3.5-5.1) mmol/L Chloride (98-107) mmol/L Carbon Dioxide (22-30) mmol/L Anion Gap mmol/L BUN (7-17) mg/dL Creatinine (0.52-1.04) mg/dL Est GFR (CKD-EPI)AfAm (>60 ml/min/1.73 sqM) Est GFR (CKD-EPI)NonAf (>60 ml/min/1.73 sqM) Glucose (74-99) mg/dL Plasma Lactic Acid Adeel 1.1 (0.7-2.0) mmol/L Calcium (8.4-10.2) mg/dL Phosphorus (2.5-4.5) mg/dL Magnesium (1.6-2.3) mg/dL Total Bilirubin (0.2-1.3) mg/dL AST (14-36) U/L ALT (4-34) U/L Alkaline Phosphatase (38-126) U/L Troponin I <0.012 (0.000-0.034) ng/mL C-Reactive Protein (<1.0) mg/dL NT-Pro-B Natriuret Pep pg/mL Total Protein (6.3-8.2) g/dL Albumin (3.5-5.0) g/dL Urine Color Urine Appearance (Clear) Urine pH (5.0-8.0) Ur Specific Haskell (1.001-1.035) Urine Protein (Negative) Urine Glucose (UA) (Negative) Urine Ketones (Negative) Urine Blood (Negative) Urine Nitrite (Negative) Urine Bilirubin (Negative) Urine Urobilinogen (<2.0) mg/dL Ur Leukocyte Esterase (Negative) Urine RBC (0-5) /hpf Urine WBC (0-5) /hpf Ur Squamous Epith Cells (0-4) /hpf Hyaline Casts (0-2) /lpf Urine Mucus (None) /hpf Influenza Type A (PCR) Not Detected (Not Detectd) Influenza Type B (PCR) Not Detected (Not Detectd) Urine Legionella Ag (Negative) RSV (PCR) Not Detected (Not Detectd) SARS-CoV-2 (PCR) Not Detected (Not Detectd) 05/27/24 05/27/24 05/27/24 Range/Units 13:13 13:13 15:18 WBC (3.8-10.6) k/uL RBC (3.80-5.40) m/uL Hgb (11.4-16.0) gm/dL Hct (34.0-46.0) % MCV (80.0-100.0) fL MCH (25.0-35.0) pg MCHC (31.0-37.0) g/dL RDW (11.5-15.5) % Plt Count (150-450) k/uL MPV Neutrophils % % Lymphocytes % % Monocytes % % Eosinophils % % Basophils % % Neutrophils # (1.3-7.7) k/uL Lymphocytes # (1.0-4.8) k/uL Monocytes # (0-1.0) k/uL Eosinophils # (0-0.7) k/uL Basophils # (0-0.2) k/uL PT (10.0-12.5) sec INR (<1.2) APTT (22.0-30.0) sec Sodium (137-145) mmol/L Potassium (3.5-5.1) mmol/L Chloride (98-107) mmol/L Carbon Dioxide (22-30) mmol/L Anion Gap mmol/L BUN (7-17) mg/dL Creatinine (0.52-1.04) mg/dL Est GFR (CKD-EPI)AfAm (>60 ml/min/1.73 sqM) Est GFR (CKD-EPI)NonAf (>60 ml/min/1.73 sqM) Glucose (74-99) mg/dL Plasma Lactic Acid Adeel (0.7-2.0) mmol/L Calcium (8.4-10.2) mg/dL Phosphorus 3.6 (2.5-4.5) mg/dL Magnesium 1.9 (1.6-2.3) mg/dL Total Bilirubin (0.2-1.3) mg/dL AST (14-36) U/L ALT (4-34) U/L Alkaline Phosphatase (38-126) U/L Troponin I (0.000-0.034) ng/mL C-Reactive Protein 18.9 H (<1.0) mg/dL NT-Pro-B Natriuret Pep pg/mL Total Protein (6.3-8.2) g/dL Albumin (3.5-5.0) g/dL Urine Color Yellow Urine Appearance Clear (Clear) Urine pH 6.5 (5.0-8.0) Ur Specific Haskell 1.026 (1.001-1.035) Urine Protein 1+ H (Negative) Urine Glucose (UA) Negative (Negative) Urine Ketones Negative (Negative) Urine Blood Negative (Negative) Urine Nitrite Negative (Negative) Urine Bilirubin Negative (Negative) Urine Urobilinogen 2.0 (<2.0) mg/dL Ur Leukocyte Esterase Negative (Negative) Urine RBC <1 (0-5) /hpf Urine WBC 2 (0-5) /hpf Ur Squamous Epith Cells 1 (0-4) /hpf Hyaline Casts 1 (0-2) /lpf Urine Mucus Rare H (None) /hpf Influenza Type A (PCR) (Not Detectd) Influenza Type B (PCR) (Not Detectd) Urine Legionella Ag (Negative) RSV (PCR) (Not Detectd) SARS-CoV-2 (PCR) (Not Detectd) 05/27/24 Range/Units 15:18 WBC (3.8-10.6) k/uL RBC (3.80-5.40) m/uL Hgb (11.4-16.0) gm/dL Hct (34.0-46.0) % MCV (80.0-100.0) fL MCH (25.0-35.0) pg MCHC (31.0-37.0) g/dL RDW (11.5-15.5) % Plt Count (150-450) k/uL MPV Neutrophils % % Lymphocytes % % Monocytes % % Eosinophils % % Basophils % % Neutrophils # (1.3-7.7) k/uL Lymphocytes # (1.0-4.8) k/uL Monocytes # (0-1.0) k/uL Eosinophils # (0-0.7) k/uL Basophils # (0-0.2) k/uL PT (10.0-12.5) sec INR (<1.2) APTT (22.0-30.0) sec Sodium (137-145) mmol/L Potassium (3.5-5.1) mmol/L Chloride (98-107) mmol/L Carbon Dioxide (22-30) mmol/L Anion Gap mmol/L BUN (7-17) mg/dL Creatinine (0.52-1.04) mg/dL Est GFR (CKD-EPI)AfAm (>60 ml/min/1.73 sqM) Est GFR (CKD-EPI)NonAf (>60 ml/min/1.73 sqM) Glucose (74-99) mg/dL Plasma Lactic Acid Adeel (0.7-2.0) mmol/L Calcium (8.4-10.2) mg/dL Phosphorus (2.5-4.5) mg/dL Magnesium (1.6-2.3) mg/dL Total Bilirubin (0.2-1.3) mg/dL AST (14-36) U/L ALT (4-34) U/L Alkaline Phosphatase (38-126) U/L Troponin I (0.000-0.034) ng/mL C-Reactive Protein (<1.0) mg/dL NT-Pro-B Natriuret Pep pg/mL Total Protein (6.3-8.2) g/dL Albumin (3.5-5.0) g/dL Urine Color Urine Appearance (Clear) Urine pH (5.0-8.0) Ur Specific Haskell (1.001-1.035) Urine Protein (Negative) Urine Glucose (UA) (Negative) Urine Ketones (Negative) Urine Blood (Negative) Urine Nitrite (Negative) Urine Bilirubin (Negative) Urine Urobilinogen (<2.0) mg/dL Ur Leukocyte Esterase (Negative) Urine RBC (0-5) /hpf Urine WBC (0-5) /hpf Ur Squamous Epith Cells (0-4) /hpf Hyaline Casts (0-2) /lpf Urine Mucus (None) /hpf Influenza Type A (PCR) (Not Detectd) Influenza Type B (PCR) (Not Detectd) Urine Legionella Ag Negative (Negative) RSV (PCR) (Not Detectd) SARS-CoV-2 (PCR) (Not Detectd) Disposition Clinical Impression: Multifocal pneumonia Disposition: ADMITTED IP TO THIS HOSP Condition: Stable
[2024-05-27 13:44] LABS: Basophils % (A) 0 %; Eosinophils # (A) 0.1 k/uL (0-0.7); Eosinophils % (A) 1 %; HCT 31.6 % (34.0-46.0); HGB 10.2 gm/dL (11.4-16.0); Lymphocytes # (A) 1.5 k/uL (1.0-4.8); Lymphocytes % (A) 12 %; MCH 26.7 pg (25.0-35.0); MCHC 32.2 g/dL (31.0-37.0); Monocytes # (A) 0.6 k/uL (0-1.0); Monocytes % (A) 5 %; Neutrophils # (A) 10.8 k/uL (1.3-7.7); Neutrophils % (A) 81 %; Platelet Count 578 k/uL (150-450); RBC 3.81 m/uL (3.80-5.40); RDW 14.6 % (11.5-15.5); WBC 13.2 k/uL (3.8-10.6)
[2024-05-27 13:54] LABS: ALT 105 U/L (4-34); AST 155 U/L (14-36); African American GFR (CKD) >90 (>60 ml/min/1.73 sqM); Albumin 3.8 g/dL (3.5-5.0); Alkaline Phosphatase 171 U/L (38-126); Anion Gap 12 mmol/L; Blood Urea Nitrogen 19 mg/dL (7-17); Calcium 10.2 mg/dL (8.4-10.2); Carbon Dioxide 23 mmol/L (22-30); Chloride 103 mmol/L (98-107); Glucose 125 mg/dL (74-99); Magnesium 1.9 mg/dL (1.6-2.3); Non-African American GFR(CKD) >90 (>60 ml/min/1.73 sqM); Potassium 3.1 mmol/L (3.5-5.1); Sodium 138 mmol/L (137-145); Total Bilirubin 0.5 mg/dL (0.2-1.3); Total Protein 7.2 g/dL (6.3-8.2)
--- NOTE | 2024-05-27 13:58 | XR ---
EXAMINATION TYPE: XR ankle complete RT, XR foot complete RT DATE OF EXAM: 05/27/2024 CLINICAL INDICATION: Female, 54 years old with history of fall, lateral malleolus, bruise dorsal foot , pain TECHNIQUE: Frontal, lateral and oblique images of the right ankle and foot are obtained. COMPARISON: None. FINDINGS: There is no acute fracture/dislocation evident in the right ankle or foot. The ankle mort ise appears within normal limits. The joint spaces in the right foot are preserved. The overlying so ft tissue appears unremarkable. IMPRESSION: There is no acute fracture or dislocation in the right ankle or foot. [facility], , 05/27/2024 1:56 PM
[2024-05-27 14:01] LABS: NT-Pro-B-Type Natriuretic Pept 841 pg/mL
[2024-05-27 14:03] LABS: Partial Thromboplastin Time 20.2 sec (22.0-30.0); Prothrombin Time 11.5 sec (10.0-12.5)
[2024-05-27 14:04] LABS: Magnesium 1.9 mg/dL (1.6-2.3); Phosphorus 3.6 mg/dL (2.5-4.5)
[2024-05-27 14:12] LABS: Influenza A Not Detected (Not Detectd); Influenza B Not Detected (Not Detectd); RSV Not Detected (Not Detectd)
[2024-05-27] MEDS: LIDOCAINE VISCOUS 2% 15 ML CUP MUCOUS MEM ONE (15:03)
[2024-05-27] MEDS: MORPHINE SULFATE 4 MG/ML SYRINGE IVP STA (15:04)
[2024-05-27] MEDS: SODIUM CHLORIDE 0.9% 1,000 ML IV ONE (15:04)
[2024-05-27] MEDS: ONDANSETRON 4 MG/2 ML VIAL IVP STA (15:13)
[2024-05-27 15:33] LABS: Appearance,Urine Clear (Clear); Bilirubin,Urine Negative (Negative); Blood,Urine Negative (Negative); Color,Urine Yellow; Glucose,Urine (UA) Negative (Negative); Hyaline Casts,Urine 1 /lpf (0-2); Ketones,Urine Negative (Negative); Leukocyte Esterase,Urine Negative (Negative); Mucus,Urine Rare /hpf; Nitrite,Urine Negative (Negative); PH, Urine 6.5 (5.0-8.0); Protein,Urine 1+ (Negative); RBC,Urine <1 /hpf (0-5); Specific Gravity,Urine 1.026 (1.001-1.035); Squamous Epithelial Cell,Urine 1 /hpf (0-4); WBC,Urine 2 /hpf (0-5)
[2024-05-27] MEDS: POTASSIUM CHLORIDE 20 MEQ in WATER FOR INJECTION 1 100ML.BAG IVPB STA (15:35)
--- NOTE | 2024-05-27 17:19 | CT ---
EXAMINATION TYPE: CT chest angio for PE DATE OF EXAM: 05/27/2024 COMPARISON: September 19, [address] CLINICAL INDICATION: Female, 54 years old with history of hx buerger's hemoptysis, right low rib pain , Syncope, high dimer, TECHNIQUE: CTA scan of the thorax is performed with IV Contrast, patient injected with 75 mL of Isovue 370, pulm onary embolism protocol. MIP Images are created on CT scanner and reviewed. CT DLP: 1594.8 mGycm. Automated Exposure Control for Dose Reduction was Utilized. FINDINGS: LUNGS: There are new focal areas of groundglass opacity throughout the right lung upper and lower tino g involvement. Significant portion of the right lung is affected. Left lung is predominantly clear. N o pleural effusion or pneumothorax bilaterally. HEART: Cardiomegaly redemonstrated. Moderately severe three-vessel coronary artery calcification is p resent. MEDIASTINUM: There is a suboptimal study with most dense contrast in the SVC. There is no convincing CT evidence for acute pulmonary embolism. There is enhancement of the aorta without aneurysm or diss ection. There is new enlarged right hilar lymph node axial image 60 measuring 2.7 x 1.8 cm. Findings presumed reactive. OTHER: No additional significant abnormality is seen. IMPRESSION: 1. Suboptimal study without acute pulmonary embolism. 2. Multifocal and diffuse right lung groundglass opacities could reflect acute edema and/or acute inf iltrates. Correlate for multilobar right lung infection. [facility], , 05/27/2024 5:16 PM
--- NOTE | 2024-05-27 17:25 | CT ---
EXAMINATION TYPE: CT brain wo con DATE OF EXAM: 05/27/2024 COMPARISON: CT brain November 17, 2022 CLINICAL INDICATION: Female, 54 years old with history of syncope one week ago, hit head DOBSON, Syncope, high dimer TECHNIQUE: CT scan of the head is performed without contrast. CT DLP: 1594.8 mGycm. Automated Exposure Control for Dose Reduction was Utilized. FINDINGS: There is no acute intracranial hemorrhage or midline shift identified. Ventricles and sul ci are within normal limits in size for patient's age. Mild low-attenuation in the periventricular wh ite matter is redemonstrated. Bilateral aphakia is redemonstrated. Nasal septum remains deviated to r ight of midline. The visualized sinuses are clear. IMPRESSION: No acute intracranial hemorrhage or midline shift. No significant change from recent marah or CT. [facility], , 05/27/2024 5:22 PM
[2024-05-27] MEDS ORDERED: HEPARIN SODIUM 1,000 UN/ML (10ML VL) IV PRN (17:46)
[2024-05-27] MEDS ORDERED: VANCOMYCIN IV PER PHARMACY 1 EACH MISC MISCELLANE PRN (17:51)
[2024-05-27] MEDS ORDERED: PNEUMONIA PROTOCOL UTILIZED 1 EACH MISC PO PRN (17:53)
[2024-05-27] MEDS ORDERED: HEPARIN SOD,PORK IN 0.45% NACL 25,000 UNIT in 0.45% NACL 1 250ML.BAG IV SCH (18:00)
[2024-05-27] MEDS: PIPERACILLIN-TAZOBACTAM 3.375 GM in SODIUM CHLORIDE 0.9% 100 ML IVPB SCH (18:19)
[2024-05-27] MEDS: SODIUM CHLORIDE 0.9% 1,000 ML IV SCH (18:20)
[2024-05-27] MEDS: HEPARIN SODIUM 1,000 UN/ML (10ML VL) IV ONE (19:07)
[2024-05-27] MEDS: HYDROmorphone 1 MG/ML 1 ML SYRINGE IVP STA (19:44)
[2024-05-27] MEDS: VANCOMYCIN 1,250 MG in SODIUM CHLORIDE 0.9% 250 ML IVPB ONE (19:45)
[2024-05-27] MEDS: HYDROcodone/APAP 10-325MG 1 EACH TAB PO SCH (22:35)
[2024-05-27] MEDS: GABAPENTIN 300 MG CAP PO SCH (22:35)
[2024-05-27] MEDS: DULoxetine HCL 60 MG CAPSULE.DR PO SCH (22:36)
[2024-05-27] MEDS: QUEtiapine 100 MG TAB PO SCH (23:06)
[2024-05-27] MEDS: lamoTRIgine 25 MG TAB PO SCH (23:06)
[2024-05-27] MEDS: HEPARIN SODIUM,PORCINE 5,000 UNIT/ML 1 ML VIAL SQ SCH (23:19)
[2024-05-28] MEDS: VANCOMYCIN 1,250 MG in SODIUM CHLORIDE 0.9% 250 ML IVPB SCH (05:22)
[2024-05-28] MEDS: LORATADINE 10 MG TAB PO SCH (08:47)
[2024-05-28] MEDS: amLODIPine 5 MG TAB PO SCH (08:47)
[2024-05-28] MEDS: FLUTICASONE 44 MCG INHALER INHALATION SCH (09:33)
[2024-05-28 10:18] LABS: Basophils # (A) 0.05 X 10*3/uL (0.00-0.10); Basophils % (A) 0.6 %; Eosinophils # (A) 0.18 X 10*3/uL (0.04-0.35); Eosinophils % (A) 2.2 %; HCT 27.5 % (37.2-46.3); HGB 8.5 g/dL (12.0-15.0); Lymphocytes # (A) 2.05 X 10*3/uL (0.90-5.00); Lymphocytes % (A) 25.1 %; MCH 26.4 pg (27.0-32.0); MCHC 30.9 g/dL (32.0-37.0); MCV 85.4 FL (80.0-97.0); Mean Platelet Volume 9.9 FL (9.5-12.2); Monocytes % (A) 8.6 %; NRBC Per 100 WBC 0 X 10*3/uL (0.00-0.01); Neutrophils # (A) 5.14 X 10*3/uL (1.80-7.70); Neutrophils % (A) 62.9 %; Platelet Count 414 X 10*3/uL (140-440); RBC 3.22 X 10*6/uL (4.10-5.20); WBC 8.17 X 10*3/uL (4.50-10.00)
[2024-05-28 12:29] LABS: African American GFR (CKD) >90 (>60 ml/min/1.73 sqM); Anion Gap 6 mmol/L; Blood Urea Nitrogen 14 mg/dL (7-17); Calcium 9.2 mg/dL (8.4-10.2); Carbon Dioxide 22 mmol/L (22-30); Chloride 110 mmol/L (98-107); Glucose 86 mg/dL (74-99); Non-African American GFR(CKD) >90 (>60 ml/min/1.73 sqM); Potassium 3.5 mmol/L (3.5-5.1); Sodium 138 mmol/L (137-145)
[2024-05-28] MEDS: diphenhydrAMINE 50 MG/ML 1 ML VIAL IVP STA (13:34)
--- NOTE | 2024-05-28 15:45 | CT ---
EXAMINATION TYPE: CT soft tissue neck wo con DATE OF EXAM: 05/28/2024 COMPARISON: None CLINICAL INDICATION: Female, 54 years old with history of pain, difficulty swollowing; PHH, Pain, dif ficulty swallowing. TECHNIQUE: CT scan of the neck is performed , patient injected with mL of , axial images are obtaine d, coronal and sagittal reformatted images are reviewed. CT DLP: 255.[address] CTDI: mGy Automated exposure control for dose reduction was used. FINDINGS: Exam is somewhat limited due to lack of IV contrast. There are no supraclavicular lymph nodes. There is no thyroid mass or gross enlargement. The larynx including the cricoid, arytenoid and thyroid cartilages as well as the vocal cords are nor mal and symmetric. The tongue base, epiglottis, aryepiglottic folds, piriform sinuses and vallecula are normal and symme tric. The parotid and submandibular glands are normal and symmetric without focal mass or gross enlargement . There is marked prominence of the retropharyngeal soft tissues likely related to markedly enlarged re tropharyngeal tonsillar tissue. The great vessels of the neck are normal. There is no soft tissue swelling, inflammation or abscess. IMPRESSION: 1. Somewhat limited exam secondary to lack of IV contrast. 2. Prominent retropharyngeal soft tissue likely related to retropharyngeal tonsillar enlargement. [facility], , 05/28/2024 3:43 PM
[2024-05-28] MEDS: CEFEPIME 2 GM in SODIUM CHLORIDE 0.9% 100 ML IVPB SCH (16:07)
[2024-05-28] MEDS: BENZOCAINE SPRAY 1 EACH MUCOUS MEM PRN (16:37)
--- NOTE | 2024-05-28 18:43 | P.HPIM ---
History of Present Illness H&P Date: 05/27/24 Chief Complaint: Shortness of breath 54-year-old female, history of hypertension, hyperlipidemia, anxiety, depression/bipolar disorder, Burger's disease, presenting today for 4 months of intermittent upper respiratory infection symptoms. Was sent in by her primary care provider Dr. Smyth out of concerns for dehydration. History of Burger's disease. States over the last 4 months has had intermittent cough, shortness of breath, sore throat. Has recently developed sores in her mouth making it difficult for her to eat and drink. Most recently she has had mild to mopped assist, states she is intermittently coughing up small streaks of blood in her sputum. No lower extremity swelling, history DVT or PE. Denies fevers or chills, abdominal pain, nausea vomiting, diarrhea, melena, medic easier, no focal numbness or weakness. Patient also states she has had 2 episodes of syncope in the last 2 weeks. Last episode was 1 week ago. Patient states feels secondary to dehydration. States she feels she stands up too fast, gets lightheaded and then lost conscious. States she did have a episode of urinary incontinence no tongue biting. No history prior seizures heard. Also endorses injuring her right foot during her most recent episode of syncope. Has been abl e to ambulate with a limp. Not on blood thinners. Blood work completed in ED reveals a WBC of 13.2, hemoglobin of 10.2 and platelet count of 578, sodium 138, potassium 3.1, BUNs/creatinine of 19/0.65, blood glucose of 125, AST/ALT elevated at 155/105, BNP of 841, lactic acid of 1.1 and troponin less than 0.012 Review of Systems REVIEW OF SYSTEMS: CONSTITUTIONAL: No fever, no malaise, no fatigue. HEENT: No recent visual problems or hearing problems. Denied any sore throat. CARDIOVASCULAR: No chest pain, orthopnea, PND, no palpitations, no syncope. PULMONARY: No shortness of breath, no cough, no hemoptysis. GASTROINTESTINAL: No diarrhea, no nausea, no vomiting, no abdominal pain. NEUROLOGICAL: No headaches, no weakness, no numbness. HEMATOLOGICAL: Denies any bleeding or petechiae. GENITOURINARY: Denies any burning micturition, frequency, or urgency. MUSCULOSKELETAL/RHEUMATOLOGICAL: Denies any joint pain, swelling, or any muscle pain. ENDOCRINE: Denies any polyuria or polydipsia. The rest of the 14-point review of systems is negative. Past Medical History Past Medical History: Hyperlipidemia, Hypertension, Osteoarthritis (OA) Additional Past Medical History / Comment(s): back/neck pain, migraines, gout,anxiety,depression,bipolar, bergers disease History of Any Multi-Drug Resistant Organisms: None Reported Past Surgical History: Orthopedic Surgery, Tubal Ligation, Uterine Ablation Additional Past Surgical History / Comment(s): RIGHT ELBOW SURGERY , adenosine given x [address] to hospital on 09/06/20 for SVT Past Anesthesia/Blood Transfusion Reactions: No Reported Reaction Additional Past Anesthesia/Blood Transfusion Reaction / Comment(s): NEVER HAD BLOOD TRANSFUSION Past Psychological History: Anxiety, Bipolar, Depression Smoking Status: Current every day smoker, Vaper Past Alcohol Use History: None Reported Past Drug Use History: None Reported - Past Family History Mother Family Medical History: Coronary Artery Disease (CAD), Diabetes Mellitus, Hypertension Additional Family Medical History / Comment(s): LUPUS Father Family Medical History: Dementia Medications and Allergies Home Medications Medication Instructions Recorded Confirmed Type Baclofen 10 mg PO BID PRN #60 tab 04/12/22 05/27/24 Rx Butalb/APAP/Caff 50-325-40Mg 1 tab PO BID PRN #60 tab 04/12/22 05/27/24 Rx [Fioricet 50-325-40] DULoxetine HCL [Cymbalta] 60 mg PO HS 30 Days #30 cap 04/12/22 05/27/24 Rx QUEtiapine [SEROquel] 100 mg PO HS 30 Days #30 tab 04/12/22 05/27/24 Rx rOPINIRole HCL [Requip] 0.25 mg PO HS PRN #30 tab 04/12/22 05/27/24 Rx Albuterol Inhaler [Ventolin Hfa 2 puff INHALATION RT-QID PRN 05/27/24 05/27/24 History Inhaler] Budesonide [Pulmicort Flexhaler] 1 puff INHALATION RT-BID 05/27/24 05/27/24 History Diclofenac Sodium Gel [Voltaren 1% 2 gm TOPICAL QID 05/27/24 05/27/24 History Gel] Gabapentin 300 mg PO TID 05/27/24 05/27/24 History HYDROcodone/APAP 10-325MG [[place] 1 tab PO Q6H 05/27/24 05/27/24 History 10-325] Ibuprofen [Motrin] 600 mg PO TID 05/27/24 05/27/24 History Lidocaine 5% Oint [Xylocaine 5% 1 applic TOPICAL QID PRN 05/27/24 05/27/24 History Oint] Loratadine [Claritin] 10 mg PO DAILY 05/27/24 05/27/24 History Terbinafine [LamISIL] 250 mg PO DAILY 05/27/24 05/27/24 History amLODIPine [Norvasc] 5 mg PO DAILY 05/27/24 05/27/24 History lamoTRIgine [LaMICtal] 25 mg PO BID 05/27/24 05/27/24 History Allergies Allergy/AdvReac Type Severity Reaction Status Date / Time aspirin AdvReac Nausea & Verified 05/27/24 17:58 Vomiting Physical Exam Vitals: Vital Signs Temp Pulse Resp BP Pulse Ox 05/27/24 18:23 70 18 127/67 92 L 05/27/24 17:26 65 22 139/78 94 L 05/27/24 15:17 74 17 137/77 99 05/27/24 12:50 68 18 142/85 99 05/27/24 12:25 98.0 F 83 20 114/66 94 L Intake and Output 05/27/24 05/27/24 05/27/24 06:59 14:59 22:59 Other: Weight 75.296 kg CONSTITUTIONAL: No apparent distress, chronically ill-appearing nontoxic SKIN: Warm, dry, no jaundice, hives or petechiae; purple bruising across the dorsal aspect of the right foot extending up towards the right lateral malleolus EYES: Pupils are equally round, extraocular movements intact without nystagmus, clear conjunctiva, non-icteric sclera HENT: Normocephalic, atraumatic, dry mucus membranes, patient has ulcerative lesions with an erythematous base on buccal mucosa extending to the posterior oropharynx NECK: , Full range of motion, normal appearance, no midline spinal tenderness to palpation PULMONARY: Right posterior rib tenderness to palpation without overlying bruising, clear to auscultation without wheezes, rhonchi, or rales, normal excursion, no accessory muscle use and no stridor CARDIOVASCULAR: Regular rate, rhythm, normal S1 and S2. No appreciated murmurs, rubs or gallops. Strong radial pulses with intact distal perfusion. No lower extremity edema GASTROINTESTINAL: Soft, active bowel sounds throughout, non-tender, non- distended, no palpable masses, no rebound or guarding. No hepatosplenomegaly MUSCULOSKELETAL: Extremities have no gross deformity, no calf swelling, no edema, tenderness to palpation of the dorsal aspect of the right foot, right lateral malleolus, small amount of swelling in this region as well, pain with plantar and dorsiflexion, no tenderness palpation of the proximal tib-fib, able to move toes, neurovascularly intact NEUROLOGIC:_a/o x 3, GCS 15, normal mentation and speech. Moves all extremities x 4 without motor or sensory deficit Results CBC & Chem 7: 05/28/24 06:48 05/28/24 06:48 Labs: Abnormal Lab Results - Last 24 Hours (Table) 05/27/24 05/27/24 05/27/24 Range/Units 13:13 13:13 13:13 WBC 13.2 H (3.8-10.6) k/uL Hgb 10.2 L (11.4-16.0) gm/dL Hct 31.6 L (34.0-46.0) % Plt Count 578 H (150-450) k/uL Neutrophils # 10.8 H (1.3-7.7) k/uL APTT 20.2 L (22.0-30.0) sec Potassium 3.1 L (3.5-5.1) mmol/L BUN 19 H (7-17) mg/dL Glucose 125 H (74-99) mg/dL AST 155 H (14-36) U/L ALT 105 H (4-34) U/L Alkaline Phosphatase 171 H (38-126) U/L Urine Protein (Negative) Urine Mucus (None) /hpf 05/27/24 Range/Units 15:18 WBC (3.8-10.6) k/uL Hgb (11.4-16.0) gm/dL Hct (34.0-46.0) % Plt Count (150-450) k/uL Neutrophils # (1.3-7.7) k/uL APTT (22.0-30.0) sec Potassium (3.5-5.1) mmol/L BUN (7-17) mg/dL Glucose (74-99) mg/dL AST (14-36) U/L ALT (4-34) U/L Alkaline Phosphatase (38-126) U/L Urine Protein 1+ H (Negative) Urine Mucus Rare H (None) /hpf Assessment and Plan Assessment: 1. Multilobar pneumonia -CT of the chest completed in ED reveals multifocal and diffuse right lung groundglass opacities reflecting edema versus acute infiltrates likely multi lobar right lung pneumonia -Patient has been placed on IV cefepime and vancomycin -We will order antitussive therapy; bronchodilator nebulizer treatments -Monitor CBC, CRP and procalcitonin -Consult ID 2. Mild ELFEGO; slow IV fluid hydration with normal saline at rate of 75 cc an hour; monitor strict SARAY's, daily weights, renal function electrolytes; avoid nephrotoxins and hypotension 3. Transaminitis; AST/ALT elevated at 155/105; etiology unclear; we will monitor liver enzymes; order hepatitis profile; right upper quadrant ultrasound 4. Hypertension; Norvasc 5 mg daily 5. Restless leg syndrome; Requip 0.25 mg nightly 6. COPD; not in exacerbation; continue with home inhaler therapy 7. Bipolar depression; Seroquel 100 mg p.o. nightly; Lamictal 25 mg twice mata ly; Cymbalta 60 mg nightly 8. Chronic back pain; [place] 10 mg every 6 hours; baclofen 10 mg twice daily DVT prophylaxis; SCDs/subcu heparin CODE STATUS; full code
--- NOTE | 2024-05-28 18:44 | P.PN ---
Subjective Progress Note Date: 05/28/24 54-year-old female, history of hypertension, hyperlipidemia, anxiety, depression/bipolar disorder, Burger's disease, presenting today for 4 months of intermittent upper respiratory infection symptoms. Was sent in by her primary care provider Dr. Smyth out of concerns for dehydration. History of Burger's disease. States over the last 4 months has had intermittent cough, shortness of breath, sore throat. Has recently developed sores in her mouth making it difficult for her to eat and drink. Most recently she has had mild to mopped assist, states she is intermittently coughing up small streaks of blood in her sputum. No lower extremity swelling, history DVT or PE. Denies fevers or chills, abdominal pain, nausea vomiting, diarrhea, melena, medic easier, no focal numbness or weakness. Patient also states she has had 2 episodes of syncope in the last 2 weeks. Last episode was 1 week ago. Patient states feels secondary to dehydration. States she feels she stands up too fast, gets lighthe aded and then lost conscious. States she did have a episode of urinary incontinence no tongue biting. No history prior seizures heard. Also endorses injuring her right foot during her most recent episode of syncope. Has been able to ambulate with a limp. Not on blood thinners. Blood work completed in ED reveals a WBC of 13.2, hemoglobin of 10.2 and platelet count of 578, sodium 138, potassium 3.1, BUNs/creatinine of 19/0.65, blood glucose of 125, AST/ALT elevated at 155/105, BNP of 841, lactic acid of 1.1 and troponin less than 0.012 Objective - Vital Signs Vital signs: Vital Signs Temp 98.4 F 05/28/24 07:05 Pulse 62 05/28/24 07:05 Resp 16 05/28/24 07:05 BP 131/70 05/28/24 07:05 Pulse Ox 92 L 05/28/24 09:35 FiO2 21 05/28/24 09:35 Intake & Output 05/27/24 05/28/24 05/28/24 18:59 06:59 18:59 Weight 75.296 kg Other: # Voids 1 - Exam CONSTITUTIONAL: No apparent distress, chronically ill-appearing nontoxic SKIN: Warm, dry, no jaundice, hives or petechiae; purple bruising across the dorsal aspect of the right foot extending up towards the right lateral malleolus EYES: Pupils are equally round, extraocular movements intact without nystagmus, clear conjunctiva, non-icteric sclera HENT: Normocephalic, atraumatic, dry mucus membranes, patient has ulcerative lesions with an erythematous base on buccal mucosa extending to the posterior oropharynx NECK: , Full range of motion, normal appearance, no midline spinal tenderness to palpation PULMONARY: Right posterior rib tenderness to palpation without overlying bruising, clear to auscultation without wheezes, rhonchi, or rales, normal excursion, no accessory muscle use and no stridor CARDIOVASCULAR: Regular rate, rhythm, normal S1 and S2. No appreciated murmurs, rubs or gallops. Strong radial pulses with intact distal perfusion. No lower extremity edema GASTROINTESTINAL: Soft, active bowel sounds throughout, non-tender, non- distended, no palpable masses, no rebound or guarding. No hepatosplenomegaly MUSCULOSKELETAL: Extremities have no gross deformity, no calf swelling, no edema, tenderness to palpation of the dorsal aspect of the right foot, right lateral malleolus, small amount of swelling in this region as well, pain with plantar and dorsiflexion, no tenderness palpation of the proximal tib-fib, able to move toes, neurovascularly intact NEUROLOGIC:_a/o x 3, GCS 15, normal mentation and speech. Moves all extremities x 4 without motor or sensory deficit - Labs CBC & Chem 7: 05/28/24 06:48 05/28/24 06:48 Labs: Abnormal Lab Results - Last 24 Hours (Table) 05/27/24 05/27/24 05/27/24 Range/Units 13:13 13:13 13:13 WBC 13.2 H (3.8-10.6) k/uL RBC (4.10-5.20) X 10*6/uL Hgb 10.2 L (11.4-16.0) gm/dL Hct 31.6 L (34.0-46.0) % MCH (27.0-32.0) pg MCHC (32.0-37.0) g/dL RDW (11.5-14.5) % Plt Count 578 H (150-450) k/uL Immature Gran # (0.00-0.04) X 10*3/uL Neutrophils # 10.8 H (1.3-7.7) k/uL APTT 20.2 L (22.0-30.0) sec Potassium 3.1 L (3.5-5.1) mmol/L Chloride (98-107) mmol/L BUN 19 H (7-17) mg/dL Glucose 125 H (74-99) mg/dL AST 155 H (14-36) U/L ALT 105 H (4-34) U/L Alkaline Phosphatase 171 H (38-126) U/L C-Reactive Protein (<1.0) mg/dL Urine Protein (Negative) Urine Mucus (None) /hpf 05/27/24 05/27/24 05/28/24 Range/Units 13:13 15:18 06:48 WBC (3.8-10.6) k/uL RBC (4.10-5.20) X 10*6/uL Hgb (11.4-16.0) gm/dL Hct (34.0-46.0) % MCH (27.0-32.0) pg MCHC (32.0-37.0) g/dL RDW (11.5-14.5) % Plt Count (150-450) k/uL Immature Gran # (0.00-0.04) X 10*3/uL Neutrophils # (1.3-7.7) k/uL APTT (22.0-30.0) sec Potassium (3.5-5.1) mmol/L Chloride 110 H (98-107) mmol/L BUN (7-17) mg/dL Glucose (74-99) mg/dL AST (14-36) U/L ALT (4-34) U/L Alkaline Phosphatase (38-126) U/L C-Reactive Protein 18.9 H (<1.0) mg/dL Urine Protein 1+ H (Negative) Urine Mucus Rare H (None) /hpf 05/28/24 Range/Units 06:48 WBC (3.8-10.6) k/uL RBC 3.22 L (4.10-5.20) X 10*6/uL Hgb 8.5 L (11.4-16.0) gm/dL Hct 27.5 L (34.0-46.0) % MCH 26.4 L (27.0-32.0) pg MCHC 30.9 L (32.0-37.0) g/dL RDW 15.0 H (11.5-14.5) % Plt Count (150-450) k/uL Immature Gran # 0.05 H (0.00-0.04) X 10*3/uL Neutrophils # (1.3-7.7) k/uL APTT (22.0-30.0) sec Potassium (3.5-5.1) mmol/L Chloride (98-107) mmol/L BUN (7-17) mg/dL Glucose (74-99) mg/dL AST (14-36) U/L ALT (4-34) U/L Alkaline Phosphatase (38-126) U/L C-Reactive Protein (<1.0) mg/dL Urine Protein (Negative) Urine Mucus (None) /hpf Assessment and Plan Assessment: 1. Multilobar pneumonia -CT of the chest completed in ED reveals multifocal and diffuse right lung groundglass opacities reflecting edema versus acute infiltrates likely multi lobar right lung pneumonia -Patient has been placed on IV cefepime and vancomycin -We will order antitussive therapy; bronchodilator nebulizer treatments -Monitor CBC, CRP and procalcitonin -Consult ID 2. Mild ELFEGO; slow IV fluid hydration with normal saline at rate of 75 cc an hour; monitor strict SARAY's, daily weights, renal function electrolytes; avoid nephrotoxins and hypotension 3. Transaminitis; AST/ALT elevated at 155/105; etiology unclear; we will monitor liver enzymes; order hepatitis profile; right upper quadrant ultrasound 4. Hypertension; Norvasc 5 mg daily 5. Restless leg syndrome; Requip 0.25 mg nightly 6. COPD; not in exacerbation; continue with home inhaler therapy 7. Bipolar depression; Seroquel 100 mg p.o. nightly; Lamictal 25 mg twice soledad y; Cymbalta 60 mg nightly 8. Chronic back pain; [place] 10 mg every 6 hours; baclofen 10 mg twice daily DVT prophylaxis; SCDs/subcu heparin CODE STATUS; full code
--- NOTE | 2024-05-28 20:32 | P.CONS ---
History of Present Illness - Reason for Consult Consult date: 05/28/24 Pneumonia Requesting physician: Hazel Ybarra - Chief Complaint Shortness of breath and cough x days - History of Present Illness Patient is a 54-year-old female with a past medical history significant for hypertension hyperlipidemia osteoarthritis anxiety depression, presenting to the hospital for evaluation of increasing shortness of breath cough sore throat symptom has been off-and-on going on for the last 4 months however did have recent worsening patient cough is moderate intensity and has been coughing up some blood streaks sputum no kristina hemoptysis no pleuritic chest pain no nausea vomiting abdominal pain or diarrhea patient did not have any fever on presentation to the hospital patient was not tachycardic or hypotensive not hypoxic currently on room air did have white count of 13.2 with a left shift creatinine 0.65 liver isms mildly elevated urine has been negative influenza RSV COVID testing negative patient did have a chest x-ray followed by CT angiogram of the chest it was a suboptimal study for the pain however did shows multifocal and diffuse right lung opacities could reflect acute infiltrate patient was started on vancomycin and Zosyn infectious was consulted for pneumonia Review of Systems Positive point and negatives has been mentioned in the HPI, complete review of systems was performed and all other systems are negative Past Medical History Past Medical History: Hyperlipidemia, Hypertension, Osteoarthritis (OA) Additional Past Medical History / Comment(s): back/neck pain, migraines, gout,anxiety,depression,bipolar, bergers disease History of Any Multi-Drug Resistant Organisms: None Reported Past Surgical History: Orthopedic Surgery, Tubal Ligation, Uterine Ablation Additional Past Surgical History / Comment(s): RIGHT ELBOW SURGERY , adenosine given x [address] to hospital on 09/06/20 for SVT Past Anesthesia/Blood Transfusion Reactions: No Reported Reaction Additional Past Anesthesia/Blood Transfusion Reaction / Comm: NEVER HAD BLOOD TRANSFUSION Past Psychological History: Anxiety, Bipolar, Depression Smoking Status: Current every day smoker, Vaper Past Alcohol Use History: None Reported Past Drug Use History: None Reported - Past Family History Mother Family Medical History: Coronary Artery Disease (CAD), Diabetes Mellitus, Hypertension Additional Family Medical History / Comment(s): LUPUS Father Family Medical History: Dementia Medications and Allergies Home Medications Medication Instructions Recorded Confirmed Type Baclofen 10 mg PO BID PRN #60 tab 04/12/22 05/27/24 Rx Butalb/APAP/Caff 50-325-40Mg 1 tab PO BID PRN #60 tab 04/12/22 05/27/24 Rx [Fioricet 50-325-40] DULoxetine HCL [Cymbalta] 60 mg PO HS 30 Days #30 cap 04/12/22 05/27/24 Rx QUEtiapine [SEROquel] 100 mg PO HS 30 Days #30 tab 04/12/22 05/27/24 Rx rOPINIRole HCL [Requip] 0.25 mg PO HS PRN #30 tab 04/12/22 05/27/24 Rx Albuterol Inhaler [Ventolin Hfa 2 puff INHALATION RT-QID PRN 05/27/24 05/27/24 History Inhaler] Budesonide [Pulmicort Flexhaler] 1 puff INHALATION RT-BID 05/27/24 05/27/24 History Diclofenac Sodium Gel [Voltaren 1% 2 gm TOPICAL QID 05/27/24 05/27/24 History Gel] Gabapentin 300 mg PO TID 05/27/24 05/27/24 History HYDROcodone/APAP 10-325MG [[place] 1 tab PO Q6H 05/27/24 05/27/24 History 10-325] Ibuprofen [Motrin] 600 mg PO TID 05/27/24 05/27/24 History Lidocaine 5% Oint [Xylocaine 5% 1 applic TOPICAL QID PRN 05/27/24 05/27/24 History Oint] Loratadine [Claritin] 10 mg PO DAILY 05/27/24 05/27/24 History Terbinafine [LamISIL] 250 mg PO DAILY 05/27/24 05/27/24 History amLODIPine [Norvasc] 5 mg PO DAILY 05/27/24 05/27/24 History lamoTRIgine [LaMICtal] 25 mg PO BID 05/27/24 05/27/24 History Allergies Allergy/AdvReac Type Severity Reaction Status Date / Time aspirin AdvReac Nausea & Verified 05/27/24 17:58 Vomiting Physical Exam Vitals: Vital Signs Temp Pulse Pulse Resp BP BP BP 05/28/24 09:35 05/28/24 07:05 98.4 F 62 16 131/70 05/28/24 00:55 98.2 F 58 L 16 98/58 05/27/24 21:50 16 05/27/24 19:53 81 16 128/84 05/27/24 18:23 70 18 127/67 05/27/24 17:26 65 22 139/78 05/27/24 15:17 74 17 137/77 05/27/24 12:50 68 18 142/85 05/27/24 12:25 98.0 F 83 20 114/66 Pulse Ox FiO2 05/28/24 09:35 92 L 21 05/28/24 07:05 92 L 05/28/24 00:55 92 L 05/27/24 21:50 05/27/24 19:53 96 05/27/24 18:23 92 L 05/27/24 17:26 94 L 05/27/24 15:17 99 05/27/24 12:50 99 05/27/24 12:25 94 L Intake and Output 05/27/24 05/28/24 05/28/24 22:59 06:59 14:59 Other: # Voids 1 Weight 75.296 kg GENERAL DESCRIPTION: Middle-age female lying in bed, no distress. No tachypnea or accessory muscle of respiration use. HEENT: Shows Pallor , no scleral icterus. Oral mucous membrane is dry. No pharyngeal erythema or thrush NECK: Trachea central, no thyromegaly. LUNGS: Unlabored breathing. Coarse breath sounds bilaterally HEART: S1, S2, regular rate and rhythm. No loud murmur ABDOMEN: Soft, no tenderness , guarding or rigidity, no organomegaly EXTREMITIES: No edema of feet. SKIN: No rash, no masses palpable. NEUROLOGICAL: The patient is awake, alert, oriented x3, mood and affect normal. Results CBC & Chem 7: 05/28/24 06:48 05/28/24 06:48 Labs: Abnormal Lab Results - Last 24 Hours (Table) 05/27/24 05/27/24 05/27/24 Range/Units 13:13 13:13 13:13 WBC 13.2 H (3.8-10.6) k/uL RBC (4.10-5.20) X 10*6/uL Hgb 10.2 L (11.4-16.0) gm/dL Hct 31.6 L (34.0-46.0) % MCH (27.0-32.0) pg MCHC (32.0-37.0) g/dL RDW (11.5-14.5) % Plt Count 578 H (150-450) k/uL Immature Gran # (0.00-0.04) X 10*3/uL Neutrophils # 10.8 H (1.3-7.7) k/uL APTT 20.2 L (22.0-30.0) sec Potassium 3.1 L (3.5-5.1) mmol/L BUN 19 H (7-17) mg/dL Glucose 125 H (74-99) mg/dL AST 155 H (14-36) U/L ALT 105 H (4-34) U/L Alkaline Phosphatase 171 H (38-126) U/L C-Reactive Protein (<1.0) mg/dL Urine Protein (Negative) Urine Mucus (None) /hpf 05/27/24 05/27/24 05/28/24 Range/Units 13:13 15:18 06:48 WBC (3.8-10.6) k/uL RBC 3.22 L (4.10-5.20) X 10*6/uL Hgb 8.5 L (11.4-16.0) gm/dL Hct 27.5 L (34.0-46.0) % MCH 26.4 L (27.0-32.0) pg MCHC 30.9 L (32.0-37.0) g/dL RDW 15.0 H (11.5-14.5) % Plt Count (150-450) k/uL Immature Gran # 0.05 H (0.00-0.04) X 10*3/uL Neutrophils # (1.3-7.7) k/uL APTT (22.0-30.0) sec Potassium (3.5-5.1) mmol/L BUN (7-17) mg/dL Glucose (74-99) mg/dL AST (14-36) U/L ALT (4-34) U/L Alkaline Phosphatase (38-126) U/L C-Reactive Protein 18.9 H (<1.0) mg/dL Urine Protein 1+ H (Negative) Urine Mucus Rare H (None) /hpf Assessment and Plan (1) Multifocal pneumonia Current Visit: Yes Status: Acute Code(s): J18.9 - PNEUMONIA, UNSPECIFIED ORGANISM SNOMED Code(s): 893435357 Plan: 1patient is in the hospital with increasing shortness of breath cough and sputum production with evidence of multifocal pneumonia on the right side with a question of community acquired versus residual gram-positive or gram-negative pathogen 2-try to obtain sputum for Gram stain and culture 3-continue vancomycin however switch Zosyn to cefepime to decrease risk of neurotoxicity Question concern answered We will follow on clinical condition and cultures to further adjust medication if needed Thank you for this consultation we will follow the patient along with you Dictation was produced using [employer] dictation software. please excuse any grammatical, word or spelling errors. Time with Patient: Greater than 30
[2024-05-29] MEDS: VANCOMYCIN TROUGH DUE 1 EACH MISC MISCELLANE ONE (07:18)
--- NOTE | 2024-05-29 08:02 | US ---
EXAMINATION TYPE: US liver DATE OF EXAM: 05/29/2024 COMPARISON: CT abdomen 2018 CLINICAL INDICATION: Female, 54 years old with history of Elevated liver enzyme; Patient denies any s igns, symptoms, or relevant history TECHNIQUE: Grayscale and color Doppler imaging of the right upper quadrant was performed. FINDINGS: EXAM MEASUREMENTS: Liver Length: 17.8 cm Gallbladder Wall: 0.2 cm CBD: 0.5 cm Right Kidney: 12.1 x 4.7 x 6.0 cm [employer] TECHNICIAN NOTES: Pancreas: wnl Liver: wnl Gallbladder: wnl Evidence for sonographic Cervantes's sign: No CBD: wnl Right Kidney: wnl IMPRESSION: Mild hepatomegaly redemonstrated. No focal intrahepatic mass or biliary dilatation noted. [facility], , 05/29/2024 8:00 AM
[2024-05-29 10:40] LABS: Basophils # (A) 0.05 X 10*3/uL (0.00-0.10); Basophils % (A) 0.5 %; Eosinophils # (A) 0.25 X 10*3/uL (0.04-0.35); Eosinophils % (A) 2.3 %; HCT 29.8 % (37.2-46.3); HGB 9.5 g/dL (12.0-15.0); Lymphocytes # (A) 1.78 X 10*3/uL (0.90-5.00); Lymphocytes % (A) 16.1 %; MCH 26.7 pg (27.0-32.0); MCHC 31.9 g/dL (32.0-37.0); MCV 83.7 FL (80.0-97.0); Mean Platelet Volume 10.1 FL (9.5-12.2); Monocytes % (A) 7.2 %; NRBC Per 100 WBC 0 X 10*3/uL (0.00-0.01); Neutrophils # (A) 7.98 X 10*3/uL (1.80-7.70); Neutrophils % (A) 72.3 %; Platelet Count 438 X 10*3/uL (140-440); RBC 3.56 X 10*6/uL (4.10-5.20); RDW 14.8 % (11.5-14.5); WBC 11.04 X 10*3/uL (4.50-10.00)
[2024-05-29 12:50] LABS: Hepatitis A Antibody IgM Nonreactive (Nonreactive); Hepatitis B Core IgM Nonreactive (Nonreactive); Hepatitis C IgG Antibody Nonreactive (Nonreactive)
[2024-05-29 13:16] LABS: Hepatitis B Surface Antigen Nonreactive (Nonreactive)
--- NOTE | 2024-05-29 15:10 | P.PN ---
Subjective Progress Note Date: 05/29/24 Principal diagnosis: Reason for follow-up is pneumonia Patient is a 54-year-old female with a past medical history significant for hypertension hyperlipidemia osteoarthritis anxiety depression, presenting to the hospital for evaluation of increasing shortness of breath cough sore throat, patient be diagnosed with pneumonia prompting this consultation. On today's evaluation that is 05/29/2024, the patient continues to be afebrile, the patient is on room air and breathing comfortably, the Pt denies having any chest pain or any worsening cough, the patient denies having any abdominal pain no vomiting or any diarrhea, still complaining of sore throat. The patient white count is 11.04 creatinine 0.68 sputum with Staph aureus sensitivities pending Objective - Vital Signs Vital signs: Vital Signs Temp 98.2 F 05/29/24 06:58 Pulse 73 05/29/24 06:58 Resp 16 05/29/24 06:58 BP 188/78 05/29/24 06:58 Pulse Ox 94 L 05/29/24 06:58 FiO2 21 05/28/24 09:35 Intake & Output 05/28/24 05/29/24 05/29/24 18:59 06:59 18:59 Intake Total 1450 Balance 1450 Intake: Intake, IV Titration 1450 Amount Cefepime 2 gm In Sodium 100 Chloride 0.9% 100 ml @ 25 mls/hr IVPB Q8HR ROB Rx# :[id number] Sodium Chloride 0.9% 1, 1100 000 ml @ 100 mls/hr IV . Q10H ROB Rx#:[id number] Vancomycin 1,250 mg In 250 Sodium Chloride 0.9% 250 ml @ 125 mls/hr IVPB Q12H ROB Rx#:[id number] Other: # Voids 3 - Exam GENERAL DESCRIPTION: Middle-age female lying in bed in no distress RESPIRATORY SYSTEM: Unlabored breathing , decreased breath sounds at bases HEART: S1 S2 regular rate and rhythm , ABDOMEN: Soft , no tenderness EXTREMITIES: No edema feet - Labs CBC & Chem 7: 05/29/24 06:35 05/28/24 06:48 Labs: Abnormal Lab Results - Last 24 Hours (Table) 05/29/24 Range/Units 06:35 WBC 11.04 H (4.50-10.00) X 10*3/uL RBC 3.56 L (4.10-5.20) X 10*6/uL Hgb 9.5 L (12.0-15.0) g/dL Hct 29.8 L (37.2-46.3) % MCH 26.7 L (27.0-32.0) pg MCHC 31.9 L (32.0-37.0) g/dL RDW 14.8 H (11.5-14.5) % Immature Gran # 0.18 H (0.00-0.04) X 10*3/uL Neutrophils # 7.98 H (1.80-7.70) X 10*3/uL Microbiology - Last 24 Hours (Table) 05/27/24 13:23 Blood Culture - Preliminary Blood 05/28/24 08:38 Gram Stain - Preliminary Sputum Assessment and Plan (1) Multifocal pneumonia Current Visit: Yes Status: Acute Code(s): J18.9 - PNEUMONIA, UNSPECIFIED ORGANISM SNOMED Code(s): 652335176 Plan: 1patient is in the hospital with increasing shortness of breath cough and sputum production with evidence of multifocal pneumonia on the right side with a question of community acquired versus residual gram-positive or gram-negative pathogen 2-sputum currently growing Staph aureus with sensitivities pending 3-patient to continue vancomycin and cefepime while waiting for the culture to finalize and add Cepacol lozenges Dictation was produced using [employer] dictation software. please excuse any grammatical, word or spelling errors. Time with Patient: Less than 30
[2024-05-29] MEDS: VANCOMYCIN 1,500 MG in SODIUM CHLORIDE 0.9% 500 ML 500 ML IVPB SCH (16:59)
[2024-05-29] MEDS: BENZOCAINE/MENTHOL LOZENG 1 EACH LOZENGE MUCOUS MEM PRN (17:02)
[2024-05-29] MEDS: BACLOFEN 10 MG TAB PO PRN (20:19)
[2024-05-30 04:46] LABS: ALT 67 U/L (4-34); AST 39 U/L (14-36); African American GFR (CKD) >90 (>60 ml/min/1.73 sqM); Alkaline Phosphatase 134 U/L (38-126); Anion Gap 10 mmol/L; Bilirubin,Unconjugated 0.2 mg/dL (0.0-1.1); Blood Urea Nitrogen 8 mg/dL (7-17); Calcium 8.9 mg/dL (8.4-10.2); Carbon Dioxide 20 mmol/L (22-30); Chloride 107 mmol/L (98-107); Glucose 107 mg/dL (74-99); Non-African American GFR(CKD) >90 (>60 ml/min/1.73 sqM); Potassium 3.3 mmol/L (3.5-5.1); Sodium 137 mmol/L (137-145); Total Bilirubin 0.4 mg/dL (0.2-1.3)
[2024-05-30 07:46] LABS: African American GFR (CKD) >90 (>60 ml/min/1.73 sqM); Anion Gap 9 mmol/L; Blood Urea Nitrogen 6 mg/dL (7-17); Calcium 9.1 mg/dL (8.4-10.2); Carbon Dioxide 24 mmol/L (22-30); Chloride 104 mmol/L (98-107); Glucose 110 mg/dL (74-99); Non-African American GFR(CKD) >90 (>60 ml/min/1.73 sqM); Potassium 3.2 mmol/L (3.5-5.1); Sodium 137 mmol/L (137-145)
[2024-05-30 09:18] LABS: Basophils # (A) 0.05 X 10*3/uL (0.00-0.10); Basophils % (A) 0.5 %; Eosinophils % (A) 2.8 %; HCT 31.8 % (37.2-46.3); HGB 10.2 g/dL (12.0-15.0); Lymphocytes # (A) 1.73 X 10*3/uL (0.90-5.00); Lymphocytes % (A) 16.2 %; MCH 26.4 pg (27.0-32.0); MCHC 32.1 g/dL (32.0-37.0); MCV 82.2 FL (80.0-97.0); Mean Platelet Volume 9.9 FL (9.5-12.2); Monocytes # (A) 0.71 X 10*3/uL (0.20-1.00); Monocytes % (A) 6.6 %; NRBC Per 100 WBC 0 X 10*3/uL (0.00-0.01); Neutrophils # (A) 7.75 X 10*3/uL (1.80-7.70); Neutrophils % (A) 72.5 %; Platelet Count 473 X 10*3/uL (140-440); RBC 3.87 X 10*6/uL (4.10-5.20); RDW 14.6 % (11.5-14.5); WBC 10.69 X 10*3/uL (4.50-10.00)
--- NOTE | 2024-05-30 10:23 | P.GSCN ---
History of Present Illness Consult date: 05/30/24 Reason for Consult: Dysphagia History of present illness: 54-year-old female here with pulmonary issues. Had shortness of breath and cough. Had been going on for the last several weeks and according to the chart may be of in the last several months. We were consulted for dysphagia. Patient states that she has significant discomfort in the back of her throat when swallowing. Says it makes it difficult to swallow. Does not seem like once the food is being swallowed but there is an issue. Patient is pointing to her upper neck region. She had a CAT scan showing some thickening of the retropharyngeal tissues. No direct visualization has been performed that I can see. ENT is not following yet. Patient does have history of a previous EGD. Says it did not show anything significant. This was many years ago she says. Review of Systems The patient denies any acute changes in vision or hearing, no dysuria or hematuria, no headache, no runny nose, no rectal bleeding or melena, no unexplained weight loss Past Medical History Past Medical History: Hyperlipidemia, Hypertension, Osteoarthritis (OA) Additional Past Medical History / Comment(s): back/neck pain, migraines, gout,anxiety,depression,bipolar, bergers disease History of Any Multi-Drug Resistant Organisms: None Reported Past Surgical History: Orthopedic Surgery, Tubal Ligation, Uterine Ablation Additional Past Surgical History / Comment(s): RIGHT ELBOW SURGERY , adenosine given x [address] to hospital on 09/06/20 for SVT Past Anesthesia/Blood Transfusion Reactions: No Reported Reaction Additional Past Anesthesia/Blood Transfusion Reaction / Comm: NEVER HAD BLOOD TRANSFUSION Past Psychological History: Anxiety, Bipolar, Depression Smoking Status: Current every day smoker, Vaper Past Alcohol Use History: None Reported Past Drug Use History: None Reported - Past Family History Mother Family Medical History: Coronary Artery Disease (CAD), Diabetes Mellitus, Hypertension Additional Family Medical History / Comment(s): LUPUS Father Family Medical History: Dementia Medications and Allergies Home Medications Medication Instructions Recorded Confirmed Type Baclofen 10 mg PO BID PRN #60 tab 04/12/22 05/27/24 Rx Butalb/APAP/Caff 50-325-40Mg 1 tab PO BID PRN #60 tab 04/12/22 05/27/24 Rx [Fioricet 50-325-40] DULoxetine HCL [Cymbalta] 60 mg PO HS 30 Days #30 cap 04/12/22 05/27/24 Rx QUEtiapine [SEROquel] 100 mg PO HS 30 Days #30 tab 04/12/22 05/27/24 Rx rOPINIRole HCL [Requip] 0.25 mg PO HS PRN #30 tab 04/12/22 05/27/24 Rx Albuterol Inhaler [Ventolin Hfa 2 puff INHALATION RT-QID PRN 05/27/24 05/27/24 History Inhaler] Budesonide [Pulmicort Flexhaler] 1 puff INHALATION RT-BID 05/27/24 05/27/24 History Diclofenac Sodium Gel [Voltaren 1% 2 gm TOPICAL QID 05/27/24 05/27/24 History Gel] Gabapentin 300 mg PO TID 05/27/24 05/27/24 History HYDROcodone/APAP 10-325MG [[place] 1 tab PO Q6H 05/27/24 05/27/24 History 10-325] Ibuprofen [Motrin] 600 mg PO TID 05/27/24 05/27/24 History Lidocaine 5% Oint [Xylocaine 5% 1 applic TOPICAL QID PRN 05/27/24 05/27/24 History Oint] Loratadine [Claritin] 10 mg PO DAILY 05/27/24 05/27/24 History Terbinafine [LamISIL] 250 mg PO DAILY 05/27/24 05/27/24 History amLODIPine [Norvasc] 5 mg PO DAILY 05/27/24 05/27/24 History lamoTRIgine [LaMICtal] 25 mg PO BID 05/27/24 05/27/24 History Allergies Allergy/AdvReac Type Severity Reaction Status Date / Time aspirin AdvReac Nausea & Verified 05/27/24 17:58 Vomiting Surgical - Exam Vital Signs Temp Pulse Resp BP Pulse Ox 98.0 F 83 20 114/66 94 L 05/27/24 12:25 05/27/24 12:25 05/27/24 12:25 05/27/24 12:05/27/24 12:25 Physical exam: General: Well-developed, well-nourished HEENT: Normocephalic, sclerae nonicteric Abdomen: Nontender, nondistended Extremities: No edema Neuro: Alert and oriented Results - Labs 05/30/24 06:05 05/30/24 06:05 Abnormal Lab Results - Last 24 Hours (Table) 05/29/24 05/29/24 05/30/24 Range/Units 06:35 06:35 06:05 WBC 11.04 H 10.69 H (4.50-10.00) X 10*3/uL RBC 3.56 L 3.87 L (4.10-5.20) X 10*6/uL Hgb 9.5 L 10.2 L (12.0-15.0) g/dL Hct 29.8 L 31.8 L (37.2-46.3) % MCH 26.7 L 26.4 L (27.0-32.0) pg MCHC 31.9 L (32.0-37.0) g/dL RDW 14.8 H 14.6 H (11.5-14.5) % Plt Count 473 H (140-440) X 10*3/uL Immature Gran # 0.18 H 0.15 H (0.00-0.04) X 10*3/uL Neutrophils # 7.98 H 7.75 H (1.80-7.70) X 10*3/uL Potassium 3.3 L (3.5-5.1) mmol/L Carbon Dioxide 20 L (22-30) mmol/L BUN (7-17) mg/dL Creatinine (0.52-1.04) mg/dL Glucose 107 H (74-99) mg/dL AST 39 H (14-36) U/L ALT 67 H (4-34) U/L Alkaline Phosphatase 134 H (38-126) U/L Total Protein 6.0 L (6.3-8.2) g/dL Albumin 3.0 L (3.5-5.0) g/dL 05/30/24 Range/Units 06:05 WBC (4.50-10.00) X 10*3/uL RBC (4.10-5.20) X 10*6/uL Hgb (12.0-15.0) g/dL Hct (37.2-46.3) % MCH (27.0-32.0) pg MCHC (32.0-37.0) g/dL RDW (11.5-14.5) % Plt Count (140-440) X 10*3/uL Immature Gran # (0.00-0.04) X 10*3/uL Neutrophils # (1.80-7.70) X 10*3/uL Potassium 3.2 L (3.5-5.1) mmol/L Carbon Dioxide (22-30) mmol/L BUN 6 L (7-17) mg/dL Creatinine 0.48 L (0.52-1.04) mg/dL Glucose 110 H (74-99) mg/dL AST (14-36) U/L ALT (4-34) U/L Alkaline Phosphatase (38-126) U/L Total Protein (6.3-8.2) g/dL Albumin (3.5-5.0) g/dL Microbiology - Last 24 Hours (Table) 05/28/24 14:20 Nasal Screen MRSA/MSSA - Preliminary Nasal Swab 05/28/24 08:38 Gram Stain - Preliminary Sputum Sputum Culture - Preliminary Presumptive Staph aureus 05/27/24 13:23 Blood Culture - Preliminary Blood Diabetes panel 05/29/24 05/30/24 Range/Units 06:35 06:05 Sodium 137 137 (137-145) mmol/L Potassium 3.3 L 3.2 L (3.5-5.1) mmol/L Chloride 107 104 (98-107) mmol/L Carbon Dioxide 20 L 24 (22-30) mmol/L BUN 8 6 L (7-17) mg/dL Creatinine 0.54 0.48 L (0.52-1.04) mg/dL Glucose 107 H 110 H (74-99) mg/dL Calcium 8.9 9.1 (8.4-10.2) mg/dL AST 39 H (14-36) U/L ALT 67 H (4-34) U/L Alkaline Phosphatase 134 H (38-126) U/L Total Protein 6.0 L (6.3-8.2) g/dL Albumin 3.0 L (3.5-5.0) g/dL Calcium panel 05/29/24 05/30/24 Range/Units 06:35 06:05 Calcium 8.9 9.1 (8.4-10.2) mg/dL Albumin 3.0 L (3.5-5.0) g/dL Pituitary panel 05/29/24 05/30/24 Range/Units 06:35 06:05 Sodium 137 137 (137-145) mmol/L Potassium 3.3 L 3.2 L (3.5-5.1) mmol/L Chloride 107 104 (98-107) mmol/L Carbon Dioxide 20 L 24 (22-30) mmol/L BUN 8 6 L (7-17) mg/dL Creatinine 0.54 0.48 L (0.52-1.04) mg/dL Glucose 107 H 110 H (74-99) mg/dL Calcium 8.9 9.1 (8.4-10.2) mg/dL Adrenal panel 05/29/24 05/30/24 Range/Units 06:35 06:05 Sodium 137 137 (137-145) mmol/L Potassium 3.3 L 3.2 L (3.5-5.1) mmol/L Chloride 107 104 (98-107) mmol/L Carbon Dioxide 20 L 24 (22-30) mmol/L BUN 8 6 L (7-17) mg/dL Creatinine 0.54 0.48 L (0.52-1.04) mg/dL Glucose 107 H 110 H (74-99) mg/dL Calcium 8.9 9.1 (8.4-10.2) mg/dL Total Bilirubin 0.4 (0.2-1.3) mg/dL AST 39 H (14-36) U/L ALT 67 H (4-34) U/L Alkaline Phosphatase 134 H (38-126) U/L Total Protein 6.0 L (6.3-8.2) g/dL Albumin 3.0 L (3.5-5.0) g/dL Assessment and Plan (1) Dysphagia Narrative/Plan: 54-year-old female with complaints of dysphagia. Symptoms more in line with a cervical dysphagia. CAT scan findings as described. Recommend ENT evaluation. Modified barium swallow would be an option to evaluate this patient's dysphagia. Certainly upper endoscopy is an option although I am not sure what will be that helpful in this case. Current Visit: Yes Status: Acute Code(s): R13.10 - DYSPHAGIA, UNSPECIFIED SNOMED Code(s): 44454131
[2024-05-30] MEDS: BUTALB/APAP/CAFF 50-325-40MG TAB PO PRN (14:21)
--- NOTE | 2024-05-30 20:13 | P.PN ---
Subjective Progress Note Date: 05/29/24 54-year-old female, history of hypertension, hyperlipidemia, anxiety, depression/bipolar disorder, Burger's disease, presenting today for 4 months of intermittent upper respiratory infection symptoms. Was sent in by her primary care provider Dr. Smyth out of concerns for dehydration. History of Burger's disease. States over the last 4 months has had intermittent cough, shortness of breath, sore throat. Has recently developed sores in her mouth making it difficult for her to eat and drink. Most recently she has had mild to mopped assist, states she is intermittently coughing up small streaks of blood in her sputum. No lower extremity swelling, history DVT or PE. Denies fevers or chills, abdominal pain, nausea vomiting, diarrhea, melena, medic easier, no focal numbness or weakness. Patient also states she has had 2 episodes of syncope in the last 2 weeks. Last episode was 1 week ago. Patient states feels secondary to dehydration. States she feels she stands up too fast, gets lighthe aded and then lost conscious. States she did have a episode of urinary incontinence no tongue biting. No history prior seizures heard. Also endorses injuring her right foot during her most recent episode of syncope. Has been able to ambulate with a limp. Not on blood thinners. Blood work completed in ED reveals a WBC of 13.2, hemoglobin of 10.2 and platelet count of 578, sodium 138, potassium 3.1, BUNs/creatinine of 19/0.65, blood glucose of 125, AST/ALT elevated at 155/105, BNP of 841, lactic acid of 1.1 and troponin less than 0.012 05/29/2024 Patient is seen and evaluated in room at bedside; reports pain with swallowing in the throat all the way down in the chest Vital signs are reviewed and stable Blood work reveals WBC 11.04, hemoglobin of 9.5 and platelet count of 438, sodium 138, potassium 3.5, BUNs/creatinine 14/0.68 patient is in the hospital with increasing shortness of breath cough and sputum production with evidence of multifocal pneumonia on the right side with a question of community acquired versus residual gram-positive or gram-negative p athogen -sputum currently growing Staph aureus with sensitivities pending -patient to continue vancomycin and cefepime while waiting for the culture to finalize and add Cepacol lozenges CT of the soft tissue neck reveals enlarged tonsils Will consult general surgery for evaluation for possible need for EGD for dysphagia Objective - Vital Signs Vital signs: Vital Signs Temp 98.2 F 05/29/24 06:58 Pulse 73 05/29/24 06:58 Resp 16 05/29/24 06:58 BP 188/78 05/29/24 06:58 Pulse Ox 94 L 05/29/24 06:58 FiO2 21 05/28/24 09:35 Intake & Output 05/28/24 05/29/24 05/29/24 18:59 06:59 18:59 Intake Total 1450 Balance 1450 Intake: Intake, IV Titration 1450 Amount Cefepime 2 gm In Sodium 100 Chloride 0.9% 100 ml @ 25 mls/hr IVPB Q8HR ROB Rx# :[id number] Sodium Chloride 0.9% 1, 1100 000 ml @ 100 mls/hr IV . Q10H ROB Rx#:[id number] Vancomycin 1,250 mg In 250 Sodium Chloride 0.9% 250 ml @ 125 mls/hr IVPB Q12H ROB Rx#:[id number] Other: # Voids 3 - Exam CONSTITUTIONAL: No apparent distress, chronically ill-appearing nontoxic SKIN: Warm, dry, no jaundice, hives or petechiae; purple bruising across the dorsal aspect of the right foot extending up towards the right lateral malleolus EYES: Pupils are equally round, extraocular movements intact without nystagmus, clear conjunctiva, non-icteric sclera HENT: Normocephalic, atraumatic, dry mucus membranes, patient has ulcerative lesions with an erythematous base on buccal mucosa extending to the posterior oropharynx NECK: , Full range of motion, normal appearance, no midline spinal tenderness to palpation PULMONARY: Right posterior rib tenderness to palpation without overlying bruising, clear to auscultation without wheezes, rhonchi, or rales, normal excursion, no accessory muscle use and no stridor CARDIOVASCULAR: Regular rate, rhythm, normal S1 and S2. No appreciated murmurs, rubs or gallops. Strong radial pulses with intact distal perfusion. No lower extremity edema GASTROINTESTINAL: Soft, active bowel sounds throughout, non-tender, non- distended, no palpable masses, no rebound or guarding. No hepatosplenomegaly MUSCULOSKELETAL: Extremities have no gross deformity, no calf swelling, no edema, tenderness to palpation of the dorsal aspect of the right foot, right lateral malleolus, small amount of swelling in this region as well, pain with plantar and dorsiflexion, no tenderness palpation of the proximal tib-fib, able to move toes, neurovascularly intact NEUROLOGIC:_a/o x 3, GCS 15, normal mentation and speech. Moves all extremities x 4 without motor or sensory deficit - Labs CBC & Chem 7: 05/30/24 06:05 05/30/24 06:05 Labs: Abnormal Lab Results - Last 24 Hours (Table) 05/29/24 Range/Units 06:35 WBC 11.04 H (4.50-10.00) X 10*3/uL RBC 3.56 L (4.10-5.20) X 10*6/uL Hgb 9.5 L (12.0-15.0) g/dL Hct 29.8 L (37.2-46.3) % MCH 26.7 L (27.0-32.0) pg MCHC 31.9 L (32.0-37.0) g/dL RDW 14.8 H (11.5-14.5) % Immature Gran # 0.18 H (0.00-0.04) X 10*3/uL Neutrophils # 7.98 H (1.80-7.70) X 10*3/uL Microbiology - Last 24 Hours (Table) 05/28/24 08:38 Gram Stain - Preliminary Sputum Assessment and Plan Assessment: 1. Multilobar pneumonia -CT of the chest completed in ED reveals multifocal and diffuse right lung groundglass opacities reflecting edema versus acute infiltrates likely multi lobar right lung pneumonia -Patient has been placed on IV cefepime and vancomycin -We will order antitussive therapy; bronchodilator nebulizer treatments -Monitor CBC, CRP and procalcitonin -Consult ID 2. Mild ELFEGO; slow IV fluid hydration with normal saline at rate of 75 cc an hour; monitor strict SARAY's, daily weights, renal function electrolytes; avoid nephrotoxins and hypotension 3. Transaminitis; AST/ALT elevated at 155/105; etiology unclear; we will monitor liver enzymes; order hepatitis profile; right upper quadrant ultrasound 4. Hypertension; Norvasc 5 mg daily 5. Restless leg syndrome; Requip 0.25 mg nightly 6. COPD; not in exacerbation; continue with home inhaler therapy 7. Bipolar depression; Seroquel 100 mg p.o. nightly; Lamictal 25 mg twice daily; Cymbalta 60 mg nightly 8. Chronic back pain; [place] 10 mg every 6 hours; baclofen 10 mg twice daily DVT prophylaxis; SCDs/subcu heparin CODE STATUS; full code
--- NOTE | 2024-05-30 20:18 | P.PN ---
Subjective Progress Note Date: 05/30/24 54-year-old female, history of hypertension, hyperlipidemia, anxiety, depression/bipolar disorder, Burger's disease, presenting today for 4 months of intermittent upper respiratory infection symptoms. Was sent in by her primary care provider Dr. Smyth out of concerns for dehydration. History of Burger's disease. States over the last 4 months has had intermittent cough, shortness of breath, sore throat. Has recently developed sores in her mouth making it difficult for her to eat and drink. Most recently she has had mild to mopped assist, states she is intermittently coughing up small streaks of blood in her sputum. No lower extremity swelling, history DVT or PE. Denies fevers or chills, abdominal pain, nausea vomiting, diarrhea, melena, medic easier, no focal numbness or weakness. Patient also states she has had 2 episodes of syncope in the last 2 weeks. Last episode was 1 week ago. Patient states feels secondary to dehydration. States she feels she stands up too fast, gets lighthe aded and then lost conscious. States she did have a episode of urinary incontinence no tongue biting. No history prior seizures heard. Also endorses injuring her right foot during her most recent episode of syncope. Has been able to ambulate with a limp. Not on blood thinners. Blood work completed in ED reveals a WBC of 13.2, hemoglobin of 10.2 and platelet count of 578, sodium 138, potassium 3.1, BUNs/creatinine of 19/0.65, blood glucose of 125, AST/ALT elevated at 155/105, BNP of 841, lactic acid of 1.1 and troponin less than 0.012 05/29/2024 Patient is seen and evaluated in room at bedside; reports pain with swallowing in the throat all the way down in the chest Vital signs are reviewed and stable Blood work reveals WBC 11.04, hemoglobin of 9.5 and platelet count of 438, sodium 138, potassium 3.5, BUNs/creatinine 14/0.68 patient is in the hospital with increasing shortness of breath cough and sputum production with evidence of multifocal pneumonia on the right side with a question of community acquired versus residual gram-positive or gram-negative p athogen -sputum currently growing Staph aureus with sensitivities pending -patient to continue vancomycin and cefepime while waiting for the culture to finalize and add Cepacol lozenges CT of the soft tissue neck reveals enlarged tonsils Will consult general surgery for evaluation for possible need for EGD for dysphagia 05/30/2024 Patient is seen and evaluated sitting up in bed; patient is eating lunch at this time and continues to report difficulty swallowing Vital signs are reviewed and stable Blood work reveals WBC of 10.69, hemoglobin 10.1 platelet count of 473, sodium 137, potassium 3.2, BUNs/creatinine of 6/0.48 Patient has been evaluated by general surgery and difficulty swallowing is deemed cervical dysphagia; EGD might not be helpful -Given soft tissue CT revealing some thickening of the retropharyngeal tissues, ENT evaluation is recommended Objective - Vital Signs Vital signs: Vital Signs Temp 98.3 F 05/30/24 06:55 Pulse 60 05/30/24 06:55 Resp 17 05/30/24 06:55 BP 174/82 05/30/24 06:55 Pulse Ox 92 L 05/30/24 06:55 FiO2 21 05/28/24 09:35 Intake & Output 05/29/24 05/30/24 05/30/24 18:59 06:59 18:59 Other: Voiding Method Toilet Toilet # Voids 3 3 - Exam CONSTITUTIONAL: No apparent distress, chronically ill-appearing nontoxic SKIN: Warm, dry, no jaundice, hives or petechiae; purple bruising across the dorsal aspect of the right foot extending up towards the right lateral malleolus EYES: Pupils are equally round, extraocular movements intact without nystagmus, clear conjunctiva, non-icteric sclera HENT: Normocephalic, atraumatic, dry mucus membranes, patient has ulcerative lesions with an erythematous base on buccal mucosa extending to the posterior oropharynx NECK: , Full range of motion, normal appearance, no midline spinal tenderness to palpation PULMONARY: Right posterior rib tenderness to palpation without overlying bruising, clear to auscultation without wheezes, rhonchi, or rales, normal excursion, no accessory muscle use and no stridor CARDIOVASCULAR: Regular rate, rhythm, normal S1 and S2. No appreciated murmurs, rubs or gallops. Strong radial pulses with intact distal perfusion. No lower extremity edema GASTROINTESTINAL: Soft, active bowel sounds throughout, non-tender, non- distended, no palpable masses, no rebound or guarding. No hepatosplenomegaly MUSCULOSKELETAL: Extremities have no gross deformity, no calf swelling, no edema, tenderness to palpation of the dorsal aspect of the right foot, right lateral malleolus, small amount of swelling in this region as well, pain with plantar and dorsiflexion, no tenderness palpation of the proximal tib-fib, able to move toes, neurovascularly intact NEUROLOGIC:_a/o x 3, GCS 15, normal mentation and speech. Moves all extremities x 4 without motor or sensory deficit - Labs CBC & Chem 7: 05/30/24 06:05 05/30/24 06:05 Labs: Abnormal Lab Results - Last 24 Hours (Table) 05/29/24 05/30/24 05/30/24 Range/Units 06:35 06:05 06:05 WBC 10.69 H (4.50-10.00) X 10*3/uL RBC 3.87 L (4.10-5.20) X 10*6/uL Hgb 10.2 L (12.0-15.0) g/dL Hct 31.8 L (37.2-46.3) % MCH 26.4 L (27.0-32.0) pg RDW 14.6 H (11.5-14.5) % Plt Count 473 H (140-440) X 10*3/uL Immature Gran # 0.15 H (0.00-0.04) X 10*3/uL Neutrophils # 7.75 H (1.80-7.70) X 10*3/uL Potassium 3.3 L 3.2 L (3.5-5.1) mmol/L Carbon Dioxide 20 L (22-30) mmol/L BUN 6 L (7-17) mg/dL Creatinine 0.48 L (0.52-1.04) mg/dL Glucose 107 H 110 H (74-99) mg/dL AST 39 H (14-36) U/L ALT 67 H (4-34) U/L Alkaline Phosphatase 134 H (38-126) U/L Total Protein 6.0 L (6.3-8.2) g/dL Albumin 3.0 L (3.5-5.0) g/dL Microbiology - Last 24 Hours (Table) 05/28/24 08:38 Gram Stain - Final Sputum Sputum Culture - Final Methicillin resist S. aureus 05/28/24 14:20 Nasal Screen MRSA/MSSA - Preliminary Nasal Swab 05/27/24 13:23 Blood Culture - Preliminary Blood Assessment and Plan Assessment: 1. Multilobar pneumonia -CT of the chest completed in ED reveals multifocal and diffuse right lung groun dglass opacities reflecting edema versus acute infiltrates likely multi lobar right lung pneumonia -Patient has been placed on IV cefepime and vancomycin -We will order antitussive therapy; bronchodilator nebulizer treatments -Monitor CBC, CRP and procalcitonin -Consult ID 2. Mild ELFEGO; slow IV fluid hydration with normal saline at rate of 75 cc an hour; monitor strict SARAY's, daily weights, renal function electrolytes; avoid nephrotoxins and hypotension 3. Transaminitis; AST/ALT elevated at 155/105; etiology unclear; we will monitor liver enzymes; order hepatitis profile; right upper quadrant ultrasound 4. Hypertension; Norvasc 5 mg daily 5. Restless leg syndrome; Requip 0.25 mg nightly 6. COPD; not in exacerbation; continue with home inhaler therapy 7. Bipolar depression; Seroquel 100 mg p.o. nightly; Lamictal 25 mg twice daily; Cymbalta 60 mg nightly 8. Chronic back pain; [place] 10 mg every 6 hours; baclofen 10 mg twice daily DVT prophylaxis; SCDs/subcu heparin CODE STATUS; full code
[2024-05-31 04:05] LABS: African American GFR (CKD) >90 (>60 ml/min/1.73 sqM); Anion Gap 8 mmol/L; Blood Urea Nitrogen 7 mg/dL (7-17); Carbon Dioxide 24 mmol/L (22-30); Chloride 105 mmol/L (98-107); Glucose 169 mg/dL (74-99); Non-African American GFR(CKD) >90 (>60 ml/min/1.73 sqM); Potassium 3.2 mmol/L (3.5-5.1); Sodium 137 mmol/L (137-145)
--- NOTE | 2024-05-31 07:31 | CT ---
EXAMINATION TYPE: CT soft tissue neck w con DATE OF EXAM: 05/31/2024 7:21 AM COMPARISON: 05/28/2024 CLINICAL INDICATION: Female, 54 years old with history of retropharyngeal fullness.; PHH, jaw pain, r etropharyngeal fullness TECHNIQUE: CT scan of the neck is performed following with IV Contrast, patient injected with 100 mL of Isovue 3 00. Axial images are obtained, coronal and sagittal reformatted images are reviewed. CT DLP: 280.[address] CTDI: mGy Automated exposure control for dose reduction was used. FINDINGS: There are no supraclavicular lymph nodes. There is no thyroid mass or gross enlargement. The larynx including the cricoid, arytenoid and thyroid cartilages as well as the vocal cords are nor mal and symmetric. The tongue base, epiglottis, aryepiglottic folds, piriform sinuses and vallecula are normal and symme tric. The parotid and submandibular glands are normal and symmetric without focal mass or gross enlargement . There is persistent fullness of the retropharyngeal soft tissues likely related to enlarged tonsillar tissue. There is no discrete abscess or enhancement. The great vessels of the neck are normal. There are multiple nonenlarged jugular chain lymph nodes There is no soft tissue swelling, inflammation or abscess. Mild chronic inflammatory changes in the right maxillary sinus. IMPRESSION: 1. No change in the prominent retropharyngeal soft tissue. There is no pathological enhancement or ab scess.. 2. Multiple nonenlarged jugular chain lymph nodes. [facility], Workstation: [id number] 05/31/2024 7:28 AM
[2024-05-31] MEDS: POTASSIUM CHLORIDE ER 20 MEQ TAB.ER PO STA (08:14)
[2024-05-31 09:47] LABS: Basophils # (A) 0.05 X 10*3/uL (0.00-0.10); Basophils % (A) 0.4 %; Eosinophils # (A) 0.42 X 10*3/uL (0.04-0.35); Eosinophils % (A) 3.2 %; HCT 31.5 % (37.2-46.3); HGB 10.1 g/dL (12.0-15.0); Lymphocytes # (A) 1.87 X 10*3/uL (0.90-5.00); Lymphocytes % (A) 14.1 %; MCH 26.8 pg (27.0-32.0); MCHC 32.1 g/dL (32.0-37.0); MCV 83.6 FL (80.0-97.0); Mean Platelet Volume 9.6 FL (9.5-12.2); Monocytes # (A) 0.85 X 10*3/uL (0.20-1.00); Monocytes % (A) 6.4 %; NRBC Per 100 WBC 0 X 10*3/uL (0.00-0.01); Neutrophils # (A) 9.88 X 10*3/uL (1.80-7.70); Neutrophils % (A) 74.7 %; Platelet Count 497 X 10*3/uL (140-440); RBC 3.77 X 10*6/uL (4.10-5.20); RDW 14.6 % (11.5-14.5); WBC 13.23 X 10*3/uL (4.50-10.00)
--- NOTE | 2024-05-31 10:18 | P.PN ---
Subjective Progress Note Date: 05/31/24 Principal diagnosis: Dysphagia Patient still having retropharyngeal discomfort. Repeat CAT scan shows no abscess formation visualized. She is afebrile. White blood cell count i ncreased to 13. ENT is consulted. Objective - Vital Signs Vital signs: Vital Signs Temp 98.1 F 05/31/24 07:25 Pulse 67 05/31/24 07:25 Resp 18 05/31/24 07:25 BP 158/78 05/31/24 07:25 Pulse Ox 93 L 05/31/24 07:25 FiO2 21 05/28/24 09:35 Intake & Output 05/30/24 05/31/24 05/31/24 18:59 06:59 18:59 Other: Voiding Method Toilet Toilet # Voids 2 2 # Bowel Movements 0 - Exam No appreciable neck swelling, mild neck tenderness Abdomen: Soft, nontender, nondistended - Labs CBC & Chem 7: 05/31/24 03:20 05/31/24 03:20 Labs: Abnormal Lab Results - Last 24 Hours (Table) 05/31/24 05/31/24 Range/Units 03:20 03:20 WBC 13.23 H (4.50-10.00) X 10*3/uL RBC 3.77 L (4.10-5.20) X 10*6/uL Hgb 10.1 L (12.0-15.0) g/dL Hct 31.5 L (37.2-46.3) % MCH 26.8 L (27.0-32.0) pg RDW 14.6 H (11.5-14.5) % Plt Count 497 H (140-440) X 10*3/uL Immature Gran # 0.16 H (0.00-0.04) X 10*3/uL Neutrophils # 9.88 H (1.80-7.70) X 10*3/uL Eosinophils # 0.42 H (0.04-0.35) X 10*3/uL Potassium 3.2 L (3.5-5.1) mmol/L Glucose 169 H (74-99) mg/dL Microbiology - Last 24 Hours (Table) 05/28/24 14:20 Nasal Screen MRSA/MSSA - Final Nasal Swab Methicillin resist S. aureus 05/27/24 13:23 Blood Culture - Preliminary Blood 05/28/24 08:38 Gram Stain - Final Sputum Sputum Culture - Final Methicillin resist S. aureus Assessment and Plan (1) Dysphagia Narrative/Plan: 54-year-old female with complaints of dysphagia. Symptoms seem to be more supra glottic. Await ENT evaluation. Current Visit: Yes Status: Acute Code(s): R13.10 - DYSPHAGIA, UNSPECIFIED SNOMED Code(s): 60770857
--- NOTE | 2024-05-31 11:53 | P.PN ---
Subjective Progress Note Date: 05/30/24 Principal diagnosis: Reason for follow-up is pneumonia Patient is a 54-year-old female with a past medical history significant for hypertension hyperlipidemia osteoarthritis anxiety depression, presenting to the hospital for evaluation of increasing shortness of breath cough sore throat, patient be diagnosed with pneumonia prompting this consultation. On today's evaluation that is 05/30/2024, patient did not have any fever and denies any chills, patient is breathing comfortably on room air, patient with no chest pain or any worsening cough patient did not have any abdominal pain nausea vomiting or any loose stools. Patient white count is down to 10.69, creatinine 0.48 sputum culture with Staph aureus Objective - Vital Signs Vital signs: Vital Signs Temp 98.3 F 05/30/24 06:55 Pulse 60 05/30/24 06:55 Resp 17 05/30/24 06:55 BP 174/82 05/30/24 06:55 Pulse Ox 92 L 05/30/24 06:55 FiO2 21 05/28/24 09:35 Intake & Output 05/29/24 05/30/24 05/30/24 18:59 06:59 18:59 Other: Voiding Method Toilet Toilet # Voids 3 3 - Exam GENERAL DESCRIPTION: Middle-age female lying in bed in no distress RESPIRATORY SYSTEM: Unlabored breathing , decreased breath sounds at bases HEART: S1 S2 regular rate and rhythm , ABDOMEN: Soft , no tenderness EXTREMITIES: No edema feet - Labs CBC & Chem 7: 05/31/24 03:20 05/31/24 03:20 Labs: Abnormal Lab Results - Last 24 Hours (Table) 05/29/24 05/30/24 05/30/24 Range/Units 06:35 06:05 06:05 WBC 10.69 H (4.50-10.00) X 10*3/uL RBC 3.87 L (4.10-5.20) X 10*6/uL Hgb 10.2 L (12.0-15.0) g/dL Hct 31.8 L (37.2-46.3) % MCH 26.4 L (27.0-32.0) pg RDW 14.6 H (11.5-14.5) % Plt Count 473 H (140-440) X 10*3/uL Immature Gran # 0.15 H (0.00-0.04) X 10*3/uL Neutrophils # 7.75 H (1.80-7.70) X 10*3/uL Potassium 3.3 L 3.2 L (3.5-5.1) mmol/L Carbon Dioxide 20 L (22-30) mmol/L BUN 6 L (7-17) mg/dL Creatinine 0.48 L (0.52-1.04) mg/dL Glucose 107 H 110 H (74-99) mg/dL AST 39 H (14-36) U/L ALT 67 H (4-34) U/L Alkaline Phosphatase 134 H (38-126) U/L Total Protein 6.0 L (6.3-8.2) g/dL Albumin 3.0 L (3.5-5.0) g/dL Microbiology - Last 24 Hours (Table) 05/27/24 13:23 Blood Culture - Preliminary Blood 05/28/24 08:38 Gram Stain - Final Sputum Sputum Culture - Final Methicillin resist S. aureus 05/28/24 14:20 Nasal Screen MRSA/MSSA - Preliminary Nasal Swab Assessment and Plan (1) Multifocal pneumonia Current Visit: Yes Status: Acute Code(s): J18.9 - PNEUMONIA, UNSPECIFIED ORGANISM SNOMED Code(s): 475745855 Plan: 1patient is in the hospital with increasing shortness of breath cough and sputum production with evidence of multifocal pneumonia on the right side with a question of community acquired versus residual gram-positive or gram-negative pathogen 2-sputum currently growing Staph aureus with sensitivities pending 3-patient currently being treated vancomycin and cefepime while waiting for the culture to finalize and monitor clinical course closely, surgery has been consulted for dysphagia CT has been ordered Dictation was produced using [employer] software. please excuse any grammatical, word or spelling errors.
--- NOTE | 2024-05-31 11:54 | P.PN ---
Subjective Progress Note Date: 05/31/24 Principal diagnosis: Reason for follow-up is pneumonia Patient is a 54-year-old female with a past medical history significant for hypertension hyperlipidemia osteoarthritis anxiety depression, presenting to the hospital for evaluation of increasing shortness of breath cough sore throat, patient be diagnosed with pneumonia prompting this consultation. On today's evaluation that is 05/31/2024, the patient continues to be afebrile patient is breathing comfortably and is currently on room air patient is sleeping no distress no vomiting diarrhea or any other changes reported. The patient white count slightly up to 13.23, creatinine 0.58 sputum finalized with MRSA blood culture has been negative Objective - Vital Signs Vital signs: Vital Signs Temp 98.1 F 05/31/24 07:25 Pulse 67 05/31/24 07:25 Resp 18 05/31/24 07:25 BP 158/78 05/31/24 07:25 Pulse Ox 93 L 05/31/24 07:25 FiO2 21 05/28/24 09:35 Intake & Output 05/30/24 05/31/24 05/31/24 18:59 06:59 18:59 Other: Voiding Method Toilet Toilet # Voids 2 2 # Bowel Movements 0 - Exam GENERAL DESCRIPTION: Middle-age female lying in bed in no distress RESPIRATORY SYSTEM: Unlabored breathing , decreased breath sounds at bases HEART: S1 S2 regular rate and rhythm , ABDOMEN: Soft , no tenderness EXTREMITIES: No edema feet - Labs CBC & Chem 7: 05/31/24 03:20 05/31/24 03:20 Labs: Abnormal Lab Results - Last 24 Hours (Table) 05/31/24 05/31/24 Range/Units 03:20 03:20 WBC 13.23 H (4.50-10.00) X 10*3/uL RBC 3.77 L (4.10-5.20) X 10*6/uL Hgb 10.1 L (12.0-15.0) g/dL Hct 31.5 L (37.2-46.3) % MCH 26.8 L (27.0-32.0) pg RDW 14.6 H (11.5-14.5) % Plt Count 497 H (140-440) X 10*3/uL Immature Gran # 0.16 H (0.00-0.04) X 10*3/uL Neutrophils # 9.88 H (1.80-7.70) X 10*3/uL Eosinophils # 0.42 H (0.04-0.35) X 10*3/uL Potassium 3.2 L (3.5-5.1) mmol/L Glucose 169 H (74-99) mg/dL Microbiology - Last 24 Hours (Table) 05/28/24 14:20 Nasal Screen MRSA/MSSA - Final Nasal Swab Methicillin resist S. aureus 05/27/24 13:23 Blood Culture - Preliminary Blood 05/28/24 08:38 Gram Stain - Final Sputum Sputum Culture - Final Methicillin resist S. aureus Assessment and Plan (1) Multifocal pneumonia Current Visit: Yes Status: Acute Code(s): J18.9 - PNEUMONIA, UNSPECIFIED ORGANISM SNOMED Code(s): 449525417 (2) MRSA (methicillin resistant staph aureus) culture positive Current Visit: Yes Status: Acute Code(s): Z22.322 - CARRIER OR SUSPECTED CARRIER OF METHICILLIN RESIS STAPH SNOMED Code(s): 343749042 Plan: 1patient is in the hospital with increasing shortness of breath cough and sputum production with evidence of multifocal pneumonia on the right side with a question of community acquired versus residual gram-positive or gram-negative pathogen 2-sputum currently growing MRSA 3-we will discontinue cefepime and will treat the patient with vancomycin pharmacy to dose for MRSA pneumonia white count is slightly up today will be monitored closely Dictation was produced using [employer] dictation software. please excuse any grammatical, word or spelling errors. Time with Patient: Less than 30
--- NOTE | 2024-05-31 12:40 | P.PN ---
Subjective Progress Note Date: 05/31/24 54-year-old female, history of hypertension, hyperlipidemia, anxiety, depression/bipolar disorder, Burger's disease, presenting today for 4 months of intermittent upper respiratory infection symptoms. Was sent in by her primary care provider Dr. Smyth out of concerns for dehydration. History of Burger's disease. States over the last 4 months has had intermittent cough, shortness of breath, sore throat. Has recently developed sores in her mouth making it difficult for her to eat and drink. Most recently she has had mild to mopped assist, states she is intermittently coughing up small streaks of blood in her sputum. No lower extremity swelling, history DVT or PE. Denies fevers or chills, abdominal pain, nausea vomiting, diarrhea, melena, medic easier, no focal numbness or weakness. Patient also states she has had 2 episodes of syncope in the last 2 weeks. Last episode was 1 week ago. Patient states feels secondary to dehydration. States she feels she stands up too fast, gets lighthe aded and then lost conscious. States she did have a episode of urinary incontinence no tongue biting. No history prior seizures heard. Also endorses injuring her right foot during her most recent episode of syncope. Has been able to ambulate with a limp. Not on blood thinners. Blood work completed in ED reveals a WBC of 13.2, hemoglobin of 10.2 and platelet count of 578, sodium 138, potassium 3.1, BUNs/creatinine of 19/0.65, blood glucose of 125, AST/ALT elevated at 155/105, BNP of 841, lactic acid of 1.1 and troponin less than 0.012 05/29/2024 Patient is seen and evaluated in room at bedside; reports pain with swallowing in the throat all the way down in the chest Vital signs are reviewed and stable Blood work reveals WBC 11.04, hemoglobin of 9.5 and platelet count of 438, sodium 138, potassium 3.5, BUNs/creatinine 14/0.68 patient is in the hospital with increasing shortness of breath cough and sputum production with evidence of multifocal pneumonia on the right side with a question of community acquired versus residual gram-positive or gram-negative p athogen -sputum currently growing Staph aureus with sensitivities pending -patient to continue vancomycin and cefepime while waiting for the culture to finalize and add Cepacol lozenges CT of the soft tissue neck reveals enlarged tonsils Will consult general surgery for evaluation for possible need for EGD for dysphagia 05/30/2024 Patient is seen and evaluated sitting up in bed; patient is eating lunch at this time and continues to report difficulty swallowing Vital signs are reviewed and stable Blood work reveals WBC of 10.69, hemoglobin 10.1 platelet count of 473, sodium 137, potassium 3.2, BUNs/creatinine of 6/0.48 Patient has been evaluated by general surgery and difficulty swallowing is deemed cervical dysphagia; EGD might not be helpful -Given soft tissue CT revealing some thickening of the retropharyngeal tissues, ENT evaluation is recommended 05/31/2024 Patient is seen and evaluated resting in bed; continues to complain of diffi culty swallowing and pain both sides of the neck -Vital signs reviewed and stable -Patient has been evaluated by general surgery for dysphagia; no further workup is recommended -Given retropharyngeal tissue thickening on CT of the neck, ENT is consulted; await recommendations -- Patient remains on IV cefepime and vancomycin; sputum culture was positive for MRSA -ID to recommend final antibiotics Objective - Vital Signs Vital signs: Vital Signs Temp 98.1 F 05/31/24 07:25 Pulse 67 05/31/24 07:25 Resp 18 05/31/24 07:25 BP 158/78 05/31/24 07:25 Pulse Ox 93 L 05/31/24 07:25 FiO2 21 05/28/24 09:35 Intake & Output 05/30/24 05/31/24 05/31/24 18:59 06:59 18:59 Other: Voiding Method Toilet Toilet # Voids 2 2 # Bowel Movements 0 - Exam CONSTITUTIONAL: No apparent distress, chronically ill-appearing nontoxic SKIN: Warm, dry, no jaundice, hives or petechiae; purple bruising across the dorsal aspect of the right foot extending up towards the right lateral malleolus EYES: Pupils are equally round, extraocular movements intact without nystagmus, clear conjunctiva, non-icteric sclera HENT: Normocephalic, atraumatic, dry mucus membranes, patient has ulcerative lesions with an erythematous base on buccal mucosa extending to the posterior oropharynx NECK: , Full range of motion, normal appearance, no midline spinal tenderness to palpation PULMONARY: Right posterior rib tenderness to palpation without overlying bruising, clear to auscultation without wheezes, rhonchi, or rales, normal excursion, no accessory muscle use and no stridor CARDIOVASCULAR: Regular rate, rhythm, normal S1 and S2. No appreciated murmurs, rubs or gallops. Strong radial pulses with intact distal perfusion. No lower extremity edema GASTROINTESTINAL: Soft, active bowel sounds throughout, non-tender, non- distended, no palpable masses, no rebound or guarding. No hepatosplenomegaly MUSCULOSKELETAL: Extremities have no gross deformity, no calf swelling, no edema, tenderness to palpation of the dorsal aspect of the right foot, right lateral malleolus, small amount of swelling in this region as well, pain with plantar and dorsiflexion, no tenderness palpation of the proximal tib-fib, able to move toes, neurovascularly intact NEUROLOGIC:_a/o x 3, GCS 15, normal mentation and speech. Moves all extremities x 4 without motor or sensory deficit - Labs CBC & Chem 7: 05/31/24 03:20 05/31/24 03:20 Labs: Abnormal Lab Results - Last 24 Hours (Table) 05/31/24 Range/Units 03:20 Potassium 3.2 L (3.5-5.1) mmol/L Glucose 169 H (74-99) mg/dL Microbiology - Last 24 Hours (Table) 05/28/24 14:20 Nasal Screen MRSA/MSSA - Final Nasal Swab Methicillin resist S. aureus 05/27/24 13:23 Blood Culture - Preliminary Blood 05/28/24 08:38 Gram Stain - Final Sputum Sputum Culture - Final Methicillin resist S. aureus Assessment and Plan Assessment: 1. Multilobar pneumonia -CT of the chest completed in ED reveals multifocal and diffuse right lung groundglass opacities reflecting edema versus acute infiltrates likely multi lobar right lung pneumonia -Patient has been placed on IV cefepime and vancomycin -We will order antitussive therapy; bronchodilator nebulizer treatments -Monitor CBC, CRP and procalcitonin -Consult ID 2. Mild ELFEGO; slow IV fluid hydration with normal saline at rate of 75 cc an hour; monitor strict SARAY's, daily weights, renal function electrolytes; avoid nephrotoxins and hypotension 3. Transaminitis; AST/ALT elevated at 155/105; etiology unclear; we will mon itor liver enzymes; order hepatitis profile; right upper quadrant ultrasound 4. Hypertension; Norvasc 5 mg daily 5. Restless leg syndrome; Requip 0.25 mg nightly 6. COPD; not in exacerbation; continue with home inhaler therapy 7. Bipolar depression; Seroquel 100 mg p.o. nightly; Lamictal 25 mg twice daily; Cymbalta 60 mg nightly 8. Chronic back pain; Crook 10 mg every 6 hours; baclofen 10 mg twice daily DVT prophylaxis; SCDs/subcu heparin CODE STATUS; full code
[2024-05-31] MEDS: DEXAMETHASONE SOD PHOSPHATE 10 MG/ML 1 ML VIAL IVP STA (15:40)
[2024-06-01 06:44] LABS: African American GFR (CKD) >90 (>60 ml/min/1.73 sqM); Anion Gap 8 mmol/L; Blood Urea Nitrogen 10 mg/dL (7-17); Calcium 9.2 mg/dL (8.4-10.2); Carbon Dioxide 21 mmol/L (22-30); Chloride 109 mmol/L (98-107); Glucose 159 mg/dL (74-99); Non-African American GFR(CKD) >90 (>60 ml/min/1.73 sqM); Potassium 3.8 mmol/L (3.5-5.1); Sodium 138 mmol/L (137-145)
[2024-06-01] MEDS: VANCOMYCIN TROUGH DUE 1 EACH MISC MISCELLANE ONE (07:59)
[2024-06-01 10:15] LABS: HCT 30.5 % (37.2-46.3); HGB 9.6 g/dL (12.0-15.0); MCH 26.4 pg (27.0-32.0); MCHC 31.5 g/dL (32.0-37.0); MCV 83.8 FL (80.0-97.0); Mean Platelet Volume 10.2 FL (9.5-12.2); NRBC Per 100 WBC 0 X 10*3/uL (0.00-0.01); Platelet Count 532 X 10*3/uL (140-440); RBC 3.64 X 10*6/uL (4.10-5.20); RDW 14.5 % (11.5-14.5); WBC 14.05 X 10*3/uL (4.50-10.00)
[2024-06-01 10:16] LABS: Basophils # (A) 0.02 X 10*3/uL (0.00-0.10); Basophils % (A) 0.1 %; Eosinophils # (A) 0 X 10*3/uL (0.04-0.35); Eosinophils % (A) 0 %; Lymphocytes # (A) 1.17 X 10*3/uL (0.90-5.00); Lymphocytes % (A) 8.3 %; Monocytes # (A) 0.76 X 10*3/uL (0.20-1.00); Monocytes % (A) 5.4 %; Neutrophils # (A) 11.96 X 10*3/uL (1.80-7.70); Neutrophils % (A) 85.2 %
--- NOTE | 2024-06-01 11:10 | P.PN ---
Subjective Progress Note Date: 06/01/24 SURGICAL PROGRESS NOTE CHIEF COMPLAINT: Dysphagia HISTORY OF PRESENT ILLNESS: Patient reports that the dysphagia is improving with the IV steroids. She is tolerating ground diet. The sticking sensation is less. ENT service recommended an outpatient follow-up with an ENT that takes her insurance. They have also added nasal sprays. PHYSICAL EXAM: VITAL SIGNS: Reviewed. GENERAL: Well-developed in no acute distress. HEENT: No neck swelling ABDOMEN: Soft. Nondistended. Nontender. ASSESSMENT: 1. Dysphagia. Symptoms seem to be more supraglottic. PLAN: -ENT recommendations noted. Agree with outpatient ENT follow-up -Continue ground diet -No surgical intervention planned -Surgical service will sign off. Please call with any questions or concerns Physician Tooth Cutter note has been reviewed by physician. Signing provider agrees with the documented findings, assessment, and plan of care. Objective - Vital Signs Vital signs: Vital Signs Temp 97.5 F L 06/01/24 06:48 Pulse 72 06/01/24 06:48 Resp 18 06/01/24 06:48 BP 115/67 06/01/24 06:48 Pulse Ox 96 06/01/24 08:05 FiO2 21 05/28/24 09:35 Intake & Output 05/31/24 06/01/24 06/01/24 18:59 06:59 18:59 Other: Voiding Method Toilet # Voids 4 2 - Labs CBC & Chem 7: 06/01/24 06:00 06/01/24 06:00 Labs: Abnormal Lab Results - Last 24 Hours (Table) 06/01/24 06/01/24 Range/Units 06:00 06:00 WBC 14.05 H (4.50-10.00) X 10*3/uL RBC 3.64 L (4.10-5.20) X 10*6/uL Hgb 9.6 L (12.0-15.0) g/dL Hct 30.5 L (37.2-46.3) % MCH 26.4 L (27.0-32.0) pg MCHC 31.5 L (32.0-37.0) g/dL Plt Count 532 H (140-440) X 10*3/uL Immature Gran # 0.14 H (0.00-0.04) X 10*3/uL Neutrophils # 11.96 H (1.80-7.70) X 10*3/uL Eosinophils # 0 L (0.04-0.35) X 10*3/uL Chloride 109 H (98-107) mmol/L Carbon Dioxide 21 L (22-30) mmol/L Creatinine 0.42 L (0.52-1.04) mg/dL Glucose 159 H (74-99) mg/dL Microbiology - Last 24 Hours (Table) 05/27/24 13:23 Blood Culture - Preliminary Blood
--- NOTE | 2024-06-01 11:27 | XR ---
EXAMINATION TYPE: XR chest 1V portable DATE OF EXAM: 06/01/2024 11:07 AM COMPARISON: Chest radiographs from 04/07/2024. CLINICAL INDICATION: Female, 54 years old with history of shortness of breath; [facility] TECHNIQUE: XR chest 1V portable Frontal view of the chest. FINDINGS: Lungs/Pleura: Multifocal airspace opacities in the right lung. No evidence of pneumothorax or pleural effusion. Pulmonary vascularity: Unremarkable. Heart/mediastinum: Cardiomediastinal silhouette is unremarkable. Musculoskeletal: No acute osseous pathology. Other findings: None Lines/Tubes: IMPRESSION: Right-sided airspace opacities correlate for pneumonia. New from 04/07/2024. [facility], , 06/01/2024 11:24 AM
--- NOTE | 2024-06-01 14:21 | CONS ---
CONSULTATION REASON FOR CONSULTATION: Retropharyngeal fullness. HISTORY OF PRESENT ILLNESS: This patient is a pleasant 54-year-old female, who was originally admitted to [facility] via the emergency room. The patient was sent to the emergency room by her primary care physician because of concerns of dehydration and other symptoms. At the time that she was seen in the ER, it was felt that the patient's symptoms, which have been going on for at least a week were due to an upper respiratory tract infection (pneumonia). She presented to the emergency room with chronic productive cough, shortness of breath, dehydration, hemoptysis. She was also complaining of having a sore throat and dysphagia. She was subsequently admitted for definitive treatment and was placed on intravenous antibiotics. At the time that I saw her in the patient's room, she was resting comfortably and was in no acute distress. She is at this time on a regular diet and is not having any difficulty swallowing solid food. Infectious Disease and General Surgery have been consulted. The patient denies history of having severe recurrent sore throats or tonsillitis in the past. She stated that she believes her tonsils were removed when she was 3 years old. That would be approximately 50 years ago. I was consulted because of the retropharyngeal fullness that was seen on an original CAT scan that was performed without contrast. However, when I reviewed the CAT scan, the retropharyngeal fullness appeared to be obvious tonsillar tissue. Radiologist agrees with that assessment. A subsequent CT scan with contrast confirmed the presence in the retropharyngeal area of fullness to be tonsillar tissue. I have advised the patient that sometimes tonsils are not removed completely, and in that case, they can over the years hypertrophy and cause problems. It is unusual for enlarged tonsils to cause issues with dysphagia in an adult. In addition, the patient states that she was placed on Claritin and Flonase because of a runny nose. Upon further questioning of the patient, I determined that the patient does not have seasonal allergies, but has rhinorrhea that is secondary most likely to vasomotor rhinitis. In this particular condition, the patient will complain of having a runny nose especially whenever they go to the eat food or if they go from a hot environment to a cold environment or vice versa. The best treatment for this disorder, vasomotor rhinitis, is Astelin nasal spray b.i.d. on a p.r.n. basis. Upon detailed questioning, the patient states that she does not drink much water, but drinks quite a bit of soda. I have advised that she should try to drink at least 2 liters of water daily in addition to any soda, coffee, juice, etc. Further, she states that she vapes extensively and I have advised her that she needs to cut down her current amount of vaping. I advised her that all she is doing is making herself addicted to nicotine. PAST MEDICAL HISTORY: Reveals the patient has an allergy only to aspirin. CURRENT HOME MEDICATIONS: Include: 1. Lamictal. 2. Requip. 3. Norvasc. 4. Seroquel. 5. Claritin. 6. [place]. 7. Neurontin. 8. Voltaren. 9. Cymbalta. 10.Fioricet. 11.Pulmicort inhaler. 12.Baclofen. 13.Ventolin inhaler. REVIEW OF SYSTEMS: CARDIOVASCULAR: Positive for hypertension. RESPIRATORY: Positive for COPD/emphysema. MUSCULOSKELETAL: Positive for osteoarthritis. NEUROLOGIC: Positive for restless legs syndrome. Remainder review of systems unremarkable. PHYSICAL EXAMINATION: HEENT: The patient is normocephalic. Tympanic membranes are normal. Middle ear space is free of any fluid or infection. Pupils equal, round, reactive to light and accommodation. Extraocular movements within normal limits. Intranasal examination reveals moderate septal deviation with compensatory hypertrophy of the inferior turbinates. Mild amount of mucus on the mucous membranes draining down posterior pharynx. Deep examination of the oropharynx and posterior pharynx (I had to use the end of a tooth brush because the floor did not have tongue blades available) reveals that the patient has an enlarged tonsils on the right and left side. In addition, she has so-called tonsiloliths (tonsil stones) noted. In the process of examining the patient's posterior pharynx, I allowed the RN, who was taking care of the patient to see the large tonsil located on the left side. I would classify her tonsils as 4+, but they are not kissing or meeting in the midline. They appear to be low setting in the posterior pharynx compared to normal tonsils. However, I did not see any evidence of any hypertrophy of any lymphoid tissue on the base of tongue. Palpation of the neck is negative for any neck lymphadenopathy or other suspicious lesions. Cranial nerves 2 through 12, remainder of the head and neck exam are unremarkable. CHEST/CARDIOVASCULAR: Both lung gaitan are clear to percussion and auscultation. The patient is in regular sinus rhythm. S1, S2 are present without any murmurs, S3s, or S4s. Peripheral pulses are bilaterally symmetrical. ABDOMEN: There is no evidence any masses, megaly, or tenderness. The abdomen is soft. The remainder of physical exam is unremarkable. ASSESSMENT: 1. Retropharyngeal fullness due to hypertrophy of residual tonsils. 2. TMJ. During the physical examination, I palpated the patient's TMJ's and noted that there was significant subluxation of both TMJ joints, both in the vertical and the lateral movement. In each case, the patient experiences severe pain with these movements. The patient is noted to be edentulous and states she does not wear dentures because they do not fit. PLAN: I will be signing off this patient at this time. This patient should be referred to an ENT physician, who accepts her insurance by her primary care physician once she has been discharged from the hospital. Unfortunately, my office does not accept her insurance. She stated that she had seen Dr. Miller/Bradley in the past. At the time that she sees the ENT physician, they will most likely scope her nasally in the office and make a decision whether or not her tonsils are of such size that they need to be removed. Certainly, they are large, but I have seen larger tonsils. The interesting thing about her tonsils is that they are rather low setting, but as I stated before, I do not feel they are causing any difficulty with her swallowing. She may be experiencing a fullness sensation in the back of her throat, however. Lastly, I have advised the patient not to use Claritin or Flonase. I do not feel she has seasonal allergies. I feel she has vasomotor rhinitis. This disorder is best treated with Astelin nasal spray, which is a pure antihistamine nasal spray and would definitely dry up her rhinorrhea. She can use this medication on a b.i.d. as needed basis. I also advised the patient that she needs to drink at least 2 L of water daily and reduce the amount of vaping that she is doing. I want to take this opportunity to thank you for allowing me to assist in care of your patient. If I could be of any further assistance, please feel free to call my office. JODEE / SHARON: [phone] / ELOISE
[2024-06-01] MEDS: VANCOMYCIN 1,500 MG in SODIUM CHLORIDE 0.9% 500 ML 500 ML IVPB SCH (15:31)
[2024-06-01] MEDS ORDERED: ALBUTEROL NEBULIZED 2.5 MG/3 ML INHALATION PRN (15:34)
[2024-06-01 19:22] LABS: Hepatitis B Surface Antigen Nonreactive (Nonreactive); Hepatitis C IgG Antibody Nonreactive (Nonreactive)
[2024-06-01 21:33] LABS: EBV-EA (IgG) 0.4 AI; EBV-EBNA(IgG) 6.6; EBV-VCA (IgG) 6.7 AI; EBV-VCA (IgM) <0.2 AI
--- NOTE | 2024-06-02 00:19 | PN ---
PROGRESS NOTE DATE OF SERVICE: 06/01/2024 SUBJECTIVE: This is a 54-year-old woman, who is admitted with right-sided pneumonia with MRSA grown from the sputum. The patient has underlying interstitial opacities, suggestive of COVID-19 pneumonia. This could be superinfection. The patient is on IV vancomycin. The Heterophile antibody is also positive. The patient had throat pain also. PAST MEDICAL HISTORY: Reviewed. REVIEW OF SYSTEMS: Fourteen-point review of systems negative except as mentioned earlier. MEDICATIONS: Reviewed. PHYSICAL EXAMINATION: VITAL SIGNS: Pulse 72, blood pressure 158/67, respirations 18. HEENT: Conjunctivae normal. CARDIOVASCULAR: S1, S2. RESPIRATIONS: A few scattered rhonchi. ABDOMEN: Soft. NERVOUS SYSTEM: Nonfocal. LABORATORY DATA: WBC is 14. ASSESSMENT: 1. Right-sided multifocal pneumonia/methicillin-resistant Staphylococcus aureus pneumonia with possible superinfection with underlying COVID pneumonia. 2. COVID is a possibility. 3. Anemia, normocytic. 4. Heterophile antibody positive. 5. Hypertension. 6. Hyperlipidemia. 7. Anxiety and bipolar depression. RECOMMENDATIONS AND DISCUSSION: I recommended to continue with current management. Continue with the vancomycin. Infectious Disease evaluation. Prominent retropharyngeal soft tissue was noted in the CAT scan. ENT has been consulted. Prognosis is guarded. Further recommendations to follow. See orders for details. MMODL / IJN: [id number] /
[2024-06-02 04:33] LABS: ALT 45 U/L (4-34); AST 48 U/L (14-36); African American GFR (CKD) >90 (>60 ml/min/1.73 sqM); Albumin 3.4 g/dL (3.5-5.0); Albumin/Globulin Ratio 1.1; Alkaline Phosphatase 102 U/L (38-126); Anion Gap 10 mmol/L; Blood Urea Nitrogen 9 mg/dL (7-17); Calcium 9.3 mg/dL (8.4-10.2); Carbon Dioxide 22 mmol/L (22-30); Chloride 108 mmol/L (98-107); Globulin 3.2 g/dL; Glucose 158 mg/dL (74-99); Non-African American GFR(CKD) >90 (>60 ml/min/1.73 sqM); Potassium 3.4 mmol/L (3.5-5.1); Sodium 140 mmol/L (137-145); Total Bilirubin 0.2 mg/dL (0.2-1.3); Total Protein 6.6 g/dL (6.3-8.2)
[2024-06-02] MEDS ORDERED: Potassium Replacement Protocol 1 EACH MISC MISCELLANE PRN (06:20)
[2024-06-02] MEDS: POTASSIUM CHLORIDE ER 20 MEQ TAB.ER PO SCH ×2 (06:39→13:29)
[2024-06-02] MEDS: amLODIPine 10 MG TAB PO SCH (08:22)
[2024-06-02 08:37] LABS: Basophils # (A) 0.04 X 10*3/uL (0.00-0.10); Basophils % (A) 0.3 %; Eosinophils # (A) 0.19 X 10*3/uL (0.04-0.35); Eosinophils % (A) 1.5 %; HCT 30.5 % (37.2-46.3); HGB 9.5 g/dL (12.0-15.0); Lymphocytes # (A) 2.85 X 10*3/uL (0.90-5.00); Lymphocytes % (A) 22.4 %; MCH 26.6 pg (27.0-32.0); MCHC 31.1 g/dL (32.0-37.0); MCV 85.4 FL (80.0-97.0); Mean Platelet Volume 10.1 FL (9.5-12.2); Monocytes # (A) 0.85 X 10*3/uL (0.20-1.00); Monocytes % (A) 6.7 %; NRBC Per 100 WBC 0 X 10*3/uL (0.00-0.01); Neutrophils # (A) 8.66 X 10*3/uL (1.80-7.70); Neutrophils % (A) 68.2 %; Platelet Count 598 X 10*3/uL (140-440); RBC 3.57 X 10*6/uL (4.10-5.20); RDW 14.9 % (11.5-14.5); WBC 12.71 X 10*3/uL (4.50-10.00)
[2024-06-02] MEDS ORDERED: POTASSIUM CHLORIDE ER 20 MEQ TAB.ER PO STA (10:57)
--- NOTE | 2024-06-02 13:05 | P.PN ---
Subjective Progress Note Date: 06/01/24 Principal diagnosis: Reason for follow-up is pneumonia Patient is a 54-year-old female with a past medical history significant for hypertension hyperlipidemia osteoarthritis anxiety depression, presenting to the hospital for evaluation of increasing shortness of breath cough sore throat, patient be diagnosed with pneumonia prompting this consultation. On today's evaluation that is 06/01/2024, patient has been afebrile, patient is breathing comfortably and is currently on room air, patient denies having chest pain still have a cough but less productive, patient denies nausea vomiting or diarrhea and no abdominal pain, mention swallowing has improved. Patient white count is down to 14.05 creatinine 0.42 sputum finalized with MRSA blood culture negative Objective - Vital Signs Vital signs: Vital Signs Temp 97.5 F L 06/01/24 06:48 Pulse 72 06/01/24 06:48 Resp 18 06/01/24 06:48 BP 115/67 06/01/24 06:48 Pulse Ox 96 06/01/24 08:05 FiO2 21 05/28/24 09:35 Intake & Output 05/31/24 06/01/24 06/01/24 18:59 06:59 18:59 Other: Voiding Method Toilet # Voids 4 2 - Exam GENERAL DESCRIPTION: Middle-age female lying in bed in no distress RESPIRATORY SYSTEM: Unlabored breathing , decreased breath sounds at bases HEART: S1 S2 regular rate and rhythm , ABDOMEN: Soft , no tenderness EXTREMITIES: No edema feet - Labs CBC & Chem 7: 06/02/24 03:05 06/02/24 11:14 Labs: Abnormal Lab Results - Last 24 Hours (Table) 06/01/24 06/01/24 Range/Units 06:00 06:00 WBC 14.05 H (4.50-10.00) X 10*3/uL RBC 3.64 L (4.10-5.20) X 10*6/uL Hgb 9.6 L (12.0-15.0) g/dL Hct 30.5 L (37.2-46.3) % MCH 26.4 L (27.0-32.0) pg MCHC 31.5 L (32.0-37.0) g/dL Plt Count 532 H (140-440) X 10*3/uL Immature Gran # 0.14 H (0.00-0.04) X 10*3/uL Neutrophils # 11.96 H (1.80-7.70) X 10*3/uL Eosinophils # 0 L (0.04-0.35) X 10*3/uL Chloride 109 H (98-107) mmol/L Carbon Dioxide 21 L (22-30) mmol/L Creatinine 0.42 L (0.52-1.04) mg/dL Glucose 159 H (74-99) mg/dL Microbiology - Last 24 Hours (Table) 05/27/24 13:23 Blood Culture - Preliminary Blood Assessment and Plan (1) Multifocal pneumonia Current Visit: Yes Status: Acute Code(s): J18.9 - PNEUMONIA, UNSPECIFIED ORGANISM SNOMED Code(s): 722546023 (2) MRSA (methicillin resistant staph aureus) culture positive Current Visit: Yes Status: Acute Code(s): Z22.322 - CARRIER OR SUSPECTED CARRIER OF METHICILLIN RESIS STAPH SNOMED Code(s): 979166788 Plan: 1patient is in the hospital with increasing shortness of breath cough and sputum production with evidence of multifocal pneumonia on the right side with a question of community acquired versus residual gram-positive or gram-negative pathogen 2-sputum currently growing MRSA 3-patient to be treated with vancomycin pharmacy to dose target trough of 15 for MRSA pneumonia white count is trending down we will monitor closely Dictation was produced using [employer] [place] dictation software. please excuse any grammatical, word or spelling errors. Time with Patient: Less than 30
--- NOTE | 2024-06-02 13:06 | P.PN ---
Subjective Progress Note Date: 06/02/24 Principal diagnosis: Reason for follow-up is pneumonia Patient is a 54-year-old female with a past medical history significant for hypertension hyperlipidemia osteoarthritis anxiety depression, presenting to the hospital for evaluation of increasing shortness of breath cough sore throat, patient be diagnosed with pneumonia prompting this consultation. On today's evaluation that is 06/02/2024, Patient is afebrile this morning patient denies having any chest pain still complaining of some shortness of breath did have a cough but less productive no nausea vomiting abdominal pain or diarrhea. Patient white count is down to 12.71, creatinine 0.56 chest x-ray right-sided airspace opacity Objective - Vital Signs Vital signs: Vital Signs Temp 98.1 F 06/02/24 07:43 Pulse 71 06/02/24 07:43 Resp 18 06/02/24 07:43 BP 183/104 06/02/24 07:43 Pulse Ox 99 06/02/24 07:43 FiO2 21 05/28/24 09:35 Intake & Output 06/01/24 06/02/24 06/02/24 18:59 06:59 18:59 Other: Voiding Method Toilet Toilet # Voids 5 2 3 # Bowel Movements 0 1 - Exam GENERAL DESCRIPTION: Middle-age female lying in bed in no distress RESPIRATORY SYSTEM: Unlabored breathing , decreased breath sounds at bases HEART: S1 S2 regular rate and rhythm , ABDOMEN: Soft , no tenderness EXTREMITIES: No edema feet - Labs CBC & Chem 7: 06/02/24 03:05 06/02/24 11:14 Labs: Abnormal Lab Results - Last 24 Hours (Table) 06/01/24 06/02/24 06/02/24 Range/Units 06:00 03:05 03:05 WBC 12.71 H (4.50-10.00) X 10*3/uL RBC 3.57 L (4.10-5.20) X 10*6/uL Hgb 9.5 L (12.0-15.0) g/dL Hct 30.5 L (37.2-46.3) % MCH 26.6 L (27.0-32.0) pg MCHC 31.1 L (32.0-37.0) g/dL RDW 14.9 H (11.5-14.5) % Plt Count 598 H (140-440) X 10*3/uL Immature Gran # 0.12 H (0.00-0.04) X 10*3/uL Neutrophils # 8.66 H (1.80-7.70) X 10*3/uL Potassium 3.4 L (3.5-5.1) mmol/L Chloride 108 H (98-107) mmol/L Glucose 158 H (74-99) mg/dL AST 48 H (14-36) U/L ALT 45 H (4-34) U/L Albumin 3.4 L (3.5-5.0) g/dL EBV Capsid Ag IgG Intrp Positive A (Negative) EBV Nuc Ag IgG Interp Positive A (Negative) 06/02/24 Range/Units 11:14 WBC (4.50-10.00) X 10*3/uL RBC (4.10-5.20) X 10*6/uL Hgb (12.0-15.0) g/dL Hct (37.2-46.3) % MCH (27.0-32.0) pg MCHC (32.0-37.0) g/dL RDW (11.5-14.5) % Plt Count (140-440) X 10*3/uL Immature Gran # (0.00-0.04) X 10*3/uL Neutrophils # (1.80-7.70) X 10*3/uL Potassium 3.4 L (3.5-5.1) mmol/L Chloride (98-107) mmol/L Glucose (74-99) mg/dL AST (14-36) U/L ALT (4-34) U/L Albumin (3.5-5.0) g/dL EBV Capsid Ag IgG Intrp (Negative) EBV Nuc Ag IgG Interp (Negative) Microbiology - Last 24 Hours (Table) 05/27/24 13:23 Blood Culture - Final Blood Assessment and Plan (1) Multifocal pneumonia Current Visit: Yes Status: Acute Code(s): J18.9 - PNEUMONIA, UNSPECIFIED ORGANISM SNOMED Code(s): 618516179 (2) MRSA (methicillin resistant staph aureus) culture positive Current Visit: Yes Status: Acute Code(s): Z22.322 - CARRIER OR SUSPECTED CARRIER OF METHICILLIN RESIS STAPH SNOMED Code(s): 820978498 Plan: 1patient is in the hospital with increasing shortness of breath cough and sputum production with evidence of multifocal pneumonia on the right side with a question of community acquired versus residual gram-positive or gram-negative pathogen 2-sputum currently growing MRSA 3-patient is afebrile white count is trending up blood culture has been negative to be treated with vancomycin pharmacy to dose target trough of 15 unfortunately cannot use Zyvox because of drug interaction may benefit from a short course of IV vancomycin on discharge versus Bactrim DS depending upon the coverage and clinical response Dictation was produced using [employer] dictation software. please excuse any grammatical, word or spelling errors. Time with Patient: Less than 30
[2024-06-02] MEDS: METOPROLOL TARTRATE 25 MG TAB PO SCH (15:33)
[2024-06-02] MEDS: VANCOMYCIN TROUGH DUE 1 EACH MISC MISCELLANE ONE (15:41)
[2024-06-02] MEDS: VANCOMYCIN 1,250 MG in SODIUM CHLORIDE 0.9% 250 ML IVPB SCH ×2 (15:45→16:37)
[2024-06-02] MEDS ORDERED: TEMAZEPAM 15 MG CAP PO PRN (16:09)
--- NOTE | 2024-06-02 16:43 | XR ---
EXAMINATION TYPE: XR chest 1V portable DATE OF EXAM: 06/02/2024 4:26 PM COMPARISON: Chest radiographs from 06/01/2024 CLINICAL INDICATION: Female, 54 years old with history of shortness of breath; [facility] TECHNIQUE: XR chest 1V portable Frontal view of the chest. FINDINGS: Lungs/Pleura: Similar multifocal airspace opacities. No evidence of pneumothorax or pleural effusion. Pulmonary vascularity: Unremarkable. Heart/mediastinum: Cardiomediastinal silhouette is unremarkable. Musculoskeletal: No acute osseous pathology. IMPRESSION: Similar multifocal airspace opacities. [facility], , 06/02/2024 4:40 PM
--- NOTE | 2024-06-02 21:34 | PN ---
PROGRESS NOTE DATE OF SERVICE: 06/02/2024 SUBJECTIVE: This is a 54-year-old woman, who was admitted with right-sided multifocal pneumonia, who also had Staph aureus. Most likely, the patient had underlying viral illness with superadded pneumonia. The patient will be closely monitored at this time. The patient is on multiple antibiotics. The most recent chest x-ray showed significant pneumonia on the right side. PAST MEDICAL HISTORY: Reviewed. REVIEW OF SYSTEMS: Fourteen-point review of systems negative except as mentioned earlier. CURRENT MEDICATIONS: Reviewed. PHYSICAL EXAMINATION: VITAL SIGNS: Pulse is 74, blood pressure 183/104, respirations 18. HEENT: Conjunctivae normal. NECK: No JVD. CARDIOVASCULAR: S1, S2. RESPIRATIONS: Diminished in the bases. A few scattered rhonchi. ABDOMEN: Soft. NERVOUS SYSTEM: Nonfocal. LABORATORY DATA: Potassium 3.3, hemoglobin 12.7. EBV is negative. ASSESSMENT: 1. Right-sided multifocal pneumonia with methicillin-resistant Staphylococcus aureus pneumonia with possibly superinfection with underlying COVID pneumonia. 2. COVID-19 is a possibility. 3. Anemia, normocytic. 4. Heterophile antibody positive, but EBV-IgM negative and IgG positive, possibly old infection. 5. Hypertension. 6. Hyperlipidemia. 7. Anxiety and bipolar depression. RECOMMENDATIONS AND DISCUSSION: I recommended to continue current management, continue symptomatic treatment otherwise. At this time. We will continue with Norvasc, add Lopressor to the current regimen. We will continue to monitor potassium. Further recommendations to follow. MMODL / IJN: [id number] /
[2024-06-03 04:51] LABS: African American GFR (CKD) >90 (>60 ml/min/1.73 sqM); Anion Gap 9 mmol/L; Blood Urea Nitrogen 10 mg/dL (7-17); Calcium 9.1 mg/dL (8.4-10.2); Carbon Dioxide 21 mmol/L (22-30); Chloride 105 mmol/L (98-107); Glucose 129 mg/dL (74-99); Non-African American GFR(CKD) >90 (>60 ml/min/1.73 sqM); Potassium 4.4 mmol/L (3.5-5.1); Sodium 135 mmol/L (137-145)
[2024-06-03 08:52] LABS: Basophils # (A) 0.07 X 10*3/uL (0.00-0.10); Basophils % (A) 0.5 %; Eosinophils # (A) 0.38 X 10*3/uL (0.04-0.35); Eosinophils % (A) 2.6 %; HCT 30.3 % (37.2-46.3); HGB 9.5 g/dL (12.0-15.0); Lymphocytes # (A) 1.71 X 10*3/uL (0.90-5.00); Lymphocytes % (A) 11.8 %; MCH 26.7 pg (27.0-32.0); MCHC 31.4 g/dL (32.0-37.0); MCV 85.1 FL (80.0-97.0); Mean Platelet Volume 10.8 FL (9.5-12.2); Monocytes % (A) 10.4 %; NRBC Per 100 WBC 0 X 10*3/uL (0.00-0.01); Neutrophils # (A) 10.72 X 10*3/uL (1.80-7.70); Neutrophils % (A) 73.9 %; Platelet Count 530 X 10*3/uL (140-440); RBC 3.56 X 10*6/uL (4.10-5.20); WBC 14.49 X 10*3/uL (4.50-10.00)
--- NOTE | 2024-06-03 13:15 | P.PN ---
Subjective Progress Note Date: 06/03/24 Principal diagnosis: Reason for follow-up is pneumonia Patient is a 54-year-old female with a past medical history significant for hypertension hyperlipidemia osteoarthritis anxiety depression, presenting to the hospital for evaluation of increasing shortness of breath cough sore throat, patient be diagnosed with pneumonia prompting this consultation. On today's evaluation that is 06/03/2024,the patient denies any fever or any chills, patient is breathing comfortably on room air, the patient denies chest pain shortness of breath and no worsening cough, patient denies abdominal pain, no nausea vomiting or diarrhea. Has been complaining of mostly pain to the r ight forehead area. Patient white count is 14.49 creatinine 0.52 blood culture has been negative Objective - Vital Signs Vital signs: Vital Signs Temp 99.3 F 06/03/24 07:13 Pulse 69 06/03/24 07:13 Resp 14 06/03/24 07:13 BP 142/72 06/03/24 07:13 Pulse Ox 95 06/03/24 07:13 FiO2 21 05/28/24 09:35 Intake & Output 06/02/24 06/03/24 06/03/24 18:59 06:59 18:59 Intake Total 1650 Balance 1650 Intake: Oral 1650 Other: Voiding Method Toilet Toilet # Voids 3 4 # Bowel Movements 1 - Exam GENERAL DESCRIPTION: Middle-age female lying in bed in no distress RESPIRATORY SYSTEM: Unlabored breathing , decreased breath sounds at bases HEART: S1 S2 regular rate and rhythm , ABDOMEN: Soft , no tenderness EXTREMITIES: No edema feet - Labs CBC & Chem 7: 06/03/24 04:06 06/03/24 04:06 Labs: Abnormal Lab Results - Last 24 Hours (Table) 06/02/24 06/03/24 06/03/24 Range/Units 16:14 04:06 04:06 WBC 14.49 H (4.50-10.00) X 10*3/uL RBC 3.56 L (4.10-5.20) X 10*6/uL Hgb 9.5 L (12.0-15.0) g/dL Hct 30.3 L (37.2-46.3) % MCH 26.7 L (27.0-32.0) pg MCHC 31.4 L (32.0-37.0) g/dL RDW 15.0 H (11.5-14.5) % Plt Count 530 H (140-440) X 10*3/uL Immature Gran # 0.11 H (0.00-0.04) X 10*3/uL Neutrophils # 10.72 H (1.80-7.70) X 10*3/uL Monocytes # 1.50 H (0.20-1.00) X 10*3/uL Eosinophils # 0.38 H (0.04-0.35) X 10*3/uL D-Dimer 1.53 H (<0.60) mg/L FEU Sodium 135 L (137-145) mmol/L Carbon Dioxide 21 L (22-30) mmol/L Glucose 129 H (74-99) mg/dL Microbiology - Last 24 Hours (Table) 05/28/24 08:38 Legionella Culture - Preliminary Sputum 05/27/24 13:23 Blood Culture - Final Blood Assessment and Plan (1) Multifocal pneumonia Current Visit: Yes Status: Acute Code(s): J18.9 - PNEUMONIA, UNSPECIFIED ORGANISM SNOMED Code(s): 160273628 (2) MRSA (methicillin resistant staph aureus) culture positive Current Visit: Yes Status: Acute Code(s): Z22.322 - CARRIER OR SUSPECTED CARRIER OF METHICILLIN RESIS STAPH SNOMED Code(s): 462266698 Plan: 1patient is in the hospital with increasing shortness of breath cough and sputum production with evidence of multifocal pneumonia on the right side with a question of community acquired versus residual gram-positive or gram-negative pathogen 2-sputum currently growing MRSA 3-patient is afebrile white count is slightly up but no worsening respiratory status we will continue with vancomycin pharmacy to dose and will benefit from a short course of IV Vanco on discharge discussed with the lining caser Dictation was produced using [employer] software. please excuse any grammatical, word or spelling errors. Time with Patient: Less than 30
[2024-06-03 14:47] VITALS: BMI 26.8
[2024-06-03] MEDS: COLCHICINE 0.6 MG EACH PO SCH (18:23)
--- NOTE | 2024-06-04 01:55 | PN ---
PROGRESS NOTE DATE OF SERVICE: 06/03/2024 SUBJECTIVE: This is a 54-year-old woman, who was admitted with right-sided multifocal bacteremia, had Staph aureus infection. The patient has probably underlying COVID at this time. Most recent chest x-ray done yesterday, which was reviewed personally by me. PAST MEDICAL HISTORY: Reviewed. REVIEW OF SYSTEMS: A 14-point review of systems is negative except as mentioned earlier. CURRENT MEDICATIONS: Reviewed. PHYSICAL EXAMINATION: VITAL SIGNS: Pulse 103, blood pressure 136/64, respirations 16. CHEST: A few scattered rhonchi and crackles. ABDOMEN: Soft. NERVOUS SYSTEM: Nonfocal. LABORATORY DATA: WBC 14.49, rest of the labs are D-dimer is 1.53. Rest of the labs are noted. ASSESSMENT: 1. Right-sided multifocal pneumonia with methicillin-resistant Staphylococcus aureus pneumonia, possibly superinfection with underlying COVID pneumonia. 2. COVID-19 is a possibility. 3. Anemia, normocytic. 4. Heterophile antibody positive, EBV-IgM negative and IgG positive, possibly old infection. 5. Hypertension. 6. Hyperlipidemia. 7. Anxiety and bipolar depression. RECOMMENDATIONS AND DISCUSSION: I recommended to continue current management and continue symptomatic treatment. Repeat labs. Otherwise, cultures are showing MRSA. Blood cultures are negative. Continue to monitor. The patient is on vancomycin. Closely follow with Infectious Disease. Further recommendations to follow. MMODL / IJN: [id number] /
[2024-06-04 07:51] LABS: African American GFR (CKD) >90 (>60 ml/min/1.73 sqM); Anion Gap 9 mmol/L; Blood Urea Nitrogen 13 mg/dL (7-17); Calcium 9.2 mg/dL (8.4-10.2); Carbon Dioxide 21 mmol/L (22-30); Chloride 106 mmol/L (98-107); Glucose 121 mg/dL (74-99); Non-African American GFR(CKD) >90 (>60 ml/min/1.73 sqM); Potassium 4.4 mmol/L (3.5-5.1); Sodium 136 mmol/L (137-145)
[2024-06-04] MEDS: VANCOMYCIN TROUGH DUE 1 EACH MISC MISCELLANE ONE (08:23)
[2024-06-04 10:18] LABS: Basophils # (A) 0.07 X 10*3/uL (0.00-0.10); Basophils % (A) 0.5 %; Eosinophils # (A) 0.33 X 10*3/uL (0.04-0.35); Eosinophils % (A) 2.4 %; HCT 28.6 % (37.2-46.3); Lymphocytes # (A) 1.68 X 10*3/uL (0.90-5.00); Lymphocytes % (A) 12.2 %; MCH 26.3 pg (27.0-32.0); MCHC 31.5 g/dL (32.0-37.0); MCV 83.6 FL (80.0-97.0); Mean Platelet Volume 10.3 FL (9.5-12.2); Monocytes # (A) 1.21 X 10*3/uL (0.20-1.00); Monocytes % (A) 8.8 %; NRBC Per 100 WBC 0 X 10*3/uL (0.00-0.01); Neutrophils # (A) 10.39 X 10*3/uL (1.80-7.70); Neutrophils % (A) 75.6 %; Platelet Count 496 X 10*3/uL (140-440); RBC 3.42 X 10*6/uL (4.10-5.20); RDW 14.9 % (11.5-14.5); WBC 13.75 X 10*3/uL (4.50-10.00)
[2024-06-04] MEDS ORDERED: VANCOMYCIN 1,500 MG in SODIUM CHLORIDE 0.9% 500 ML 500 ML IVPB SCH (12:00)
[2024-06-04] MEDS ORDERED: DEXTROSE 50% SYRINGE 50 ML IVP PRN ×2 (13:28)
[2024-06-04] MEDS: COLCHICINE 0.6 MG EACH PO SCH (14:38)
[2024-06-04] MEDS: methylPREDNISolone SOD SUCCI 40 MG/ML 1 ML VIAL IV SCH (14:39)
--- NOTE | 2024-06-04 15:10 | P.PN ---
Subjective Progress Note Date: 06/04/24 Principal diagnosis: Reason for follow-up is pneumonia Patient is a 54-year-old female with a past medical history significant for hypertension hyperlipidemia osteoarthritis anxiety depression, presenting to the hospital for evaluation of increasing shortness of breath cough sore throat, patient be diagnosed with pneumonia prompting this consultation. On today's evaluation that is 06/04/2024,the patient remains to be afebrile, patient is on room air not requiring supplemental oxygen and denies any shortness of breath no chest pain or any worsening cough.Patient denies having any nausea or vomiting, no abdominal pain and no diarrhea has been complaining of pain to left shoulder area. The patient white count is down to 13.75, creatinine 0.60 Vanco trough is 23 Objective - Vital Signs Vital signs: Vital Signs Temp 98.2 F 06/04/24 13:35 Pulse 61 06/04/24 13:35 Resp 20 06/04/24 13:35 BP 115/68 06/04/24 13:35 Pulse Ox 94 L 06/04/24 13:35 FiO2 21 05/28/24 09:35 Intake & Output 06/03/24 06/04/24 06/04/24 18:59 06:59 18:59 Intake Total 2700 Balance 2700 Weight 75.296 kg Intake: Oral 2700 Other: Voiding Method Toilet Toilet # Voids 5 6 # Bowel Movements 2 - Exam GENERAL DESCRIPTION: Middle-age female lying in bed in no distress RESPIRATORY SYSTEM: Unlabored breathing , decreased breath sounds at bases HEART: S1 S2 regular rate and rhythm , ABDOMEN: Soft , no tenderness EXTREMITIES: No edema feet - Labs CBC & Chem 7: 06/04/24 07:12 06/04/24 07:12 Labs: Abnormal Lab Results - Last 24 Hours (Table) 06/03/24 06/04/24 06/04/24 Range/Units 04:06 07:12 07:12 WBC 13.75 H (4.50-10.00) X 10*3/uL RBC 3.42 L (4.10-5.20) X 10*6/uL Hgb 9.0 L (12.0-15.0) g/dL Hct 28.6 L (37.2-46.3) % MCH 26.3 L (27.0-32.0) pg MCHC 31.5 L (32.0-37.0) g/dL RDW 14.9 H (11.5-14.5) % Plt Count 496 H (140-440) X 10*3/uL Immature Gran # 0.07 H (0.00-0.04) X 10*3/uL Neutrophils # 10.39 H (1.80-7.70) X 10*3/uL Monocytes # 1.21 H (0.20-1.00) X 10*3/uL ESR 72 H (0-30) mm/Hr Sodium 136 L (137-145) mmol/L Carbon Dioxide 21 L (22-30) mmol/L Glucose 121 H (74-99) mg/dL Assessment and Plan (1) Multifocal pneumonia Current Visit: Yes Status: Acute Code(s): J18.9 - PNEUMONIA, UNSPECIFIED ORGANISM SNOMED Code(s): 562430079 (2) MRSA (methicillin resistant staph aureus) culture positive Current Visit: Yes Status: Acute Code(s): Z22.322 - CARRIER OR SUSPECTED CARRIER OF METHICILLIN RESIS STAPH SNOMED Code(s): 091046472 Plan: 1patient is in the hospital with increasing shortness of breath cough and sputum production with evidence of multifocal pneumonia on the right side with a question of community acquired versus residual gram-positive or gram-negative pathogen 2-sputum currently growing MRSA 3-patient is afebrile white count is trending down, currently being treated with vancomycin pharmacy to dose and Vanco trough is therapeutic, patient received about 8 to 9 days of IV antibiotic therapy, will check a chest x-ray if significant improvement pneumonia may consider oral antibiotic on discharge Dictation was produced using [employer] dictation software. please excuse any grammatical, word or spelling errors. Time with Patient: Less than 30
--- NOTE | 2024-06-04 15:25 | CDI ---
Documentation Clarification Form Date: 06/04/2024 03:07:17 PM From: Ila Silva Phone: [phone] Admit Date: 05/27/2024 05:53:00 PM Patient Name: Gerda Mensah Visit Number: [id number] Discharge Date: ATTENTION: The Clinical Documentation Specialists (CDI) and [facility] Coding Staff appreciate your assistance in clarifying documentation. Please respond to the clarification below the line at the bottom and electronically sign. The CDI & [facility] Coding staff will review the response and follow-up if needed. Please note: Queries are made part of the Legal Health Record. If you have any questions, please contact the author of this message via ITS. Doctor/Provider: Tariqstephan Asif COVID 19 is documented 06/03, Medicine note which may lack sufficient clinical evidence/support in the medical record. Additional clarification is requested. History/Risk Factors: 54 year old female presents to the ED for four months of intermittent upper respiratory infection symptoms. Medical History: HLD, HTN, OA, Anxiety, Depression, BiPolar and Bergers disease. 05/27, HP. Clinical Indicators: Lab: Serology 05/27 SARS CoV-2 (PCR) Not Detected 05/27, CT chest: Multifocal and diffuse right lung groundglass opacities could reflect acute edema and or acute infiltrates. Correlate for multilobar right lung infection. 05/28, Sputum Culture: Methicillin resist S aureus. 06/03, Medicine note: The patient has probably underlying COVID at this time. 05/28, ID Consult: patient did not have any fever on presentation to the hospital patient was not tachycardic or hypotensive not hypoxic currently on room air did have COVID testing negative patient did have a chest x-ray followed by CT angiogram of the chest it was a suboptimal study for the pain however did shows multifocal and diffuse right lung opacities could reflect acute infiltrate patient was started on vancomycin and Zosyn infectious was consulted for pneumonia Treatment: 05/27 0.9NS 1L bolus, 05/27 thru current Vancomycin ivpb Please clarify if COVID 19 is a valid diagnosis? [ ] No, COVID 19 is ruled out [ ] Yes, COVID 19 is present as evidence by (additional clinical support): [ ] Other (please specify diagnosis) [ ] Unable to determine (Template Last Revised: August 2023) Unable to determine MTDD
--- NOTE | 2024-06-04 16:34 | XR ---
EXAMINATION TYPE: XR chest 2V DATE OF EXAM: 06/04/2024 4:21 PM COMPARISON: Chest radiographs from 06/02/2024. CLINICAL INDICATION: Female, 54 years old with history of pneumonia follow up; [facility] TECHNIQUE: XR chest 2V Frontal and lateral views of the chest. FINDINGS: Lungs/Pleura: Similar multifocal airspace opacities. No evidence of pneumothorax or pleural effusion. Pulmonary vascularity: Unremarkable. Heart/mediastinum: Cardiomediastinal silhouette is unremarkable. Musculoskeletal: No acute osseous pathology. IMPRESSION: Similar multifocal airspace opacities. [facility], , 06/04/2024 4:32 PM
--- NOTE | 2024-06-04 16:35 | XR ---
EXAMINATION TYPE: XR shoulder complete LT DATE OF EXAM: 06/04/2024 4:21 PM COMPARISON: None CLINICAL INDICATION: Female, 54 years old with history of SEVERE PAIN; PHH, pain TECHNIQUE: XR shoulder complete LT; examined in AP, internally rotated and scapular Y projections. FINDINGS: No evidence of acute osseous pathology, joint dislocation, or soft tissue swelling. The remaining po rtions of the visualized chest are unremarkable. Mild degeneration changes of the acromion and dista l clavicle. IMPRESSION: 1. No acute osseous pathology. 2. Mild shoulder osteoarthrosis. [facility], , 06/04/2024 4:33 PM
[2024-06-04 17:04] LABS: Glucose,Whole Blood 188 mg/dL (70-110)
[2024-06-04] MEDS: INSULIN LISPRO (HumaLOG) 100 UNIT/ML 10 mL VL SQ SCH (17:09)
[2024-06-04 20:37] LABS: Glucose,Whole Blood 203 mg/dL (70-110)
[2024-06-04] MEDS: VANCOMYCIN 1,500 MG in SODIUM CHLORIDE 0.9% 500 ML 500 ML IVPB SCH (21:16)
--- NOTE | 2024-06-04 21:31 | PN ---
PROGRESS NOTE DATE OF SERVICE: 06/04/2024 SUBJECTIVE: This is a 54-year-old woman, who was admitted with right-sided multifocal pneumonia, who also had Staph infection. MRSA was grown from the sputum. Blood culture is negative. The patient probably had underlying COVID-19 pneumonia from the appearance of the CAT scan. The patient is also complaining of right wrist joint and left shoulder also, possibly gout, started on colchicine without much relief. I would recommend a short course of IV steroids at this time. PAST MEDICAL HISTORY: Reviewed. REVIEW OF SYSTEMS: Fourteen-point review of systems negative except as mentioned earlier. CURRENT MEDICATIONS: Reviewed. PHYSICAL EXAMINATION: VITAL SIGNS: Pulse is 61, blood pressure of 115/68, respirations 20. HEENT: Conjunctivae normal. NECK: No JVD. CARDIOVASCULAR: S1, S2. RESPIRATIONS: Diminished in the bases. A few scattered rhonchi. ABDOMEN: Soft. NERVOUS SYSTEM: Nonfocal. LABORATORY DATA: Noted. WBC 13.75. ASSESSMENT: 1. Right-sided multifocal pneumonia with methicillin-resistant Staphylococcus aureus pneumonia, possibly superinfection with underlying COVID pneumonia or infection. 2. COVID-19 is a possibility. 3. Acute gouty attack with right wrist and left shoulder pain. 4. Anemia, normocytic. 5. Heterophilic antibody positive, possibly old infection. 6. Hypertension. 7. Hyperlipidemia. 8. Anxiety and bipolar depression. RECOMMENDATIONS AND DISCUSSION: I recommended to continue with current management, continue symptomatic treatment otherwise. I would recommend a short course of steroids as mentioned earlier. Increase the dose of colchicine. We will continue to monitor. Symptomatic treatment. Antibiotics, bronchodilators. Prognosis is extremely guarded because of multiple complex medical issues. Further recommendations to follow. See orders for details. MMODL / IJN: [id number] /
[2024-06-05 06:16] LABS: Glucose,Whole Blood 141 mg/dL (70-110)
[2024-06-05 08:34] LABS: ALT 39 U/L (8-44); AST 41 U/L (13-35); Albumin 3.6 g/dL (3.8-4.9); Albumin/Globulin Ratio 1.16 Ratio (1.60-3.17); Alkaline Phosphatase 146 U/L (41-126); BUN/Creat Ratio 22.67 Ratio (12.00-20.00); Blood Urea Nitrogen 13.6 mg/dL (9.0-27.0); Calcium 9.5 mg/dL (8.7-10.3); Carbon Dioxide 21.8 mmol/L (21.6-31.8); Chloride 104 mmol/L (96-109); Globulin 3.1 g/dL (1.6-3.3); Glucose 125 mg/dL (70-110); Potassium 5.1 mmol/L (3.5-5.5); Sodium 138 mmol/L (135-145); Total Bilirubin 0.3 mg/dL (0.3-1.2); Total Protein 6.7 g/dL (6.2-8.2)
[2024-06-05 08:51] LABS: Basophils # (A) 0.08 X 10*3/uL (0.00-0.10); Basophils % (A) 0.6 %; Eosinophils # (A) 0.04 X 10*3/uL (0.04-0.35); Eosinophils % (A) 0.3 %; HCT 28.4 % (37.2-46.3); HGB 8.8 g/dL (12.0-15.0); Lymphocytes # (A) 1.19 X 10*3/uL (0.90-5.00); MCH 26.2 pg (27.0-32.0); MCV 84.5 FL (80.0-97.0); Mean Platelet Volume 10.2 FL (9.5-12.2); Monocytes # (A) 0.69 X 10*3/uL (0.20-1.00); Monocytes % (A) 5.2 %; NRBC Per 100 WBC 0 X 10*3/uL (0.00-0.01); Neutrophils # (A) 11.21 X 10*3/uL (1.80-7.70); Neutrophils % (A) 84.4 %; Platelet Count 570 X 10*3/uL (140-440); RBC 3.36 X 10*6/uL (4.10-5.20); RDW 14.9 % (11.5-14.5); WBC 13.28 X 10*3/uL (4.50-10.00)
[2024-06-05 11:32] LABS: Glucose,Whole Blood 161 mg/dL (70-110)
[2024-06-05 14:05] VITALS: BP 152/72; PULSE 82; RESP 18; TEMP 98.1
[2024-06-05] MEDS ORDERED: NYSTATIN 100,000 UNIT/ML SUSP 500,000 UNIT/5 ML CUP PO SCH (14:15)
--- NOTE | 2024-06-05 16:02 | P.PN ---
Subjective Progress Note Date: 06/05/24 Principal diagnosis: Reason for follow-up is pneumonia Patient is a 54-year-old female with a past medical history significant for hypertension hyperlipidemia osteoarthritis anxiety depression, presenting to the hospital for evaluation of increasing shortness of breath cough sore throat, patient be diagnosed with pneumonia prompting this consultation. On today's evaluation that is 06/05/2024, the patient continues to be afebrile, the patient is on room air and breathing comfortably, the Pt denies having any chest pain or any worsening cough, the patient denies having any abdominal pain no vomiting or any diarrhea. Patient white count is 13.28, creatinine 0.6 chest x-ray from yesterday still shows significant right-sided pneumonia Objective - Vital Signs Vital signs: Vital Signs Temp 98.4 F 06/05/24 07:38 Pulse 72 06/05/24 07:38 Resp 20 06/05/24 10:27 BP 127/71 06/05/24 07:38 Pulse Ox 94 L 06/05/24 07:38 FiO2 21 05/28/24 09:35 Intake & Output 06/04/24 06/05/24 06/05/24 18:59 06:59 18:59 Intake Total 150 250 Balance 150 250 Intake: Oral 150 250 Other: Voiding Method Toilet Toilet Toilet # Voids 2 6 - Exam GENERAL DESCRIPTION: Middle-age female lying in bed in no distress RESPIRATORY SYSTEM: Unlabored breathing , decreased breath sounds at bases HEART: S1 S2 regular rate and rhythm , ABDOMEN: Soft , no tenderness EXTREMITIES: No edema feet - Labs CBC & Chem 7: 06/05/24 05:19 06/05/24 05:19 Labs: Abnormal Lab Results - Last 24 Hours (Table) 06/04/24 06/04/24 06/05/24 Range/Units 17:03 20:35 05:19 WBC (4.50-10.00) X 10*3/uL RBC (4.10-5.20) X 10*6/uL Hgb (12.0-15.0) g/dL Hct (37.2-46.3) % MCH (27.0-32.0) pg MCHC (32.0-37.0) g/dL RDW (11.5-14.5) % Plt Count (140-440) X 10*3/uL Immature Gran # (0.00-0.04) X 10*3/uL Neutrophils # (1.80-7.70) X 10*3/uL Anion Gap (4.00-12.00) mmol/L BUN/Creatinine Ratio (12.00-20.00) Ratio Glucose (70-110) mg/dL POC Glucose (mg/dL) 188 H 203 H (70-110) mg/dL Hemoglobin A1c 6.3 H (<=6.0) % AST (13-35) U/L Alkaline Phosphatase (41-126) U/L Albumin (3.8-4.9) g/dL Albumin/Globulin Ratio (1.60-3.17) Ratio 06/05/24 06/05/24 06/05/24 Range/Units 05:19 05:19 06:15 WBC 13.28 H (4.50-10.00) X 10*3/uL RBC 3.36 L (4.10-5.20) X 10*6/uL Hgb 8.8 L (12.0-15.0) g/dL Hct 28.4 L (37.2-46.3) % MCH 26.2 L (27.0-32.0) pg MCHC 31.0 L (32.0-37.0) g/dL RDW 14.9 H (11.5-14.5) % Plt Count 570 H (140-440) X 10*3/uL Immature Gran # 0.07 H (0.00-0.04) X 10*3/uL Neutrophils # 11.21 H (1.80-7.70) X 10*3/uL Anion Gap 12.20 H (4.00-12.00) mmol/L BUN/Creatinine Ratio 22.67 H (12.00-20.00) Ratio Glucose 125 H (70-110) mg/dL POC Glucose (mg/dL) 141 H (70-110) mg/dL Hemoglobin A1c (<=6.0) % AST 41 H (13-35) U/L Alkaline Phosphatase 146 H (41-126) U/L Albumin 3.6 L (3.8-4.9) g/dL Albumin/Globulin Ratio 1.16 L (1.60-3.17) Ratio 06/05/24 Range/Units 11:31 WBC (4.50-10.00) X 10*3/uL RBC (4.10-5.20) X 10*6/uL Hgb (12.0-15.0) g/dL Hct (37.2-46.3) % MCH (27.0-32.0) pg MCHC (32.0-37.0) g/dL RDW (11.5-14.5) % Plt Count (140-440) X 10*3/uL Immature Gran # (0.00-0.04) X 10*3/uL Neutrophils # (1.80-7.70) X 10*3/uL Anion Gap (4.00-12.00) mmol/L BUN/Creatinine Ratio (12.00-20.00) Ratio Glucose (70-110) mg/dL POC Glucose (mg/dL) 161 H (70-110) mg/dL Hemoglobin A1c (<=6.0) % AST (13-35) U/L Alkaline Phosphatase (41-126) U/L Albumin (3.8-4.9) g/dL Albumin/Globulin Ratio (1.60-3.17) Ratio Assessment and Plan (1) Multifocal pneumonia Current Visit: Yes Status: Acute Code(s): J18.9 - PNEUMONIA, UNSPECIFIED ORGANISM SNOMED Code(s): 805889140 (2) MRSA (methicillin resistant staph aureus) culture positive Current Visit: Yes Status: Acute Code(s): Z22.322 - CARRIER OR SUSPECTED CARRIER OF METHICILLIN RESIS STAPH SNOMED Code(s): 374467419 Plan: 1patient is in the hospital with increasing shortness of breath cough and sputum production with evidence of multifocal pneumonia on the right side with a question of community acquired versus residual gram-positive or gram-negative pathogen 2-sputum currently growing MRSA 3-patient is afebrile white count is trending down, however still have significant wound on the right side and concern for possible failure of oral antibiotics she will get a PICC line and a 7 to 10-day course of IV vancomycin on discharge multiple question concern answered, also discussed with the admitting team Dictation was produced using [employer] software. please excuse any grammatical, word or spelling errors.
[2024-06-06] MEDS ORDERED: VANCOMYCIN TROUGH DUE 1 EACH MISC MISCELLANE ONE (08:00)
--- NOTE | 2024-06-07 13:09 | P.DS ---
Providers Date of admission: 05/27/24 17:53 Expected date of discharge: 06/05/24 Attending physician: Shubham Kline MD Consults: 05/27/24 17:53 Consult Physician Routine Consulting Provider: Malathi Prather Consult Reason/Comments: Multilobar PNA Do you want consulting provider notified?: Yes, Notify in am 05/30/24 20:23 Consult Physician Routine Consulting Provider: Chris Rush Consult Reason/Comments: thickening of the retropharyngeal tissues/dysphagia Do you want consulting provider notified?: Yes, Notify in am Primary care physician: Eric Smyth Hospital Course: Final diagnosis Right sided multifocal pneumonia with MRSA in the sputum, possible superinfection with underlying COVID-pneumonia or infection Acute gouty attack with right wrist and left shoulder pain Anemia, normocytic Oral candidiasis Hydrophilic antibody positive, possibly old infection Hypertension Hyperlipidemia History of anxiety and bipolar depression GI prophylaxis Noncompliance with outpatient follow-up DVT prophylaxis Full code Discharge disposition Patient is being discharged in a stable condition with guarded prognosis to home with home care. Patient will follow-up with Dr. Smyth in the outpatient setting upon discharge. Patient is to continue with IV antibiotic therapy and outpatient follow-up with ENT as well as infectious disease as scheduled. Total time taken is greater than 35 minutes. Hospital course This is a 54-year-old female who was recently admitted with right-sided multifocal pneumonia also staph infection. MRSA growing in the sputum with infectious disease following we will receive a PICC line and have outpatient IV antibiotics in the form of vancomycin for 10 days. Patient will be going to the infusion center daily for these infusions. Patient also experiencing multiple joint pain complaints including left shoulder right wrist likely a gout flareup and will continue colchicine taper. Patient showing some clinical improvement and will continue a quick prednisone taper on discharge. Patient has been cleared by consultations and reports to feeling well and would like to go home. Please refer to other consultation notes for further HPI. Currently no reports of chest pain, shortness of breath, or palpitations. Patient is afebrile. No reports of nausea or vomiting and patient is tolerating diet. Patient will be discharged home today. Guarded prognosis and high risk for readmissions given noncompliance. Physical exam: Gen: This is a 54-year-old female who is awake, alert and oriented x 3, well- developed, appears older than stated age HEENT: Head is atraumatic, normocephalic. Pupils equal, round. Sclerae is anicteric. NECK: Supple. No JVD. No lymphadenopathy. No thyromegaly. LUNGS: Diminished breath sounds bilaterally otherwise clear to auscultation. No wheezes or rhonchi. No intercostal retractions. HEART: S1, S2 are muffled ABDOMEN: Soft. Bowel sounds are present. No masses. No tenderness. EXTREMITIES: No pedal edema. No calf tenderness. NEUROLOGICAL: Patient is awake, alert and oriented x3. Cranial nerves 2 through 12 are grossly intact. Please refer to medication reconciliation sheet for a list of medications. The impression and plan of care has been dictated by Bethany Cortez, Nurse Practitioner as directed. Dr. Asif MD I have performed a history and examination and MDM of this patient, discussed the same with the dictator, and agree with the dictator's assessment and plan as written ,documented as a scribe. Based on total visit time, I have performed more than 50% of the visit. Patient Condition at Discharge: Stable Plan - Discharge Summary Discharge Rx Participant: No New Discharge Prescriptions: New amLODIPine [Norvasc] 10 mg PO DAILY #30 tab Colchicine [Colcrys] 0.6 mg PO BID 7 Days #9 each Metoprolol Tartrate [Lopressor] 25 mg PO BID #60 tab Nystatin 100,000 Unit/ml Susp [Mycostatin Oral Susp] 500,000 unit PO QID 5 Days #100 ml predniSONE See Taper PO DIRECTED #12 tab Vancomycin 1,500 mg IVPB Q12H 10 Days #20 each Continue DULoxetine HCL [Cymbalta] 60 mg PO HS 30 Days #30 cap QUEtiapine [SEROquel] 100 mg PO HS 30 Days #30 tab Gabapentin 300 mg PO TID HYDROcodone/APAP 10-325MG [[place] 10-325] 1 tab PO Q6H Lidocaine 5% Oint [Xylocaine 5% Oint] 1 applic TOPICAL QID PRN PRN Reason: Pain Loratadine [Claritin] 10 mg PO DAILY Terbinafine [LamISIL] 250 mg PO DAILY Albuterol Inhaler [Ventolin Hfa Inhaler] 2 puff INHALATION RT-QID PRN PRN Reason: Shortness Of Breath rOPINIRole HCL [Requip] 0.25 mg PO HS PRN #30 tab PRN Reason: restless legs Baclofen 10 mg PO BID PRN #60 tab PRN Reason: Pain Butalb/APAP/Caff 50-325-40Mg [Fioricet 50-325-40] 1 tab PO BID PRN #60 tab PRN Reason: Migraine Headache Diclofenac Sodium Gel [Voltaren 1% Gel] 2 gm TOPICAL QID Ibuprofen [Motrin] 600 mg PO TID Budesonide [Pulmicort Flexhaler] 1 puff INHALATION RT-BID lamoTRIgine [LaMICtal] 25 mg PO BID Discontinued amLODIPine [Norvasc] 5 mg PO DAILY Discharge Medication List Baclofen 10 mg PO BID PRN #60 tab 04/12/22 [Rx] Butalb/APAP/Caff 50-325-40Mg [Fioricet 50-325-40] 1 tab PO BID PRN #60 tab 04/12/22 [Rx] DULoxetine HCL [Cymbalta] 60 mg PO HS 30 Days #30 cap 04/12/22 [Rx] QUEtiapine [SEROquel] 100 mg PO HS 30 Days #30 tab 04/12/22 [Rx] rOPINIRole HCL [Requip] 0.25 mg PO HS PRN #30 tab 04/12/22 [Rx] Albuterol Inhaler [Ventolin Hfa Inhaler] 2 puff INHALATION RT-QID PRN 05/27/24 [History] Budesonide [Pulmicort Flexhaler] 1 puff INHALATION RT-BID 05/27/24 [History] Diclofenac Sodium Gel [Voltaren 1% Gel] 2 gm TOPICAL QID 05/27/24 [History] Gabapentin 300 mg PO TID 05/27/24 [History] HYDROcodone/APAP 10-325MG [[place] 10-325] 1 tab PO Q6H 05/27/24 [History] Ibuprofen [Motrin] 600 mg PO TID 05/27/24 [History] Lidocaine 5% Oint [Xylocaine 5% Oint] 1 applic TOPICAL QID PRN 05/27/24 [History] Loratadine [Claritin] 10 mg PO DAILY 05/27/24 [History] Terbinafine [LamISIL] 250 mg PO DAILY 05/27/24 [History] lamoTRIgine [LaMICtal] 25 mg PO BID 05/27/24 [History] Colchicine [Colcrys] 0.6 mg PO BID 7 Days #9 each 06/05/24 [Rx] Metoprolol Tartrate [Lopressor] 25 mg PO BID #60 tab 06/05/24 [Rx] Nystatin 100,000 Unit/ml Susp [Mycostatin Oral Susp] 500,000 unit PO QID 5 Days #100 ml 06/05/24 [Rx] Vancomycin 1,500 mg IVPB Q12H 10 Days #20 each 06/05/24 [Rx] amLODIPine [Norvasc] 10 mg PO DAILY #30 tab 06/05/24 [Rx] predniSONE See Taper PO DIRECTED #12 tab 06/05/24 [Rx] Follow up Appointment(s)/Referral(s): Eric Smyth MD [Primary Care Provider] - 06/11/24 3:30 pm [facility], [NON-STAFF] - As Needed [facility] [NON-STAFF] - As Needed (IV antibiotics and supplies will be delivered to [facility].) Malathi Prather MD [STAFF PHYSICIAN] - 1 Week (Office closed. Please call office Saturday for your appt) Patient Instructions/Handouts: Pneumonia (DC), PICC (Peripherally Inserted Central Catheter) (DC) Activity/Diet/Wound Care/Special Instructions: 1. Specific ENT discharge instructions: Once the patient is discharged to home, I have advised her to contact her primary care doctor so that she may be referred to a ENT specialist who accepts her insurance. Unfortunately, my office does not accept her insurance. At the time that she is seen by the ENT physician they will most likely scope her in the office to further evaluate the tonsils which are quite enlarged. I have advised her to not use Claritin or Flonase because I do not feel she has seasonal allergies. Instead I believe she has vasomotor rhinitis, which is a condition which would account for her significant rhinorrhea that occurs especially when she is eating certain food and also whenever she goes from a hot to a air conditioned environment and vice versa. This condition is generally treated with Astelin nasal spray twice daily on a as needed basis. Activity limited until follow-up Follow-up with primary care provider on discharge Follow-up with infectious disease outpatient Continue with antibiotics per ID recommendations for 10 days of IV vancomycin Continue quick prednisone taper Recommend wearing a mask when out and about Discharge Disposition: HOME WITH HOME HEALTH SERVICES
== END 2024-06-05 16:04 | disposition home health service (06) | DRG 137 ==
LOC: EC 12:06 → 4SSUR 17:53
PROVIDERS: ADMIT Internal Medicine; ATTEND Internal Medicine
PROC: 02HV33Z Insertion of Infusion Device into Superior Vena Cava, Percutaneous Approach (ICD-10-PCS; principal; 2024-06-05 13:00)
DX: J15.212 Pneumonia due to Methicillin resistant Staphylococcus aureus (principal); U07.1 COVID-19; J12.82 Pneumonia due to coronavirus disease 2019; F17.290 Nicotine dependence, other tobacco product, uncomplicated; B37.0 Candidal stomatitis; D64.9 Anemia, unspecified; E78.5 Hyperlipidemia, unspecified; E86.0 Dehydration; F31.30 Bipolar disorder, current episode depressed, mild or moderate severity, unspecified; F41.9 Anxiety disorder, unspecified; G25.81 Restless legs syndrome; G89.29 Other chronic pain; I10 Essential (primary) hypertension; J30.0 Vasomotor rhinitis; J30.2 Other seasonal allergic rhinitis; J35.1 Hypertrophy of tonsils; J44.0 Chronic obstructive pulmonary disease with (acute) lower respiratory infection; M10.9 Gout, unspecified; N17.9 Acute kidney failure, unspecified; N02.B1 Recurrent and persistent immunoglobulin A nephropathy with glomerular lesion; I47.10 Supraventricular tachycardia, unspecified; R13.19 Other dysphagia; R32 Unspecified urinary incontinence; R13.10 Dysphagia, unspecified; G43.909 Migraine, unspecified, not intractable, without status migrainosus; R74.01 Elevation of levels of liver transaminase levels; M19.90 Unspecified osteoarthritis, unspecified site; M54.2 Cervicalgia; Z71.3 Dietary counseling and surveillance; Z20.822 Contact with and (suspected) exposure to COVID-19; Z91.199 Patient's noncompliance with other medical treatment and regimen due to unspecified reason; Z79.899 Other long term (current) drug therapy
CPT/HCPCS: 36415; 36573; 70450; 70490; 70491; 71045; 71046; 71275; 76705; 80048; 80053; 80074; 80076; 80202; 81001; 83036; 83605; 83735; 83880; 84100; 84132; 84484; 84550; 85025; 85379; 85610; 85652; 85730; 86140; 86308; 86663; 86664; 86665; 86701; 86803; 87040; 87070; 87077; 87186; 87205; 87340; 87449; 87636; 93005; 94640; 94760; 96365; 96366; 96367; 96375; 99285

== ENCOUNTER 2024-07-05 13:24 | Inpatient (IN) | payer OTHER ==
--- NOTE | 2024-07-05 14:49 | XR ---
EXAMINATION TYPE: XR chest 2V DATE OF EXAM: 07/05/2024 2:40 PM COMPARISON: Chest radiographs from 06/04/2024. CLINICAL INDICATION: Female, 54 years old with history of difficulty breathing; TECHNIQUE: XR chest 2V Frontal and lateral views of the chest. FINDINGS: Lungs/Pleura: Improved aeration of lungs on today's exam with persistent airspace opacities scattered throughout the lungs. No evidence of pneumothorax or large pleural effusion. Pulmonary vascularity: Unremarkable. Heart/mediastinum: Cardiomediastinal silhouette is unremarkable. Musculoskeletal: No acute osseous pathology. Other findings: None Lines/Tubes: IMPRESSION: Improved aeration of the lungs with persistent multifocal airspace opacities. [facility], , 07/05/2024 2:47 PM
[2024-07-05] MEDS: MORPHINE SULFATE 4 MG/ML SYRINGE IVP STA (15:12)
[2024-07-05] MEDS: SODIUM CHLORIDE 0.9% 1,000 ML IV ONE (15:12)
[2024-07-05] MEDS: methylPREDNISolone SOD SUCCI 125 MG/2 ML VIAL IV STA (15:15)
[2024-07-05] MEDS: LIDOCAINE 4% PATCH TOPICAL ONE (15:19)
[2024-07-05 15:23] LABS: Basophils # (A) 0.05 10*3/uL (0.00-0.10); Basophils % (A) 0.6 %; Eosinophils # (A) 0.39 10*3/uL (0.04-0.35); Eosinophils % (A) 4.3 %; HCT 29.3 % (37.2-46.3); HGB 9.9 g/dL (12.0-15.0); Lymphocytes # (A) 1.37 10*3/uL (0.90-5.00); Lymphocytes % (A) 15.2 %; MCH 25.8 pg (27.0-32.0); MCHC 33.8 g/dL (32.0-37.0); MCV 76.3 fL (80.0-97.0); Mean Platelet Volume 8.2 fL (9.5-12.2); Monocytes # (A) 0.86 10*3/uL (0.20-1.00); Monocytes % (A) 9.6 %; Neutrophils # (A) 6.27 10*3/uL (1.80-7.70); Neutrophils % (A) 69.7 %; Platelet Count 649 10*3/uL (140-440); RBC 3.84 10*6/uL (4.10-5.20); RDW 14.6 % (11.5-14.5); WBC 8.99 10*3/uL (4.50-10.00)
[2024-07-05 15:34] LABS: ALT 33 U/L (4-34); AST 39 U/L (14-36); African American GFR (CKD) >90 (>60 ml/min/1.73 sqM); Albumin 3.7 g/dL (3.5-5.0); Alkaline Phosphatase 103 U/L (38-126); Anion Gap 11 mmol/L; Blood Urea Nitrogen 7 mg/dL (7-17); Carbon Dioxide 22 mmol/L (22-30); Chloride 107 mmol/L (98-107); Glucose 101 mg/dL (74-99); Magnesium 1.6 mg/dL (1.6-2.3); Non-African American GFR(CKD) >90 (>60 ml/min/1.73 sqM); Potassium 2.9 mmol/L (3.5-5.1); Sodium 140 mmol/L (137-145); Total Bilirubin 0.6 mg/dL (0.2-1.3); Total Protein 7.1 g/dL (6.3-8.2)
[2024-07-05 15:39] LABS: Partial Thromboplastin Time 22.1 sec (22.0-30.0)
[2024-07-05 16:05] LABS: INR 1.1 (<1.2); Prothrombin Time 11.7 sec (10.0-12.5)
[2024-07-05 16:09] LABS: Appearance,Urine Clear (Clear); Bacteria,Urine Rare /hpf; Bilirubin,Urine Negative (Negative); Blood,Urine Negative (Negative); Color,Urine Light Yellow; Glucose,Urine (UA) Negative (Negative); Ketones,Urine Negative (Negative); Leukocyte Esterase,Urine Moderate (Negative); Nitrite,Urine Negative (Negative); Protein,Urine Negative (Negative); RBC,Urine 2 /hpf (0-5); Specific Gravity,Urine 1.008 (1.001-1.035); Squamous Epithelial Cell,Urine 3 /hpf (0-4); Urobilinogen,Urine <2.0 mg/dL (<2.0); WBC,Urine 9 /hpf (0-5)
[2024-07-05 16:19] LABS: Influenza A Not Detected (Not Detectd); Influenza B Not Detected (Not Detectd); RSV Not Detected (Not Detectd)
[2024-07-05] MEDS ORDERED: PNEUMONIA PROTOCOL UTILIZED 1 EACH MISC PO PRN (16:44)
[2024-07-05] MEDS: IPRATROPIUM-ALBUTEROL 3 ML NEB INHALATION STA (16:45)
[2024-07-05] MEDS ORDERED: Potassium Replacement Protocol 1 EACH MISC MISCELLANE PRN (16:46)
[2024-07-05] MEDS ORDERED: IPRATROPIUM-ALBUTEROL 3 ML NEB INHALATION PRN (17:23)
--- NOTE | 2024-07-05 17:23 | ED ---
General Adult HPI - General Chief complaint: Shortness of Breath Stated complaint: chest and upper back pain Time Seen by Provider: 07/05/24 14:21 Source: patient, RN notes reviewed, old records reviewed Mode of arrival: ambulatory Limitations: no limitations - History of Present Illness Initial comments: 54-year-old female presents emergency department complaining of right-sided back pain and rib pain. States this is similar to when she presented with pneumonia. Is chronically on pain meds at home. Does have a history of COPD. Denies any nausea vomiting diarrhea. Presents for further evaluation at this time. Recently was admitted for pneumonia. States symptoms did improve but then returned over the last few days to week. - Related Data Home Medications Medication Instructions Recorded Confirmed Albuterol Inhaler [Ventolin Hfa 2 puff INHALATION RT-QID PRN 05/27/24 07/05/24 Inhaler] Budesonide [Pulmicort Flexhaler] 1 puff INHALATION RT-BID 05/27/24 07/05/24 Diclofenac Sodium Gel [Voltaren 1% 2 gm TOPICAL QID 05/27/24 07/05/24 Gel] Gabapentin 300 mg PO TID 05/27/24 07/05/24 HYDROcodone/APAP 10-325MG [[place] 1 tab PO Q6H 05/27/24 07/05/24 10-325] Ibuprofen [Motrin] 600 mg PO TID 05/27/24 07/05/24 Lidocaine 5% Oint [Xylocaine 5% 1 applic TOPICAL QID PRN 05/27/24 07/05/24 Oint] lamoTRIgine [LaMICtal] 25 mg PO BID 05/27/24 07/05/24 Meloxicam [Mobic] 7.5 mg PO BID 07/05/24 07/05/24 Previous Rx's Medication Instructions Recorded Baclofen 10 mg PO BID PRN #60 tab 04/12/22 Butalb/APAP/Caff 50-325-40Mg 1 tab PO BID PRN #60 tab 04/12/22 [Fioricet 50-325-40] DULoxetine HCL [Cymbalta] 60 mg PO HS 30 Days #30 cap 04/12/22 QUEtiapine [SEROquel] 100 mg PO HS 30 Days #30 tab 04/12/22 rOPINIRole HCL [Requip] 0.25 mg PO HS PRN #30 tab 04/12/22 Metoprolol Tartrate [Lopressor] 25 mg PO BID #60 tab 06/05/24 amLODIPine [Norvasc] 10 mg PO DAILY #30 tab 06/05/24 Allergies Allergy/AdvReac Type Severity Reaction Status Date / Time aspirin AdvReac Nausea & Verified 07/05/24 17:10 Vomiting Review of Systems ROS Statement: Those systems with pertinent positive or pertinent negative responses have been documented in the HPI. Review of Systems: CONST: Denies fever EYES: Denies blurry vision ENT: Endorses cough C/V: Denies Chest pain RESP: Denies shortness of breath GI: Denies abdominal pain : Denies dysuria SKIN: Denies rash. MSK: Versus back pain NEURO: Denies headache ROS Other: All systems not noted in ROS Statement are negative. Past Medical History Past Medical History: Hyperlipidemia, Hypertension, Osteoarthritis (OA) Additional Past Medical History / Comment(s): back/neck pain, migraines, gout,anxiety,depression,bipolar, bergers disease History of Any Multi-Drug Resistant Organisms: None Reported Date of last positivie culture/infection: 05/28/24 MDRO Source:: sputum Past Surgical History: Orthopedic Surgery, Tubal Ligation, Uterine Ablation Additional Past Surgical History / Comment(s): RIGHT ELBOW SURGERY , adenosine given x [address] to hospital on 09/06/20 for SVT Past Anesthesia/Blood Transfusion Reactions: No Reported Reaction Additional Past Anesthesia/Blood Transfusion Reaction / Comment(s): NEVER HAD BLOOD TRANSFUSION Past Psychological History: Anxiety, Bipolar, Depression Smoking Status: Current every day smoker, Vaper Past Alcohol Use History: None Reported Past Drug Use History: None Reported - Past Family History Mother Family Medical History: Coronary Artery Disease (CAD), Diabetes Mellitus, Hypertension Additional Family Medical History / Comment(s): LUPUS Father Family Medical History: Dementia General Exam - General Exam Comments Initial Comments: General: Appears in no acute distress. HEAD: Normal with no signs of head trauma. EYES: PERRLA, EOMI, conjunctiva normal, no discharge. ENT: Hearing grossly intact, normal oropharynx. RESPIRATORY: Bilateral end expiratory wheezing. No hypoxia. C/V: Regular rate and rhythm. S1 and S2 auscultated, no edema, peripheral pulses 2+ and intact throughout ABD: Abd is soft, nontender, nondistended EXT: Mild tenderness to palpation of the posterior right ribs. No obvious step- off or deformity. SKIN: No rashes or lesions observed on exposed skin. NEURO: Oriented x 4. Limitations: no limitations Course Vital Signs 07/05/24 07/05/24 07/05/24 13:34 16:45 16:53 Temperature 98.4 F Pulse Rate 65 60 64 Respiratory 20 Rate Blood Pressure 132/72 O2 Sat by Pulse 99 Oximetry 07/05/24 07/05/24 17:58 18:26 Temperature 98.2 F Pulse Rate 66 58 L Respiratory 18 20 Rate Blood Pressure 138/76 133/86 O2 Sat by Pulse 96 96 Oximetry Medical Decision Making - Medical Decision Making Was pt. sent in by a medical professional or institution (DIXIE Nugent, LEARNING MANAGER, urgent care, hospital, or jail...) When possible be specific @ -No Did you speak to anyone other than the patient for history (EMS, parent, family, police, friend...)? What history was obtained from this source @ -No Did you review nursing and triage notes (agree or disagree)? Why? @ -I reviewed and agree with nursing and triage notes Were old charts reviewed (outside hosp., previous admission, EMS record, old EKG, old radiological studies, urgent care reports/EKG's, jail records)? Report findings @ -Prior visit in June 2024 when patient was admitted for IV antibiotics for pneumonia of the right side. Differential Diagnosis (chest pain, altered mental status, abdominal pain women, abdominal pain men, vaginal bleeding, weakness, fever, dyspnea, syncope, he adache, dizziness, GI bleed, back pain, seizure, CVA, palpatations, mental health, musculoskeletal)? @ -Pneumonia, COPD, chest wall pain. This list is not all inclusive. EKG interpreted by me (3pts min.). @ -As above X-rays interpreted by me (1pt min.). @ -Chest x-ray redemonstrates patient's infiltrates throughout the right lung field. CT interpreted by me (1pt min.). @ -None done U/S interpreted by me (1pt. min.). @ -None done What testing was considered but not performed or refused? (CT, X-rays, U/S, labs)? Why? @ -Considered CT PE but patient had CT PE recently when she presented with identical complaints within the last month and it was negative for PE. Diagnosed with pneumonia. Presentation mimics that and chest x-ray does not support that. No need for CT PE at this time. What meds were considered but not given or refused? Why? @ -None Did you discuss the management of the patient with other professionals (professionals i.e. DrLoc, PA, LEARNING MANAGER, lab, RT, psych nurse, health care social worker, living nurse, teacher, uniform patrol police officer, ed case manager)? Give summary @ -Discussed with Dr. Kline of [facility] who accepted the admission. Was smoking cessation discussed for >3mins.? @ -No Was critical care preformed (if so, how long)? @ -No Were there social determinants of health that impacted care today? How? (Homelessness, low income, unemployed, alcoholism, drug addiction, transportation, low edu. Level, literacy, decrease access to med. care, detention, rehab)? @ -No Was there de-escalation of care discussed even if they declined (Discuss DNR or withdrawal of care, Hospice)? DNR status @ -No What co-morbidities impacted this encounter? (DM, HTN, Smoking, COPD, CAD, Cancer, CVA, ARF, Chemo, Hep., AIDS, mental health diagnosis, sleep apnea, morbid obesity)? @ -None Was patient admitted / discharged? Hospital course, mention meds given and route, prescriptions, significant lab abnormalities, going to OR and other pertinent info. @ -Based on the patient's presentation and physical exam, presents emergency department complaining of symptoms consistent with previous pneumonia diagnosis. States she was feeling improved however symptoms are back. Previously did require admission for IV hydration. Also required IV antibiotics. Presents for further evaluation at this time. Vitals are within acceptable limits. She is wheezy. EKG shows no signs of acute ischemia. Chest x-ray redemonstrates her pneumonia on the right side with multiple infiltrates. Patient is mildly anemic to 9.9. Patient is hypokalemic to 2.9 which was replenished. Patient will be admitted on IV antibiotics and will continue breathing treatments as well as IV steroids for COPD. She was in agreement this plan. I spoke with the admitting provider, Dr. Kline who accepted the admission. Undiagnosed new problem with uncertain prognosis? @ -No Drug Therapy requiring intensive monitoring for toxicity (Heparin, Nitro, Insulin, Cardizem)? @ -No Were any procedures done? @ -No Diagnosis/symptom? @ -Pneumonia, COPD, hypokalemia, rib pain Acute, or Chronic, or Acute on Chronic? @ -Acute Uncomplicated (without systemic symptoms) or Complicated (systemic symptoms)? @ -Complicated Side effects of treatment? @ -No Exacerbation, Progression, or Severe Exacerbation? @ -No Poses a threat to life or bodily function? How? (Chest pain, [place], ND, pneumonia, PE, COPD, DKA, ARF, appy, cholecystitis, CVA, Diverticulitis, Homicidal, Suicidal, threat to staff... and all critical care pts) @ -Potentially, yes - Lab Data Result diagrams: 07/05/24 15:10 07/05/24 15:10 Lab Results 07/05/24 07/05/24 07/05/24 Range/Units 15:10 15:10 15:10 WBC 8.99 (4.50-10.00) 10*3/uL RBC 3.84 L (4.10-5.20) 10*6/uL Hgb 9.9 L (12.0-15.0) g/dL Hct 29.3 L (37.2-46.3) % MCV 76.3 L (80.0-97.0) fL MCH 25.8 L (27.0-32.0) pg MCHC 33.8 (32.0-37.0) g/dL Plt Count 649 H (140-440) 10*3/uL MPV 8.2 L (9.5-12.2) fL Immature Gran % (Auto) 0.6 % Neutrophils % 69.7 % Lymphocytes % 15.2 % Monocytes % 9.6 % Eosinophils % 4.3 % Basophils % 0.6 % Immature Gran # 0.05 H (0.00-0.04) 10*3/uL Neutrophils # 6.27 (1.80-7.70) 10*3/uL Lymphocytes # 1.37 (0.90-5.00) 10*3/uL Monocytes # 0.86 (0.20-1.00) 10*3/uL Eosinophils # 0.39 H (0.04-0.35) 10*3/uL Basophils # 0.05 (0.00-0.10) 10*3/uL PT 11.7 (10.0-12.5) sec INR 1.1 (<1.2) APTT 22.1 (22.0-30.0) sec Sodium 140 (137-145) mmol/L Potassium 2.9 L (3.5-5.1) mmol/L Chloride 107 (98-107) mmol/L Carbon Dioxide 22 (22-30) mmol/L Anion Gap 11 mmol/L BUN 7 (7-17) mg/dL Creatinine 0.61 (0.52-1.04) mg/dL Est GFR (CKD-EPI)AfAm >90 (>60 ml/min/1.73 sqM) Est GFR (CKD-EPI)NonAf >90 (>60 ml/min/1.73 sqM) Glucose 101 H (74-99) mg/dL Plasma Lactic Acid [place] (0.7-2.0) mmol/L Calcium 10.0 (8.4-10.2) mg/dL Magnesium 1.6 (1.6-2.3) mg/dL Total Bilirubin 0.6 (0.2-1.3) mg/dL AST 39 H (14-36) U/L ALT 33 (4-34) U/L Alkaline Phosphatase 103 (38-126) U/L Total Protein 7.1 (6.3-8.2) g/dL Albumin 3.7 (3.5-5.0) g/dL Urine Color Urine Appearance (Clear) Urine pH (5.0-8.0) Ur Specific [place] (1.001-1.035) Urine Protein (Negative) Urine Glucose (UA) (Negative) Urine Ketones (Negative) Urine Blood (Negative) Urine Nitrite (Negative) Urine Bilirubin (Negative) Urine Urobilinogen (<2.0) mg/dL Ur Leukocyte Esterase (Negative) Urine RBC (0-5) /hpf Urine WBC (0-5) /hpf Ur Squamous Epith Cells (0-4) /hpf Urine Bacteria (None) /hpf Influenza Type A (PCR) (Not Detectd) Influenza Type B (PCR) (Not Detectd) RSV (PCR) (Not Detectd) SARS-CoV-2 (PCR) (Not Detectd) 05/04/25 05/04/25 05/04/25 Range/Units 15:10 15:10 15:56 WBC (4.50-10.00) 10*3/uL RBC (4.10-5.20) 10*6/uL Hgb (12.0-15.0) g/dL Hct (37.2-46.3) % MCV (80.0-97.0) fL MCH (27.0-32.0) pg MCHC (32.0-37.0) g/dL Plt Count (140-440) 10*3/uL MPV (9.5-12.2) fL Immature Gran % (Auto) % Neutrophils % % Lymphocytes % % Monocytes % % Eosinophils % % Basophils % % Immature Gran # (0.00-0.04) 10*3/uL Neutrophils # (1.80-7.70) 10*3/uL Lymphocytes # (0.90-5.00) 10*3/uL Monocytes # (0.20-1.00) 10*3/uL Eosinophils # (0.04-0.35) 10*3/uL Basophils # (0.00-0.10) 10*3/uL PT (10.0-12.5) sec INR (<1.2) APTT (22.0-30.0) sec Sodium (137-145) mmol/L Potassium (3.5-5.1) mmol/L Chloride (98-107) mmol/L Carbon Dioxide (22-30) mmol/L Anion Gap mmol/L BUN (7-17) mg/dL Creatinine (0.52-1.04) mg/dL Est GFR (CKD-EPI)AfAm (>60 ml/min/1.73 sqM) Est GFR (CKD-EPI)NonAf (>60 ml/min/1.73 sqM) Glucose (74-99) mg/dL Plasma Lactic Acid [place] 1.0 (0.7-2.0) mmol/L Calcium (8.4-10.2) mg/dL Magnesium (1.6-2.3) mg/dL Total Bilirubin (0.2-1.3) mg/dL AST (14-36) U/L ALT (4-34) U/L Alkaline Phosphatase (38-126) U/L Total Protein (6.3-8.2) g/dL Albumin (3.5-5.0) g/dL Urine Color Light Yellow Urine Appearance Clear (Clear) Urine pH 7.0 (5.0-8.0) Ur Specific [place] 1.008 (1.001-1.035) Urine Protein Negative (Negative) Urine Glucose (UA) Negative (Negative) Urine Ketones Negative (Negative) Urine Blood Negative (Negative) Urine Nitrite Negative (Negative) Urine Bilirubin Negative (Negative) Urine Urobilinogen <2.0 (<2.0) mg/dL Ur Leukocyte Esterase Moderate H (Negative) Urine RBC 2 (0-5) /hpf Urine WBC 9 H (0-5) /hpf Ur Squamous Epith Cells 3 (0-4) /hpf Urine Bacteria Rare H (None) /hpf Influenza Type A (PCR) Not Detected (Not Detectd) Influenza Type B (PCR) Not Detected (Not Detectd) RSV (PCR) Not Detected (Not Detectd) SARS-CoV-2 (PCR) Not Detected (Not Detectd) - EKG Data -: EKG Interpreted by Me EKG Comments: 12-lead Electrocardiogram Interpretation Note EKG was reviewed and interpreted by myself. 12-lead ECG performed at 1604 is interpreted by me as revealing sinus bradycardia at a rate of 49 beats per minute. [place] is normal. ND interval is 160 ms, QRS durations 109 ms, QTc is 472 ms.. There were no ST or T wave abnormalities to suggest myocardial ischemia or injury. R wave progression across the precordium was satisfactory. By my interpretation this EKG is non-diagnostic for acute ischemia. Disposition Clinical Impression: Rib pain, Pneumonia, COPD (chronic obstructive pulmonary disease), Hypokalemia Disposition: ADMITTED IP TO THIS HOSP Condition: Stable Time of Disposition: 17:00
[2024-07-05] MEDS ORDERED: ONDANSETRON 4 MG/2 ML VIAL IVP PRN (17:24)
[2024-07-05] MEDS ORDERED: NALOXONE 0.4 MG/ML 1 ML VIAL IV PRN (17:24)
[2024-07-05] MEDS: HYDROmorphone 0.5 MG/0.5 ML SYRINGE IVP STA (18:00)
[2024-07-05] MEDS: LACTATED RINGERS 1,000 ML IV ONE (18:04)
[2024-07-05] MEDS: LACTATED RINGERS 1,000 ML IV SCH (18:05)
[2024-07-05] MEDS: POTASSIUM CHLORIDE ER 20 MEQ TAB.ER PO SCH (18:06)
[2024-07-05] MEDS: PIPERACILLIN-TAZOBACTAM 3.375 GM in SODIUM CHLORIDE 0.9% 100 ML IVPB STA (18:12)
[2024-07-05] MEDS ORDERED: LIDOCAINE 5% OINTMENT 50 GM JAR TOPICAL PRN (20:18)
[2024-07-05] MEDS: IPRATROPIUM-ALBUTEROL 3 ML NEB INHALATION SCH (20:56)
[2024-07-05] MEDS: methylPREDNISolone SOD SUCCI 40 MG/ML 1 ML VIAL IV SCH (21:14)
[2024-07-05] MEDS: DULoxetine HCL 60 MG CAPSULE.DR PO SCH (21:15)
[2024-07-05] MEDS: GABAPENTIN 300 MG CAP PO SCH (21:15)
[2024-07-05] MEDS: METOPROLOL TARTRATE 25 MG TAB PO SCH (21:15)
[2024-07-05] MEDS: lamoTRIgine 25 MG TAB PO SCH (21:15)
[2024-07-05] MEDS: QUEtiapine 100 MG TAB PO SCH (21:15)
[2024-07-05] MEDS: AZITHROMYCIN 500 MG in SODIUM CHLORIDE 0.9% 250 ML IVPB STA (21:15)
[2024-07-05] MEDS: DOXYCYCLINE 100 MG TABLET PO SCH (21:15)
[2024-07-06] MEDS: PIPERACILLIN-TAZOBACTAM 3.375 GM in SODIUM CHLORIDE 0.9% 100 ML IVPB SCH (00:29)
[2024-07-06] MEDS: KETOROLAC 15 MG/ML 1 ML VIAL IVP SCH (00:29)
--- NOTE | 2024-07-06 03:08 | P.CNPUL ---
History of Present Illness Consult date: 07/06/24 Requesting physician: Chas Lorenzana Reason for consult: pneumonia Chief complaint: Chest pain History of present illness: Patient is a 54-year-old female with past medical history significant for hypertension, COPD, Buerger's disease, anxiety/depression. Her PCP is Dr. Eric Smyth. Of note, patient recently hospitalized 05/27/2024 through 06/05/2024 for right-sided, multilobar pneumonia. Identified organism was MRSA. She was eventually discharged with PICC line and IV vancomycin, which was completed on an outpatient basis. Patient returned the emergency department yesterday evening with a chief complaint of right-sided chest and right lateral back pain. Follow- up chest x-ray done in the emergency department showing overall improvement in aeration of the previously demonstrated right-sided infiltrates. Lab work including a WBC count of 9, hemoglobin 9.9, platelets 649. BMP: Sodium 140, potassium 2.9, chloride 107, serum bicarb 22, BUN 7, creatinine 0.61, glucose 101. Lactic 1. LFTs not elevated. Troponin less than 0.012. EKG: Sinus bradycardia, rate 49 bpm, no acute ischemic changes. Viral screen negative for influenza A/B, RSV, COVID. Patient currently being evaluated on the general medical floor. She is resting comfortably on room air. States the pain is loc alized to the right chest and right thoracic level back. Which was first noticed 4 to 5 days ago. Described as sharp in nature. Reproducible. Denies any further shortness of breath, coughing, sputum production, hemoptysis, fevers or chills. Denies any unilateral lower extremity swelling or pain. Denies heart palpitations, syncopal events. No history of DVT/PE. Prior PICC line has been removed. Current vital signs: Temperature 97.7 F, heart rate 60 bpm, blood pressure 129/71 mmHg, nontachypneic, SpO2 recorded at 97% on room air. Review of Systems Constitutional: Reports fatigue, Denies chills, Denies fever, Denies poor appetite, Denies weight gain, Denies weight loss Ears, nose, mouth and throat: Denies headache, Denies nasal congestion, Denies nasal discharge, Denies post-nasal drip, Denies sinus pain, Denies sinus pressure, Denies sore throat Cardiovascular: Reports chest pain, Denies leg edema, Denies lightheadedness, Denies orthopnea, Denies palpitations, Denies paroxysmal nocturnal dyspnea, Denies syncope Respiratory: Reports as per HPI Gastrointestinal: Denies abdominal pain, Denies diarrhea, Denies nausea, Denies vomiting Genitourinary: Denies dysuria, Denies flank pain, Denies hematuria Musculoskeletal: Denies limitation of motion Integumentary: Denies rash, Denies unusual bruising Neurological: Denies seizures, Denies syncope Psychiatric: Reports anxiety, Reports depression, Denies suicidal ideation Past Medical History Past Medical History: Hyperlipidemia, Hypertension, Osteoarthritis (OA) Additional Past Medical History / Comment(s): back/neck pain, migraines, gout,anxiety,depression,bipolar, bergers disease History of Any Multi-Drug Resistant Organisms: None Reported Date of last positivie culture/infection: 05/28/24 MDRO Source:: sputum Past Surgical History: Orthopedic Surgery, Tubal Ligation, Uterine Ablation Additional Past Surgical History / Comment(s): RIGHT ELBOW SURGERY , adenosine given x [address] to hospital on 09/06/20 for SVT Past Anesthesia/Blood Transfusion Reactions: No Reported Reaction Additional Past Anesthesia/Blood Transfusion Reaction / Comment(s): NEVER HAD BLOOD TRANSFUSION Past Psychological History: Anxiety, Bipolar, Depression Smoking Status: Current every day smoker, Vaper Past Alcohol Use History: None Reported Past Drug Use History: None Reported - Past Family History Mother Family Medical History: Coronary Artery Disease (CAD), Diabetes Mellitus, Hypertension Additional Family Medical History / Comment(s): LUPUS Father Family Medical History: Dementia Medications and Allergies Home Medications Medication Instructions Recorded Confirmed Type Baclofen 10 mg PO BID PRN #60 tab 04/12/22 07/05/24 Rx Butalb/APAP/Caff 50-325-40Mg 1 tab PO BID PRN #60 tab 04/12/22 07/05/24 Rx [Fioricet 50-325-40] DULoxetine HCL [Cymbalta] 60 mg PO HS 30 Days #30 cap 04/12/22 07/05/24 Rx QUEtiapine [SEROquel] 100 mg PO HS 30 Days #30 tab 04/12/22 07/05/24 Rx rOPINIRole HCL [Requip] 0.25 mg PO HS PRN #30 tab 04/12/22 07/05/24 Rx Albuterol Inhaler [Ventolin Hfa 2 puff INHALATION RT-QID PRN 05/27/24 07/05/24 History Inhaler] Budesonide [Pulmicort Flexhaler] 1 puff INHALATION RT-BID 05/27/24 07/05/24 History Diclofenac Sodium Gel [Voltaren 1% 2 gm TOPICAL QID 05/27/24 07/05/24 History Gel] Gabapentin 300 mg PO TID 05/27/24 07/05/24 History HYDROcodone/APAP 10-325MG [[place] 1 tab PO Q6H 05/27/24 07/05/24 History 10-325] Ibuprofen [Motrin] 600 mg PO TID 05/27/24 07/05/24 History Lidocaine 5% Oint [Xylocaine 5% 1 applic TOPICAL QID PRN 05/27/24 07/05/24 History Oint] lamoTRIgine [LaMICtal] 25 mg PO BID 05/27/24 07/05/24 History Metoprolol Tartrate [Lopressor] 25 mg PO BID #60 tab 06/05/24 07/05/24 Rx amLODIPine [Norvasc] 10 mg PO DAILY #30 tab 06/05/24 07/05/24 Rx Meloxicam [Mobic] 7.5 mg PO BID 07/05/24 07/05/24 History Allergies Allergy/AdvReac Type Severity Reaction Status Date / Time aspirin AdvReac Nausea & Verified 07/05/24 17:10 Vomiting Physical Exam Vitals: Vital Signs Temp Pulse Pulse Resp BP BP Pulse Ox 07/05/24 21:10 64 07/05/24 20:56 62 07/05/24 19:45 98 F 61 15 127/66 97 07/05/24 18:26 98.2 F 58 L 20 133/86 96 07/05/24 17:58 66 18 138/76 96 07/05/24 16:53 64 07/05/24 16:45 60 07/05/24 13:34 98.4 F 65 20 132/72 99 Intake and Output 07/05/24 07/05/24 07/06/24 14:59 22:59 06:59 Other: Voiding Method Toilet # Voids 2 Weight 77.111 kg 77.111 kg GENERAL EXAM: Alert, 54-year-old female, comfortable in no apparent distress. HEAD: Normocephalic and atraumatic EYES: Normal reaction of pupils, equal size. NOSE: Clear with pink turbinates. THROAT: No erythema or exudates. NECK: No masses, no JVD. CHEST: No chest wall deformity. LUNGS: Equal air entry with no crackles, wheeze, rhonchi or dullness. On room air. No conversational dyspnea or accessory muscle use.. CVS: S1 and S2 normal with no audible murmur, regular rhythm. No extra heart sounds ABDOMEN: No hepatosplenomegaly, active bowel sounds, no guarding or rigidity. SPINE: No scoliosis or deformity SKIN: No rashes CENTRAL NERVOUS SYSTEM: No focal deficits, tone is normal in all 4 extremities. EXTREMITIES: There is no peripheral edema, clubbing, or cyanosis. Peripheral pulses are intact. Results - Laboratory Findings CBC and BMP: 07/05/24 15:10 07/05/24 15:10 PT/INR, D-dimer PT 11.7 sec (10.0-12.5) 07/05/24 15:10 INR 1.1 (<1.2) 07/05/24 15:10 D-Dimer 1.22 mg/L FEU (<0.60) H 07/06/24 00:19 Abnormal lab findings: Abnormal Labs 07/05/24 07/05/24 07/05/24 15:10 15:10 15:56 RBC 3.84 L Hgb 9.9 L Hct 29.3 L MCV 76.3 L MCH 25.8 L Plt Count 649 H MPV 8.2 L Immature Gran # 0.05 H Eosinophils # 0.39 H D-Dimer Potassium 2.9 L Glucose 101 H AST 39 H Ur Leukocyte Esterase Moderate H Urine WBC 9 H Urine Bacteria Rare H 07/06/24 00:19 RBC Hgb Hct MCV MCH Plt Count MPV Immature Gran # Eosinophils # D-Dimer 1.22 H Potassium Glucose AST Ur Leukocyte Esterase Urine WBC Urine Bacteria - Diagnostic Findings Chest x-ray: image reviewed Assessment and Plan Assessment: Right sided chest pain, pleuritic in nature Recent hospitalization for right-sided multilobar pneumonia, identified organism was MRSA, and she was treated with IV vancomycin. Repeat chest x-ray showing improvement in aeration/right lung opacities. No identified pneumothoraces or pleural effusions. Microcytic, hypochromic anemia Hypokalemia, replaced Hypertension Chronic obstructive pulmonary disease Nicotine dependence, reportedly vapes daily History of chronic lumbar back pain History of restless leg syndrome Anxiety/depression Plan: Currently on room air Follow-up chest x-ray showing improved right-sided multifocal opacities. Previously restarted on antibiotics in the ED Check procalcitonin level Add Toradol for pain Wells' score, technically low risk Check D-dimer COPD appears inactive on my examination Continue DuoNebs as needed Continue budesonide inhalations Likely taper IV Solu-Medrol Smoking cessation counseling performed We will continue to follow I have personally seen and examined the patient, performed the documentation and the assessment and plan as written. Number of minutes spent on the visit:20 Time with Patient: Greater than 30
--- NOTE | 2024-07-06 03:42 | CT ---
EXAM: CT Angiography Chest With Intravenous Contrast CLINICAL HISTORY: ITS.REASON CT Reason: rule out PE TECHNIQUE: Axial computed tomographic angiography images of the chest with intravenous contrast. CTDI is 16.6 mGy and DLP is 325.4 mGy-cm. This CT exam was performed using one or more of the following dose reduction techniques: automated exposure control, adjustment of the mA and/or kV according to patient size, and/or use of iterative reconstruction technique. MIP reconstructed images were created and reviewed. COMPARISON: No relevant prior studies available. FINDINGS: Pulmonary arteries: No pulmonary embolism detected. Aorta: Atherosclerotic disease. No thoracic aortic aneurysm. Hepatic veins: Reflux of contrast in the hepatic venous system which can be seen with right heart failure. Lungs: Patchy and confluent ground-glass opacification within the right lung. Findings may relate to infectious etiologies. Volume overload is also possible. Pleural space: Unremarkable. No significant effusion. No pneumothorax. Heart: Cardiomegaly. Coronary artery calcifications. Mediastinum: Prominent and enlarged mediastinal and hilar lymph nodes, the largest a right hilar lymph node measuring up to 1.9 cm in short axis. Findings are favored to be reactive in nature. Bones/joints: Degenerative changes in the spine. No acute fracture. No dislocation. Soft tissues: Unremarkable. Lymph nodes: See above. Spleen: Small splenule. IMPRESSION: 1. No pulmonary embolism detected. 2. Patchy and confluent ground-glass opacification within the right lung. Findings may relate to infectious etiologies. Volume overload is also possible. 3. Prominent and enlarged mediastinal and hilar lymph nodes, the largest a right hilar lymph node measuring up to 1.9 cm in short axis. Findings are favored to be reactive in nature.
[2024-07-06] MEDS: LACTATED RINGERS 1,000 ML IV SCH (06:35)
[2024-07-06 08:20] LABS: HGB 8.6 g/dL (12.0-15.0); MCH 25.4 pg (27.0-32.0); MCHC 31.9 g/dL (32.0-37.0); MCV 79.6 FL (80.0-97.0); NRBC Per 100 WBC 0 X 10*3/uL (0.00-0.01); Platelet Count 519 X 10*3/uL (140-440); RBC 3.39 X 10*6/uL (4.10-5.20); RDW 14.6 % (11.5-14.5); WBC 8.63 X 10*3/uL (4.50-10.00)
[2024-07-06 08:21] LABS: Basophils # (A) 0.01 X 10*3/uL (0.00-0.10); Basophils % (A) 0.1 %; Eosinophils # (A) 0 X 10*3/uL (0.04-0.35); Eosinophils % (A) 0 %; Lymphocytes # (A) 0.72 X 10*3/uL (0.90-5.00); Lymphocytes % (A) 8.3 %; Monocytes # (A) 0.11 X 10*3/uL (0.20-1.00); Monocytes % (A) 1.3 %; Neutrophils # (A) 7.71 X 10*3/uL (1.80-7.70); Neutrophils % (A) 89.4 %
[2024-07-06] MEDS: ENOXAPARIN 40 MG/0.4 ML SYRINGE SQ SCH (08:27)
[2024-07-06] MEDS: HYDROcodone/APAP 10-325MG 1 EACH TAB PO PRN (08:28)
[2024-07-06] MEDS: amLODIPine 10 MG TAB PO SCH (08:28)
[2024-07-06] MEDS: BUTALB/APAP/CAFF 50-325-40MG TAB PO PRN (08:28)
[2024-07-06] MEDS: SYMBICORT 80-4.5 MCG INHALER INHALATION SCH (08:32)
[2024-07-06 08:33] LABS: BUN/Creat Ratio 14.43 Ratio (12.00-20.00); Blood Urea Nitrogen 10.1 mg/dL (9.0-27.0); Glucose 334 mg/dL (70-110)
[2024-07-06 08:34] LABS: ALT 34 U/L (8-44); AST 38 U/L (13-35); Albumin 3.4 g/dL (3.8-4.9); Albumin/Globulin Ratio 1.13 Ratio (1.60-3.17); Alkaline Phosphatase 101 U/L (41-126); Carbon Dioxide 19.9 mmol/L (21.6-31.8); Chloride 107 mmol/L (96-109); Potassium 3.3 mmol/L (3.5-5.5); Sodium 138 mmol/L (135-145); Total Bilirubin <0.2 mg/dL (0.3-1.2); Total Protein 6.4 g/dL (6.2-8.2)
[2024-07-06] MEDS: POTASSIUM CHLORIDE ER 20 MEQ TAB.ER PO SCH ×2 (08:46→12:29)
[2024-07-06] MEDS: HYDROmorphone 0.5 MG/0.5 ML SYRINGE IVP PRN (12:30)
--- NOTE | 2024-07-06 13:15 | P.HPIM ---
History of Present Illness Patient is 54-year-old female came in with complaints of severe sharp chest pain in the right lower chest. Patient had a CT of the chest here which showed some infiltrates on the right side patient does not have any air bronchogram but dilated. Pretty much nonspecific infiltrates and groundglass opacities which can be seen in congestive heart failure, atypical pneumonia, interstitial lung disease, viral pneumonias. Viral screen is negative patient has this pain for about 4 to 5 days. Patient was recently treated for pneumonia about a month ago patient had an MRSA pneumonia at that time. These infiltrates on the CT did can be resolving infiltrates from her previous pneumonia. Patient does not have any fever chills does not have any leukocytosis procalcitonin is being obtained. Patient is not in COPD exacerbation and at this time. Patient is systemic steroids blood sugars are elevated because of general stopping the steroids systemic steroids patient will be on sliding scale insulin. Patient is presently on Zosyn and doxycycline although there is no clear evidence of pneumonia patient was complaining of cough with minimal of no sputum production. REVIEW OF SYSTEMS: All other systems are negative except those mentioned in the HPI PHYSICAL EXAMINATION: GENERAL: The patient is alert and oriented x3, not in any acute distress. Well developed, well nourished. HEENT: Pupils are round and equally reacting to light. EOMI. No scleral icterus. No conjunctival pallor. Normocephalic, atraumatic. No pharyngeal erythema. No thyromegaly. CARDIOVASCULAR: S1 and S2 present. No murmurs, rubs, or gallops. PULMONARY: Chest is clear to auscultation, no wheezing or crackles. ABDOMEN: Soft, nontender, nondistended, normoactive bowel sounds. No palpable organomegaly. MUSCULOSKELETAL: No joint swelling or deformity. EXTREMITIES: No cyanosis, clubbing, or pedal edema. NEUROLOGICAL: Gross neurological examination did not reveal any focal deficits. SKIN: No rashes. Assessment and plan -Chest pain appears to be musculoskeletal rule out pulmonary embolism there is no lobar pneumonia can have atypical pneumonia will obtain procalcitonin level if procalcitonin is negative we will discontinue antibiotics. The CT findings may be resolving infiltrates from her previous pneumonia. Patient will be continued on Toradol and Dilaudid if her pain improves will be discharged tomorrow patient does take [place] scribed by pain specialist and is also on NSAIDs at home. - Elevated blood sugars secondary to systemic steroids patient will be on sliding scale insulin - Ruled out pulmonary embolism Hypertension - COPD without any significant x-ray acute exacerbation - Chronic pain low back pain and restless leg syndrome for which patient will be resumed on her home appropriate home medications -Chronic microcytic anemia, outpatient evaluation and treatment DVT prophylaxis: Early ambulation 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 Date of last positivie culture/infection: 05/28/24 MDRO Source:: nasal, sputum Past Surgical History: Orthopedic Surgery, Tubal Ligation, Uterine Ablation Additional Past Surgical History / Comment(s): RIGHT ELBOW SURGERY , adenosine given x [address] to hospital on 09/06/20 for SVT Past Anesthesia/Blood Transfusion Reactions: No Reported Reaction Additional Past Anesthesia/Blood Transfusion Reaction / Comment(s): NEVER HAD BLOOD TRANSFUSION Past Psychological History: Anxiety, Bipolar, Depression Smoking Status: Current every day smoker, Vaper Past Alcohol Use History: None Reported Past Drug Use History: None Reported - Past Family History Mother Family Medical History: Coronary Artery Disease (CAD), Diabetes Mellitus, Hypertension Additional Family Medical History / Comment(s): LUPUS Father Family Medical History: Dementia Medications and Allergies Home Medications Medication Instructions Recorded Confirmed Type Baclofen 10 mg PO BID PRN #60 tab 04/12/22 07/05/24 Rx Butalb/APAP/Caff 50-325-40Mg 1 tab PO BID PRN #60 tab 04/12/22 07/05/24 Rx [Fioricet 50-325-40] DULoxetine HCL [Cymbalta] 60 mg PO HS 30 Days #30 cap 04/12/22 07/05/24 Rx QUEtiapine [SEROquel] 100 mg PO HS 30 Days #30 tab 04/12/22 07/05/24 Rx rOPINIRole HCL [Requip] 0.25 mg PO HS PRN #30 tab 04/12/22 07/05/24 Rx Albuterol Inhaler [Ventolin Hfa 2 puff INHALATION RT-QID PRN 05/27/24 07/05/24 History Inhaler] Budesonide [Pulmicort Flexhaler] 1 puff INHALATION RT-BID 05/27/24 07/05/24 History Diclofenac Sodium Gel [Voltaren 1% 2 gm TOPICAL QID 05/27/24 07/05/24 History Gel] Gabapentin 300 mg PO TID 05/27/24 07/05/24 History HYDROcodone/APAP 10-325MG [[place] 1 tab PO Q6H 05/27/24 07/05/24 History 10-325] Ibuprofen [Motrin] 600 mg PO TID 05/27/24 07/05/24 History Lidocaine 5% Oint [Xylocaine 5% 1 applic TOPICAL QID PRN 05/27/24 07/05/24 History Oint] lamoTRIgine [LaMICtal] 25 mg PO BID 05/27/24 07/05/24 History Metoprolol Tartrate [Lopressor] 25 mg PO BID #60 tab 06/05/24 07/05/24 Rx amLODIPine [Norvasc] 10 mg PO DAILY #30 tab 06/05/24 07/05/24 Rx Meloxicam [Mobic] 7.5 mg PO BID 07/05/24 07/05/24 History Allergies Allergy/AdvReac Type Severity Reaction Status Date / Time aspirin AdvReac Nausea & Verified 07/05/24 17:10 Vomiting Physical Exam Vitals: Vital Signs Temp Pulse Pulse Resp BP BP BP 07/06/24 12:17 68 07/06/24 12:10 64 07/06/24 08:43 62 07/06/24 08:34 66 07/06/24 07:42 97.7 F 66 19 134/69 07/06/24 01:16 97.7 F 68 18 129/71 07/05/24 21:10 64 07/05/24 20:56 62 07/05/24 19:45 98 F 61 15 127/66 07/05/24 18:26 98.2 F 58 L 20 133/86 07/05/24 17:58 66 18 138/76 07/05/24 16:53 64 07/05/24 16:45 60 07/05/24 13:34 98.4 F 65 20 132/72 Pulse Ox 07/06/24 12:17 07/06/24 12:10 07/06/24 08:43 07/06/24 08:34 07/06/24 07:42 99 07/06/24 01:16 97 07/05/24 21:10 07/05/24 20:56 07/05/24 19:45 97 07/05/24 18:26 96 07/05/24 17:58 96 07/05/24 16:53 07/05/24 16:45 07/05/24 13:34 99 Intake and Output 07/05/24 07/06/24 07/06/24 22:59 06:59 14:59 Intake Total 1650 Balance 1650 Intake: Oral 1650 Other: Voiding Method Toilet # Voids 2 5 4 # Bowel Movements 1 Weight 77.111 kg Results CBC & Chem 7: 07/06/24 00:15 07/06/24 11:20 Labs: Abnormal Lab Results - Last 24 Hours (Table) 07/05/24 07/05/24 07/05/24 Range/Units 15:10 15:10 15:56 RBC 3.84 L (4.10-5.20) 10*6/uL Hgb 9.9 L (12.0-15.0) g/dL Hct 29.3 L (37.2-46.3) % MCV 76.3 L (80.0-97.0) fL MCH 25.8 L (27.0-32.0) pg MCHC (32.0-37.0) g/dL RDW (11.5-14.5) % Plt Count 649 H (140-440) 10*3/uL MPV 8.2 L (9.5-12.2) fL Immature Gran # 0.05 H (0.00-0.04) 10*3/uL Neutrophils # (1.80-7.70) X 10*3/uL Lymphocytes # (0.90-5.00) X 10*3/uL Monocytes # (0.20-1.00) X 10*3/uL Eosinophils # 0.39 H (0.04-0.35) 10*3/uL D-Dimer (<0.60) mg/L FEU Potassium 2.9 L (3.5-5.1) mmol/L Carbon Dioxide (21.6-31.8) mmol/L Glucose 101 H (74-99) mg/dL Total Bilirubin (0.3-1.2) mg/dL AST 39 H (14-36) U/L Albumin (3.8-4.9) g/dL Albumin/Globulin Ratio (1.60-3.17) Ratio Ur Leukocyte Esterase Moderate H (Negative) Urine WBC 9 H (0-5) /hpf Urine Bacteria Rare H (None) /hpf 07/06/24 07/06/24 07/06/24 Range/Units 00:12 00:15 00:19 RBC 3.39 L (4.10-5.20) 10*6/uL Hgb 8.6 L (12.0-15.0) g/dL Hct 27.0 L (37.2-46.3) % MCV 79.6 L (80.0-97.0) fL MCH 25.4 L (27.0-32.0) pg MCHC 31.9 L (32.0-37.0) g/dL RDW 14.6 H (11.5-14.5) % Plt Count 519 H (140-440) 10*3/uL MPV (9.5-12.2) fL Immature Gran # 0.08 H (0.00-0.04) 10*3/uL Neutrophils # 7.71 H (1.80-7.70) X 10*3/uL Lymphocytes # 0.72 L (0.90-5.00) X 10*3/uL Monocytes # 0.11 L (0.20-1.00) X 10*3/uL Eosinophils # 0 L (0.04-0.35) 10*3/uL D-Dimer 1.22 H (<0.60) mg/L FEU Potassium 3.3 L (3.5-5.1) mmol/L Carbon Dioxide 19.9 L (21.6-31.8) mmol/L Glucose 334 H (74-99) mg/dL Total Bilirubin <0.2 L (0.3-1.2) mg/dL AST 38 H (14-36) U/L Albumin 3.4 L (3.8-4.9) g/dL Albumin/Globulin Ratio 1.13 L (1.60-3.17) Ratio Ur Leukocyte Esterase (Negative) Urine WBC (0-5) /hpf Urine Bacteria (None) /hpf 05/05/25 Range/Units 11:20 RBC (4.10-5.20) 10*6/uL Hgb (12.0-15.0) g/dL Hct (37.2-46.3) % MCV (80.0-97.0) fL MCH (27.0-32.0) pg MCHC (32.0-37.0) g/dL RDW (11.5-14.5) % Plt Count (140-440) 10*3/uL MPV (9.5-12.2) fL Immature Gran # (0.00-0.04) 10*3/uL Neutrophils # (1.80-7.70) X 10*3/uL Lymphocytes # (0.90-5.00) X 10*3/uL Monocytes # (0.20-1.00) X 10*3/uL Eosinophils # (0.04-0.35) 10*3/uL D-Dimer (<0.60) mg/L FEU Potassium 3.4 L (3.5-5.1) mmol/L Carbon Dioxide (21.6-31.8) mmol/L Glucose (74-99) mg/dL Total Bilirubin (0.3-1.2) mg/dL AST (14-36) U/L Albumin (3.8-4.9) g/dL Albumin/Globulin Ratio (1.60-3.17) Ratio Ur Leukocyte Esterase (Negative) Urine WBC (0-5) /hpf Urine Bacteria (None) /hpf
[2024-07-06] MEDS: BACLOFEN 10 MG TAB PO PRN (13:25)
[2024-07-06] MEDS ORDERED: AZITHROMYCIN 500 MG in SODIUM CHLORIDE 0.9% 250 ML IVPB SCH (16:00)
[2024-07-06 16:45] LABS: Glucose,Whole Blood 267 mg/dL (70-110)
[2024-07-06] MEDS: INSULIN LISPRO (HumaLOG) 100 UNIT/ML 10 mL VL SQ SCH (17:52)
[2024-07-06 20:28] LABS: Glucose,Whole Blood 207 mg/dL (70-110)
[2024-07-07 06:26] LABS: Glucose,Whole Blood 107 mg/dL (70-110)
[2024-07-07 11:21] LABS: Glucose,Whole Blood 158 mg/dL (70-110)
--- NOTE | 2024-07-07 12:26 | P.PN ---
Subjective Progress Note Date: 07/07/24 Principal diagnosis: Possible pneumonia, COPD exacerbation. Patient is a 54-year-old female with past medical history significant for hypertension, COPD, Buerger's disease, anxiety/depression. Her PCP is Dr. Eric Smyth. Of note, patient recently hospitalized 05/27/2024 through 06/05/2024 for right-sided, multilobar pneumonia. Identified organism was MRSA. She was eventually discharged with PICC line and IV vancomycin, which was completed on an outpatient basis. Patient returned the emergency department yesterday evening with a chief complaint of right-sided chest and right lateral back pain. Follow- up chest x-ray done in the emergency department showing overall improvement in aeration of the previously demonstrated right-sided infiltrates. Lab work including a WBC count of 9, hemoglobin 9.9, platelets 649. BMP: Sodium 140, potassium 2.9, chloride 107, serum bicarb 22, BUN 7, creatinine 0.61, glucose 101. Lactic 1. LFTs not elevated. Troponin less than 0.012. EKG: Sinus bradycardia, rate 49 bpm, no acute ischemic changes. Viral screen negative for influenza A/B, RSV, COVID. Patient currently being evaluated on the general medical floor. She is resting comfortably on room air. States the pain is localized to the right chest and right thoracic level back. Which was first noticed 4 to 5 days ago. Described as sharp in nature. Reproducible. Denies any further shortness of breath, coughing, sputum production, hemoptysis, fevers or chills. Denies any unilateral lower extremity swelling or pain. Denies heart palpitations, syncopal events. No history of DVT/PE. Prior PICC line has been removed. Current vital signs: Temperature 97.7 F, heart rate 60 bpm, blood pressure 129/71 mmHg, nontachypneic, SpO2 recorded at 97% on room air. Progress note dated July 07, 2024. 54-year-old female seen in consultation yesterday. Please see the note above. The patient is currently seen today in room 462. She is on room air. Her procalcitonin level was normal at less than 0.20. Zosyn and doxycycline will be discontinued. She is getting lactated Ringer's at 75 cc an hour. Current laboratory data includes only a glucose of 158. The patient was admitted primarily because of chest discomfort. Objective - Vital Signs Vital signs: Vital Signs Temp 97.9 F 07/07/24 07:35 Pulse 68 07/07/24 10:10 Resp 18 07/07/24 07:35 BP 157/81 07/07/24 07:35 Pulse Ox 95 07/07/24 07:35 FiO2 Intake & Output 07/06/24 07/07/24 07/07/24 18:59 06:59 18:59 Intake Total 240 Balance 240 Intake: Oral 240 Other: Voiding Method Toilet Toilet Toilet # Voids 3 3 # Bowel Movements 1 - Exam No acute distress, oriented 3. Currently on room air. HEENT examination is grossly unremarkable. Mucous membranes are moist. No oral lesions. Neck supple. Full range of motion. No adenopathy thyromegaly or neck vein distention. Cardiovascular examination reveals regular rhythm rate. S1-S2 normal. No S3 or S4. No discernible murmur noted. Lungs reveal clear breath sounds. Breath sounds are equal bilaterally. No adventitious lung sounds including wheezes rhonchi or crackles. Abdomen soft bowel sounds are heard. No masses or tenderness. Extremities are intact. No cyanosis clubbing or edema. Skin is without rash or lesion. Neurologic examination is brief but nonfocal. - Labs CBC & Chem 7: 07/06/24 00:15 07/06/24 15:10 Labs: Abnormal Lab Results - Last 24 Hours (Table) 07/06/24 07/06/24 07/07/24 Range/Units 16:44 20:26 11:18 POC Glucose (mg/dL) 267 H 207 H 158 H (70-110) mg/dL Microbiology - Last 24 Hours (Table) 07/05/24 17:31 Blood Culture - Preliminary Blood Assessment and Plan Assessment: Right sided chest pain, pleuritic in nature. Recent hospitalization for right-sided multilobar pneumonia, identified organism was MRSA, and she was treated with IV vancomycin. Repeat chest x-ray showing improvement in aeration/right lung opacities. No identified pneumothoraces or pleural effusions. Microcytic, hypochromic anemia. Hypokalemia, replaced. Hypertension. Chronic obstructive pulmonary disease. Nicotine dependence, reportedly vapes daily. History of chronic lumbar back pain. History of restless leg syndrome. Anxiety/depression. Plan: Plan dated July 07, 2024. The patient is seen today in room 462. The patient is on room air. Saturations are excellent. She is not having any shortness of breath, cough, wheezing, chest tightness, or phlegm production. The patient's procalcitonin level was less than 0.20. She is on Zosyn and doxycycline, both of which will be discontinued. She is getting lactated Ringer's at 75 cc an hour. Labs, x-rays, and all medications are reviewed. The patient appears to be relatively stable. We will continue to follow. Dictation was produced using [employer]. Please excuse any grammatical, word or spelling errors. Time with Patient: Less than 30
--- NOTE | 2024-07-07 16:23 | XR ---
EXAMINATION TYPE: XR ribs RT w pa chest xray DATE OF EXAM: 07/07/2024 4:18 PM INDICATION: Patient age:Female; 54 years old; Reason for study: pain with deep inspiration; PHH. pain COMPARISON: Chest radiograph 07/05/2024 TECHNIQUE: Frontal and oblique views of the right ribs with additional PA chest radiograph FINDINGS: The ribs have a normal appearance. No evidence of fracture. Increased right lung patchy ai rspace opacities throughout. The cardiac silhouette is normal in size. The remaining osseous struct ures are intact. IMPRESSION: 1. No acute osseous pathology. 2. Worsening pneumonia within the right lung. [facility], , 07/07/2024 4:20 PM
[2024-07-07 16:35] LABS: Glucose,Whole Blood 89 mg/dL (70-110)
[2024-07-07 20:36] LABS: Glucose,Whole Blood 112 mg/dL (70-110)
--- NOTE | 2024-07-08 05:15 | P.PN ---
Subjective Progress Note Date: 07/07/24 Patient is 54-year-old female came in with complaints of severe sharp chest pain in the right lower chest. Patient had a CT of the chest here which showed some infiltrates on the right side patient does not have any air bronchogram but dilated. Pretty much nonspecific infiltrates and groundglass opacities which can be seen in congestive heart failure, atypical pneumonia, interstitial lung disease, viral pneumonias. Viral screen is negative patient has this pain for about 4 to 5 days. Patient was recently treated for pneumonia about a month ago patient had an MRSA pneumonia at that time. These infiltrates on the CT did can be resolving infiltrates from her previous pneumonia. Patient does not have any fever chills does not have any leukocytosis procalcitonin is being obtained. Patient is not in COPD exacerbation and at this time. Patient is systemic steroids blood sugars are elevated because of general stopping the steroids systemic steroids patient will be on sliding scale insulin. Patient is presently on Zosyn and doxycycline although there is no clear evidence of pneumonia patient was complaining of cough with minimal of no sputum production. 07/07/2024 Patient evaluated today in follow up resting in bed. Continues to report significant pain to the right mid back/rib area which is tender to palpation. Blood culture remains negative. Patient has been afebrile. Procalcitonin level was normal. Patient remains off antibiotic therapy at this time. REVIEW OF SYSTEMS: All other systems are negative except those mentioned in the HPI PHYSICAL EXAMINATION: GENERAL: The patient is alert and oriented x3, not in any acute distress. Well developed, well nourished. HEENT: Pupils are round and equally reacting to light. EOMI. No scleral icterus. No conjunctival pallor. Normocephalic, atraumatic. No pharyngeal erythema. No thyromegaly. CARDIOVASCULAR: S1 and S2 present. No murmurs, rubs, or gallops. PULMONARY: Chest is clear to auscultation, no wheezing or crackles. ABDOMEN: Soft, nontender, nondistended, normoactive bowel sounds. No palpable organomegaly. MUSCULOSKELETAL: No joint swelling or deformity. EXTREMITIES: No cyanosis, clubbing, or pedal edema. NEUROLOGICAL: Gross neurological examination did not reveal any focal deficits. SKIN: No rashes. Assessment and plan - Chest pain appears to be musculoskeletal The CT findings may be resolving infiltrates from her previous pneumonia. - Elevated blood sugars secondary to systemic steroids patient will be on sliding scale insulin - Ruled out pulmonary embolism - Hypertension - COPD without any significant x-ray acute exacerbation - Chronic pain low back pain and restless leg syndrome for which patient will be resumed on her home appropriate home medications -Chronic microcytic anemia, outpatient evaluation and treatment DVT prophylaxis: Early ambulation Plan Patient will be continued on Toradol and Dilaudid Patient does take [place] scribed by pain specialist and is also on NSAIDs at home. Check rib xray lateral and PA Order incentive spirometer Monitor electrolytes and renal function The impression and plan of care has been dictated by Camelia Khalil, Nurse Practitioner as directed. Dr. Charity MD I have performed a history and physical examination and medical decision making of this patient, discussed the same with the dictator, and agree with the dictators assessment and plan as written, documented as a scribe. Based on total visit time, I have performed more than 50% of this visit. Objective - Vital Signs Vital signs: Vital Signs Temp 99.0 F 07/08/24 01:15 Pulse 78 07/08/24 01:15 Resp 20 07/08/24 01:15 BP 169/78 07/08/24 01:15 Pulse Ox 94 L 07/08/24 01:15 FiO2 Intake & Output 07/07/24 07/07/24 07/08/24 06:59 18:59 06:59 Intake Total 240 Balance 240 Intake: Oral 240 Other: Voiding Method Toilet Toilet Toilet # Voids 3 3 - Labs CBC & Chem 7: 07/06/24 00:15 07/06/24 15:10 Labs: Abnormal Lab Results - Last 24 Hours (Table) 07/07/24 07/07/24 Range/Units 11:18 20:34 POC Glucose (mg/dL) 158 H 112 H (70-110) mg/dL Microbiology - Last 24 Hours (Table) 07/05/24 17:31 Blood Culture - Preliminary Blood Assessment and Plan Time with Patient: Less than 30
[2024-07-08 06:24] LABS: Glucose,Whole Blood 111 mg/dL (70-110)
[2024-07-08 06:33] LABS: Basophils # (A) 0.09 10*3/uL (0.00-0.10); Basophils % (A) 0.6 %; Eosinophils # (A) 0.48 10*3/uL (0.04-0.35); Eosinophils % (A) 3.4 %; HCT 27.3 % (37.2-46.3); HGB 8.8 g/dL (12.0-15.0); Lymphocytes % (A) 19.7 %; MCH 24.9 pg (27.0-32.0); MCHC 32.2 g/dL (32.0-37.0); MCV 77.1 fL (80.0-97.0); Mean Platelet Volume 8.5 fL (9.5-12.2); Monocytes # (A) 1.07 10*3/uL (0.20-1.00); Monocytes % (A) 7.5 %; Neutrophils # (A) 9.48 10*3/uL (1.80-7.70); Neutrophils % (A) 66.8 %; Platelet Count 653 10*3/uL (140-440); RBC 3.54 10*6/uL (4.10-5.20); RDW 14.8 % (11.5-14.5); WBC 14.21 10*3/uL (4.50-10.00)
[2024-07-08 06:48] LABS: African American GFR (CKD) >90 (>60 ml/min/1.73 sqM); Anion Gap 11 mmol/L; Blood Urea Nitrogen 11 mg/dL (7-17); Calcium 9.5 mg/dL (8.4-10.2); Carbon Dioxide 24 mmol/L (22-30); Chloride 105 mmol/L (98-107); Glucose 92 mg/dL (74-99); Non-African American GFR(CKD) >90 (>60 ml/min/1.73 sqM); Potassium 3.3 mmol/L (3.5-5.1); Sodium 140 mmol/L (137-145)
[2024-07-08] MEDS: POTASSIUM CHLORIDE ER 20 MEQ TAB.ER PO SCH (08:28)
[2024-07-08] MEDS: methylPREDNISolone 4 MG TAB TAPER PO SCH (10:41)
[2024-07-08 11:55] LABS: Glucose,Whole Blood 113 mg/dL (70-110)
--- NOTE | 2024-07-08 12:27 | P.PN ---
Subjective Progress Note Date: 07/08/24 Principal diagnosis: Possible pneumonia, COPD exacerbation. Patient is a 54-year-old female with past medical history significant for hypertension, COPD, Buerger's disease, anxiety/depression. Her PCP is Dr. Eric Smyth. Of note, patient recently hospitalized 05/27/2024 through 06/05/2024 for right-sided, multilobar pneumonia. Identified organism was MRSA. She was eventually discharged with PICC line and IV vancomycin, which was completed on an outpatient basis. Patient returned the emergency department yesterday evening with a chief complaint of right-sided chest and right lateral back pain. Follow- up chest x-ray done in the emergency department showing overall improvement in aeration of the previously demonstrated right-sided infiltrates. Lab work including a WBC count of 9, hemoglobin 9.9, platelets 649. BMP: Sodium 140, potassium 2.9, chloride 107, serum bicarb 22, BUN 7, creatinine 0.61, glucose 101. Lactic 1. LFTs not elevated. Troponin less than 0.012. EKG: Sinus bradycardia, rate 49 bpm, no acute ischemic changes. Viral screen negative for influenza A/B, RSV, COVID. Patient currently being evaluated on the general medical floor. She is resting comfortably on room air. States the pain is localized to the right chest and right thoracic level back. Which was first noticed 4 to 5 days ago. Described as sharp in nature. Reproducible. Denies any further shortness of breath, coughing, sputum production, hemoptysis, fevers or chills. Denies any unilateral lower extremity swelling or pain. Denies heart palpitations, syncopal events. No history of DVT/PE. Prior PICC line has been removed. Current vital signs: Temperature 97.7 F, heart rate 60 bpm, blood pressure 129/71 mmHg, nontachypneic, SpO2 recorded at 97% on room air. Progress note dated July 07, 2024. 54-year-old female seen in consultation yesterday. Please see the note above. The patient is currently seen today in room 462. She is on room air. Her procalcitonin level was normal at less than 0.20. Zosyn and doxycycline will be discontinued. She is getting lactated Ringer's at 75 cc an hour. Current laboratory data includes only a glucose of 158. The patient was admitted primarily because of chest discomfort. Progress note dated July 08, 2024. 54-year-old female who was seen in consultation, 2 days ago. The patient was admitted primarily with back pain. Her procalcitonin level was normal. Antibiotics were discontinued. She is currently getting lactated Ringer's at 20 cc an hour which can be discontinued. She is on room air. Her only complaint i s that of pain. It does have a pleuritic component to it, and for that reason, we will start her on a Medrol Dosepak. White count was 14.21, hemoglobin 8.8, hematocrit 27.3, and platelet count of 653,000. Sodium 140, potassium 3.3, chlorides 105, CO2 24, BUN 11, creatinine 0.58. Glucose is 113. Calcium is 9.5. Blood cultures are negative. Chest x-ray shows no evidence of acute osseous pathology, but worsening pneumonia within the right lung. Objective - Vital Signs Vital signs: Vital Signs Temp 97.9 F 07/08/24 07:15 Pulse 92 07/08/24 07:55 Resp 18 07/08/24 07:15 BP 169/84 07/08/24 07:15 Pulse Ox 97 07/08/24 07:46 FiO2 21 07/08/24 07:46 Intake & Output 07/07/24 07/08/24 07/08/24 18:59 06:59 18:59 Intake Total 480 Balance 480 Intake: Oral 480 Other: Voiding Method Toilet Toilet # Voids 3 3 - Exam No acute distress, oriented 3. Currently on room air. No conversational dyspnea. No use of accessory muscles. No audible wheezing. HEENT examination is grossly unremarkable. Mucous membranes are moist. No oral lesions. Neck supple. Full range of motion. No adenopathy thyromegaly or neck vein distention. Cardiovascular examination reveals regular rhythm rate. S1-S2 normal. No S3 or S4. No discernible murmur noted. Lungs reveal clear breath sounds. Breath sounds are equal bilaterally. No adventitious lung sounds including wheezes rhonchi or crackles. Abdomen soft bowel sounds are heard. No masses or tenderness. Extremities are intact. No cyanosis clubbing or edema. Skin is without rash or lesion. Neurologic examination is brief but nonfocal. - Labs CBC & Chem 7: 07/08/24 06:04 07/08/24 06:04 Labs: Abnormal Lab Results - Last 24 Hours (Table) 07/07/24 07/08/24 07/08/24 Range/Units 20:34 06:04 06:04 WBC 14.21 H (4.50-10.00) 10*3/uL RBC 3.54 L (4.10-5.20) 10*6/uL Hgb 8.8 L (12.0-15.0) g/dL Hct 27.3 L (37.2-46.3) % MCV 77.1 L (80.0-97.0) fL MCH 24.9 L (27.0-32.0) pg RDW 14.8 H (11.5-14.5) % Plt Count 653 H (140-440) 10*3/uL MPV 8.5 L (9.5-12.2) fL Immature Gran # 0.29 H (0.00-0.04) 10*3/uL Neutrophils # 9.48 H (1.80-7.70) 10*3/uL Monocytes # 1.07 H (0.20-1.00) 10*3/uL Eosinophils # 0.48 H (0.04-0.35) 10*3/uL Potassium 3.3 L (3.5-5.1) mmol/L POC Glucose (mg/dL) 112 H (70-110) mg/dL 07/08/24 07/08/24 Range/Units 06:23 11:53 WBC (4.50-10.00) 10*3/uL RBC (4.10-5.20) 10*6/uL Hgb (12.0-15.0) g/dL Hct (37.2-46.3) % MCV (80.0-97.0) fL MCH (27.0-32.0) pg RDW (11.5-14.5) % Plt Count (140-440) 10*3/uL MPV (9.5-12.2) fL Immature Gran # (0.00-0.04) 10*3/uL Neutrophils # (1.80-7.70) 10*3/uL Monocytes # (0.20-1.00) 10*3/uL Eosinophils # (0.04-0.35) 10*3/uL Potassium (3.5-5.1) mmol/L POC Glucose (mg/dL) 111 H 113 H (70-110) mg/dL Microbiology - Last 24 Hours (Table) 07/05/24 17:31 Blood Culture - Preliminary Blood Assessment and Plan Assessment: Right sided chest pain, pleuritic in nature. Recent hospitalization for right-sided multilobar pneumonia, identified organism was MRSA, and she was treated with IV vancomycin. Repeat chest x-ray showing improvement in aeration/right lung opacities. No identified pneumothoraces or pleural effusions. Microcytic, hypochromic anemia. Hypokalemia, replaced. Hypertension. Chronic obstructive pulmonary disease. Nicotine dependence, reportedly vapes daily. History of chronic lumbar back pain. History of restless leg syndrome. Anxiety/depression. Plan: Plan dated July 07, 2024. The patient is seen today in room 462. The patient is on room air. Saturations are excellent. She is not having any shortness of breath, cough, wheezing, chest tightness, or phlegm production. The patient's procalcitonin level was less than 0.20. She is on Zosyn and doxycycline, both of which will be discontinued. She is getting lactated Ringer's at 75 cc an hour. Labs, x-rays, and all medications are reviewed. The patient appears to be relatively stable. We will continue to follow. Dictation was produced using [employer] software. Please excuse any grammatical, word or spelling errors. Plan dated July 08, 2024. The patient is again seen in room 462. She is on room air. Antibiotics were discontinued because her procalcitonin level was normal. She was previously treated for pneumonia. We add a Medrol Dosepak, for her pleuritic right-sided chest pain. Labs, x-rays and medications are reviewed. Her IV, can be discontinued. The patient does vape, and may have a component of e- cigarette/vaping induced, acute lung injury (EVALI). We will continue to follow. Prognosis is guarded. Dictation was produced using [employer] software. Please excuse any grammatical, word or spelling errors. Time with Patient: Less than 30
[2024-07-08] MEDS: HYDROmorphone 1 MG/ML 1 ML SYRINGE IM PRN (14:18)
[2024-07-08 16:23] LABS: Glucose,Whole Blood 149 mg/dL (70-110)
[2024-07-08] MEDS: HYDROmorphone 1 MG/ML 1 ML SYRINGE IVP PRN (18:59)
--- NOTE | 2024-07-08 19:27 | P.PN ---
Subjective Progress Note Date: 07/08/24 Patient is 54-year-old female came in with complaints of severe sharp chest pain in the right lower chest. Patient had a CT of the chest here which showed some infiltrates on the right side patient does not have any air bronchogram but dilated. Pretty much nonspecific infiltrates and groundglass opacities which can be seen in congestive heart failure, atypical pneumonia, interstitial lung disease, viral pneumonias. Viral screen is negative patient has this pain for about 4 to 5 days. Patient was recently treated for pneumonia about a month ago patient had an MRSA pneumonia at that time. These infiltrates on the CT did can be resolving infiltrates from her previous pneumonia. Patient does not have any fever chills does not have any leukocytosis procalcitonin is being obtained. Patient is not in COPD exacerbation and at this time. Patient is systemic steroids blood sugars are elevated because of general stopping the steroids systemic steroids patient will be on sliding scale insulin. Patient is presently on Zosyn and doxycycline although there is no clear evidence of pneumonia patient was complaining of cough with minimal of no sputum production. 07/07/2024 Patient evaluated today in follow up resting in bed. Continues to report significant pain to the right mid back/rib area which is tender to palpation. Blood culture remains negative. Patient has been afebrile. Procalcitonin level was normal. Patient remains off antibiotic therapy at this time. 07/08/2024 Patient evaluated today in follow up on the medical floor. Patient continues to report severe right sided back pain. Chest/rib xray does not reveal any acute fracture. There is worsening pneumonia. Patient states she has had a more productive cough and will obtain sputum sample. ID consulted. WBC 14.21. HGB 8.8. Potassium 3.3. REVIEW OF SYSTEMS: All other systems are negative except those mentioned in the HPI PHYSICAL EXAMINATION: GENERAL: The patient is alert and oriented x3, not in any acute distress. Well developed, well nourished. HEENT: Pupils are round and equally reacting to light. EOMI. No scleral icterus. No conjunctival pallor. Normocephalic, atraumatic. No pharyngeal erythema. No thyromegaly. CARDIOVASCULAR: S1 and S2 present. No murmurs, rubs, or gallops. PULMONARY: Chest is clear to auscultation, no wheezing or crackles. ABDOMEN: Soft, nontender, nondistended, normoactive bowel sounds. No palpable organomegaly. MUSCULOSKELETAL: No joint swelling or deformity. EXTREMITIES: No cyanosis, clubbing, or pedal edema. NEUROLOGICAL: Gross neurological examination did not reveal any focal deficits. SKIN: No rashes. Assessment and plan - Chest pain appears to be musculoskeletal The CT findings may be resolving infiltrates from her previous pneumonia. - Elevated blood sugars secondary to systemic steroids patient will be on sliding scale insulin - Ruled out pulmonary embolism - Hypertension - COPD without any significant x-ray acute exacerbation - Chronic pain low back pain and restless leg syndrome for which patient will be resumed on her home appropriate home medications -Chronic microcytic anemia, outpatient evaluation and treatment DVT prophylaxis: Early ambulation Plan Patient will be continued on Toradol and Dilaudid Patient does take [place] scribed by pain specialist and is also on NSAIDs at home. Pending sputum culture ID consultation Pulmonology following Continue to encourage incentive spirometer 10 x an hour while awake. Monitor electrolytes and renal function The impression and plan of care has been dictated by Nurse Marcial Boykin as directed. Dr. Charity MD I have performed a history and physical examination and medical decision making of this patient, discussed the same with the dictator, and agree with the dict ators assessment and plan as written, documented as a scribe. Based on total visit time, I have performed more than 50% of this visit. Objective - Vital Signs Vital signs: Vital Signs Temp 97.9 F 07/08/24 07:15 Pulse 92 07/08/24 07:55 Resp 18 07/08/24 07:15 BP 169/84 07/08/24 07:15 Pulse Ox 97 07/08/24 07:46 FiO2 21 07/08/24 07:46 Intake & Output 07/07/24 07/08/24 07/08/24 18:59 06:59 18:59 Intake Total 480 Balance 480 Intake: Oral 480 Other: Voiding Method Toilet Toilet # Voids 3 3 - Labs CBC & Chem 7: 07/08/24 06:04 07/08/24 06:04 Labs: Abnormal Lab Results - Last 24 Hours (Table) 07/07/24 07/07/24 07/08/24 Range/Units 11:18 20:34 06:04 WBC 14.21 H (4.50-10.00) 10*3/uL RBC 3.54 L (4.10-5.20) 10*6/uL Hgb 8.8 L (12.0-15.0) g/dL Hct 27.3 L (37.2-46.3) % MCV 77.1 L (80.0-97.0) fL MCH 24.9 L (27.0-32.0) pg RDW 14.8 H (11.5-14.5) % Plt Count 653 H (140-440) 10*3/uL MPV 8.5 L (9.5-12.2) fL Immature Gran # 0.29 H (0.00-0.04) 10*3/uL Neutrophils # 9.48 H (1.80-7.70) 10*3/uL Monocytes # 1.07 H (0.20-1.00) 10*3/uL Eosinophils # 0.48 H (0.04-0.35) 10*3/uL Potassium (3.5-5.1) mmol/L POC Glucose (mg/dL) 158 H 112 H (70-110) mg/dL 07/08/24 07/08/24 Range/Units 06:04 06:23 WBC (4.50-10.00) 10*3/uL RBC (4.10-5.20) 10*6/uL Hgb (12.0-15.0) g/dL Hct (37.2-46.3) % MCV (80.0-97.0) fL MCH (27.0-32.0) pg RDW (11.5-14.5) % Plt Count (140-440) 10*3/uL MPV (9.5-12.2) fL Immature Gran # (0.00-0.04) 10*3/uL Neutrophils # (1.80-7.70) 10*3/uL Monocytes # (0.20-1.00) 10*3/uL Eosinophils # (0.04-0.35) 10*3/uL Potassium 3.3 L (3.5-5.1) mmol/L POC Glucose (mg/dL) 111 H (70-110) mg/dL Microbiology - Last 24 Hours (Table) 07/05/24 17:31 Blood Culture - Preliminary Blood Assessment and Plan Time with Patient: Less than 30
[2024-07-08 20:02] LABS: Glucose,Whole Blood 204 mg/dL (70-110)
[2024-07-09 06:13] LABS: Glucose,Whole Blood 117 mg/dL (70-110)
[2024-07-09 08:27] LABS: Basophils # (A) 0.04 X 10*3/uL (0.00-0.10); Basophils % (A) 0.3 %; Eosinophils # (A) 0.19 X 10*3/uL (0.04-0.35); Eosinophils % (A) 1.6 %; HCT 28.1 % (37.2-46.3); HGB 8.8 g/dL (12.0-15.0); Lymphocytes % (A) 20.5 %; MCH 24.4 pg (27.0-32.0); MCHC 31.3 g/dL (32.0-37.0); MCV 78.1 FL (80.0-97.0); Mean Platelet Volume 9.7 FL (9.5-12.2); Monocytes # (A) 1.09 X 10*3/uL (0.20-1.00); Monocytes % (A) 8.9 %; NRBC Per 100 WBC 0.02 X 10*3/uL (0.00-0.01); Neutrophils % (A) 67.3 %; Platelet Count 639 X 10*3/uL (140-440); RDW 14.8 % (11.5-14.5); WBC 12.19 X 10*3/uL (4.50-10.00)
[2024-07-09 08:59] VITALS: BP 166/74; RESP 15; TEMP 97.3
[2024-07-09 09:11] LABS: BUN/Creat Ratio 19.57 Ratio (12.00-20.00); Blood Urea Nitrogen 13.7 mg/dL (9.0-27.0); Calcium 9.3 mg/dL (8.7-10.3); Carbon Dioxide 24.7 mmol/L (21.6-31.8); Chloride 104 mmol/L (96-109); Glucose 118 mg/dL (70-110); Potassium 3.3 mmol/L (3.5-5.5); Sodium 142 mmol/L (135-145)
--- NOTE | 2024-07-09 09:41 | P.CONS ---
History of Present Illness - Reason for Consult Consult date: 07/08/24 Recurrent pneumonia Requesting physician: Camelia Khalil - Chief Complaint Right-sided chest pain x days - History of Present Illness Patient is a 54-year-old female with a past medical history significant for hypertension hyperlipidemia osteoarthritis anxiety bipolar depression current everyday smoker recent admission to the hospital diagnosed with MRSA pneumonia with the patient has a completed course of IV vancomycin patient presenting back to the hospital concerning for right-sided chest pain that the pain has been getting worse for the last few days. Denies any history of any trauma describing the pain to be sharp moderate to severe intensity wi thout radiation patient also have a cough moderate intensity is bringing up some sputum denies any hemoptysis on presentation to the hospital patient was afebrile and no fever have been recorded subsequently patient was nontachycardic or hypotensive not hypoxic no need for supplemental oxygen patient did have a white count of 8.9 which is up to 14.21 creatinine 0.58 liver enzymes are normal urine has been negative influenza RSV COVID testing has been negative blood cultures of culture currently pending patient did have a chest x-ray improved aeration of the lungs with persistent multifocal airspace opacities did have a CT angiogram of the chest patchy and confluent opacities right lung patient also have a ribs with a chest x-ray no acute bony abdomen pathology worsening pneumonia within the right lung that has prompted this infectious disease consultation Review of Systems Positive point and negatives has been mentioned in the HPI, complete review of systems was performed and all other systems are negative 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 Year Discovered:: 05/28/24 MDRO Source:: nasal, sputum Past Surgical History: Orthopedic Surgery, Tubal Ligation, Uterine Ablation Additional Past Surgical History / Comment(s): RIGHT ELBOW SURGERY , adenosine given x [address] hospital on 09/06/20 for SVT Past Anesthesia/Blood Transfusion Reactions: No Reported Reaction Additional Past Anesthesia/Blood Transfusion Reaction / Comm: NEVER HAD BLOOD TRANSFUSION Past Psychological History: Anxiety, Bipolar, Depression Smoking Status: Current every day smoker, Vaper Past Alcohol Use History: None Reported Past Drug Use History: None Reported - Past Family History Mother Family Medical History: Coronary Artery Disease (CAD), Diabetes Mellitus, Hypertension Additional Family Medical History / Comment(s): LUPUS Father Family Medical History: Dementia Medications and Allergies Home Medications Medication Instructions Recorded Confirmed Type Baclofen 10 mg PO BID PRN #60 tab 04/12/22 07/05/24 Rx Butalb/APAP/Caff 50-325-40Mg 1 tab PO BID PRN #60 tab 04/12/22 07/05/24 Rx [Fioricet 50-325-40] DULoxetine HCL [Cymbalta] 60 mg PO HS 30 Days #30 cap 04/12/22 07/05/24 Rx QUEtiapine [SEROquel] 100 mg PO HS 30 Days #30 tab 04/12/22 07/05/24 Rx rOPINIRole HCL [Requip] 0.25 mg PO HS PRN #30 tab 04/12/22 07/05/24 Rx Albuterol Inhaler [Ventolin Hfa 2 puff INHALATION RT-QID PRN 05/27/24 07/05/24 History Inhaler] Budesonide [Pulmicort Flexhaler] 1 puff INHALATION RT-BID 05/27/24 07/05/24 History Diclofenac Sodium Gel [Voltaren 1% 2 gm TOPICAL QID 05/27/24 07/05/24 History Gel] Gabapentin 300 mg PO TID 05/27/24 07/05/24 History HYDROcodone/APAP 10-325MG [[place] 1 tab PO Q6H 05/27/24 07/05/24 History 10-325] Ibuprofen [Motrin] 600 mg PO TID 05/27/24 07/05/24 History Lidocaine 5% Oint [Xylocaine 5% 1 applic TOPICAL QID PRN 05/27/24 07/05/24 History Oint] lamoTRIgine [LaMICtal] 25 mg PO BID 05/27/24 07/05/24 History Metoprolol Tartrate [Lopressor] 25 mg PO BID #60 tab 06/05/24 07/05/24 Rx amLODIPine [Norvasc] 10 mg PO DAILY #30 tab 06/05/24 07/05/24 Rx Meloxicam [Mobic] 7.5 mg PO BID 07/05/24 07/05/24 History Allergies Allergy/AdvReac Type Severity Reaction Status Date / Time aspirin AdvReac Nausea & Verified 07/05/24 17:10 Vomiting Physical Exam Vitals: Vital Signs Temp Pulse Pulse Resp BP Pulse Ox FiO2 07/08/24 07:55 92 07/08/24 07:46 84 97 21 07/08/24 07:15 97.9 F 81 18 169/84 94 L 07/08/24 01:15 99.0 F 78 20 169/78 94 L 07/07/24 19:53 98.1 F 67 18 168/93 93 L 07/07/24 18:30 58 L 18 07/07/24 18:19 54 L 18 07/07/24 13:51 97.4 F L 54 L 18 166/86 94 L 07/07/24 13:44 68 07/07/24 13:32 68 Intake and Output 07/07/24 07/08/24 07/08/24 22:59 06:59 14:59 Intake Total 480 Balance 480 Intake: Oral 480 Other: Voiding Method Toilet # Voids 3 3 GENERAL DESCRIPTION: Middle-age female lying in bed, no distress. No tachypnea or accessory muscle of respiration use. HEENT: Shows Pallor , no scleral icterus. Oral mucous membrane is dry. NECK: Trachea central, no thyromegaly. LUNGS: Unlabored breathing. Decreased breath sound at the base HEART: S1, S2, regular rate and rhythm. No loud murmur ABDOMEN: Soft, no tenderness , EXTREMITIES: No edema of feet. SKIN: No rash, no masses palpable. NEUROLOGICAL: The patient is awake, alert, oriented x3, mood and affect normal. Results CBC & Chem 7: 07/09/24 04:46 07/09/24 04:46 Labs: Abnormal Lab Results - Last 24 Hours (Table) 07/07/24 07/08/24 07/08/24 Range/Units 20:34 06:04 06:04 WBC 14.21 H (4.50-10.00) 10*3/uL RBC 3.54 L (4.10-5.20) 10*6/uL Hgb 8.8 L (12.0-15.0) g/dL Hct 27.3 L (37.2-46.3) % MCV 77.1 L (80.0-97.0) fL MCH 24.9 L (27.0-32.0) pg RDW 14.8 H (11.5-14.5) % Plt Count 653 H (140-440) 10*3/uL MPV 8.5 L (9.5-12.2) fL Immature Gran # 0.29 H (0.00-0.04) 10*3/uL Neutrophils # 9.48 H (1.80-7.70) 10*3/uL Monocytes # 1.07 H (0.20-1.00) 10*3/uL Eosinophils # 0.48 H (0.04-0.35) 10*3/uL Potassium 3.3 L (3.5-5.1) mmol/L POC Glucose (mg/dL) 112 H (70-110) mg/dL 07/08/24 Range/Units 06:23 WBC (4.50-10.00) 10*3/uL RBC (4.10-5.20) 10*6/uL Hgb (12.0-15.0) g/dL Hct (37.2-46.3) % MCV (80.0-97.0) fL MCH (27.0-32.0) pg RDW (11.5-14.5) % Plt Count (140-440) 10*3/uL MPV (9.5-12.2) fL Immature Gran # (0.00-0.04) 10*3/uL Neutrophils # (1.80-7.70) 10*3/uL Monocytes # (0.20-1.00) 10*3/uL Eosinophils # (0.04-0.35) 10*3/uL Potassium (3.5-5.1) mmol/L POC Glucose (mg/dL) 111 H (70-110) mg/dL Microbiology - Last 24 Hours (Table) 07/05/24 17:31 Blood Culture - Preliminary Blood Assessment and Plan (1) Leukocytosis Current Visit: Yes Status: Acute Code(s): D72.829 - ELEVATED WHITE BLOOD CELL COUNT, UNSPECIFIED SNOMED Code(s): 837232992 (2) Pneumonia Current Visit: Yes Status: Acute Code(s): J18.9 - PNEUMONIA, UNSPECIFIED ORGANISM SNOMED Code(s): 503642696 Plan: 1patient presented the hospital with right-sided chest pain pleuritic in nature and in this patient did have a CT angiogram of the chest that was negative for any PE however did mention opacities in the right lower lobe concerning for possible pneumonia in this patient did not have any fever or elevated white count on admission also have a normal procalcitonin and antibiotics has been discontinued by pulmonary 2-patient has been started on steroid concern for possible pleurisy and will see clinical response. 3we will repeat her inflammatory markers and immunological studies to rule out etiology for possible recurrent pneumonias 4try to obtain sputum We will follow on clinical condition and cultures to further adjust medication if needed Thank you for this consultation we will follow the patient along with you Dictation was produced using [employer] dictation software. please excuse any grammatical, word or spelling errors. Time with Patient: Greater than 30
[2024-07-09 09:46] VITALS: PULSE 65
[2024-07-09 11:38] LABS: Glucose,Whole Blood 146 mg/dL (70-110)
[2024-07-09] MEDS: POTASSIUM CHLORIDE ER 20 MEQ TAB.ER PO SCH (12:12)
--- NOTE | 2024-07-09 13:06 | P.PN ---
Subjective Progress Note Date: 07/09/24 Principal diagnosis: Possible pneumonia, COPD exacerbation. Patient is a 54-year-old female with past medical history significant for hypertension, COPD, Buerger's disease, anxiety/depression. Her PCP is Dr. Eric Smyth. Of note, patient recently hospitalized 05/27/2024 through 06/05/2024 for right-sided, multilobar pneumonia. Identified organism was MRSA. She was eventually discharged with PICC line and IV vancomycin, which was completed on an outpatient basis. Patient returned the emergency department yesterday evening with a chief complaint of right-sided chest and right lateral back pain. Follow- up chest x-ray done in the emergency department showing overall improvement in aeration of the previously demonstrated right-sided infiltrates. Lab work including a WBC count of 9, hemoglobin 9.9, platelets 649. BMP: Sodium 140, potassium 2.9, chloride 107, serum bicarb 22, BUN 7, creatinine 0.61, glucose 101. Lactic 1. LFTs not elevated. Troponin less than 0.012. EKG: Sinus bradycardia, rate 49 bpm, no acute ischemic changes. Viral screen negative for influenza A/B, RSV, COVID. Patient currently being evaluated on the general medical floor. She is resting comfortably on room air. States the pain is localized to the right chest and right thoracic level back. Which was first noticed 4 to 5 days ago. Described as sharp in nature. Reproducible. Denies any further shortness of breath, coughing, sputum production, hemoptysis, fevers or chills. Denies any unilateral lower extremity swelling or pain. Denies heart palpitations, syncopal events. No history of DVT/PE. Prior PICC line has been removed. Current vital signs: Temperature 97.7 F, heart rate 60 bpm, blood pressure 129/71 mmHg, nontachypneic, SpO2 recorded at 97% on room air. Progress note dated July 07, 2024. 54-year-old female seen in consultation yesterday. Please see the note above. The patient is currently seen today in room 462. She is on room air. Her procalcitonin level was normal at less than 0.20. Zosyn and doxycycline will be discontinued. She is getting lactated Ringer's at 75 cc an hour. Current laboratory data includes only a glucose of 158. The patient was admitted primarily because of chest discomfort. Progress note dated July 08, 2024. 54-year-old female who was seen in consultation, 2 days ago. The patient was admitted primarily with back pain. Her procalcitonin level was normal. Antibiotics were discontinued. She is currently getting lactated Ringer's at 20 cc an hour which can be discontinued. She is on room air. Her only complaint i s that of pain. It does have a pleuritic component to it, and for that reason, we will start her on a Medrol Dosepak. White count was 14.21, hemoglobin 8.8, hematocrit 27.3, and platelet count of 653,000. Sodium 140, potassium 3.3, chlorides 105, CO2 24, BUN 11, creatinine 0.58. Glucose is 113. Calcium is 9.5. Blood cultures are negative. Chest x-ray shows no evidence of acute osseous pathology, but worsening pneumonia within the right lung. Progress note dated July 09, 2024. 54-year-old female seen today again in room 462. The patient is on room air. She is not having any respiratory distress or difficulty. The patient is currently not receiving any IV fluids. Current labs include a white count of 12.2, hemoglobin 8.8, hematocrit 28.1, and a platelet count of 639,000. Sodium 142, potassium 3.3, chlorides 104, CO2 25, BUN 14, creatinine 0.7. Glucose is 146. Calcium is 9.3. The patient is resting comfortably in bed. Again, she is not having any respiratory issues, and her primary complaint is pain, which is now improved on a Medrol Dosepak. Objective - Vital Signs Vital signs: Vital Signs Temp 97.3 F L 07/09/24 07:05 Pulse 65 07/09/24 09:46 Resp 15 07/09/24 07:05 BP 166/74 07/09/24 07:05 Pulse Ox 99 07/09/24 09:38 FiO2 21 07/08/24 07:46 Intake & Output 07/08/24 07/09/24 07/09/24 18:59 06:59 18:59 Intake Total 640 480 Balance 640 480 Intake: Oral 640 480 Other: Voiding Method Toilet # Voids 4 3 - Exam No acute distress, oriented 3. Currently on room air. No conversational dysp vivienne. No use of accessory muscles. No audible wheezing. HEENT examination is grossly unremarkable. Mucous membranes are moist. No oral lesions. Neck supple. Full range of motion. No adenopathy thyromegaly or neck vein distention. Cardiovascular examination reveals regular rhythm rate. S1-S2 normal. No S3 or S4. No discernible murmur noted. Lungs reveal clear breath sounds. Breath sounds are equal bilaterally. No adventitious lung sounds including wheezes rhonchi or crackles. Abdomen soft bowel sounds are heard. No masses or tenderness. Extremities are intact. No cyanosis clubbing or edema. Skin is without rash or lesion. Neurologic examination is brief but nonfocal. - Labs CBC & Chem 7: 07/09/24 04:46 07/09/24 04:46 Labs: Abnormal Lab Results - Last 24 Hours (Table) 07/08/24 07/08/24 07/09/24 Range/Units 16:22 20:01 04:46 WBC 12.19 H (4.50-10.00) X 10*3/uL RBC 3.60 L (4.10-5.20) X 10*6/uL Hgb 8.8 L (12.0-15.0) g/dL Hct 28.1 L (37.2-46.3) % MCV 78.1 L (80.0-97.0) FL MCH 24.4 L (27.0-32.0) pg MCHC 31.3 L (32.0-37.0) g/dL RDW 14.8 H (11.5-14.5) % Plt Count 639 H (140-440) X 10*3/uL Immature Gran # 0.17 H (0.00-0.04) X 10*3/uL Neutrophils # 8.20 H (1.80-7.70) X 10*3/uL Monocytes # 1.09 H (0.20-1.00) X 10*3/uL NRBC/100 WBC Diff 0.02 H (0.00-0.01) X 10*3/uL Potassium (3.5-5.5) mmol/L Anion Gap (4.00-12.00) mmol/L Glucose (70-110) mg/dL POC Glucose (mg/dL) 149 H 204 H (70-110) mg/dL 07/09/24 07/09/24 07/09/24 Range/Units 04:46 06:11 11:37 WBC (4.50-10.00) X 10*3/uL RBC (4.10-5.20) X 10*6/uL Hgb (12.0-15.0) g/dL Hct (37.2-46.3) % MCV (80.0-97.0) FL MCH (27.0-32.0) pg MCHC (32.0-37.0) g/dL RDW (11.5-14.5) % Plt Count (140-440) X 10*3/uL Immature Gran # (0.00-0.04) X 10*3/uL Neutrophils # (1.80-7.70) X 10*3/uL Monocytes # (0.20-1.00) X 10*3/uL NRBC/100 WBC Diff (0.00-0.01) X 10*3/uL Potassium 3.3 L (3.5-5.5) mmol/L Anion Gap 13.30 H (4.00-12.00) mmol/L Glucose 118 H (70-110) mg/dL POC Glucose (mg/dL) 117 H 146 H (70-110) mg/dL Microbiology - Last 24 Hours (Table) 07/05/24 17:31 Blood Culture - Preliminary Blood Assessment and Plan Assessment: Right sided chest pain, pleuritic in nature. Recent hospitalization for right-sided multilobar pneumonia, identified organism was MRSA, and she was treated with IV vancomycin. Repeat chest x-ray showing improvement in aeration/right lung opacities. No identified pneumothoraces or pleural effusions. Microcytic, hypochromic anemia. Hypokalemia, replaced. Hypertension. Chronic obstructive pulmonary disease. Nicotine dependence, reportedly vapes daily. History of chronic lumbar back pain. History of restless leg syndrome. Anxiety/depression. Plan: Plan dated July 07, 2024. The patient is seen today in room 462. The patient is on room air. Saturations are excellent. She is not having any shortness of breath, cough, wheezing, chest tightness, or phlegm production. The patient's procalcitonin level was less than 0.20. She is on Zosyn and doxycycline, both of which will be discontinued. She is getting lactated Ringer's at 75 cc an hour. Labs, x-rays, and all medications are reviewed. The patient appears to be relatively stable. We will continue to follow. Dictation was produced using mTraks software. Please excuse any grammatical, word or spelling errors. Plan dated July 08, 2024. The patient is again seen in room 462. She is on room air. Antibiotics were discontinued because her procalcitonin level was normal. She was previously treated for pneumonia. We add a Medrol Dosepak, for her pleuritic right-sided chest pain. Labs, x-rays and medications are reviewed. Her IV, can be discontinued. The patient does vape, and may have a component of e- cigarette/vaping induced, acute lung injury (EVALI). We will continue to follow. Prognosis is guarded. Dictation was produced using mTraks software. Please excuse any grammatical, word or spelling errors. Plan dated July 09, 2024. The patient is again seen today in room 462. Currently, she appears relatively stable. Her only complaint was pain, in the right back and chest area, which is now improved on the Medrol Dosepak. Her pain was pleuritic in nature. She is currently on room air. She is not receiving any IV fluids. She is not on any antibiotics. Her procalcitonin level was normal. Vital signs are stable with a room air saturation 99%, and a temperature which is in the normal range. Labs, x-rays, and all medications are reviewed. We will continue to follow. The patient could be considered for discharge from the pulmonary standpoint. No additional recommendations are made. Dictation was produced using mTraks software. Please excuse any grammatical, word or spelling errors. Time with Patient: Less than 30
== END 2024-07-09 15:27 | disposition home or self-care (01) | DRG 203 ==
LOC: EC 13:24 → 4SSUR 17:24 → OBSVTOIN 17:25 → 4SSUR 18:07
PROVIDERS: ADMIT Internal Medicine; ATTEND Internal Medicine
DX: R07.89 Other chest pain (principal); J18.9 Pneumonia, unspecified organism; I10 Essential (primary) hypertension; J44.0 Chronic obstructive pulmonary disease with (acute) lower respiratory infection; G25.81 Restless legs syndrome; R73.9 Hyperglycemia, unspecified; T38.0X5A Adverse effect of glucocorticoids and synthetic analogues, initial encounter; D50.9 Iron deficiency anemia, unspecified; E78.5 Hyperlipidemia, unspecified; E87.6 Hypokalemia; I47.10 Supraventricular tachycardia, unspecified; I73.1 Thromboangiitis obliterans [Buerger's disease]; F17.290 Nicotine dependence, other tobacco product, uncomplicated; F31.9 Bipolar disorder, unspecified; F41.9 Anxiety disorder, unspecified; Z79.1 Long term (current) use of non-steroidal anti-inflammatories (NSAID); Z79.899 Other long term (current) drug therapy; Z87.01 Personal history of pneumonia (recurrent); G43.909 Migraine, unspecified, not intractable, without status migrainosus; G89.29 Other chronic pain; M10.9 Gout, unspecified; M19.90 Unspecified osteoarthritis, unspecified site; M54.2 Cervicalgia; M54.6 Pain in thoracic spine; M54.50 Low back pain, unspecified; R00.1 Bradycardia, unspecified
CPT/HCPCS: 36415; 71046; 71275; 80048; 80053; 81001; 83605; 83735; 83880; 84132; 84145; 84484; 85025; 85379; 85610; 85730; 87040; 87070; 87205; 87449; 87636; 93005; 94640; 94760; 96374; 96375; 99285

== ENCOUNTER 2024-09-04 12:06 | Emergency (ER) | payer OTHER ==
[2024-09-04 12:12] VITALS: TEMP 98
--- NOTE | 2024-09-04 12:27 | ED ---
General Adult HPI - General Chief complaint: Recheck/Abnormal Lab/Rx Stated complaint: Generalized pain Time Seen by Provider: 09/04/24 12:13 Source: patient Mode of arrival: ambulatory - History of Present Illness Initial comments: Dictation was produced using Holidu dictation software. please excuse any grammatical, word or spelling errors. Chief Complaint: 54-year-old female with joint pain History of Present Illness: Patient 54-year-old female presents with acute on chronic joint pain. Patient has for the last year suffered chronic joint pain states that she was told it was from gout. Recently seen her primary care doctor where she is having a rheumatologic workup. States that she takes pain medicines at home. States that the only medications that help her in the emergency department is Dilaudid. No other complaints. The ROS documented in this emergency department record has been reviewed and confirmed by me. Those systems with pertinent positive or negative responses have been documented in the HPI. All other systems are other negative and/or noncontributory. - Related Data Home Medications Medication Instructions Recorded Confirmed Albuterol Inhaler [Ventolin Hfa 2 puff INHALATION RT-QID PRN 05/27/24 07/05/24 Inhaler] Budesonide [Pulmicort Flexhaler] 1 puff INHALATION RT-BID 05/27/24 07/05/24 Diclofenac Sodium Gel [Voltaren 1% 2 gm TOPICAL QID 05/27/24 07/05/24 Gel] Gabapentin 300 mg PO TID 05/27/24 07/05/24 HYDROcodone/APAP 10-325MG [[place] 1 tab PO Q6H 05/27/24 07/05/24 10-325] Ibuprofen [Motrin] 600 mg PO TID 05/27/24 07/05/24 Lidocaine 5% Oint [Xylocaine 5% 1 applic TOPICAL QID PRN 05/27/24 07/05/24 Oint] lamoTRIgine [LaMICtal] 25 mg PO BID 05/27/24 07/05/24 Meloxicam [Mobic] 7.5 mg PO BID 07/05/24 07/05/24 Previous Rx's Medication Instructions Recorded Baclofen 10 mg PO BID PRN #60 tab 04/12/22 Butalb/APAP/Caff 50-325-40Mg 1 tab PO BID PRN #60 tab 04/12/22 [Fioricet 50-325-40] DULoxetine HCL [Cymbalta] 60 mg PO HS 30 Days #30 cap 04/12/22 QUEtiapine [SEROquel] 100 mg PO HS 30 Days #30 tab 04/12/22 rOPINIRole HCL [Requip] 0.25 mg PO HS PRN #30 tab 04/12/22 Metoprolol Tartrate [Lopressor] 25 mg PO BID #60 tab 06/05/24 amLODIPine [Norvasc] 10 mg PO DAILY #30 tab 06/05/24 methylPREDNISolone Dose Pack 4 mg PO DIRECTED #21 tab 07/09/24 [Medrol Dose Pack] Allergies Allergy/AdvReac Type Severity Reaction Status Date / Time aspirin AdvReac Nausea & Verified 09/04/24 12:12 Vomiting Review of Systems ROS Statement: Those systems with pertinent positive or pertinent negative responses have been documented in the HPI. ROS Other: All systems not noted in ROS Statement are negative. 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 Date of last positivie culture/infection: 05/28/24 MDRO Source:: nasal, sputum Past Surgical History: Orthopedic Surgery, Tubal Ligation, Uterine Ablation Additional Past Surgical History / Comment(s): RIGHT ELBOW SURGERY , adenosine given x [address] hospital on 09/06/20 for SVT Past Anesthesia/Blood Transfusion Reactions: No Reported Reaction Additional Past Anesthesia/Blood Transfusion Reaction / Comment(s): NEVER HAD BLOOD TRANSFUSION Past Psychological History: Anxiety, Bipolar, Depression Smoking Status: Current every day smoker, Vaper Past Alcohol Use History: None Reported Past Drug Use History: None Reported - Past Family History Mother Family Medical History: Coronary Artery Disease (CAD), Diabetes Mellitus, Hypertension Additional Family Medical History / Comment(s): LUPUS Father Family Medical History: Dementia General Exam - General Exam Comments Initial Comments: PHYSICAL EXAM: General Impression: Alert and oriented x3, not in acute distress, tearful HEENT: Normocephalic atraumatic, extra-ocular movements intact, pupils equal and reactive to light bilaterally, mucous membranes moist. Cardiovascular: Heart regular rate and rhythm Chest: Able to complete full sentences, no retractions, no tachypnea Abdomen: abdomen soft, non-tender, non-distended, no organomegaly Musculoskeletal: Pulses present and equal in all extremities, no peripheral edema Motor: no focal deficits noted Neurological: CN II-XII grossly intact, no focal motor or sensory deficits noted Skin: Intact with no visualized rashes Psych: Normal affect and mood Course Vital Signs 09/04/24 12:07 Temperature 98 F Pulse Rate 82 Respiratory 18 Rate Blood Pressure 153/80 O2 Sat by Pulse 99 Oximetry Medical Decision Making - Medical Decision Making Was pt. sent in by a medical professional or institution (, PA, COMMUNICATIONS CONSULTANT, urgent care, hospital, or senior care...) When possible be specific @ -No Did you speak to anyone other than the patient for history (EMS, parent, family, police, friend...)? What history was obtained from this source @ -No Did you review nursing and triage notes (agree or disagree)? Why? @ -I reviewed and agree with nursing and triage notes Were old charts reviewed (outside hosp., previous admission, EMS record, old EKG, old radiological studies, urgent care reports/EKG's, senior care records)? Report findings @ -No old charts were reviewed Differential Diagnosis (chest pain, altered mental status, abdominal pain women, abdominal pain men, vaginal bleeding, musculoskeletal, weakness, fever, dyspnea, syncope, headache, dizziness, GI bleed, back pain, seizure, CVA, palpatations, mental health)? @ -Fibromyalgia, gout, crystal arthropathy EKG interpreted by me (3pts min.). @ -None done X-rays interpreted by me (1pt min.). @ -None done CT interpreted by me (1pt min.). @ -None done U/S interpreted by me (1pt. min.). @ -None done What testing was considered but not performed or refused? (CT, X-rays, U/S, labs)? Why? @ -None What meds were considered but not given or refused? Why? @ -None Was smoking cessation discussed for >3mins.? @ -No Were there social determinants of health that impacted care today? How? (Homelessness, low income, unemployed, alcoholism, drug addiction, transportation, low edu. Level, literacy, decrease access to med. care, custodial, rehab)? @ -No Was there de-escalation of care discussed even if they declined (Discuss DNR or withdrawal of care, Hospice)? DNR status @ -No What co-morbidities impacted this encounter? (DM, HTN, Smoking, COPD, CAD, Cancer, CVA, ARF, Chemo, Hep., AIDS, mental health diagnosis, sleep apnea, morbid obesity)? @ -None Was patient admitted / discharged? Hospital course, mention meds given and route, prescriptions, significant lab abnormalities, going to OR and other pertinent info. @ -54-year-old female acute on chronic polyarthralgia. Patient reports history of chronic arthralgia. Vital signs stable. Patient currently working with a primary care doctor regarding this. Vital signs stable. Patient well- appearing. Given some symptomatic treatment. Patient discharged told to follow-up with a primary care doctor Did you discuss the management of the patient with other professionals (professionals i.e. , PA, COMMUNICATIONS CONSULTANT, lab, RT, psych nurse, social media executive, college service officer, teacher, housing officer, casey saw operator)? Give summary @ -No Was critical care preformed (if so, how long)? @ -No Undiagnosed new problem with uncertain prognosis? @ -No Drug Therapy requiring intensive monitoring for toxicity (Heparin, Nitro, Insulin, Cardizem)? @ -No Were any procedures done? @ -No Diagnosis/symptom? Acute, or Chronic, or Acute on Chronic? Uncomplicated (without systemic symptoms) or Complicated (systemic symptoms)? @ -Chronic polyarthralgia Side effects of treatment? @ -No Exacerbation, Progression, or Severe Exacerbation? @ -No Poses a threat to life or bodily function? How? (Chest pain, [place], DC, pneumonia, PE, COPD, DKA, ARF, appy, cholecystitis, CVA, Diverticulitis, Homicidal, Suicidal, threat to staff... and all critical care pts) @ -No Disposition Clinical Impression: Joint pain Disposition: HOME SELF-CARE Condition: Fair Instructions (If sedation given, give patient instructions): Non- pharmacological Pain Management Therapies for Adults (ED) Is patient prescribed a controlled substance at d/c from ED?: No Referrals: Eric Smyth MD [Primary Care Provider] - 1-2 days Time of Disposition: 12:26
[2024-09-04] MEDS: DEXAMETHASONE SOD PHOSPHATE 10 MG/ML 1 ML VIAL IM STA (12:33)
[2024-09-04] MEDS: HYDROmorphone 1 MG/ML 1 ML SYRINGE IM STA (12:33)
[2024-09-04 12:44] VITALS: BP 139/75; PULSE 63; RESP 20
== END 2024-09-04 12:44 | disposition home or self-care (01) ==
LOC: EC 12:06
DX: G89.29 Other chronic pain (principal); M25.50 Pain in unspecified joint; F17.290 Nicotine dependence, other tobacco product, uncomplicated; Z88.6 Allergy status to analgesic agent
CPT/HCPCS: 99283; 96372 ×2; J1100; J1171

== ENCOUNTER 2024-09-06 12:34 | Emergency (ER) | payer OTHER ==
[2024-09-06 13:03] VITALS: BP 160/96
--- NOTE | 2024-09-06 13:14 | ED ---
General Adult HPI - General Chief complaint: Extremity Injury, Upper Stated complaint: Generalized pain Time Seen by Provider: 09/06/24 13:13 Source: patient, RN notes reviewed Mode of arrival: ambulatory Limitations: no limitations - History of Present Illness Initial comments: 54-year-old female presenting for acute on chronic joint pain. States she has been dealing with joint pain for about a year now and has been told that it is gout. However she is currently undergoing a rheumatologic workup with her PCP. States she is having pain in her bilateral knees, bilateral wrists, and joints of her fingers. She takes [place] at home for this. States 2 days ago she received steroids and Dilaudid in the emergency department which helped relieve her symptoms. Denies fevers, chills, nausea, vomiting. - Related Data Home Medications Medication Instructions Recorded Confirmed Albuterol Inhaler [Ventolin Hfa 2 puff INHALATION RT-QID PRN 05/27/24 07/05/24 Inhaler] Budesonide [Pulmicort Flexhaler] 1 puff INHALATION RT-BID 05/27/24 07/05/24 Diclofenac Sodium Gel [Voltaren 1% 2 gm TOPICAL QID 05/27/24 07/05/24 Gel] Gabapentin 300 mg PO TID 05/27/24 07/05/24 HYDROcodone/APAP 10-325MG [[place]ilo 1 tab PO Q6H 05/27/24 07/05/24 10-325] Ibuprofen [Motrin] 600 mg PO TID 05/27/24 07/05/24 Lidocaine 5% Oint [Xylocaine 5% 1 applic TOPICAL QID PRN 05/27/24 07/05/24 Oint] lamoTRIgine [LaMICtal] 25 mg PO BID 05/27/24 07/05/24 Meloxicam [Mobic] 7.5 mg PO BID 07/05/24 07/05/24 Previous Rx's Medication Instructions Recorded Baclofen 10 mg PO BID PRN #60 tab 04/12/22 Butalb/APAP/Caff 50-325-40Mg 1 tab PO BID PRN #60 tab 04/12/22 [Fioricet 50-325-40] DULoxetine HCL [Cymbalta] 60 mg PO HS 30 Days #30 cap 04/12/22 QUEtiapine [SEROquel] 100 mg PO HS 30 Days #30 tab 04/12/22 rOPINIRole HCL [Requip] 0.25 mg PO HS PRN #30 tab 04/12/22 Metoprolol Tartrate [Lopressor] 25 mg PO BID #60 tab 06/05/24 amLODIPine [Norvasc] 10 mg PO DAILY #30 tab 06/05/24 methylPREDNISolone Dose Pack 4 mg PO DIRECTED #21 tab 07/09/24 [Medrol Dose Pack] Allergies Allergy/AdvReac Type Severity Reaction Status Date / Time aspirin AdvReac Nausea & Verified 09/06/24 12:42 Vomiting Review of Systems ROS Statement: Those systems with pertinent positive or pertinent negative responses have been documented in the HPI. ROS Other: All systems not noted in ROS Statement are negative. 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 Date of last positivie culture/infection: 05/28/24 MDRO Source:: nasal, sputum Past Surgical History: Orthopedic Surgery, Tubal Ligation, Uterine Ablation Additional Past Surgical History / Comment(s): RIGHT ELBOW SURGERY , adenosine given x [address] to hospital on 09/06/20 for SVT Past Anesthesia/Blood Transfusion Reactions: No Reported Reaction Additional Past Anesthesia/Blood Transfusion Reaction / Comment(s): NEVER HAD BLOOD TRANSFUSION Past Psychological History: Anxiety, Bipolar, Depression Smoking Status: Current every day smoker, Vaper Past Alcohol Use History: None Reported Past Drug Use History: None Reported - Past Family History Mother Family Medical History: Coronary Artery Disease (CAD), Diabetes Mellitus, Hypertension Additional Family Medical History / Comment(s): LUPUS Father Family Medical History: Dementia General Exam Limitations: no limitations General appearance: alert, other (Patient is very tearful on exam) Head exam: Present: atraumatic, normocephalic, normal inspection Eye exam: Present: normal appearance, PERRL, EOMI. Absent: scleral icterus, conjunctival injection, periorbital swelling ENT exam: Present: normal exam, mucous membranes moist Neck exam: Present: normal inspection. Absent: tenderness, meningismus, lymphadenopathy Respiratory exam: Present: normal lung sounds bilaterally. Absent: respiratory distress, wheezes, rales, rhonchi, stridor Cardiovascular Exam: Present: regular rate, normal rhythm, normal heart sounds. Absent: systolic murmur, diastolic murmur, rubs, gallop, clicks Extremities exam: Present: normal inspection, full ROM, normal capillary refill. Absent: tenderness, pedal edema, joint swelling, calf tenderness Neurological exam: Present: alert, oriented X3 Psychiatric exam: Present: normal affect, normal mood Skin exam: Present: warm, dry, intact, normal color. Absent: rash Course Vital Signs 09/06/24 09/06/24 12:39 12:59 Temperature 98.1 F 98.3 F Pulse Rate 73 75 Respiratory 18 22 Rate Blood Pressure 175/88 160/96 O2 Sat by Pulse 98 95 Oximetry Medical Decision Making - Medical Decision Making Was pt. sent in by a medical professional or institution (DIXIE Nugent, ANTENNA INSTALLER, urgent care, hospital, or residential...) When possible be specific @ -No Did you speak to anyone other than the patient for history (EMS, parent, family, police, friend...)? What history was obtained from this source @ -No Did you review nursing and triage notes (agree or disagree)? Why? @ -I reviewed and agree with nursing and triage notes Were old charts reviewed (outside hosp., previous admission, EMS record, old EKG, old radiological studies, urgent care reports/EKG's, residential records)? Report findings @ -No old charts were reviewed Differential Diagnosis (chest pain, altered mental status, abdominal pain women, abdominal pain men, vaginal bleeding, weakness, fever, dyspnea, syncope, headache, dizziness, GI bleed, back pain, seizure, CVA, palpatations, mental health, musculoskeletal)? @ -Differential Musculoskeletal Fibromyalgia, gout, muscular strain, contusion, ligament sprain, fracture, arthritis, septic arthritis, bursitis, cellulitis, muscle spasm, nerve compression, DVT, arterial occlusion, herpes zoster, electrolyte abnormality, tumor.... This is not meant to be in all inclusive list EKG interpreted by me (3pts min.). @ -None X-rays interpreted by me (1pt min.). @ -None done CT interpreted by me (1pt min.). @ -None done U/S interpreted by me (1pt. min.). @ -None done What testing was considered but not performed or refused? (CT, X-rays, U/S, labs)? Why? @ -None What meds were considered but not given or refused? Why? @ -None Did you discuss the management of the patient with other professionals (professionals i.e. , PA, ANTENNA INSTALLER, lab, RT, psych nurse, social science instructor, associate financial analyst, teacher, security officers and guards, family preservation caseworker)? Give summary @ -No Was smoking cessation discussed for >3mins.? @ -No Was critical care preformed (if so, how long)? @ -No Were there social determinants of health that impacted care today? How? (Homelessness, low income, unemployed, alcoholism, drug addiction, transportation, low edu. Level, literacy, decrease access to med. care, custodial, rehab)? @ -No Was there de-escalation of care discussed even if they declined (Discuss DNR or withdrawal of care, Hospice)? DNR status @ -No What co-morbidities impacted this encounter? (DM, HTN, Smoking, COPD, CAD, Cancer, CVA, ARF, Chemo, Hep., AIDS, mental health diagnosis, sleep apnea, morbid obesity)? @ -None Was patient admitted / discharged? Hospital course, mention meds given and route, prescriptions, significant lab abnormalities, going to OR and other pertinent info. @ -Discharged. 54 year old female presenting with acute on chronic joint pain. No new or acute symptoms. Currently working with her PCP for this. Patient was provided with symptomatic treatment and advised to follow-up with her PCP tomorrow. Appropriate return precautions discussed. Case was discussed with my ED attending Dr. Dudley Undiagnosed new problem with uncertain prognosis? @ -No Drug Therapy requiring intensive monitoring for toxicity (Heparin, Nitro, Insulin, Cardizem)? @ -No Were any procedures done? @ -No Diagnosis/symptom? @ -Chronic polyarthralgia Acute, or Chronic, or Acute on Chronic? @ -Acute Uncomplicated (without systemic symptoms) or Complicated (systemic symptoms)? @ -Uncomplicated Side effects of treatment? @ -No Exacerbation, Progression, or Severe Exacerbation? @ -No Poses a threat to life or bodily function? How? (Chest pain, [place], [place], pneumonia, PE, COPD, DKA, ARF, appy, cholecystitis, CVA, Diverticulitis, Homicidal, Suicidal, threat to staff... and all critical care pts) @ -No Disposition Clinical Impression: Chronic polyarthritis Disposition: HOME SELF-CARE Condition: Stable Instructions (If sedation given, give patient instructions): Arthralgia (ED) Additional Instructions: Follow-up with your PCP tomorrow. Please return to the Emergency Department if symptoms worsen or any other concerns. Is patient prescribed a controlled substance at d/c from ED?: No Referrals: Eric Smyth MD [Primary Care Provider] - 1-2 days Time of Disposition: 13:53
[2024-09-06] MEDS: HYDROmorphone 1 MG/ML 1 ML SYRINGE IM STA (13:21)
[2024-09-06] MEDS: DEXAMETHASONE SOD PHOSPHATE 10 MG/ML 1 ML VIAL IM STA (13:25)
[2024-09-06 14:24] VITALS: PULSE 85; RESP 16; TEMP 98
== END 2024-09-06 14:23 | disposition home or self-care (01) ==
LOC: EC 12:34
DX: G89.29 Other chronic pain (principal); M13.0 Polyarthritis, unspecified; F17.290 Nicotine dependence, other tobacco product, uncomplicated; Z88.6 Allergy status to analgesic agent
CPT/HCPCS: 99283; 96372 ×2; J1100; J1171

== ENCOUNTER 2024-09-19 10:48 | Emergency (ER) | payer OTHER ==
[2024-09-19 10:53] VITALS: TEMP 97.9
--- NOTE | 2024-09-19 11:41 | ED ---
General Adult HPI - General Chief complaint: Extremity Problem,Nontraumatic Stated complaint: Arthritis, body pain Time Seen by Provider: 09/19/24 11:06 Source: patient, RN notes reviewed Mode of arrival: ambulatory Limitations: no limitations - History of Present Illness Initial comments: 54-year-old female presents to the emergency department for evaluation of joint pain. Patient states that she has been dealing with this for the past few months. She has been following closely with her primary care provider. She had laboratory studies performed and was referred to a licensing specialist. She reports that her rheumatology appointment is on 29 September. She states that she ran out of her BabyWatch and is having difficulty controlling the pain at home. She reports pain in bilateral wrists, ankles, knees, shoulders. She denies any recent fever, chills, cough, congestion, nausea, vomiting, chest pain, shortness of breath. - Related Data Home Medications Medication Instructions Recorded Confirmed Albuterol Inhaler [Ventolin Hfa 2 puff INHALATION RT-QID PRN 05/27/24 07/05/24 Inhaler] Budesonide [Pulmicort Flexhaler] 1 puff INHALATION RT-BID 05/27/24 07/05/24 Diclofenac Sodium Gel [Voltaren 1% 2 gm TOPICAL QID 05/27/24 07/05/24 Gel] Gabapentin 300 mg PO TID 05/27/24 07/05/24 HYDROcodone/APAP 10-325MG [[place] 1 tab PO Q6H 05/27/24 07/05/24 10-325] Ibuprofen [Motrin] 600 mg PO TID 05/27/24 07/05/24 Lidocaine 5% Oint [Xylocaine 5% 1 applic TOPICAL QID PRN 05/27/24 07/05/24 Oint] lamoTRIgine [LaMICtal] 25 mg PO BID 05/27/24 07/05/24 Meloxicam [Mobic] 7.5 mg PO BID 07/05/24 07/05/24 Previous Rx's Medication Instructions Recorded Baclofen 10 mg PO BID PRN #60 tab 04/12/22 Butalb/APAP/Caff 50-325-40Mg 1 tab PO BID PRN #60 tab 04/12/22 [Fioricet 50-325-40] DULoxetine HCL [Cymbalta] 60 mg PO HS 30 Days #30 cap 04/12/22 QUEtiapine [SEROquel] 100 mg PO HS 30 Days #30 tab 04/12/22 rOPINIRole HCL [Requip] 0.25 mg PO HS PRN #30 tab 04/12/22 Metoprolol Tartrate [Lopressor] 25 mg PO BID #60 tab 06/05/24 amLODIPine [Norvasc] 10 mg PO DAILY #30 tab 06/05/24 methylPREDNISolone Dose Pack 4 mg PO DIRECTED #21 tab 07/09/24 [Medrol Dose Pack] Allergies Allergy/AdvReac Type Severity Reaction Status Date / Time aspirin AdvReac Nausea & Verified 09/06/24 12:42 Vomiting Review of Systems ROS Statement: Those systems with pertinent positive or pertinent negative responses have been documented in the HPI. ROS Other: All systems not noted in ROS Statement are negative. 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 Date of last positivie culture/infection: 05/28/24 MDRO Source:: nasal, sputum Past Surgical History: Orthopedic Surgery, Tubal Ligation, Uterine Ablation Additional Past Surgical History / Comment(s): RIGHT ELBOW SURGERY , adenosine given x [address] to hospital on 09/06/20 for SVT Past Anesthesia/Blood Transfusion Reactions: No Reported Reaction Additional Past Anesthesia/Blood Transfusion Reaction / Comment(s): NEVER HAD BLOOD TRANSFUSION Past Psychological History: Anxiety, Bipolar, Depression Smoking Status: Current every day smoker, Vaper Past Alcohol Use History: None Reported Past Drug Use History: None Reported - Past Family History Mother Family Medical History: Coronary Artery Disease (CAD), Diabetes Mellitus, Hypertension Additional Family Medical History / Comment(s): LUPUS Father Family Medical History: Dementia General Exam Limitations: no limitations General appearance: alert, in no apparent distress Head exam: Present: atraumatic, normocephalic, normal inspection Eye exam: Present: normal appearance, PERRL, EOMI. Absent: scleral icterus, conjunctival injection, periorbital swelling ENT exam: Present: normal exam, mucous membranes moist Respiratory exam: Present: normal lung sounds bilaterally. Absent: respiratory distress, wheezes, rales, rhonchi, stridor Cardiovascular Exam: Present: regular rate, normal rhythm, normal heart sounds. Absent: systolic murmur, diastolic murmur, rubs, gallop, clicks Extremities exam: Present: full ROM, tenderness, normal capillary refill. Absent: pedal edema, joint swelling, calf tenderness Neurological exam: Present: alert, oriented X3 Psychiatric exam: Present: normal affect, normal mood Skin exam: Present: warm, dry, intact, normal color. Absent: rash Course Vital Signs 09/19/24 10:50 Temperature 97.9 F Pulse Rate 82 Respiratory 20 Rate Blood Pressure 112/84 O2 Sat by Pulse 99 Oximetry Medical Decision Making - Medical Decision Making Was pt. sent in by a medical professional or institution (, PA, CHEMICAL PROCESS ANALYST, urgent care, hospital, or halfway...) When possible be specific @ -[No] Did you speak to anyone other than the patient for history (EMS, parent, family, police, friend...)? What history was obtained from this source @ -[No] Did you review nursing and triage notes (agree or disagree)? Why? @ -[I reviewed and agree with nursing and triage notes] Were old charts reviewed (outside hosp., previous admission, EMS record, old EKG, old radiological studies, urgent care reports/EKG's, halfway records)? Report findings @ -[No old charts were reviewed] Differential Diagnosis (chest pain, altered mental status, abdominal pain women, abdominal pain men, vaginal bleeding, weakness, fever, dyspnea, syncope, headache, dizziness, GI bleed, back pain, seizure, CVA, palpatations, mental health, musculoskeletal)? @ -Differential Musculoskeletal Muscular strain, contusion, ligament sprain, fracture, arthritis, septic arthritis, bursitis, cellulitis, muscle spasm, nerve compression, DVT, arterial occlusion, herpes zoster, electrolyte abnormality, tumor.... This is not meant to be in all inclusive list EKG interpreted by me (3pts min.). @ -None X-rays interpreted by me (1pt min.). @ -[None done] CT interpreted by me (1pt min.). @ -[None done] U/S interpreted by me (1pt. min.). @ -[None done] What testing was considered but not performed or refused? (CT, X-rays, U/S, labs)? Why? @ -[None] What meds were considered but not given or refused? Why? @ -[None] Did you discuss the management of the patient with other professionals (professionals i.e. , PA, CHEMICAL PROCESS ANALYST, lab, RT, psych nurse, clinical social worker, food service steward, teacher, commissioned defence force officer, bottle caser)? Give summary @ -[No] Was smoking cessation discussed for >3mins.? @ -[No] Was critical care preformed (if so, how long)? @ -[No] Were there social determinants of health that impacted care today? How? (Homelessness, low income, unemployed, alcoholism, drug addiction, transportation, low edu. Level, literacy, decrease access to med. care, shelter, rehab)? @ -[No] Was there de-escalation of care discussed even if they declined (Discuss DNR or withdrawal of care, Hospice)? DNR status @ -[No] What co-morbidities impacted this encounter? (DM, HTN, Smoking, COPD, CAD, Cancer, CVA, ARF, Chemo, Hep., AIDS, mental health diagnosis, sleep apnea, morbid obesity)? @ -[None] Was patient admitted / discharged? Hospital course, mention meds given and route, prescriptions, significant lab abnormalities, going to OR and other pertinent info. @ -[hospital course] Undiagnosed new problem with uncertain prognosis? @ -[No] Drug Therapy requiring intensive monitoring for toxicity (Heparin, Nitro, Insulin, Cardizem)? @ -[No] Were any procedures done? @ -[No] Diagnosis/symptom? @ -[default] Acute, or Chronic, or Acute on Chronic? @ -[default] Uncomplicated (without systemic symptoms) or Complicated (systemic symptoms)? @ -[default] Side effects of treatment? @ -[No] Exacerbation, Progression, or Severe Exacerbation? @ -[No] Poses a threat to life or bodily function? How? (Chest pain, [place], [place], pneumonia, PE, COPD, DKA, ARF, appy, cholecystitis, CVA, Diverticulitis, Homicidal, Suicidal, threat to staff... and all critical care pts) @ -[No] Disposition Clinical Impression: Joint pain Disposition: HOME SELF-CARE Condition: Stable Instructions (If sedation given, give patient instructions): Arthralgia (ED) Additional Instructions: Please follow up with rheumatology for your appointment as scheduled. Return to the emergency department for new or worsening symptoms. Is patient prescribed a controlled substance at d/c from ED?: No Referrals: Eric Smyth MD [Primary Care Provider] - 1-2 days
[2024-09-19] MEDS: HYDROmorphone 1 MG/ML 1 ML SYRINGE IM STA (11:46)
[2024-09-19] MEDS: LIDOCAINE 4% PATCH TOPICAL ONE (11:47)
[2024-09-19] MEDS: KETOROLAC 15 MG/ML 1 ML VIAL IM STA (11:47)
[2024-09-19 12:34] VITALS: BP 155/77; PULSE 77; RESP 18
== END 2024-09-19 12:35 | disposition home or self-care (01) ==
LOC: EC 10:48
DX: M25.572 Pain in left ankle and joints of left foot (principal); M25.571 Pain in right ankle and joints of right foot; M25.562 Pain in left knee; M25.561 Pain in right knee; M25.512 Pain in left shoulder; M25.511 Pain in right shoulder; M25.532 Pain in left wrist; M25.531 Pain in right wrist; F17.290 Nicotine dependence, other tobacco product, uncomplicated; Z88.6 Allergy status to analgesic agent
CPT/HCPCS: 99283; 96372; J1171; J1885

== ENCOUNTER 2024-10-02 17:42 | Emergency (ER) | payer OTHER ==
[2024-10-02 17:54] VITALS: RESP 18
[2024-10-02] MEDS: KETOROLAC 15 MG/ML 1 ML VIAL IVP STA ×2 (18:51→19:37)
[2024-10-02] MEDS: methylPREDNISolone SOD SUCCI 125 MG/2 ML VIAL IV STA (18:52)
[2024-10-02] MEDS: HYDROmorphone 1 MG/ML 1 ML SYRINGE IVP STA ×2 (18:52→19:36)
--- NOTE | 2024-10-02 19:43 | ED ---
General Adult HPI - General Chief complaint: Recheck/Abnormal Lab/Rx Stated complaint: pain in joints Time Seen by Provider: 10/02/24 17:57 Source: patient, RN notes reviewed Mode of arrival: ambulatory Limitations: no limitations - History of Present Illness Initial comments: This is a 54-year-old female with history including RA, OA and gout presenting for diffuse joint pain (12/11) x 2 days. Patient states she is having significant intermittent pain in the fingers of her bilateral hands especially her right hand and wrist, left shoulder and knees. Patient endorses use of [place] with no relief. States steroids have helped with her pain in the past. Denies recent trauma or other known cause for pain. Patient states that this does feel like an RA flare. Onset/Timin -: days(s) - Related Data Home Medications Medication Instructions Recorded Confirmed Albuterol Inhaler [Ventolin Hfa 2 puff INHALATION RT-QID PRN 05/27/24 07/05/24 Inhaler] Budesonide [Pulmicort Flexhaler] 1 puff INHALATION RT-BID 05/27/24 07/05/24 Diclofenac Sodium Gel [Voltaren 1% 2 gm TOPICAL QID 05/27/24 07/05/24 Gel] Gabapentin 300 mg PO TID 05/27/24 07/05/24 HYDROcodone/APAP 10-325MG [[place] 1 tab PO Q6H 05/27/24 07/05/24 10-325] Ibuprofen [Motrin] 600 mg PO TID 05/27/24 07/05/24 Lidocaine 5% Oint [Xylocaine 5% 1 applic TOPICAL QID PRN 05/27/24 07/05/24 Oint] lamoTRIgine [LaMICtal] 25 mg PO BID 05/27/24 07/05/24 Meloxicam [Mobic] 7.5 mg PO BID 07/05/24 07/05/24 Previous Rx's Medication Instructions Recorded Baclofen 10 mg PO BID PRN #60 tab 04/12/22 Butalb/APAP/Caff 50-325-40Mg 1 tab PO BID PRN #60 tab 04/12/22 [Fioricet 50-325-40] DULoxetine HCL [Cymbalta] 60 mg PO HS 30 Days #30 cap 04/12/22 QUEtiapine [SEROquel] 100 mg PO HS 30 Days #30 tab 04/12/22 rOPINIRole HCL [Requip] 0.25 mg PO HS PRN #30 tab 04/12/22 Metoprolol Tartrate [Lopressor] 25 mg PO BID #60 tab 06/05/24 amLODIPine [Norvasc] 10 mg PO DAILY #30 tab 06/05/24 methylPREDNISolone Dose Pack 4 mg PO DIRECTED #21 tab 07/09/24 [Medrol Dose Pack] Ibuprofen [Motrin] 600 mg PO Q8HR PRN #30 tab 10/02/24 predniSONE 50 mg PO DAILY #5 tab 10/02/24 Allergies Allergy/AdvReac Type Severity Reaction Status Date / Time aspirin AdvReac Nausea & Verified 10/02/24 17:54 Vomiting Review of Systems ROS Statement: Those systems with pertinent positive or pertinent negative responses have been documented in the HPI. ROS Other: All systems not noted in ROS Statement are negative. 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 Date of last positivie culture/infection: 05/28/24 MDRO Source:: nasal, sputum Past Surgical History: Orthopedic Surgery, Tubal Ligation, Uterine Ablation Additional Past Surgical History / Comment(s): RIGHT ELBOW SURGERY , adenosine given x [address] to hospital on 09/06/20 for SVT Past Anesthesia/Blood Transfusion Reactions: No Reported Reaction Additional Past Anesthesia/Blood Transfusion Reaction / Comment(s): NEVER HAD BLOOD TRANSFUSION Past Psychological History: Anxiety, Bipolar, Depression Smoking Status: Current every day smoker, Vaper Past Alcohol Use History: None Reported Past Drug Use History: None Reported - Past Family History Mother Family Medical History: Coronary Artery Disease (CAD), Diabetes Mellitus, Hypertension Additional Family Medical History / Comment(s): LUPUS Father Family Medical History: Dementia General Exam Limitations: no limitations General appearance: alert, anxious, in distress Head exam: Present: atraumatic, normocephalic, normal inspection Eye exam: Present: normal appearance, PERRL, EOMI. Absent: scleral icterus, conjunctival injection, periorbital swelling ENT exam: Present: normal exam, mucous membranes moist Neck exam: Present: normal inspection. Absent: tenderness, meningismus, lymphadenopathy Respiratory exam: Present: normal lung sounds bilaterally. Absent: respiratory distress, wheezes, rales, rhonchi, stridor Cardiovascular Exam: Present: regular rate, normal rhythm, normal heart sounds. Absent: systolic murmur, diastolic murmur, rubs, gallop, clicks GI/Abdominal exam: Present: soft, normal bowel sounds. Absent: distended, tenderness, guarding, rebound, rigid Extremities exam: Present: normal inspection, full ROM, tenderness (Bilateral PIP joint pain and tenderness of all fingers without significant edema, erythema or deformity. Also significant right wrist TTP without significant edema, erythema, deformity.), normal capillary refill, other (Distal bilateral upper and lower extremity neurovascular motor function intact. Capillary refill less than 2 seconds.). Absent: pedal edema, joint swelling, calf tenderness Back exam: Present: normal inspection Neurological exam: Present: alert, oriented X3, CN II-XII intact Psychiatric exam: Present: normal affect, normal mood Skin exam: Present: warm, dry, intact, normal color. Absent: rash Course Vital Signs 10/02/24 10/02/24 17:50 19:55 Temperature 99.6 F 98.9 F Pulse Rate 74 60 Respiratory 18 18 Rate Blood Pressure 138/73 164/81 O2 Sat by Pulse 100 100 Oximetry Medical Decision Making - Medical Decision Making Was pt. sent in by a medical professional or institution (DIXIE Nugent, SENIOR RESEARCH FELLOW, urgent care, hospital, or fdc...) When possible be specific @ -No Did you speak to anyone other than the patient for history (EMS, parent, family, police, friend...)? What history was obtained from this source @ -No Did you review nursing and triage notes (agree or disagree)? Why? @ -I reviewed and agree with nursing and triage notes Were old charts reviewed (outside hosp., previous admission, EMS record, old EKG, old radiological studies, urgent care reports/EKG's, fdc records)? Report findings @ -No old charts were reviewed Differential Diagnosis (chest pain, altered mental status, abdominal pain women, abdominal pain men, vaginal bleeding, weakness, fever, dyspnea, syncope, headache, dizziness, GI bleed, back pain, seizure, CVA, palpatations, mental health, musculoskeletal)? @ -Differential Musculoskeletal Muscular strain, contusion, ligament sprain, fracture, arthritis, septic arthritis, bursitis, cellulitis, muscle spasm, nerve compression, DVT, arterial occlusion, herpes zoster, electrolyte abnormality, tumor.... This is not meant to be in all inclusive list EKG interpreted by me (3pts min.). @ -Not done X-rays interpreted by me (1pt min.). @ -None done CT interpreted by me (1pt min.). @ -None done U/S interpreted by me (1pt. min.). @ -None done What testing was considered but not performed or refused? (CT, X-rays, U/S, labs)? Why? @ -None What meds were considered but not given or refused? Why? @ -None Did you discuss the management of the patient with other professionals (professionals i.e. , PA, SENIOR RESEARCH FELLOW, lab, RT, psych nurse, social media specialist, childcare attendant, teacher, flight communications officer, case manager specialist)? Give summary @ -No Was smoking cessation discussed for >3mins.? @ -No Was critical care preformed (if so, how long)? @ -No Were there social determinants of health that impacted care today? How? (Homelessness, low income, unemployed, alcoholism, drug addiction, transportation, low edu. Level, literacy, decrease access to med. care, assisted, rehab)? @ -No Was there de-escalation of care discussed even if they declined (Discuss DNR or withdrawal of care, Hospice)? DNR status @ -No What co-morbidities impacted this encounter? (DM, HTN, Smoking, COPD, CAD, Cancer, CVA, ARF, Chemo, Hep., AIDS, mental health diagnosis, sleep apnea, morbid obesity)? @ -RA, OA, gout Was patient admitted / discharged? Hospital course, mention meds given and route, prescriptions, significant lab abnormalities, going to OR and other pertinent info. @ -Patient initially provided IV Dilaudid, Toradol and Solu-Medrol. Provided additional Dilaudid and Toradol for ongoing pain. Prednisone and Motrin 600 sent to patient's pharmacy. Advised follow-up with PCP/rheumatology/pain management clinic for ongoing management of joint pain. Discussed patient with Dr. Stephens. Undiagnosed new problem with uncertain prognosis? @ -No Drug Therapy requiring intensive monitoring for toxicity (Heparin, Nitro, Insulin, Cardizem)? @ -No Were any procedures done? @ -No Diagnosis/symptom? @ -Rheumatoid arthritis flare Acute, or Chronic, or Acute on Chronic? @ -Acute Uncomplicated (without systemic symptoms) or Complicated (systemic symptoms)? @ -Uncomplicated Side effects of treatment? @ -No Exacerbation, Progression, or Severe Exacerbation? @ -No Poses a threat to life or bodily function? How? (Chest pain, [place], [place], pneumonia, PE, COPD, DKA, ARF, appy, cholecystitis, CVA, Diverticulitis, Homicidal, Suicidal, threat to staff... and all critical care pts) @ -No Disposition Clinical Impression: Joint pain Disposition: HOME SELF-CARE Condition: Fair Instructions (If sedation given, give patient instructions): Rheumatoid Arthritis (ED), Arthralgia (ED) Additional Instructions: Alternate Tylenol/Motrin every 4 hours for pain. Follow-up with PCP/quarter section ironer/pain management clinic for ongoing management of joint pain. Prescriptions: Ibuprofen [Motrin] 600 mg PO Q8HR PRN #30 tab PRN Reason: Pain predniSONE 50 mg PO DAILY #5 tab Is patient prescribed a controlled substance at d/c from ED?: No Referrals: None,Stated [Primary Care Provider] - 1-2 days Lashae Rodriguez MD [REFERRING] - 1-2 days Latoya Scherer MD [STAFF PHYSICIAN] - 1-2 days Time of Disposition: 19:41
[2024-10-02 19:56] VITALS: BP 164/81; PULSE 60; TEMP 98.9
== END 2024-10-02 20:41 | disposition home or self-care (01) ==
LOC: EC 17:42
DX: M06.9 Rheumatoid arthritis, unspecified (principal); M10.9 Gout, unspecified; F17.290 Nicotine dependence, other tobacco product, uncomplicated; Z88.6 Allergy status to analgesic agent
CPT/HCPCS: 99283; 96374; 96375; 96376; J1171; J1885; J2919